=== PATIENT | male | born 1965 | race Caucasian/White ===

== ENCOUNTER 2018-08-14 20:10 | Inpatient (IN) | payer OTHER ==
[~2018-08-14] VITALS: Ht 180.3 cm; Wt 60.9 kg
[2018-08-14 20:27] LABS: BASOPHILS % (AUTO) 0 % (0-10); EOSINOPHILS % (AUTO) 1 % (0-10); HEMATOCRIT 37 % (40-54); HEMOGLOBIN 12.6 G/DL (13.3-17.7); LYMPHOCYTES # (AUTO) 1.9 X 10^3 (1.0-4.0); LYMPHOCYTES % (AUTO) 30 % (12-44); MEAN CORPUSCULAR HEMOGLOBIN 29 PG (25-34); MEAN CORPUSCULAR HGB CONC 34 G/DL (32-36); MEAN CORPUSCULAR VOLUME 86 FL (80-99); MEAN PLATELET VOLUME 11.6 FL (7.4-10.4); MONOCYTES # (AUTO) 0.5 X 10^3 (0.0-1.0); MONOCYTES % (AUTO) 7 % (0-12); NEUTROPHILS # (AUTO) 3.9 X 10^3 (1.8-7.8); NEUTROPHILS % (AUTO) 62 % (42-75); PLATELET COUNT 160 10^3/uL (130-400); RED BLOOD COUNT 4.28 10^6/uL (4.35-5.85); RED CELL DISTRIBUTION WIDTH 13.6 % (10.0-14.5); WHITE BLOOD COUNT 6.2 10^3/uL (4.3-11.0)
--- NOTE | 2018-08-14 20:29 | ED Abdominal Pain ---
General Stated Complaint: ELEVATED BLOOD SUGAR Source of Information: Patient, EMS Exam Limitations: No Limitations History of Present Illness Date Seen by Provider: Aug 14, 2018 Time Seen by Provider: 20:08 Initial Comments Patient presents to ER by EMS from [place] where he lives now with chief complaint of about 3-4 hours ago having some epigastric abdominal pain nausea vomiting loose but not watery stools. He had normal bowel movements yesterday. No fevers chills. He says he has history of pancreatitis and status post Whipple procedure couple years ago in [place], [place]. He's originally from [place] but moved around a lot lately. He had a couple hernia surgery was done at [facility]. He is not taking anything for pain or nausea at home. Does not follow with a primary care doctor since moving to [place]. He has a history of diabetes for which he uses Levemir in the morning and sliding scale NovoLog throughout the day. He does not have any strips that he has not checked his sugar lately. EMS remarks that it read high. They gave him 4 of Zofran and started a half a liter fluids. Smokes cigarettes but quit drinking 11 months ago. Thinks the pancreatitis started from the alcohol. Allergies and Home Medications Allergies Coded Allergies: No Known Drug Allergies (Unverified , 08/14/18) Patient Home Medication List Home Medication List Reviewed: Yes Review of Systems Review of Systems Constitutional: No chills, No diaphoresis, No fever EENTM: No Blurred Vision, No Double Vision Respiratory: Denies Cough, Denies Shortness of Air Cardiovascular: Denies Chest Pain, Denies Lightheadedness Gastrointestinal: Denies Constipated, Denies Diarrhea; Nausea, Vomiting Genitourinary: Denies Burning, Denies Drainage Musculoskeletal: No back pain, No joint pain Skin: No pruritus, No rash Psychiatric/Neurological: Denies Headache, Denies Numbness Past Xrzlruw-Zmkuvw-Qzwhjq Hx Patient Social History Alcohol Use: Past History Recreational Drug Use: No Smoking Status: Current Everyday Smoker Type Used: Cigarettes Physical Exam Vital Signs Vital Signs - First Documented 08/14/18 20:12 Temp 97.9 Pulse 84 Resp 18 B/P (MAP) 136/96 (109) Pulse Ox 100 O2 Delivery Room Air Capillary Refill : Height/Weight/BMI Height: '" Weight: lbs. oz. kg; BMI Method: General Appearance: WD/WN, moderate distress HEENT: PERRL/EOMI, normal ENT inspection, pharynx normal (Oropharynx is dry) Neck: non-tender, full range of motion, supple, normal inspection Respiratory: chest non-tender, lungs clear, normal breath sounds, no respiratory distress, no accessory muscle use Cardiovascular: normal peripheral pulses, regular rate, rhythm, no edema Gastrointestinal: normal bowel sounds, no organomegaly, guarding, tenderness, other (Previous well-healed scars) Neurologic/Psychiatric: alert, oriented x 3 Skin: normal color, warm/dry Focused Exam Lactate Level 08/14/18 20:20: Lactic Acid Level 4.65*H Lactic Acid Level Laboratory Tests Test 08/14/18 20:20 Lactic Acid Level 4.65 MMOL/L (0.50-2.00) *H Progress/Results/Core Measures Results/Orders Lab Results Laboratory Tests Test 08/14/18 20:20 08/14/18 20:45 Range/Units White Blood Count 6.2 4.3-11.0 10^3/uL Red Blood Count 4.28 L 4.35-5.85 10^6/uL Hemoglobin 12.6 L 13.3-17.7 G/DL Hematocrit 37 L 40-54 % Mean Corpuscular Volume 86 80-99 FL Mean Corpuscular Hemoglobin 29 25-34 PG Mean Corpuscular Hemoglobin Concent 34 32-36 G/DL Red Cell Distribution Width 13.6 10.0-14.5 % Platelet Count 160 130-400 10^3/uL Mean Platelet Volume 11.6 H 7.4-10.4 FL Neutrophils (%) (Auto) 62 42-75 % Lymphocytes (%) (Auto) 30 12-44 % Monocytes (%) (Auto) 7 0-12 % Eosinophils (%) (Auto) 1 0-10 % Basophils (%) (Auto) 0 0-10 % Neutrophils # (Auto) 3.9 1.8-7.8 X 10^3 Lymphocytes # (Auto) 1.9 1.0-4.0 X 10^3 Monocytes # (Auto) 0.5 0.0-1.0 X 10^3 Eosinophils # (Auto) 0.0 0.0-0.3 10^3/uL Basophils # (Auto) 0.0 0.0-0.1 10^3/uL Prothrombin Time 13.7 12.2-14.7 SEC INR Comment 1.1 0.8-1.4 Activated Partial Thromboplast Time 37 H 24-35 SEC Sodium Level 128 L 135-145 MMOL/L Potassium Level 3.8 3.6-5.0 MMOL/L Chloride Level 93 L 98-107 MMOL/L Carbon Dioxide Level 21 21-32 MMOL/L Anion Gap 14 5-14 MMOL/L Blood Urea Nitrogen 9 7-18 MG/DL Creatinine 1.22 0.60-1.30 MG/DL Estimat Glomerular Filtration Rate > 60 BUN/Creatinine Ratio 7 Glucose Level 882 *H 70-105 MG/DL Lactic Acid Level 4.65 *H 0.50-2.00 MMOL/L Calcium Level 8.4 L 8.5-10.1 MG/DL Corrected Calcium 8.8 8.5-10.1 MG/DL Total Bilirubin 0.5 0.1-1.0 MG/DL Aspartate Amino Transf (AST/SGOT) 22 5-34 U/L Alanine Aminotransferase (ALT/SGPT) 26 0-55 U/L Alkaline Phosphatase 98 40-136 U/L Total Protein 5.8 L 6.4-8.2 GM/DL Albumin 3.5 3.2-4.5 GM/DL Triglycerides Level 148 <150 MG/DL Amylase Level 47 25-125 U/L Lipase 28 8-78 U/L Serum Alcohol < 10 <10 MG/DL Urine Color YELLOW Urine Clarity CLEAR Urine pH 6.5 5-9 Urine Specific [place] 1.010 L 1.016-1.022 Urine Protein NEGATIVE NEGATIVE Urine Glucose (UA) 4+ H NEGATIVE Urine Ketones NEGATIVE NEGATIVE Urine Nitrite NEGATIVE NEGATIVE Urine Bilirubin NEGATIVE NEGATIVE Urine Urobilinogen NORMAL NORMAL MG/DL Urine Leukocyte Esterase NEGATIVE NEGATIVE Urine RBC (Auto) NEGATIVE NEGATIVE Urine RBC NONE /HPF Urine WBC NONE /HPF Urine Crystals NONE /LPF Urine Bacteria NEGATIVE /HPF Urine Casts NONE /LPF Urine Mucus NEGATIVE /LPF Urine Culture Indicated NO Urine Opiates Screen NEGATIVE NEGATIVE Urine Oxycodone Screen NEGATIVE NEGATIVE Urine Methadone Screen NEGATIVE NEGATIVE Urine Propoxyphene Screen NEGATIVE NEGATIVE Urine Barbiturates Screen NEGATIVE NEGATIVE Ur Tricyclic Antidepressants Screen NEGATIVE NEGATIVE Urine Phencyclidine Screen NEGATIVE NEGATIVE Urine Amphetamines Screen NEGATIVE NEGATIVE Urine Methamphetamines Screen NEGATIVE NEGATIVE Urine Benzodiazepines Screen POSITIVE H NEGATIVE Urine Cocaine Screen NEGATIVE NEGATIVE Urine Cannabinoids Screen POSITIVE H NEGATIVE My Orders Orders - ТАТЬЯНА CUNNINGHAM Cbc With Automated Diff (08/14/18 20:17) Comprehensive Metabolic Panel (08/14/18 20:17) Blood Culture (08/14/18 20:17) Sputum Culture (08/14/18 20:17) Urinalysis (08/14/18 20:17) Urine Culture (08/14/18 20:17) Protime With Inr (08/14/18 20:17) Partial Thromboplastin Time (08/14/18 20:17) Chest 1 View, Ap/Pa Only (08/14/18 20:17) Saline Lock/Iv-Start (08/14/18 20:17) Saline Lock/Iv-Start (08/14/18 20:17) Vital Signs Adult Sepsis Patie Q15M (08/14/18 20:17) O2 (08/14/18 20:17) Remove Rings In Anticipation O (08/14/18 20:17) Lactic Acid Analyzer (08/14/18 20:17) Ns Iv 1000 Ml (Sodium Chloride 0.9%) (08/14/18 20:30) Piperacillin Sodium/Tazobactam (Zosyn Vi (08/14/18 20:30) Ct Abdomen/Pelvis W (08/14/18 20:17) Lipase (08/14/18 20:17) Amylase (08/14/18 20:17) Ketorolac Injection (Toradol Injection) (08/14/18 20:30) Alcohol (08/14/18 20:51) Triglycerides (08/14/18 20:51) Drug Screen Stat (Urine) (08/14/18 20:51) Insulin (Regular) Human (Humulin R (Per (08/14/18 21:30) Potassium Cl 10meq/50ml Ivpb (Kcl 10 Meq (08/14/18 21:30) Iohexol Injection (Omnipaque 350 Mg/Ml 1 (08/14/18 21:45) Contrast Received (Contrast Received) (08/14/18 21:45) Ns (Ivpb) (Sodium Chloride 0.9%) (08/14/18 21:45) Saline Lock/Iv-Start (08/14/18 21:50) Ns Iv 500 Ml (Sodium Chloride 0.9%) (08/14/18 21:50) Fentanyl Injection (Sublimaze Injection (08/14/18 22:00) Medications Given in ED Current Medications Medications Dose Ordered Sig/Zuleika Route Start Time Stop Time Status Last Admin Dose Admin Insulin Human Regular 10 unit ONCE ONCE IV 08/14/18 21:30 08/14/18 21:31 DC 08/14/18 21:34 10 UNIT Iohexol 100 ml ONCE ONCE IV 08/14/18 21:45 08/14/18 21:46 DC 08/14/18 21:36 100 ML Ketorolac Tromethamine 30 mg ONCE ONCE IVP 08/14/18 20:30 08/14/18 20:31 DC 08/14/18 20:38 30 MG Piperacillin Sod/ Tazobactam Sod 4.5 gm/Sodium Chloride 100 ml @ 200 mls/hr ONCE ONCE IV 08/14/18 20:30 08/14/18 20:59 DC 08/14/18 20:48 200 MLS/HR Potassium Chloride 50 ml @ 50 mls/hr ONCE ONCE IV 08/14/18 21:30 08/14/18 22:29 08/14/18 21:34 50 MLS/HR Sodium Chloride 250 ml ONCE ONCE IV 08/14/18 21:45 08/14/18 21:46 DC 08/14/18 21:36 80 ML Sodium Chloride 500 ml @ 0 mls/hr Q0M ONCE IV 08/14/18 21:50 08/14/18 21:51 DC 08/14/18 21:55 500 MLS/HR Sodium Chloride 1,650 ml @ 1,650 mls/hr ONCE ONCE IV 08/14/18 20:30 08/14/18 21:29 DC 08/14/18 20:25 1,650 MLS/HR Vital Signs/I&O 08/14/18 08/14/18 20:12 20:12 Temp 97.9 Pulse 84 Resp 18 B/P (MAP) 136/96 (109) Pulse Ox 100 100 O2 Delivery Room Air Room Air Diagnostic Imaging Diagonstic Imaging: Xray Plain Films/CT/US/NM/MRI: chest (1v) Comments VIA [facility], [facility]. [place], [place] NAME: ROBEL PEREZ [facility] REC#: [id number] PT STATUS: REG ER : 1965 PHYSICIAN: ТАТЬЯНА CUNNINGHAM MD ADMIT DATE: 08/14/18/ER Draft Date of Exam:08/14/18 CHEST 1 VIEW, AP/PA ONLY INDICATION: Elevated blood sugar COMPARISON: None FINDINGS: Single frontal view of the chest demonstrates normal heart size and pulmonary vascularity. The lungs are well aerated and clear. No large pleural effusion or pneumothorax is seen. The visualized osseous structures show no acute abnormalities. IMPRESSION: 1. No acute cardiopulmonary process. Dictated on workstation # [id number] Dict: 08/14/182137 Trans: 08/14/182138 [facility] [id number] Interpreted by: JABARI EDGE MD Electronically signed by: Reviewed: Reviewed by Me Diagonstic Imaging: CT (c/c) Plain Films/CT/US/NM/MRI: abdomen, pelvis Comments VIA [place], [place] NAME: ROBEL PEREZ [facility] REC#: [id number] PT STATUS: REG ER : 1965 PHYSICIAN: ТАТЬЯНА CUNNINGHAM MD ADMIT DATE: 08/14/18/ER Draft Date of Exam:08/14/18 CT ABDOMEN/PELVIS W PROCEDURE: CT abdomen and pelvis with contrast. TECHNIQUE: Multiple contiguous axial images were obtained through the abdomen and pelvis after administration of intravenous contrast. INDICATION: Abdominal pain. History of pancreatitis. Previous Whipple and hernia repair. COMPARISON: None FINDINGS: Included portions of the lung bases are clear. CT abdomen: Large amount of air and stool is noted scattered throughout the rectum and colon. Normal appendix is identified. Small bowel loops are nondistended. Kidneys, adrenal glands, spleen, and liver have a normal CT appearance. Bulky dystrophic calcifications are noted within the region of the pancreatic head and uncinate process. There is otherwise advanced atrophy of the remainder of the pancreas. There is relative significant lack of intra-abdominal fat. No abnormal mesenteric or retroperitoneal adenopathy is seen. There is no loculated fluid collection, free fluid, nor free air within the abdomen. There is mild scattered calcified aortic and arterial atherosclerosis. Bony structures show no acute abnormalities. CT pelvis: Urinary bladder is grossly unremarkable. There is no loculated fluid collection, free fluid, nor free air within the pelvis. No abnormal lymph nodes are seen. Bony structures show no acute abnormalities. IMPRESSION: 1. Large amount of colonic and rectal air and stool. Please correlate for constipation/impaction. 2. No other acute abnormalities are seen within the abdomen or pelvis. 3. Bulky benign calcifications in the pancreatic head and uncinate process. Findings can be seen with chronic or recurrent pancreatitis. There is no convincing CT evidence of acute pancreatitis on today's exam. Dictated on workstation # [id number] Dict: 08/14/182139 Trans: 08/14/18 2149 [facility] [id number] Interpreted by: JABARI DEGE MD Electronically signed by: Reviewed: Reviewed by Me Departure Communication (Admissions) Time/Spoke to Admitting Phy: 21:20 Discussed case lab imaging findings with Dr. Quinonez she agrees to admit the patient to the ICU. Impression Primary Impression: Type 2 diabetes mellitus with hyperosmolar nonketotic hyperglycemia Disposition: ADMITTED INPATIENT Condition: Stable Admissions Decision to Admit Reason: Admit from ER (General) Decision to Admit/Date: Aug 14, 2018 Time/Decision to Admit Time: 21:28 Departure-Patient Inst. Referrals: UNKNOWN (PCP/Family) Primary Care Physician ТАТЬЯНА CUNNINGHAM Aug 14, 2018 20:29
[2018-08-14] MEDS ORDERED: PIPERACILLIN SODIUM/TAZOBACTAM 4.5 GM in NS (IVPB) 100 ML IV ONE (20:30)
[2018-08-14] MEDS ORDERED: fentaNYL INJECTION 100 MCG/2 ML AMP IVP ONE ×2 (20:30→22:00)
[2018-08-14] MEDS ORDERED: KETOROLAC 30 MG/ML VIAL IVP ONE (20:30)
[2018-08-14] MEDS ORDERED: NS IV ONE (20:30)
[2018-08-14 20:53] LABS: ALANINE AMINOTRANSFERASE 26 U/L (0-55); ALBUMIN 3.5 GM/DL (3.2-4.5); ALKALINE PHOSPHATASE 98 U/L (40-136); AMYLASE 47 U/L (25-125); BILIRUBIN,TOTAL 0.5 MG/DL (0.1-1.0); BUN/CREATININE RATIO 7; CALCIUM 8.4 MG/DL (8.5-10.1); CARBON DIOXIDE 21 MMOL/L (21-32); CHLORIDE 93 MMOL/L (98-107); CREATININE SERUM 1.22 MG/DL (0.60-1.30); GFR ESTIMATED > 60; INR 1.1 (0.8-1.4); LIPASE 28 U/L (8-78); POTASSIUM 3.8 MMOL/L (3.6-5.0); PROTHROMBIN TIME PATIENT 13.7 SEC (12.2-14.7); SODIUM 128 MMOL/L (135-145); TOTAL PROTEIN 5.8 GM/DL (6.4-8.2)
[2018-08-14 21:01] LABS: BILIRUBIN,URINE NEGATIVE (NEGATIVE); CLARITY,URINE CLEAR; COLOR,URINE YELLOW; GLUCOSE, URINE (UA) 4+ (NEGATIVE); KETONES,URINE NEGATIVE (NEGATIVE); LEUKOCYTE ESTERASE ,URINE NEGATIVE (NEGATIVE); NITRITE,URINE NEGATIVE (NEGATIVE); PH,URINE 6.5 (5-9); PROTEIN,URINE NEGATIVE (NEGATIVE); UROBILINOGEN,URINE NORMAL (NORMAL)
[2018-08-14 21:12] LABS: TRIGLYCERIDES 148 MG/DL (<150)
[2018-08-14 21:14] LABS: AMPHETAMINE SCREEN, URINE NEGATIVE (NEGATIVE); BARBITURATE SCREEN URINE NEGATIVE (NEGATIVE); BENZODIAZEPINES SCREEN URINE POSITIVE (NEGATIVE); CANNABINOID SCREEN, URINE POSITIVE (NEGATIVE); COCAINE SCREEN URINE NEGATIVE (NEGATIVE); METHADONE STAT NEGATIVE (NEGATIVE); METHAMPHETAMINE SCREEN URINE S NEGATIVE (NEGATIVE); OPIATE SCREEN URINE NEGATIVE (NEGATIVE); OXYCODONE STAT NEGATIVE (NEGATIVE); PROPOXYPHENE STAT NEGATIVE (NEGATIVE); TRICYCLIC ANTIDEPRESSANTS SCRE NEGATIVE (NEGATIVE)
[2018-08-14 21:15] LABS: BACTERIA,URINE NEGATIVE /HPF
[2018-08-14 21:19] LABS: GLUCOSE 882 MG/DL (70-105)
[2018-08-14] MEDS ORDERED: inSUlin (REGULAR) HUMAN 1 UNIT/0.01 ML (CHARGE PER UNIT) IV ONE (21:30)
[2018-08-14] MEDS ORDERED: POTASSIUM CL 10MEQ/50ML IVPB 50 ML IV ONE (21:30)
--- NOTE | 2018-08-14 21:40 | Diagnostic Imaging Report ---
INDICATION: Elevated blood sugar COMPARISON: None FINDINGS: Single frontal view of the chest demonstrates normal heart size and pulmonary vascularity. The lungs are well aerated and clear. No large pleural effusion or pneumothorax is seen. The visualized osseous structures show no acute abnormalities. IMPRESSION: 1. No acute cardiopulmonary process. Dictated by: Dictated on workstation # [id number]
[2018-08-14] MEDS ORDERED: RECEIVED CONTRAST (Hold Metformin) IV SCH (21:45)
[2018-08-14] MEDS ORDERED: IOHEXOL 350 MG/ML 100 ML (OMNIPAQUE 350) VIAL IV ONE (21:45)
[2018-08-14] MEDS ORDERED: NS 250 ML (IVPB) BAG IV ONE (21:45)
[2018-08-14] MEDS ORDERED: NS IV 500 ML 500 ML IV ONE (21:50)
--- NOTE | 2018-08-14 21:50 | Diagnostic Imaging Report ---
PROCEDURE: CT abdomen and pelvis with contrast. TECHNIQUE: Multiple contiguous axial images were obtained through the abdomen and pelvis after administration of intravenous contrast. INDICATION: Abdominal pain. History of pancreatitis. Previous Whipple and hernia repair. COMPARISON: None FINDINGS: Included portions of the lung bases are clear. CT abdomen: Large amount of air and stool is noted scattered throughout the rectum and colon. Normal appendix is identified. Small bowel loops are nondistended. Kidneys, adrenal glands, spleen, and liver have a normal CT appearance. Bulky dystrophic calcifications are noted within the region of the pancreatic head and uncinate process. There is otherwise advanced atrophy of the remainder of the pancreas. There is relative significant lack of intra-abdominal fat. No abnormal mesenteric or retroperitoneal adenopathy is seen. There is no loculated fluid collection, free fluid, nor free air within the abdomen. There is mild scattered calcified aortic and arterial atherosclerosis. Bony structures show no acute abnormalities. CT pelvis: Urinary bladder is grossly unremarkable. There is no loculated fluid collection, free fluid, nor free air within the pelvis. No abnormal lymph nodes are seen. Bony structures show no acute abnormalities. IMPRESSION: 1. Large amount of colonic and rectal air and stool. Please correlate for constipation/impaction. 2. No other acute abnormalities are seen within the abdomen or pelvis. 3. Bulky benign calcifications in the pancreatic head and uncinate process. Findings can be seen with chronic or recurrent pancreatitis. There is no convincing CT evidence of acute pancreatitis on today's exam. Dictated by: Dictated on workstation # [id number]
[2018-08-14 23:08] VITALS: BP 125/98
[2018-08-14 23:15] VITALS: BP 126/94
[2018-08-14 23:30] VITALS: BP 126/93
[2018-08-14] MEDS ORDERED: REGULAR inSUlin DRIP 250 UNITS/NS 250 ML IV SCH ×2 (23:30)
[2018-08-14] MEDS ORDERED: PROMETHAZINE INJ 25 MG/ML (PHENERGAN) AMP IV PRN (23:30)
[2018-08-14] MEDS ORDERED: 1/2 NS IV SOLUTION 1,000 ML IV SCH (23:30)
[2018-08-14] MEDS ORDERED: D5 1/2 NS IV 1,000 ML IV SCH (23:30)
[2018-08-14] MEDS ORDERED: ONDANSETRON 4 MG/2 ML (SDV) Z0FRAN IV PRN (23:30)
[2018-08-14] MEDS ORDERED: POTASSIUM CL 10MEQ/50ML IVPB X 4 (TOTAL 40 MEQ) IV SCH (23:30)
[2018-08-14] MEDS ORDERED: CATHETER FLUSH 10 ML SYR IV PRN (23:30)
[2018-08-14] MEDS ORDERED: DEXTROSE 10% IV SOLUTION 1,000 ML IV SCH (23:30)
[2018-08-14 23:45] VITALS: BP 132/91
[2018-08-14] MEDS: fentaNYL INJECTION 100 MCG/2 ML AMP IV PRN (23:51)
[2018-08-15] VITALS (36 sets, daily range): BP systolic 117–148; BP diastolic 80–111
[2018-08-15 00:08] LABS: BUN/CREATININE RATIO 10; CALCIUM 8.2 MG/DL (8.5-10.1); CARBON DIOXIDE 21 MMOL/L (21-32); CHLORIDE 104 MMOL/L (98-107); CREATININE SERUM 0.73 MG/DL (0.60-1.30); GFR ESTIMATED > 60; GLUCOSE 228 MG/DL (70-105); POTASSIUM 3.4 MMOL/L (3.6-5.0); SODIUM 136 MMOL/L (135-145)
[2018-08-15] MEDS ORDERED: 1/2 NS IV SOLUTION 1,000 ML IV SCH (01:45)
[2018-08-15] MEDS ORDERED: REGULAR inSUlin DRIP 250 UNITS/NS 250 ML IV SCH ×2 (02:00)
[2018-08-15] MEDS ORDERED: CHLORASEPTIC SPRAY 177 ML LIQUID MC ONE (02:11)
[2018-08-15] MEDS ORDERED: NORMAL SALINE 250 ML ONE (02:29)
[2018-08-15] MEDS ORDERED: inSUlin (REGULAR) HUMAN 1 UNIT/0.01 ML (CHARGE PER UNIT) ONE (02:31)
[2018-08-15] MEDS ORDERED: POTASSIUM CL 10MEQ/50ML IVPB 50 ML IV ONE ×2 (02:42→05:37)
[2018-08-15] MEDS: D5 1/2 NS IV 1,000 ML IV SCH ×2 (03:08→06:20)
[2018-08-15] MEDS: DEXTROSE 10% IV SOLUTION 1,000 ML IV SCH ×2 (03:08→06:20)
[2018-08-15] MEDS: KETOROLAC 15 MG/ML VIAL IV PRN ×2 (03:10→17:21)
[2018-08-15] MEDS ORDERED: POTASSIUM CL 10MEQ/50ML IVPB 50 ML IV PRN (03:15)
[2018-08-15] MEDS ORDERED: inSUlin ASPART (NovoLOG) 1 UNIT/0.01 ML (CHARGE PER UNIT) SC SCH ×2 (04:00→11:00)
[2018-08-15 04:16] LABS: BASOPHILS % (AUTO) 0 % (0-10); EOSINOPHILS # (AUTO) 0.1 10^3/uL (0.0-0.3); EOSINOPHILS % (AUTO) 1 % (0-10); HEMATOCRIT 36 % (40-54); HEMOGLOBIN 12.5 G/DL (13.3-17.7); LYMPHOCYTES # (AUTO) 3.2 X 10^3 (1.0-4.0); LYMPHOCYTES % (AUTO) 37 % (12-44); MEAN CORPUSCULAR HEMOGLOBIN 30 PG (25-34); MEAN CORPUSCULAR HGB CONC 35 G/DL (32-36); MEAN CORPUSCULAR VOLUME 85 FL (80-99); MEAN PLATELET VOLUME 11.2 FL (7.4-10.4); MONOCYTES # (AUTO) 0.7 X 10^3 (0.0-1.0); MONOCYTES % (AUTO) 8 % (0-12); NEUTROPHILS # (AUTO) 4.6 X 10^3 (1.8-7.8); NEUTROPHILS % (AUTO) 53 % (42-75); PLATELET COUNT 151 10^3/uL (130-400); RED CELL DISTRIBUTION WIDTH 13.6 % (10.0-14.5); WHITE BLOOD COUNT 8.6 10^3/uL (4.3-11.0)
[2018-08-15 04:33] LABS: BUN/CREATININE RATIO 10; CALCIUM 8.2 MG/DL (8.5-10.1); CARBON DIOXIDE 21 MMOL/L (21-32); CHLORIDE 104 MMOL/L (98-107); CREATININE SERUM 0.67 MG/DL (0.60-1.30); GFR ESTIMATED > 60; GLUCOSE 201 MG/DL (70-105); MAGNESIUM 1.6 MG/DL (1.8-2.4); PHOSPHORUS 2.3 MG/DL (2.3-4.7); POTASSIUM 3.2 MMOL/L (3.6-5.0); SODIUM 135 MMOL/L (135-145)
[2018-08-15] MEDS: fentaNYL INJECTION 100 MCG/2 ML AMP IV PRN (06:16)
[2018-08-15] MEDS: CATHETER FLUSH 10 ML SYR IV SCH ×3 (06:18→21:31)
--- NOTE | 2018-08-15 06:20 | Pulmonary Consultation ---
History of Present Illness History of Present Illness Date of Consultation 08/15/18 06:07 Date of Admission Allergies and Home Medications Allergies Coded Allergies: No Known Drug Allergies (Unverified , 08/14/18) Past Zjcwzzx-Ouekhz-Rlzdyl Hx Patient Social History Alcohol Use: Past History Recreational Drug Use: Yes Drug of Choice: cannibus Smoking Status: Current Everyday Smoker Type Used: Cigarettes 2nd Hand Smoke Exposure: Yes Recent Foreign Travel: No Contact w/Someone Who Travel: No Recent Infectious Disease Expo: No Recent Hopitalizations: Yes (a month ago for pancreatitis) Immunizations Up To Date Tetanus Booster (TDap): Unknown PED Vaccines UTD: No Date of Pneumonia Vaccine: Aug 15, 2015 Seasonal Allergies Seasonal Allergies: No Past Medical History Surgeries: Yes (whipple, hernia, psuedo-cyst on pancreas) Respiratory: No Cardiac: Yes Neurological: Yes Genitourinary: Yes Prostate Problems Gastrointestinal: Yes (changes in bowel habits (from diarrhea to constipation)) Pancreatitis Musculoskeletal: Yes Arthritis Endocrine: Yes Diabetes, Insulin dep Are Your Blood Sugars Over 250: Yes HEENT: No Cancer: No Psychosocial: Yes Anxiety Integumentary: No Blood Disorders: No Family Medical History Not obtainable due to adoption Sepsis Event Evaluation Height, Weight, BMI Height: 5'11.00" Weight: 129lbs. 5.0oz. 58.720236qh; 17.9 BMI Method:Stated Exam Exam Vital Signs Date Time Temp Pulse Resp B/P (MAP) Pulse Ox O2 Delivery O2 Flow Rate FiO2 08/15/18 04:45 70 16 128/82 (97) 98 Room Air 08/15/18 04:30 67 16 126/81 (96) 98 Room Air 08/15/18 04:15 65 14 141/101 (114) 99 Room Air 08/15/18 04:00 66 18 138/95 (109) 99 Room Air 08/15/18 04:00 96 Room Air 08/15/18 03:45 64 21 136/99 (111) 98 Room Air 08/15/18 03:30 67 24 133/98 (110) 97 Room Air 08/15/18 03:15 67 8 139/98 (112) 97 Room Air 08/15/18 03:00 68 14 137/97 (110) 99 Room Air 08/15/18 02:45 70 11 143/96 (112) 98 Room Air 08/15/18 02:30 66 8 126/100 (109) 98 Room Air 08/15/18 02:15 81 12 146/92 (110) 99 Room Air 08/15/18 02:00 74 16 129/80 (96) 97 Room Air 08/15/18 01:45 72 16 127/80 (96) 97 Room Air 08/15/18 01:30 70 15 120/90 (100) 98 Room Air 08/15/18 01:15 73 123/91 (102) 98 Room Air 08/15/18 01:00 71 08/15/18 01:00 71 13 135/97 (110) 98 Room Air 08/15/18 00:45 71 13 134/94 (107) 98 Room Air 08/15/18 00:30 73 13 135/95 (108) 98 Room Air 08/15/18 00:15 71 12 130/90 (103) 98 Room Air 08/15/18 00:00 99 Room Air 08/15/18 00:00 77 12 135/101 (112) 98 Room Air 08/14/18 23:45 77 11 132/91 (105) 98 Room Air 08/14/18 23:30 73 20 126/93 (104) 99 Room Air 08/14/18 23:30 96 Room Air 08/14/18 23:15 77 08/14/18 23:15 80 13 126/94 (105) 99 Room Air 08/14/18 23:08 98.0 79 16 125/98 (107) 99 Room Air 08/14/18 22:52 98.7 77 18 142/99 (113) 99 Room Air 08/14/18 20:12 97.9 84 18 136/96 (109) 100 Room Air 08/14/18 20:12 100 Room Air I & O 08/15/18 07:00 Intake Total 2500 ml Output Total 1375 ml Balance 1125 ml Height & Weight Height: 5'11.00" Weight: 129lbs. 5.0oz. 58.619939tv; 17.9 BMI Method:Stated Capillary Refill: Less Than 3 Seconds Gastrointestinal: normal bowel sounds, no organomegaly, guarding, tenderness, other (Previous well-healed scars) Results Lab Laboratory Tests 08/14/18 20:20 08/14/18 23:49 08/15/18 04:05 Assessment/Plan Assessment/Plan HHNK- resolved -Pt has not been taking insulin -Give Lantus 15 units (home dose) -D/C insulin gtt -IVF Metabolic acidosis -IVF Anemia -Check occult stool Abdominal pain LUQ -Amylase/Lipase are normal -CT of abdomen shows constipation -Pt has been loosing wt probably needs EGD and colonoscopy r/o mass -Consider surgery consult ROSA TRINIDAD DO Aug 15, 2018 6:19 am
[2018-08-15] MEDS ORDERED: inSUlin DETERMIR 1 UNIT/0.01 ML (LEVEMIR) CHARGE PER UNIT SQ ONE (06:23)
[2018-08-15] MEDS: inSUlin DETERMIR 1 UNIT/0.01 ML (LEVEMIR) CHARGE PER UNIT SQ SCH ×2 (06:26→21:30)
[2018-08-15] MEDS ORDERED: ENOXAPARIN 40 MG/0.4 ML (LOVENOX) SYR SC SCH (06:45)
[2018-08-15] MEDS ORDERED: FLU QUADRIvalent (5+ YOA) 2018-2019 (AFLURIA) 0.5 ML IM ONE ×2 (08:45→13:41)
--- NOTE | 2018-08-15 09:30 | History & Physical-Hospitalist ---
History of Present Illness HPI/Chief Complaint Pt is a 52yoCm with a PMH of pancreatic pseudocyst s/p Whipple, chronic pain, chronic diarrhea, HTN, and IDDMII who presented to the ER with CC of abdominal pain. he has a history of pancreatitis and thought it was similar to previous episodes of pancreatitis and thus presented to the ER for evaluation. On arrival he was found to have a BS reading of high per EMS and formal lab studies showed BS of 882. He was not acidotic or ketotic at the time. CT Abd/ pelvis revealed a large amount of stool vs impaction and possible chronic pancreatitis. He states he feels mildly better today but he concern now is about chronic diarrhea for the past year causing him to lose over 100lbs unintentionally. He describes his diarrhea as oily and orange and constantly leaking. He denies missing any Levemir but has not been taking his Humalog as he does not have a glucometer. He also complains of persistent abdominal pain but he was able to tolerate his diet this morning. Source: patient Date Seen 08/15/18 Time Seen by a Provider: 09:24 Attending Physician Zev Quinonez MD PCP No,Local Physician Referring Physician Date of Admission Aug 14, 2018 at 22:42 Home Medications & Allergies Home Medications Reviewed patient Home Medication Reconciliation performed by pharmacy medication reconciliations copier technician and/or nursing. Patients Allergies have been reviewed. Allergies Allergies Coded Allergies No Known Drug Allergies (Vxhtvvpxzo13/24/18) Past Ounjrpg-Piyxbi-Chocng Hx Past Med/Social Hx: Reviewed Nursing Past Med/Soc Hx Patient Social History Marrital Status: Employed/Student: unemployed Alcohol Use: Past History Recreational Drug Use: Yes Drug of Choice: cannibus- smokes every day, as much as possible Smoking Status: Current Everyday Smoker Cigaretts per day: 20 Type Used: Cigarettes 2nd Hand Smoke Exposure: Yes Physical Abuse Screen: No Sexual Abuse: No Recent Foreign Travel: No Contact w/other who traveled: No Recent Hopitalizations: Yes (a month ago for pancreatitis) Recent Infectious Disease Expo: No Immunizations Up To Date Tetanus Booster (TDap): Unknown Pediatric: No Date of Pneumonia Vaccine: Aug 15, 2015 Seasonal Allergies Seasonal Allergies: No Past Medical History Surgeries: Abdominal (whipple) Cardiac: Hypertension Genitourinary: Prostate Problems Gastrointestinal: Pancreatitis Musculoskeletal: Arthritis Endocrine: Diabetes, Insulin dep Are Your Blood Sugars Over 250: Yes Psychosocial: Anxiety History of Blood Disorders: No Family History Reviewed Nursing Family Hx Not obtainable due to adoption No Pertinent Family Hx Review of Systems Constitutional: weakness, weight loss EENTM: No blurred vision, No double vision, No nose congestion, No throat pain Respiratory: No cough, No dyspnea on exertion, No short of breath Cardiovascular: No chest pain, No edema, No palpitations Gastrointestinal: see HPI, abdominal pain, diarrhea, nausea Genitourinary: No dysuria, No frequency Musculoskeletal: No joint pain, No muscle pain Skin: No lesions, No rash Psychiatric/Neurological: Anxiety; Denies Headache, Denies Numbness, Denies Tingling Physical Exam Physical Exam Vital Signs Vital Signs - First Documented 08/14/18 20:12 Temp 97.9 Pulse 84 Resp 18 B/P (MAP) 136/96 (109) Pulse Ox 100 O2 Delivery Room Air Capillary Refill : Less Than 3 Seconds Height, Weight, BMI Height: 5'11.00" Weight: 129lbs. 5.0oz. 58.892536cr; 17.9 BMI Method:Stated General Appearance: Chronically ill, Cachetic, Thin HEENT: No Scleral Icterus (L), No Scleral Icterus (R) Neck: Non Tender, Supple Respiratory: Lungs Clear, No Respiratory Distress Cardiovascular: Regular Rate, Rhythm, No Murmur Gastrointestinal: Normal Bowel Sounds, Non Tender, Soft Extremity: Normal Capillary Refill, No Calf Tenderness Neurologic/Psychiatric: Alert, Oriented x3, Normal Mood/Affect Skin: Normal Color, Warm/Dry, Tattoos/Piercings Results Results/Procedures Labs Patient resulted labs reviewed. Imaging: Reviewed Imaging Report Assessment/Plan Admission Diagnosis HHS/Chronic Pancreatitis Admission Status: Inpatient Order (span 2 midnights) Reason for Inpatient Admission: INsulin gtt, surgical evaluation, will take more than two midnights to stabilize Diagnosis/Problems Diagnosis/Problems (1) Type 2 diabetes mellitus with hyperosmolar nonketotic hyperglycemia Status: Acute Assessment & Plan: Transitioned off gtt this AM Resume home Levemir SSI Check A1c (2) Chronic pancreatitis Status: Chronic Assessment & Plan: Continue pain management Does not appear to be acute Surgery consulted, appreciate recs Qualifiers: Pancreatitis type: unspecified pancreatitis type Qualified Codes: K86.1 - Other chronic pancreatitis (3) Weight loss Assessment & Plan: Reports over 100lb weight loss due to chronic diarrhea (4) Chronic diarrhea Assessment & Plan: Likely due to pancreatic enzyme deficiency Surgery consulted, appreciate recs (5) HTN (hypertension) Assessment & Plan: Well controlled, trend Qualifiers: Hypertension type: essential hypertension Qualified Codes: I10 - Essential (primary) hypertension Clinical Quality Measures DVT/VTE Risk/Contraindication: Risk Factor Score Per Nursin RFS Level Per Nursing on Admit: 2=Moderate ZEV QUINONEZ MD Aug 15, 2018 09:30
[2018-08-15] MEDS ORDERED: NS IV 1000 ML 1,000 ML ONE (09:49)
[2018-08-15] MEDS ORDERED: MAGNESIUM 1 GM/100 ML IVPB 100 ML IV ONE (09:50)
[2018-08-15] MEDS: PANTOPRAZOLE 40 MG (PROTONIX) VIAL IV SCH (09:51)
[2018-08-15] MEDS: fentaNYL INJECTION 100 MCG/2 ML AMP IVP PRN ×4 (10:46→21:30)
[2018-08-15] MEDS ORDERED: KCL 20 MEQ TAB (K-DUR) PO NR (11:30)
[2018-08-15 12:47] LABS: BUN/CREATININE RATIO 8; CALCIUM 8.3 MG/DL (8.5-10.1); CARBON DIOXIDE 22 MMOL/L (21-32); CHLORIDE 100 MMOL/L (98-107); CREATININE SERUM 0.72 MG/DL (0.60-1.30); GFR ESTIMATED > 60; GLUCOSE 282 MG/DL (70-105); POTASSIUM 4.2 MMOL/L (3.6-5.0); SODIUM 132 MMOL/L (135-145)
[2018-08-15] MEDS: POLYETHYLENE GLYCOL 17 GM (MIRALAX) PACK PO SCH ×3 (14:00→21:31)
--- NOTE | 2018-08-15 17:05 | Consultation ---
History of Present Illness History of Present Illness Patient Consulted On(sari/time) 08/15/18 10:29 Date Seen by Provider: Aug 15, 2018 Time Seen by Provider: 10:29 History of Present Illness Consult chronic pancreatitis by Dr. 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 Patient had a cyst gastrostomy performed it sounds like from the patient. Patient since then has had chronic diarrhea states that he'll have oily or age liquid stools and sometimes has incontinence of stool. This is made things very difficult for him socially. Patient states that he has a hard time with diet due to financial circumstances. He has been having abdominal pain worsening but has difficulty giving timelines and overall history. He is unsure of a lot of contributing factors. Patient has lost about 100 pounds over the last year he thinks. 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 He had a CT scan performed which demonstrates calcifications of the pancreas consistent with chronic pancreatitis. No acute pancreatitis findings present. He has a large amount of stool throughout colon consistent with significant constipation. Allergies and Home Medications Allergies Coded Allergies: No Known Drug Allergies (Unverified , 08/14/18) Patient Home Medication List Home Medication List Reviewed: Yes Past Hpldivz-Faewrd-Xgqhuz Hx Patient Social History Alcohol Use: Past History Recreational Drug Use: Yes Drug of Choice: cannibus- smokes every day, as much as possible Smoking Status: Current Everyday Smoker Cigarettes Per Day: 20 Type Used: Cigarettes 2nd Hand Smoke Exposure: Yes Recent Foreign Travel: No Contact w/Someone Who Travel: No Recent Infectious Disease Expo: No Recent Hopitalizations: Yes (a month ago for pancreatitis) Physical Abuse Screen: No Sexual Abuse: No Immunizations Up To Date Tetanus Booster (TDap): Unknown PED Vaccines UTD: No Date of Pneumonia Vaccine: Aug 15, 2015 Seasonal Allergies Seasonal Allergies: No Surgeries History of Surgeries: Yes (whipple, hernia, psuedo-cyst on pancreas) Surgeries: Abdominal (Cyst gastrostomy) Respiratory History of Respiratory Disorde: No Cardiovascular History of Cardiac Disorders: Yes Cardiac Disorders: Hypertension Neurological History of Neurological Disord: Yes Genitourinary History of Genitourinary Disor: Yes Genitourinary Disorders: Prostate Problems Gastrointestinal History of Gastrointestinal Di: Yes (changes in bowel habits (from diarrhea to constipation)) Gastrointestinal Disorders: Pancreatitis Musculoskeletal History of Musculoskeletal Dis: Yes Musculoskeletal Disorders: Arthritis Endocrine History of Endocrine Disorders: Yes Endocrine Disorders: Diabetes, Insulin dep HEENT History of HEENT Disorders: No Cancer History of Cancer: No Psychosocial History of Psychiatric Problem: Yes Behavioral Health Disorders: Anxiety Integumentary History of Skin or Integumenta: No Blood Transfusions History of Blood Disorders: No Family Medical History Significant Family History: No Pertinent Family Hx Family Medial History: Not obtainable due to adoption Review of Systems-General Constitutional: see HPI EENTM: no symptoms reported Respiratory: no symptoms reported Cardiovascular: no symptoms reported Gastrointestinal: see HPI Genitourinary: no symptoms reported Musculoskeletal: no symptoms reported Skin: no symptoms reported Psychiatric/Neurological: No Symptoms Reported Physical Exam-General Problems Physical Exam Vital Signs Vital Signs - First Documented 08/14/18 20:12 Temp 97.9 Pulse 84 Resp 18 B/P (MAP) 136/96 (109) Pulse Ox 100 O2 Delivery Room Air Capillary Refill : Less Than 3 SecondsLess Than 3 Seconds General Appearance: no apparent distress Neck: supple, normal inspection Respiratory: chest non-tender, no respiratory distress, no accessory muscle use Cardiovascular: regular rate, rhythm Gastrointestinal: soft, tenderness (Upper abdomen) Rectal: normal exam, normal rectal tone; No mass, No tenderness Back: no CVA tenderness Extremities: non-tender, normal inspection Neurologic/Psychiatric: 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 as tested, no motor/sensory deficits, alert, normal mood/affect, oriented x 3 Skin: normal color, warm/dry Lymphatic: no adenopathy Data Review Labs Laboratory Tests 08/14/18 20:20: White Blood Count 6.2, Red Blood Count 4.28L, Hemoglobin 12.6L, Hematocrit 37L, Mean Corpuscular Volume 86, Mean Corpuscular Hemoglobin 29, Mean Corpuscular Hemoglobin Concent 34, Red Cell Distribution Width 13.6, Platelet Count 160, Mean Platelet Volume 11.6H, Neutrophils (%) (Auto) 62, Lymphocytes (%) (Auto) 30 , Monocytes (%) (Auto) 7, Eosinophils (%) (Auto) 1, Basophils (%) (Auto) 0, Neutrophils # (Auto) 3.9, Lymphocytes # (Auto) 1.9, Monocytes # (Auto) 0.5, Eosinophils # (Auto) 0.0, Basophils # (Auto) 0.0, Prothrombin Time 13.7, INR Comment 1.1, Activated Partial Thromboplast Time 37H, Sodium Level 128L, Potassium Level 3.8, Chloride Level 93L, Carbon Dioxide Level 21, Anion Gap 14, Blood Urea Nitrogen 9, Creatinine 1.22, Estimat Glomerular Filtration Rate > 60 , BUN/Creatinine Ratio 7, Glucose Level 882*H, Lactic Acid Level 4.65*H, Calcium Level 8.4L, Corrected Calcium 8.8, Total Bilirubin 0.5, Aspartate Amino Transf (AST/SGOT) 22, Alanine Aminotransferase (ALT/SGPT) 26, Alkaline Phosphatase 98, Total Protein 5.8L, Albumin 3.5, Triglycerides Level 148, Amylase Level 47, Lipase 28, Serum Alcohol < 10 08/14/18 20:45: Urine Color YELLOW, Urine Clarity CLEAR, Urine pH 6.5, Urine Specific [place] 1.010L, Urine Protein NEGATIVE, Urine Glucose (UA) 4+H, Urine Ketones NEGATIVE, Urine Nitrite NEGATIVE, Urine Bilirubin NEGATIVE, Urine Urobilinogen NORMAL, Urine Leukocyte Esterase NEGATIVE, Urine RBC (Auto) NEGATIVE, Urine RBC NONE, Urine WBC NONE, Urine Crystals NONE, Urine Bacteria NEGATIVE, Urine Casts NONE, Urine Mucus NEGATIVE, Urine Culture Indicated NO, Urine Opiates Screen NEGATIVE , Urine Oxycodone Screen NEGATIVE, Urine Methadone Screen NEGATIVE, Urine Propoxyphene Screen NEGATIVE, Urine Barbiturates Screen NEGATIVE, Ur Tricyclic Antidepressants Screen NEGATIVE, Urine Phencyclidine Screen NEGATIVE, Urine Amphetamines Screen NEGATIVE, Urine Methamphetamines Screen NEGATIVE, Urine Benzodiazepines Screen POSITIVEH, Urine Cocaine Screen NEGATIVE, Urine Cannabinoids Screen POSITIVEH 08/14/18 22:25: Lactic Acid Level 3.21*H 08/14/18 23:49: Sodium Level 136, Potassium Level 3.4L, Chloride Level 104, Carbon Dioxide Level 21, Anion Gap 11, Blood Urea Nitrogen 7, Creatinine 0.73, Estimat Glomerular Filtration Rate > 60, BUN/Creatinine Ratio 10, Glucose Level 228H, Calcium Level 8.2L 08/15/18 00:42: Glucometer 203H 08/15/18 02:19: Glucometer 184H 08/15/18 03:22: Glucometer 231H 08/15/18 04:05: White Blood Count 8.6, Red Blood Count 4.20L, Hemoglobin 12.5L, Hematocrit 36L, Mean Corpuscular Volume 85, Mean Corpuscular Hemoglobin 30, Mean Corpuscular Hemoglobin Concent 35, Red Cell Distribution Width 13.6, Platelet Count 151, Mean Platelet Volume 11.2H, Neutrophils (%) (Auto) 53, Lymphocytes (%) (Auto) 37 , Monocytes (%) (Auto) 8, Eosinophils (%) (Auto) 1, Basophils (%) (Auto) 0, Neutrophils # (Auto) 4.6, Lymphocytes # (Auto) 3.2, Monocytes # (Auto) 0.7, Eosinophils # (Auto) 0.1, Basophils # (Auto) 0.0, Sodium Level 135, Potassium Level 3.2L, Chloride Level 104, Carbon Dioxide Level 21, Anion Gap 10, Blood Urea Nitrogen 7, Creatinine 0.67, Estimat Glomerular Filtration Rate > 60, BUN/ Creatinine Ratio 10, Glucose Level 201H, Lactic Acid Level 1.41, Calcium Level 8.2L, Phosphorus Level 2.3, Magnesium Level 1.6L 08/15/18 04:28: Glucometer 177H 08/15/18 10:54: Glucometer 271H 08/15/18 11:47: Sodium Level 132L, Potassium Level 4.2, Chloride Level 100, Carbon Dioxide Level 22, Anion Gap 10, Blood Urea Nitrogen 6L, Creatinine 0.72, Estimat Glomerular Filtration Rate > 60, BUN/Creatinine Ratio 8, Glucose Level 282H, Calcium Level 8.3L 08/15/18 16:15: Glucometer 222H 08/15/18 16:35: Microbiology 08/14/18 Blood Culture - Preliminary, Resulted No growth Assessment/Plan Assessment/Plan Assessment/Plan Chronic pancreatitis, constipation weight loss, diabetes Patient is a 52-year-old who from his description I believe he had a cyst gastrostomy performed in 2012. He has chronic pain from chronic pancreatitis, he does not have acute pancreatitis by imaging at this time. He has had approximately 100 pound weight loss unintentionally. Suspect patient may have some overflow incontinence of stool. We will start him on stool regimen. Recommended patient trying to increase fiber intake on a regular basis but is concerned is financial unable to do this at this time. Would recommend EGD colonoscopy for further evaluation but could be done as an outpatient basis. No surgical intervention at this time. We'll follow Clinical Quality Measures DVT/VTE Risk/Contraindication: Risk Factor Score Per Nursin RFS Level Per Nursing on Admit: 2=Moderate JESSICA HATFIELD DO Aug 15, 2018 17:05
[2018-08-15] MEDS: inSUlin ASPART (NovoLOG) 1 UNIT/0.01 ML (CHARGE PER UNIT) SC SCH ×2 (17:24→21:35)
[2018-08-16] VITALS (7 sets, daily range): BP systolic 119–154; BP diastolic 73–97
[2018-08-16] MEDS: POLYETHYLENE GLYCOL 17 GM (MIRALAX) PACK PO SCH ×6 (00:16→19:30)
[2018-08-16] MEDS: fentaNYL INJECTION 100 MCG/2 ML AMP IVP PRN ×7 (00:20→22:15)
[2018-08-16] MEDS: inSUlin ASPART (NovoLOG) 1 UNIT/0.01 ML (CHARGE PER UNIT) SC SCH ×3 (05:24→16:48)
[2018-08-16] MEDS: ENOXAPARIN 30 MG/0.3 ML (LOVENOX) SYR SC SCH (05:59)
[2018-08-16] MEDS ORDERED: KCL 20 MEQ TAB (K-DUR) PO SCH (06:00)
[2018-08-16] MEDS ORDERED: POTASSIUM CL 10MEQ/50ML IVPB 50 ML IV SCH (06:00)
[2018-08-16] MEDS: CATHETER FLUSH 10 ML SYR IV SCH ×3 (06:00→19:43)
[2018-08-16] MEDS ORDERED: MAGNESIUM 1 GM/100 ML IVPB 100 ML IV SCH (06:00)
[2018-08-16] MEDS: PANTOPRAZOLE 40 MG (PROTONIX) VIAL IV SCH (08:43)
[2018-08-16] MEDS: KETOROLAC 15 MG/ML VIAL IV PRN ×2 (11:08→19:42)
[2018-08-16] MEDS ORDERED: INSU100I29 SQ (13:49)
[2018-08-16] MEDS ORDERED: OXYC15TA79 PO (13:49)
[2018-08-16] MEDS ORDERED: INSU100I23 SQ (13:49)
[2018-08-16] MEDS ORDERED: LIPA1CAP2 PO (13:49)
[2018-08-16] MEDS ORDERED: PANT40TA2 PO (13:49)
[2018-08-16] MEDS ORDERED: HYDR25SU5 RC (13:49)
[2018-08-16] MEDS ORDERED: LORA2TAB PO (13:49)
[2018-08-16] MEDS ORDERED: GABA-488 PO (13:49)
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
[2018-08-16] MEDS: LIPASE/AMYLASE/PROTEASE (PANCRELIPASE) 5,000 UNITS CAP PO SCH (16:48)
--- NOTE | 2018-08-16 17:46 | Progress Note ---
Subjective Date Seen by a Provider: Aug 16, 2018 Time Seen by a Provider: 17:44 Subjective/Events-last exam Patient states no significant difference from yesterday. He is having bowel movements which were more formed. He still has some slight abdominal discomfort. He denies any nausea vomiting fever sweats chills shortness of breath or chest pain. Focused Exam Lactate Level 08/14/18 20:20: Lactic Acid Level 4.65*H 08/14/18 22:25: Lactic Acid Level 3.21*H 08/15/18 04:05: Lactic Acid Level 1.41 Objective Exam Vital Signs Date Time Temp Pulse Resp B/P (MAP) Pulse Ox O2 Delivery O2 Flow Rate FiO2 08/16/18 15:49 98.2 69 18 134/81 (98) 99 Room Air 08/16/18 12:00 96.9 63 20 154/97 (116) 99 Room Air 08/16/18 09:00 Room Air 08/16/18 08:00 98.1 72 20 119/75 (90) 99 Room Air 08/16/18 04:05 99.5 76 20 130/82 (98) 99 Room Air 08/16/18 00:01 99.1 72 18 119/73 (88) 96 Room Air 08/15/18 21:00 Room Air 08/15/18 20:36 98.7 75 18 138/87 (104) 99 Room Air I & O 08/16/18 07:00 Intake Total 2055 ml Output Total 2252 ml Balance -197 ml Capillary Refill : Less Than 3 SecondsLess Than 3 Seconds General Appearance: Chronically ill, Cachetic, Thin HEENT: No Scleral Icterus (L), No Scleral Icterus (R) Neck: Non Tender, Supple Respiratory: Lungs Clear, No Respiratory Distress Cardiovascular: Regular Rate, Rhythm, No Murmur Gastrointestinal: soft, tenderness (Upper abdomen) Extremity: Normal Capillary Refill, No Calf Tenderness Neurologic/Psychiatric: Alert, Oriented x3, Normal Mood/Affect Skin: Normal Color, Warm/Dry, Tattoos/Piercings Results Lab Laboratory Tests 08/15/18 21:12: Glucometer 135H 08/16/18 05:21: Glucometer 104 08/16/18 11:07: Glucometer 218H 08/16/18 15:49: Glucometer 188H Microbiology 08/14/18 Blood Culture - Preliminary, Resulted No growth 08/14/18 Urine Culture - Final, Complete Normal skin heriberto Assessment/Plan Assessment/Plan Assessment/Plan Chronic pancreatitis, upper abdominal pain, constipation, weight loss, diabetes Patient is a 52-year-old who from his description I believe he had a cyst gastrostomy performed in 2012. He has chronic pain from chronic pancreatitis, he does not have acute pancreatitis by imaging at this time. He has had approximately 100 pound weight loss unintentionally. Suspect patient may have some overflow incontinence of stool, Recommended patient trying to increase fiber intake on a regular basis but is concerned is financial unable to do this at this time. Pancrelipase added we'll see if any improvement. Would recommend EGD colonoscopy for further evaluation but could be done as an outpatient basis. No surgical intervention at this time. Clinical Quality Measures DVT/VTE Risk/Contraindication: Risk Factor Score Per Nursin RFS Level Per Nursing on Admit: 2=Moderate JESSICA HATFIELD DO Aug 16, 2018 17:46
[2018-08-16] MEDS: inSUlin DETERMIR 1 UNIT/0.01 ML (LEVEMIR) CHARGE PER UNIT SQ SCH (22:15)
[2018-08-17] MEDS: fentaNYL INJECTION 100 MCG/2 ML AMP IVP PRN ×4 (02:14→20:24)
[2018-08-17] MEDS: POLYETHYLENE GLYCOL 17 GM (MIRALAX) PACK PO SCH ×6 (02:15→20:10)
[2018-08-17] MEDS: ENOXAPARIN 30 MG/0.3 ML (LOVENOX) SYR SC SCH (06:01)
[2018-08-17] MEDS: PANTOPRAZOLE 40 MG (PROTONIX) TAB PO SCH (06:01)
[2018-08-17] MEDS: KETOROLAC 15 MG/ML VIAL IV PRN ×2 (06:01→16:23)
[2018-08-17] MEDS: CATHETER FLUSH 10 ML SYR IV SCH ×3 (06:01→20:27)
[2018-08-17] MEDS: LIPASE/AMYLASE/PROTEASE (PANCRELIPASE) 5,000 UNITS CAP PO SCH ×3 (06:01→18:06)
[2018-08-17] MEDS: inSUlin ASPART (NovoLOG) 1 UNIT/0.01 ML (CHARGE PER UNIT) SC SCH ×3 (06:02→16:24)
[2018-08-17 08:00] VITALS: BP 121/77
--- NOTE | 2018-08-17 13:28 | Progress Note-Hospitalist ---
Progress Note Progress Notes/Assess & Plan Date Seen 08/17/18 Time Seen by Provider: 13:22 Assessment & Plan The patient reports that the his pancreatic enzyme supplements were started yesterday. Today he has been having explosive diarrhea. It was explored complained to him that we began at the suggested starter dose and that this is a process. He is to see the diabetic nurse educator today. business services sales agent is working on plans for outpatient services. Physical exam: He appears anxious. Lungs are clear to auscultation. CV is regular. Abdomen is scaphoid and tender to palpation diffusely. Bowel sounds are present. Extremities are very thin. There is no edema. Impression: Diabetes type II insulin requiring, new onset. 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 3.apparent malabsorption secondary to loss of pancreatic enzymes. Plan: Continue diabetic training and administration of insulin. Explore social options. Focused Exam Lactate Level 08/14/18 20:20: Lactic Acid Level 4.65*H 08/14/18 22:25: Lactic Acid Level 3.21*H 08/15/18 04:05: Lactic Acid Level 1.41 TNOA TALAVERA MD Aug 17, 2018 13:28
[2018-08-17] MEDS ORDERED: NON-FORMULARY MEDICATION 1 EA EA (Oxycodone HCl 15 MG) PO PRN (13:30)
[2018-08-17] MEDS ORDERED: LORAZEPAM 2 MG PO PRN (13:30)
[2018-08-17] MEDS: NICOTINE 21 MG (NICODERM) PATCH TD SCH (14:18)
--- NOTE | 2018-08-17 15:06 | Progress Note ---
Subjective Date Seen by a Provider: Aug 17, 2018 Time Seen by a Provider: 15:03 Subjective/Events-last exam patient still with diarrhea. patient still with abdominal pain. tolerating diet. denies n/v fever sweats chills shortness of breath or chest pain. Focused Exam Lactate Level 08/14/18 20:20: Lactic Acid Level 4.65*H 08/14/18 22:25: Lactic Acid Level 3.21*H 08/15/18 04:05: Lactic Acid Level 1.41 Objective Exam Vital Signs Date Time Temp Pulse Resp B/P (MAP) Pulse Ox O2 Delivery O2 Flow Rate FiO2 08/17/18 13:12 97.0 08/17/18 10:20 97.0 08/17/18 09:00 Room Air 08/17/18 08:00 97.0 79 16 121/77 (92) 100 Room Air 08/16/18 23:49 98.9 84 18 143/83 (103) 98 Room Air 08/16/18 21:06 Room Air 08/16/18 19:25 97.9 73 20 128/77 (94) 98 Room Air 08/16/18 15:49 98.2 69 18 134/81 (98) 99 Room Air I & O 08/17/18 07:00 Intake Total 2750 ml Output Total 2850 ml Balance -100 ml Capillary Refill : Less Than 3 SecondsLess Than 3 Seconds General Appearance: Chronically ill, Cachetic, Thin HEENT: No Scleral Icterus (L), No Scleral Icterus (R) Neck: Non Tender, Supple Respiratory: Lungs Clear, No Respiratory Distress Cardiovascular: Regular Rate, Rhythm, No Murmur Gastrointestinal: soft, tenderness (diffusely, minimal) Extremity: Normal Capillary Refill, No Calf Tenderness Neurologic/Psychiatric: Alert, Oriented x3, Normal Mood/Affect Skin: Normal Color, Warm/Dry, Tattoos/Piercings Results Lab Laboratory Tests 08/16/18 15:49: Glucometer 188H 08/16/18 22:08: Glucometer 286H 08/17/18 05:08: Glucometer 169H 08/17/18 06:52: Glucometer 94 08/17/18 11:21: Glucometer 289H Microbiology 08/14/18 Blood Culture - Preliminary, Resulted No growth 08/14/18 Urine Culture - Final, Complete Normal skin heriberto Assessment/Plan Assessment/Plan Assessment/Plan Chronic pancreatitis, upper abdominal pain, constipation, weight loss, diabetes Patient is a 52-year-old who from his description I believe he had a cyst gastrostomy performed in 2012. He has chronic pain from chronic pancreatitis, he does not have acute pancreatitis by imaging at this time. He has had approximately 100 pound weight loss unintentionally. Suspect patient may have some overflow incontinence of stool, Recommended patient trying to increase fiber intake on a regular basis but is concerned is financial unable to do this at this time. Pancrelipase added we'll see if any improvement. Would recommend EGD colonoscopy for further evaluation but could be done as an outpatient basis. No surgical intervention at this time. No change in plan today. Seems to be tolerating diet. Continue to monitor. Clinical Quality Measures DVT/VTE Risk/Contraindication: Risk Factor Score Per Nursin RFS Level Per Nursing on Admit: 2=Moderate JESSICA HATFIELD DO Aug 17, 2018 15:06
[2018-08-17 16:10] VITALS: BP 118/72
[2018-08-17] MEDS: GABAPENTIN 300 MG (NEURONTIN) CAP PO SCH ×2 (18:06→20:24)
[2018-08-17] MEDS: LORazepam 1 MG (ATIVAN) TAB PO PRN (20:43)
[2018-08-17] MEDS: inSUlin DETERMIR 1 UNIT/0.01 ML (LEVEMIR) CHARGE PER UNIT SQ SCH (20:43)
[2018-08-18 00:07] VITALS: BP 145/87
[2018-08-18] MEDS: fentaNYL INJECTION 100 MCG/2 ML AMP IVP PRN ×4 (00:18→16:55)
[2018-08-18] MEDS: POLYETHYLENE GLYCOL 17 GM (MIRALAX) PACK PO SCH ×6 (00:18→20:58)
[2018-08-18] MEDS: KETOROLAC 15 MG/ML VIAL IV PRN (00:58)
[2018-08-18] MEDS: inSUlin ASPART (NovoLOG) 1 UNIT/0.01 ML (CHARGE PER UNIT) SC SCH ×3 (06:23→16:56)
[2018-08-18] MEDS: PANTOPRAZOLE 40 MG (PROTONIX) TAB PO SCH (06:24)
[2018-08-18] MEDS: ENOXAPARIN 30 MG/0.3 ML (LOVENOX) SYR SC SCH (06:24)
[2018-08-18] MEDS: CATHETER FLUSH 10 ML SYR IV SCH ×3 (06:24→20:58)
--- NOTE | 2018-08-18 07:21 | Progress Note ---
Subjective Date Seen by a Provider: Aug 18, 2018 Time Seen by a Provider: 07:18 Subjective/Events-last exam patient tolerating diet. eating full tray of breakfast. states has chronic pain due to his chronic pancreatitis. stools are more formed. no new complaints. denies n/v fever sweats chills shortness of breath or chest pain. Objective Exam Vital Signs Date Time Temp Pulse Resp B/P (MAP) Pulse Ox O2 Delivery O2 Flow Rate FiO2 08/18/18 00:07 98.4 78 18 145/87 (106) 98 Room Air 08/17/18 21:00 Room Air 08/17/18 16:55 97.0 08/17/18 16:55 97.0 08/17/18 16:10 98.2 90 18 118/72 (87) 97 Room Air 08/17/18 13:12 97.0 08/17/18 10:20 97.0 08/17/18 09:00 Room Air 08/17/18 08:00 97.0 79 16 121/77 (92) 100 Room Air I & O 08/18/18 07:00 Intake Total 2780 ml Output Total 2525 ml Balance 255 ml Capillary Refill : Less Than 3 SecondsLess Than 3 Seconds General Appearance: Chronically ill, Cachetic, Thin HEENT: No Scleral Icterus (L), No Scleral Icterus (R) Neck: Non Tender, Supple Respiratory: Lungs Clear, No Respiratory Distress Cardiovascular: Regular Rate, Rhythm, No Murmur Gastrointestinal: soft, tenderness (minimal tenderness epigastric) Extremity: Normal Capillary Refill, No Calf Tenderness Neurologic/Psychiatric: Alert, Oriented x3, Normal Mood/Affect Skin: Normal Color, Warm/Dry, Tattoos/Piercings Results Lab Laboratory Tests 08/17/18 11:21: Glucometer 289H 08/17/18 15:27: Glucometer 206H 08/17/18 20:29: Glucometer 269H 08/18/18 05:29: Glucometer 76 Microbiology 08/14/18 Blood Culture - Preliminary, Resulted No growth 08/14/18 Urine Culture - Final, Complete Normal skin heriberto Assessment/Plan Assessment/Plan Assessment/Plan Chronic pancreatitis, upper abdominal pain, constipation, weight loss, diabetes Patient is a 52-year-old who from his description I believe he had a cyst gastrostomy performed in 2012. He has chronic pain from chronic pancreatitis, he does not have acute pancreatitis by imaging at this time. He has had approximately 100 pound weight loss unintentionally. Suspect patient may have some overflow incontinence of stool, Recommended patient trying to increase fiber intake on a regular basis but is concerned is financial unable to do this at this time. Pancrelipase added we'll see if any improvement, having more formed stools. Would recommend EGD colonoscopy for further evaluation but could be done as an outpatient basis. No surgical intervention at this time. Tolerating diet. Clinical Quality Measures DVT/VTE Risk/Contraindication: Risk Factor Score Per Nursin RFS Level Per Nursing on Admit: 2=Moderate JESSICA HATFIELD DO Aug 18, 2018 07:21
[2018-08-18] MEDS: LIPASE/AMYLASE/PROTEASE (PANCRELIPASE) 5,000 UNITS CAP PO SCH ×3 (07:29→16:56)
[2018-08-18] MEDS: GABAPENTIN 300 MG (NEURONTIN) CAP PO SCH ×4 (07:51→20:57)
[2018-08-18] MEDS: LORazepam 1 MG (ATIVAN) TAB PO PRN ×2 (07:51→23:50)
[2018-08-18] MEDS: NICOTINE 21 MG (NICODERM) PATCH TD SCH (07:51)
[2018-08-18] MEDS: NICOTINE PATCH REMOVAL TP SCH (07:51)
[2018-08-18 08:00] VITALS: BP 122/84
[2018-08-18] MEDS ORDERED: NICOTINE 21 MG (NICODERM) PATCH TD SCH (09:00)
[2018-08-18] MEDS ORDERED: PANTOPRAZOLE 40 MG (PROTONIX) TAB PO SCH (09:00)
--- NOTE | 2018-08-18 11:55 | Progress Note-Hospitalist ---
LILIANA ZARATE DO 08/18/18 1155: Subjective HPI/CC On Admission Date Seen by Provider: Aug 18, 2018 Time Seen by Provider: 10:30 Pt is a 52yoCm with a PMH of pancreatic pseudocyst s/p Whipple, chronic pain, chronic diarrhea, HTN, and IDDMII who presented to the ER with CC of abdominal pain. he has a history of pancreatitis and thought it was similar to previous episodes of pancreatitis and thus presented to the ER for evaluation. On arrival he was found to have a BS reading of high per EMS and formal lab studies showed BS of 882. He was not acidotic or ketotic at the time. CT Abd/ pelvis revealed a large amount of stool vs impaction and possible chronic pancreatitis. He states he feels mildly better today but he concern now is about chronic diarrhea for the past year causing him to lose over 100lbs unintentionally. He describes his diarrhea as oily and orange and constantly leaking. He denies missing any Levemir but has not been taking his Humalog as he does not have a glucometer. He also complains of persistent abdominal pain but he was able to tolerate his diet this morning. Subjective/Events-last exam Patient wants to discuss his pain meds and the severe chronic pain he has all the time I am not comfortable increasing pain meds in this patient Diarrhea still continues although Creon may be helping him He needs NHP Overall poor prognosis Review of Systems General: Fatigue Gastrointestinal: Diarrhea Objective Exam Vital Signs Vital Signs Date Time Temp Pulse Resp B/P (MAP) Pulse Ox O2 Delivery O2 Flow Rate FiO2 08/18/18 16:08 97.7 85 20 118/81 (93) 97 Room Air Capillary Refill : Less Than 3 SecondsLess Than 3 Seconds General Appearance: No Apparent Distress, WD/WN, Chronically ill, Cachetic, Thin Respiratory: Chest Non Tender, Lungs Clear, Normal Breath Sounds, No Accessory Muscle Use, No Respiratory Distress Cardiovascular: Regular Rate, Rhythm, No Edema, No Gallop, No JVD, No Murmur, Normal Peripheral Pulses Neurologic/Psychiatric: Alert, Oriented x3, No Motor/Sensory Deficits, Normal Mood/Affect Results/Procedures Lab Patient resulted labs reviewed. Imaging: Reviewed Imaging Report Assessment/Plan Assessment and Plan Assess & Plan/Chief Complaint Assessment: HHS Malabsorption THC use Plan: NHP Poor prognosis overall Diagnosis/Problems Diagnosis/Problems (1) Type 2 diabetes mellitus with hyperosmolar nonketotic hyperglycemia Status: Acute (2) Chronic pancreatitis Status: Chronic Qualifiers: Pancreatitis type: unspecified pancreatitis type Qualified Codes: K86.1 - Other chronic pancreatitis (3) Weight loss Status: Acute (4) Chronic diarrhea Status: Chronic (5) HTN (hypertension) Status: Chronic Qualifiers: Hypertension type: essential hypertension Qualified Codes: I10 - Essential (primary) hypertension Clinical Quality Measures DVT/VTE Risk/Contraindication: Risk Factor Score Per Nursin RFS Level Per Nursing on Admit: 2=Moderate MARY FAY MED STUDENT 08/18/18 1505: Subjective Subjective/Events-last exam Patient is complaining of significant pain all over He states that pain is more severe in his upper abdominal region Patient states that he experiences chronic diarrhea Patient asks about drugs while in the room Objective Exam General Appearance: Chronically ill, Cachetic, Thin Respiratory: Chest Non Tender, Lungs Clear, Normal Breath Sounds, No Accessory Muscle Use, No Respiratory Distress Cardiovascular: Regular Rate, Rhythm, No Edema, No Gallop, No JVD, No Murmur, Normal Peripheral Pulses Gastrointestinal: Normal Bowel Sounds, No Pulsatile Mass, Non Tender, Soft Neurologic/Psychiatric: Alert, Oriented x3, No Motor/Sensory Deficits, Normal Mood/Affect Skin: Normal Color, Warm/Dry Assessment/Plan Assessment and Plan Assess & Plan/Chief Complaint Assessment: 1) Fecal impaction 2) Pancreatic insufficiency Plan: 1) Surgical consultation 2) Pancreatic enzyme supplementation LILIANA ZARATE DO Aug 18, 2018 11:55 MARY FAY MED STUDENT Aug 18, 2018 15:05
[2018-08-18 16:08] VITALS: BP 118/81
[2018-08-18] MEDS: inSUlin DETERMIR 1 UNIT/0.01 ML (LEVEMIR) CHARGE PER UNIT SQ SCH (20:57)
[2018-08-19] MEDS: POLYETHYLENE GLYCOL 17 GM (MIRALAX) PACK PO SCH ×7 (00:01→23:23)
[2018-08-19 00:23] VITALS: BP 110/80
[2018-08-19] MEDS: fentaNYL INJECTION 100 MCG/2 ML AMP IVP PRN ×2 (02:54)
[2018-08-19] MEDS: CATHETER FLUSH 10 ML SYR IV SCH ×3 (05:32→20:43)
[2018-08-19] MEDS: ENOXAPARIN 30 MG/0.3 ML (LOVENOX) SYR SC SCH (06:05)
[2018-08-19] MEDS: inSUlin ASPART (NovoLOG) 1 UNIT/0.01 ML (CHARGE PER UNIT) SC SCH ×3 (06:06→16:55)
[2018-08-19] MEDS: LIPASE/AMYLASE/PROTEASE (PANCRELIPASE) 5,000 UNITS CAP PO SCH ×3 (06:06→16:56)
[2018-08-19] MEDS: PANTOPRAZOLE 40 MG (PROTONIX) TAB PO SCH (06:06)
[2018-08-19 08:00] VITALS: BP 117/78
[2018-08-19] MEDS: NICOTINE 21 MG (NICODERM) PATCH TD SCH (08:57)
[2018-08-19] MEDS: NICOTINE PATCH REMOVAL TP SCH (08:57)
[2018-08-19] MEDS: GABAPENTIN 300 MG (NEURONTIN) CAP PO SCH ×4 (08:57→20:42)
--- NOTE | 2018-08-19 10:13 | Progress Note-Hospitalist ---
Subjective HPI/CC On Admission Date Seen by Provider: Aug 19, 2018 Time Seen by Provider: 10:30 Pt is a 52yoCm with a PMH of pancreatic pseudocyst s/p Whipple, chronic pain, chronic diarrhea, HTN, and IDDMII who presented to the ER with CC of abdominal pain. he has a history of pancreatitis and thought it was similar to previous episodes of pancreatitis and thus presented to the ER for evaluation. On arrival he was found to have a BS reading of high per EMS and formal lab studies showed BS of 882. He was not acidotic or ketotic at the time. CT Abd/ pelvis revealed a large amount of stool vs impaction and possible chronic pancreatitis. He states he feels mildly better today but he concern now is about chronic diarrhea for the past year causing him to lose over 100lbs unintentionally. He describes his diarrhea as oily and orange and constantly leaking. He denies missing any Levemir but has not been taking his Humalog as he does not have a glucometer. He also complains of persistent abdominal pain but he was able to tolerate his diet this morning. Subjective/Events-last exam Diarrhea persists but this is chronic Creon taken that he feels like it doesn't help All he was to talk about is his pain issues and they are chronic and is requiring more more narcotics or requesting increased doses but I am just not comfortable without Needs assisted placement Overall poor prognosis Review of Systems Gastrointestinal: Diarrhea Objective Exam Vital Signs Vital Signs Date Time Temp Pulse Resp B/P (MAP) Pulse Ox O2 Delivery O2 Flow Rate FiO2 08/19/18 09:00 Room Air 08/19/18 08:00 96.4 91 20 117/78 (91) 98 Capillary Refill : Less Than 3 SecondsLess Than 3 Seconds General Appearance: No Apparent Distress, WD/WN, Cachetic, Thin, Other (smells of diarrhea) Neurologic/Psychiatric: Alert, Oriented x3, No Motor/Sensory Deficits, Normal Mood/Affect Results/Procedures Lab Patient resulted labs reviewed. Imaging: Reviewed Imaging Report Assessment/Plan Assessment and Plan Assess & Plan/Chief Complaint Assessment: HHS Malabsorption THC use Plan: NHP Poor prognosis overall Diagnosis/Problems Diagnosis/Problems (1) Type 2 diabetes mellitus with hyperosmolar nonketotic hyperglycemia Status: Acute (2) Chronic pancreatitis Status: Chronic Qualifiers: Pancreatitis type: unspecified pancreatitis type Qualified Codes: K86.1 - Other chronic pancreatitis (3) Weight loss Status: Acute (4) Chronic diarrhea Status: Chronic (5) HTN (hypertension) Status: Chronic Qualifiers: Hypertension type: essential hypertension Qualified Codes: I10 - Essential (primary) hypertension Clinical Quality Measures DVT/VTE Risk/Contraindication: Risk Factor Score Per Nursin RFS Level Per Nursing on Admit: 2=Moderate LILIANA ZARATE DO Aug 19, 2018 10:12
[2018-08-19] MEDS: LORazepam 1 MG (ATIVAN) TAB PO PRN ×3 (10:39→23:29)
[2018-08-19 15:36] VITALS: BP 131/87
--- NOTE | 2018-08-19 17:01 | Progress Note ---
Subjective Date Seen by a Provider: Aug 19, 2018 Time Seen by a Provider: 10:02 Subjective/Events-last exam Patient states she's tolerating diet. He still has pain in the abdomen but this is more related to his chronic pain he thinks. Patient still having loose stools he doesn't know if the enzymes are helping. He has no new complaints. Denies any nausea vomiting fever sweats chills shortness of breath or chest pain. Objective Exam Vital Signs Date Time Temp Pulse Resp B/P (MAP) Pulse Ox O2 Delivery O2 Flow Rate FiO2 08/19/18 15:36 98.0 82 18 131/87 (102) 99 Room Air 08/19/18 09:00 Room Air 08/19/18 08:00 96.4 91 20 117/78 (91) 98 Room Air 08/19/18 00:23 98.0 97 20 110/80 (90) 98 Room Air 08/18/18 21:00 Room Air I & O 08/19/18 07:00 Intake Total 3507 ml Output Total 1125 ml Balance 2382 ml Capillary Refill : Less Than 3 SecondsLess Than 3 Seconds General Appearance: No Apparent Distress, WD/WN, Cachetic HEENT: No Scleral Icterus (L), No Scleral Icterus (R) Neck: Non Tender, Supple Respiratory: Chest Non Tender, Lungs Clear, Normal Breath Sounds, No Accessory Muscle Use, No Respiratory Distress Cardiovascular: Regular Rate, Rhythm, No Edema, No Gallop, No JVD, No Murmur, Normal Peripheral Pulses Gastrointestinal: soft, tenderness (minimal tenderness epigastric) Extremity: Normal Capillary Refill, No Calf Tenderness Neurologic/Psychiatric: Alert, Oriented x3, No Motor/Sensory Deficits, Normal Mood/Affect Skin: Normal Color, Warm/Dry Results Lab Laboratory Tests 08/18/18 20:57: Glucometer 228H 08/19/18 05:16: Glucometer 134H 08/19/18 11:38: Glucometer 212H 08/19/18 15:39: Glucometer 195H Microbiology 08/14/18 Blood Culture - Preliminary, Resulted No growth 08/14/18 Urine Culture - Final, Complete Normal skin heriberto Assessment/Plan Assessment/Plan Assessment/Plan Chronic pancreatitis, upper abdominal pain, constipation, weight loss, diabetes Patient is a 52-year-old who from his description I believe he had a cyst gastrostomy performed in 2012. He has chronic pain from chronic pancreatitis, he does not have acute pancreatitis by imaging at this time. He has had approximately 100 pound weight loss unintentionally. Suspect patient may have some overflow incontinence of stool, Recommended patient trying to increase fiber intake on a regular basis but is concerned is financial unable to do this at this time. Pancrelipase added we'll see if any improvement, having more formed stools. Would recommend EGD colonoscopy for further evaluation but could be done as an outpatient basis. No surgical intervention at this time. Tolerating diet. No changes to current plan Clinical Quality Measures DVT/VTE Risk/Contraindication: Risk Factor Score Per Nursin RFS Level Per Nursing on Admit: 2=Moderate JESSICA HATFIELD DO Aug 19, 2018 17:01
[2018-08-19] MEDS: inSUlin DETERMIR 1 UNIT/0.01 ML (LEVEMIR) CHARGE PER UNIT SQ SCH (20:43)
[2018-08-20 00:04] VITALS: BP 139/86
[2018-08-20] MEDS: POLYETHYLENE GLYCOL 17 GM (MIRALAX) PACK PO SCH ×3 (01:51→12:28)
[2018-08-20] MEDS: LIPASE/AMYLASE/PROTEASE (PANCRELIPASE) 5,000 UNITS CAP PO SCH ×2 (06:40→12:23)
[2018-08-20] MEDS: PANTOPRAZOLE 40 MG (PROTONIX) TAB PO SCH (06:40)
[2018-08-20] MEDS: LORazepam 1 MG (ATIVAN) TAB PO PRN ×2 (06:40→12:23)
[2018-08-20] MEDS: CATHETER FLUSH 10 ML SYR IV SCH (06:41)
[2018-08-20] MEDS: ENOXAPARIN 30 MG/0.3 ML (LOVENOX) SYR SC SCH (07:47)
[2018-08-20] MEDS: inSUlin ASPART (NovoLOG) 1 UNIT/0.01 ML (CHARGE PER UNIT) SC SCH ×2 (07:48→12:25)
[2018-08-20 08:00] VITALS: BP 123/78
[2018-08-20] MEDS ORDERED: NICO-588 TD (08:05)
[2018-08-20] MEDS ORDERED: OXYC15TA79 PO (08:05)
[2018-08-20] MEDS ORDERED: LORA2TAB PO ×2 (08:05→10:58)
--- NOTE | 2018-08-20 08:08 | Discharge Inst-Skilled Nursing ---
Discharge Inst-Skilled NF Patient Instructions Patient Problems: Chronic pancreatitis Chronic diarrhea Diabetes Smoker Chronic pain Weight loss Goal: Nursing education for diabetes management Insulin eucation Improve nutrition Medication compliance Consult/Follow Up/Orders Follow Up Appt.: PCP is Dr Fay Ritchie NF Admit to: [facility] Certification (SNF) I certify that SNF services are required to be given on an inpatient basis because of the above named patient's need for senior living care on a continuing basis for the conditions(s) for which he/she was receiving inpatient hospital services prior to his/her transfer to the SNF. [facility]way Facility Order: Nursing Services Discharge Diet: ADA Diet Daily Activity as Tolerated: Yes New & Resume Previous Orders Leeann Schilling Aug 20, 2018 08:06 LEEANN SCHILLING DO Aug 20, 2018 08:08
--- NOTE | 2018-08-20 08:08 | Discharge Summary-Hospitalist ---
Diagnosis/Chief Complaint Date of Admission Aug 14, 2018 at 22:42 Date of Discharge Discharge Date: Aug 20, 2018 Admission Diagnosis HHS/Chronic Pancreatitis Discharge Diagnosis (1) Type 2 diabetes mellitus with hyperosmolar nonketotic hyperglycemia Status: Acute (2) Chronic pancreatitis Status: Chronic (3) Weight loss Status: Acute (4) Chronic diarrhea Status: Chronic (5) HTN (hypertension) Status: Chronic Discharge Summary Discharge Physical Exam Allergies: Coded Allergies: No Known Drug Allergies (Unverified , 08/14/18) Vitals & I&Os Vital Signs Date Time Temp Pulse Resp B/P (MAP) Pulse Ox O2 Delivery O2 Flow Rate FiO2 08/20/18 14:27 96 20 123/78 98 Room Air 08/20/18 08:00 98.2 General Appearance: No Apparent Distress, Chronically ill, Cachetic Hospital Course Hospital course: patient was admitted with HHS and severe dehydration. Chronic diarrhea was managed with the addition of Creon due to chronic pancreatitis. Chronic pain meds were maintained as Dr Bhatt had prescribed. Pt was homeless and in need of jail care so he was admitted to the [facility] for support until he improved enough to manage independently. Poor prognosis. Labs (last 24 hrs) Microbiology 08/14/18 Blood Culture - Final, Complete No growth 08/14/18 Urine Culture - Final, Complete Normal skin heriberto Patient resulted labs reviewed. Pending Labs Imaging: Reviewed Imaging Report Discussion & Recommendations Discharge Planning: <30 minutes discharge planning Discharge Home Medications: Active Scripts Active Lorazepam 2 Mg Tablet 2 Mg PO Q6H PRN Nicotine Patch (Nicotine) 1 Each Patch.td24 21 Mg TD DAILY@0900 30 Days Oxycodone HCl 15 Mg Tablet 15 Mg PO Q8H PRN Reported Creon Dr 12,000 Units Capsule (Lipase/Protease/Amylase) 1 Each Capsule.dr 2 Cap PO QID Protonix (Pantoprazole Sodium) 40 Mg Tablet.dr 40 Mg PO DAILY Hydrocortisone Acetate 25 Mg Supp.rect 25 Mg RC BID PRN Gabapentin 300 Mg Capsule 300 Mg PO QID Levemir Flextouch (Insulin Detemir) 100 Unit/1 Ml Insuln.pen 15 Unit SQ DAILY Humalog Kwikpen (Insulin Lispro) 100 Unit/1 Ml Insuln.pen SQ AC Instructions to patient/family Please see electronic discharge instructions given to patient. Clinical Quality Measures DVT/VTE Risk/Contraindication: Risk Factor Score Per Nursin RFS Level Per Nursing on Admit: 2=Moderate Problem Qualifiers (1) Chronic pancreatitis: Pancreatitis type: unspecified pancreatitis type Qualified Codes: K86.1 - Other chronic pancreatitis (2) HTN (hypertension): Hypertension type: essential hypertension Qualified Codes: I10 - Essential ( primary) hypertension LILIANA ZARATE DO Aug 20, 2018 08:08
[2018-08-20] MEDS ORDERED: BENEFIBER (FROM DIETARY) DOCUMENTATION PURPOSE ONLY PO SCH (09:00)
[2018-08-20] MEDS: NICOTINE 21 MG (NICODERM) PATCH TD SCH (09:12)
[2018-08-20] MEDS: GABAPENTIN 300 MG (NEURONTIN) CAP PO SCH ×2 (09:12→12:23)
[2018-08-20] MEDS: NICOTINE PATCH REMOVAL TP SCH (09:12)
[2018-08-20 14:27] VITALS: BP 123/78
--- NOTE | 2018-08-20 16:34 | Progress Note ---
Subjective Date Seen by a Provider: Aug 20, 2018 Time Seen by a Provider: 07:25 Subjective/Events-last exam patient with no new complaints. still having diarrhea. abdominal pain about same. denies n/v fever sweats chills shortness of breath or chest pain. Objective Exam Vital Signs Date Time Temp Pulse Resp B/P (MAP) Pulse Ox O2 Delivery O2 Flow Rate FiO2 08/20/18 14:27 96 20 123/78 98 Room Air 08/20/18 09:00 98 Room Air 08/20/18 08:00 98.2 96 20 123/78 (93) 98 Room Air 08/20/18 00:04 98.2 87 18 139/86 (103) 98 Room Air 08/19/18 21:00 Room Air I & O 08/20/18 06:59 Intake Total 3825 ml Output Total 1350 ml Balance 2475 ml Capillary Refill : Less Than 3 SecondsLess Than 3 Seconds General Appearance: No Apparent Distress, WD/WN, Cachetic HEENT: PERRL/EOMI; No Scleral Icterus (L), No Scleral Icterus (R) Neck: Non Tender, Supple Respiratory: Chest Non Tender, No Accessory Muscle Use, No Respiratory Distress Cardiovascular: Regular Rate, Rhythm, Normal Peripheral Pulses Gastrointestinal: soft, tenderness (minimal tenderness epigastric) Extremity: Normal Capillary Refill, No Calf Tenderness Neurologic/Psychiatric: Alert, Oriented x3, No Motor/Sensory Deficits, Normal Mood/Affect Skin: Normal Color, Warm/Dry Results Lab Laboratory Tests 08/19/18 20:35: Glucometer 207H 08/20/18 05:09: Glucometer 132H 08/20/18 12:24: Glucometer 348H Microbiology 08/14/18 Blood Culture - Final, Complete No growth 08/14/18 Urine Culture - Final, Complete Normal skin heriberto Assessment/Plan Assessment/Plan Assessment/Plan Chronic pancreatitis, upper abdominal pain, constipation, weight loss, diabetes Patient is a 52-year-old who from his description I believe he had a cyst gastrostomy performed in 2012. He has chronic pain from chronic pancreatitis, he does not have acute pancreatitis by imaging at this time. He has had approximately 100 pound weight loss unintentionally. Suspect patient may have some overflow incontinence of stool, Recommended patient trying to increase fiber intake on a regular basis but is concerned is financial unable to do this at this time. Pancrelipase added we'll see if any improvement, having more formed stools. Would recommend EGD colonoscopy for further evaluation but could be done as an outpatient basis. No surgical intervention at this time. Tolerating diet. added supplemental fiber. okay to dc to al Clinical Quality Measures DVT/VTE Risk/Contraindication: Risk Factor Score Per Nursin RFS Level Per Nursing on Admit: 2=Moderate JESSICA HATFIELD DO Aug 20, 2018 16:34
== END 2018-08-20 13:35 | DRG 638 ==
LOC: ER 20:11 → ICU 22:42 → 4TH 08-15 14:58
PROVIDERS: ADMIT Family Medicine; ATTEND Internal Medicine
DX: E11.00 Type 2 diabetes mellitus with hyperosmolarity without nonketotic hyperglycemic-hyperosmolar coma (NKHHC) (principal); E11.65 Type 2 diabetes mellitus with hyperglycemia; K86.1 Other chronic pancreatitis; R64 Cachexia; K90.89 Other intestinal malabsorption; K86.81 Exocrine pancreatic insufficiency; E86.0 Dehydration; F12.90 Cannabis use, unspecified, uncomplicated; K56.41 Fecal impaction; K52.9 Noninfective gastroenteritis and colitis, unspecified; G89.29 Other chronic pain; I10 Essential (primary) hypertension; F17.210 Nicotine dependence, cigarettes, uncomplicated; M19.91 Primary osteoarthritis, unspecified site; F41.9 Anxiety disorder, unspecified; N42.9 Disorder of prostate, unspecified; Z79.4 Long term (current) use of insulin; Z90.411 Acquired partial absence of pancreas; Z90.49 Acquired absence of other specified parts of digestive tract
CPT/HCPCS: 36415; 71045; 74177; 80048; 80053; 80306; 80320; 81000; 82150; 82274; 82962; 83036; 83605; 83690; 83735; 84100; 84478; 85025; 85610; 85730; 87040; 87088; 90686; 96361; 96365; 96367; 96375

== ENCOUNTER 2018-09-21 18:51 | Emergency (ER) | payer OTHER ==
[~2018-09-21] VITALS: Ht 180.3 cm; Wt 64.0 kg
[~2018-09-21 18:51] MED LIST: GABA-488 PO; HYDR25SU5 RC; INSU100I23 SQ; INSU100I29 SQ; LIPA1CAP2 PO; LORA2TAB PO; NICO-588 TD; OXYC15TA79 PO; PANT40TA2 PO
--- NOTE | 2018-09-21 19:25 | NUR ---
pt given urinal requested urine specimen.
[2018-09-21] MEDS ORDERED: DULO30CA3 PO (19:39)
[2018-09-21] MEDS ORDERED: KETOROLAC 30 MG/ML VIAL IVP ONE (20:00)
[2018-09-21 20:21] LABS: BASOPHILS % (AUTO) 1 % (0-10); EOSINOPHILS # (AUTO) 0.1 10^3/uL (0.0-0.3); EOSINOPHILS % (AUTO) 2 % (0-10); HEMATOCRIT 42 % (40-54); HEMOGLOBIN 13.5 G/DL (13.3-17.7); LYMPHOCYTES # (AUTO) 2.1 X 10^3 (1.0-4.0); LYMPHOCYTES % (AUTO) 27 % (12-44); MEAN CORPUSCULAR HEMOGLOBIN 28 PG (25-34); MEAN CORPUSCULAR HGB CONC 33 G/DL (32-36); MEAN CORPUSCULAR VOLUME 86 FL (80-99); MEAN PLATELET VOLUME 10.4 FL (7.4-10.4); MONOCYTES # (AUTO) 0.7 X 10^3 (0.0-1.0); MONOCYTES % (AUTO) 9 % (0-12); NEUTROPHILS # (AUTO) 4.9 X 10^3 (1.8-7.8); NEUTROPHILS % (AUTO) 62 % (42-75); PLATELET COUNT 263 10^3/uL (130-400); RED BLOOD COUNT 4.84 10^6/uL (4.35-5.85); RED CELL DISTRIBUTION WIDTH 14.3 % (10.0-14.5); WHITE BLOOD COUNT 7.8 10^3/uL (4.3-11.0)
[2018-09-21 20:32] LABS: PROTHROMBIN TIME PATIENT 13.1 SEC (12.2-14.7)
[2018-09-21 20:40] LABS: ALANINE AMINOTRANSFERASE 15 U/L (0-55); ALKALINE PHOSPHATASE 92 U/L (40-136); AMYLASE 38 U/L (25-125); BILIRUBIN,TOTAL 0.6 MG/DL (0.1-1.0); CALCIUM 9.7 MG/DL (8.5-10.1); CARBON DIOXIDE 26 MMOL/L (21-32); CREATINE KINASE 33 U/L (30-200); GLUCOSE 327 MG/DL (70-105); LIPASE 11 U/L (8-78); TOTAL PROTEIN 7.1 GM/DL (6.4-8.2)
--- NOTE | 2018-09-21 20:45 | NUR ---
pt denies being able to void at this time.
[2018-09-21 20:47] LABS: CREATINE KINASE MB 1.3 NG/ML (<6.6)
--- NOTE | 2018-09-21 20:47 | Diagnostic Imaging Report ---
INDICATION: Lower back pain, no known trauma TECHNIQUE: AP pelvis 8:58 PM CORRELATION STUDY: None FINDINGS: The pelvis demonstrates no evidence for acute fracture. The pectineal lines and obturator rings are maintained. Pubic symphysis and SI joints are unremarkable. Hips unremarkable. There is moderate of the overlying bowel gas and stool limiting detail. IMPRESSION: Negative examination of the pelvis. Dictated by: Dictated on workstation # [id number]
--- NOTE | 2018-09-21 20:50 | Diagnostic Imaging Report ---
INDICATION: Mid to lower back pain. No known trauma. TECHNIQUE: Noncontrast CT imaging thoracic and lumbar spine with sagittal and coronal reformatted images. CORRELATION STUDY: None FINDINGS: Thoracic spine: There is slight loss of normal thoracic kyphosis. Alignment otherwise anatomic. The thoracic vertebral body heights are maintained. Exception is a few areas of mild intervertebral disc herniation with slight irregularity of the endplates. There is suggestion of slight bony demineralization for the patient's age. Diffuse thoracic spondylosis is noted with slight asymmetric areas of loss of disc space height. Mild endplate osteophyte formation is present at multiple levels. However, no high degree spinal canal and/or foraminal narrowing owing to osteophyte formation. Posterior elements appear to be intact. Lucency at the T12 facets likely of no significance. Lumbar spine: Lumbar spinal alignment relatively anatomic. Lumbar vertebral body heights maintained. No acute appearing compression deformity. Multilevel degenerative changes are present. This includes disc and osteophyte formation along with hypertrophic facet arthropathy which result in bilateral foraminal narrowing particularly at the L4-L5, L3-L4 and L5-S1 levels. Nonacute appearing pars articularis defects at L5 level. No significant spondylolisthesis of L5 on S1. Additional hypertrophic facet arthropathy is noted of the lumbar spine. There is incidental note made of a fairly sizable bulla and bleb formations of the lung apices particularly on the right. Prominent calcification of the pancreatic head likely reflective of prior calcific pancreatitis. Mild to moderate aortic wall calcification. IMPRESSION: 1. Negative for acute bony abnormality of the thoracic and/or lumbar spine. 2. Diffuse thoracic and lumbar spondylosis. Some degree of foraminal narrowing at the lower lumbar spine disc spaces is present, owing to disc and osteophyte formation. Dictated by: Dictated on workstation # [id number]
[2018-09-21 21:00] LABS: BUN/CREATININE RATIO 17; CHLORIDE 96 MMOL/L (98-107); CREATININE SERUM 0.77 MG/DL (0.60-1.30); GFR ESTIMATED > 60; MAGNESIUM 1.8 MG/DL (1.8-2.4); POTASSIUM 4.4 MMOL/L (3.6-5.0); SODIUM 133 MMOL/L (135-145)
[2018-09-21] MEDS ORDERED: NS IV 1000 ML 1,000 ML IV ONE (21:00)
[2018-09-21] MEDS ORDERED: inSUlin (REGULAR) HUMAN 1 UNIT/0.01 ML (CHARGE PER UNIT) IV ONE (21:00)
--- NOTE | 2018-09-21 21:26 | ED General ---
General Chief Complaint: Abdominal/GI Problems Stated Complaint: BACK/ABD PAIN Nursing Triage Note: generalized pain. Nursing Sepsis Screen: No Definite Risk Source of Information: Patient (LIMITED HISTORIAN), Old Records History of Present Illness Date Seen by Provider: Sep 21, 2018 Time Seen by Provider: 19:45 Initial Comments PT ARRIVES VIA POV FROM [facility] AND [facility] STATES "I GOT CHRONIC PANCREATITIS AND MY BACK, MY LEGS, EVERYTHING IS HURTIN' AND THE PAIN MEDS THEY BEEN GIVIN' ME AIN'T HELPIN'" "MY KIDNEYS, MY HIPS" PT STATES HE WAS RECENTLY ADMITTED HERE FOR PANCREATITIS--ADMITTED 08/14-08/20, THEN WAS ADMITTED TO [facility] AND [facility] ON DISMISSAL. PT HAD NOT BEEN TO THIS FACILITY PRIOR TO THAT. PRIOR TO THAT, PT HAD BEEN LIVING IN [facility] HE HAS NEVER HAD A PRIMARY CARE DR--STATES HE ALWAYS GETS ALL OF HIS MEDICATIONS FROM THE ER. PT HAS A LONG HISTORY OF NON-COMPLIANCE, AND HAS HAD DIABETES FOR YEARS, BUT NEVER CHECKS BLOOD GLUCOSE PT STATES ALL OF THESE PAIN COMPLAINTS ARE NOT NEW AND HAVE BEEN PRESENT FOR YEARS. STATES "THE OXY'S AIN'T CUTTIN' IT" PER CUSTODIAL PAPERS, PT RECEIVED LORAZEPAM 2 MG AND OXYCODONE 15 MG AT 1825 PT CLAIMS HE FEEL OUT OF HIS WHEELCHAIR LAST WEEK, STATES HE DIDN'T LOCK THE WHEELS. DETAILS OF THE FALL ARE UNCLEAR. PT DID NOT SEEK CARE AT ANY TIME FOR THAT INCIDENT, AND IS UNCLEAR IF HE REPORTED IT TO CUSTODIAL STAFF. PT STATES HE CAN WALK A LITTLE AND HAS A WALKER AND A CANE, BUT IS MOSTLY IN WHEELCHAIR--STATES BECAUSE HIS LEG MUSCLES ARE WEAK. PT VOICES NO OTHER COMPLAINTS TO ME PT STATES ALL OF THESE PAIN COMPLAINTS ARE NOT NEW AND HAVE BEEN PRESENT FOR YEARS. PCP: DR. PASCUAL--NEW DR SINCE BEING ADMITTED TO [facility]. Allergies and Home Medications Allergies Coded Allergies: No Known Drug Allergies (Unverified , 08/14/18) Home Medications Duloxetine HCl 30 Mg Capsule.dr, 30 MG PO HS, (Reported) Gabapentin 300 Mg Capsule, 300 MG PO QID, (Reported) Hydrocortisone Acetate 25 Mg Supp.rect, 25 MG RC BID PRN for ITCHING, (Reported) Insulin Detemir 100 Unit/1 Ml Insuln.pen, 15 UNIT SQ DAILY, (Reported) Insulin Lispro 100 Unit/1 Ml Insuln.pen, SQ AC, (Reported) Lipase/Protease/Amylase 1 Each Capsule.dr, 2 CAP PO QID, (Reported) Lorazepam 2 Mg Tablet, 2 MG PO Q6H PRN for ANXIETY Prescribed by: LILIANA ZARATE on 08/20/18 1058 Nicotine 1 Each Patch.td24, 21 MG TD DAILY@0900 Prescribed by: LILIANA ZARATE on 08/20/18 0805 Oxycodone HCl 15 Mg Tablet, 15 MG PO Q8H PRN for PAIN-MODERATE Prescribed by: LILIANA ZARATE on 08/20/18 0805 Pantoprazole Sodium 40 Mg Tablet.dr, 40 MG PO DAILY, (Reported) Review of Systems Review of Systems Constitutional: malaise, weakness, other (STATES HE HAS BEEN IN BED ALL DAY AND HAS NOT HAD ANYTHING TO EAT OR DRINK ALL DAY) Respiratory: no symptoms reported Cardiovascular: no symptoms reported Gastrointestinal: abdominal pain (CHRONIC ), loss of appetite; No vomiting Genitourinary: decreased output Musculoskeletal: see HPI Psychiatric/Neurological: Pre-Existing Deficit (HISTORY OF NEUROPATHY) Past Yajxdzb-Zezltt-Cmaiug Hx Patient Social History Alcohol Use: Past History (HISTORY OF ABUSE, CLAIMS NO USE X 1 YEAR) Recreational Drug Use: Yes (THC DAILY) Drug of Choice: THC DAILY Smoking Status: Current Everyday Smoker (> 1 PPD) Type Used: Cigarettes 2nd Hand Smoke Exposure: Yes Recent Foreign Travel: No Contact w/Someone Who Travel: No Recent Infectious Disease Expo: No Recent Hopitalizations: Yes (pancreatitis) Immunizations Up To Date Tetanus Booster (TDap): Unknown PED Vaccines UTD: No Date of Pneumonia Vaccine: Aug 15, 2015 Seasonal Allergies Seasonal Allergies: No Past Medical History Surgeries: Yes (whipple, hernia, psuedo-cyst on pancreas, egd, colonoscopy) Abdominal Respiratory: Yes COPD Currently Using CPAP: No Currently Using BIPAP: No Cardiac: Yes Hypertension Neurological: Yes Neuropathy Genitourinary: Yes Prostate Problems Gastrointestinal: Yes (changes in bowel habits (from diarrhea to constipation) ; PANCREATIC PSEUDOCYST/CHRONIC PANCREATITIS--S/P WHIPPLE PROCEDURE; S/P HERNIA REPAIRS; CHRONIC ABDOMINAL PAIN ) Abdominal Hernia, Chronic Constipation, Pancreatitis, Chronic Diarrhea Musculoskeletal: Yes (CHRONIC GENERALIZED PAIN) Arthritis, Chronic Back Pain Endocrine: Yes Diabetes, Insulin dep HEENT: No Cancer: No Psychosocial: Yes (POLYSUBSTANCE ABUSE) Anxiety Integumentary: No Blood Disorders: No Family Medical History Not obtainable due to adoption No Pertinent Family Hx Physical Exam Vital Signs Vital Signs - First Documented 09/21/18 19:25 Temp 97.7 Pulse 106 Resp 18 B/P (MAP) 135/108 (117) Pulse Ox 100 O2 Delivery Room Air Capillary Refill : Less Than 3 Seconds Height, Weight, BMI Height: 5'11.00" Weight: 141lbs. 0oz. 63.336383bk; 17.9 BMI Method:Stated General Appearance: No Apparent Distress, Chronically ill, Thin, Other (PT LAYING OUTSTRETCHED IN NO APPARENT DISCOMFORT OR DISTRESS. WHEN I ENTER ROOM, PT SUDDENLY THRASHING ALL OVER AND MOANING AND GRIMACING. THIS STOPS WHEN I LEAVE ROOM. ) HEENT: PERRL/EOMI, Other (POOR DENTITION, ORAL MUCOSA DRY) Neck: Normal Inspection Respiratory: Normal Breath Sounds, No Accessory Muscle Use, No Respiratory Distress Cardiovascular: Regular Rate, Rhythm, No Edema, No Murmur, Normal Peripheral Pulses Gastrointestinal: Soft, Tenderness (DIFFUSE) Back: Other (C/O PAIN EVERYWHERE HE IS TOUCHED) Extremity: Normal Capillary Refill, Normal Range of Motion, No Pedal Edema, Other (C/O PAIN EVERYWHERE HE IS TOUCHED) Neurologic/Psychiatric: Alert, Oriented x3, No Motor/Sensory Deficits (GROSSLY INTACT, BUT HX OF NEUROPATHY), er medical technician II-XII Norm as Tested, Other Skin: Warm/Dry, Pallor Progress/Results/Core Measures Suspected Sepsis Recent Fever Within 48 Hours: No Infection Criteria Present: None New/Unexplained Altered Menta: No Sepsis Screen: No Definite Risk SIRS Temperature:97.7 Pulse: 106 Respiratory Rate: 18 Laboratory Tests 09/21/18 20:10: White Blood Count 7.8 Blood Pressure 135 /108 Mean: 117 Laboratory Tests 09/21/18 20:10: Creatinine 0.77, INR Comment 1.0, Platelet Count 263, Total Bilirubin 0.6 Results/Orders Lab Results Laboratory Tests Test 09/21/18 20:10 09/21/18 21:21 Range/Units White Blood Count 7.8 4.3-11.0 10^3/uL Red Blood Count 4.84 4.35-5.85 10^6/uL Hemoglobin 13.5 13.3-17.7 G/DL Hematocrit 42 40-54 % Mean Corpuscular Volume 86 80-99 FL Mean Corpuscular Hemoglobin 28 25-34 PG Mean Corpuscular Hemoglobin Concent 33 32-36 G/DL Red Cell Distribution Width 14.3 10.0-14.5 % Platelet Count 263 130-400 10^3/uL Mean Platelet Volume 10.4 7.4-10.4 FL Neutrophils (%) (Auto) 62 42-75 % Lymphocytes (%) (Auto) 27 12-44 % Monocytes (%) (Auto) 9 0-12 % Eosinophils (%) (Auto) 2 0-10 % Basophils (%) (Auto) 1 0-10 % Neutrophils # (Auto) 4.9 1.8-7.8 X 10^3 Lymphocytes # (Auto) 2.1 1.0-4.0 X 10^3 Monocytes # (Auto) 0.7 0.0-1.0 X 10^3 Eosinophils # (Auto) 0.1 0.0-0.3 10^3/uL Basophils # (Auto) 0.0 0.0-0.1 10^3/uL Prothrombin Time 13.1 12.2-14.7 SEC INR Comment 1.0 0.8-1.4 Activated Partial Thromboplast Time 43 H 24-35 SEC Sodium Level 133 L 135-145 MMOL/L Potassium Level 4.4 3.6-5.0 MMOL/L Chloride Level 96 L 98-107 MMOL/L Carbon Dioxide Level 26 21-32 MMOL/L Anion Gap 11 5-14 MMOL/L Blood Urea Nitrogen 13 7-18 MG/DL Creatinine 0.77 0.60-1.30 MG/DL Estimat Glomerular Filtration Rate > 60 BUN/Creatinine Ratio 17 Glucose Level 327 H 70-105 MG/DL Calcium Level 9.7 8.5-10.1 MG/DL Corrected Calcium 9.7 8.5-10.1 MG/DL Magnesium Level 1.8 1.8-2.4 MG/DL Total Bilirubin 0.6 0.1-1.0 MG/DL Aspartate Amino Transf (AST/SGOT) 15 5-34 U/L Alanine Aminotransferase (ALT/SGPT) 15 0-55 U/L Alkaline Phosphatase 92 40-136 U/L Total Creatine Kinase 33 30-200 U/L Creatine Kinase MB 1.3 <6.6 NG/ML Troponin I < 0.30 <0.30 NG/ML Total Protein 7.1 6.4-8.2 GM/DL Albumin 4.0 3.2-4.5 GM/DL Amylase Level 38 25-125 U/L Lipase 11 8-78 U/L Urine Color YELLOW Urine Clarity CLEAR Urine pH 7 5-9 Urine Specific [place] 1.015 L 1.016-1.022 Urine Protein NEGATIVE NEGATIVE Urine Glucose (UA) 4+ H NEGATIVE Urine Ketones NEGATIVE NEGATIVE Urine Nitrite NEGATIVE NEGATIVE Urine Bilirubin NEGATIVE NEGATIVE Urine Urobilinogen 1 NORMAL MG/DL Urine Leukocyte Esterase NEGATIVE NEGATIVE Urine RBC (Auto) NEGATIVE NEGATIVE Urine RBC NONE /HPF Urine WBC NONE /HPF Urine Squamous Epithelial Cells NONE /HPF Urine Crystals NONE /LPF Urine Bacteria NEGATIVE /HPF Urine Casts NONE /LPF Urine Mucus NEGATIVE /LPF Urine Culture Indicated NO Urine Opiates Screen NEGATIVE NEGATIVE Urine Oxycodone Screen POSITIVE H NEGATIVE Urine Methadone Screen NEGATIVE NEGATIVE Urine Propoxyphene Screen NEGATIVE NEGATIVE Urine Barbiturates Screen NEGATIVE NEGATIVE Ur Tricyclic Antidepressants Screen NEGATIVE NEGATIVE Urine Phencyclidine Screen NEGATIVE NEGATIVE Urine Amphetamines Screen NEGATIVE NEGATIVE Urine Methamphetamines Screen NEGATIVE NEGATIVE Urine Benzodiazepines Screen POSITIVE H NEGATIVE Urine Cocaine Screen NEGATIVE NEGATIVE Urine Cannabinoids Screen POSITIVE H NEGATIVE My Orders Orders - STELLAFÉLIXA K DO Accucheck Stat ONCE (09/21/18 19:52) Saline Lock/Iv-Start (09/21/18 19:52) Amylase (09/21/18 19:52) Cbc With Automated Diff (09/21/18 19:52) Comprehensive Metabolic Panel (09/21/18 19:52) Creatine Kinase (09/21/18 19:52) Creatine Kinase Mb (09/21/18 19:52) Drug Screen Stat (Urine) (09/21/18 19:52) Lipase (09/21/18 19:52) Magnesium (09/21/18 19:52) Protime With Inr (09/21/18 19:52) Partial Thromboplastin Time (09/21/18 19:52) Troponin I (09/21/18 19:52) Ua Culture If Indicated (09/21/18 19:52) Pelvis (09/21/18 19:52) Ct Thoracic/Lumbar Spine Wo (09/21/18 19:52) Ketorolac Injection (Toradol Injection) (09/21/18 20:00) Saline Lock/Iv-Start (09/21/18 21:00) Saline Lock/Iv-Start (09/21/18 21:00) Ns Iv 1000 Ml (Sodium Chloride 0.9%) (09/21/18 21:00) Insulin (Regular) Human (Humulin R (Per (09/21/18 21:00) Accucheck Stat ONCE (09/21/18 21:49) Medications Given in ED Current Medications Medications Dose Ordered Sig/Zuleika Route Start Time Stop Time Status Last Admin Dose Admin Insulin Human Regular 15 unit ONCE ONCE IV 09/21/18 21:00 09/21/18 21:02 DC 09/21/18 21:08 15 UNIT Ketorolac Tromethamine 30 mg ONCE ONCE IVP 09/21/18 20:00 09/21/18 20:01 DC 09/21/18 20:13 30 MG Sodium Chloride 1,000 ml @ 0 mls/hr Q0M ONCE IV 09/21/18 21:00 09/21/18 21:02 DC 09/21/18 21:09 0 MLS/HR Vital Signs/I&O 09/21/18 19:25 Temp 97.7 Pulse 106 Resp 18 B/P (MAP) 135/108 (117) Pulse Ox 100 O2 Delivery Room Air Capillary Refill : Less Than 3 Seconds Blood Pressure Mean: 117 Progress Note : Progress Note REVIEWED CT REPORT FROM 08/14/18--CONSTIPATION/IMPACTION, BENIGN APPEARING CALCIFICATIONS OF PANCREATIC HEAD, NO ACUTE PROCESS NO DETERIORATION IN PT'S CONDITION DURING ET STAY GIVEN FLUIDS AND INSULIN REPEAT ACCUCHECK 128 PRIOR TO DISMISSAL EXPLAINED TO PT THAT MANAGEMENT OF HIS CHRONIC PAIN ISSUES WILL NEED TO BE DONE BY DR. PASCUAL, HIS PHYSICIAN AT [facility]. Departure Impression Primary Impression: Chronic generalized pain Additional Impression: Uncontrolled diabetes mellitus Disposition: 03 XFER SNF Condition: Stable Departure-Patient Inst. Referrals: SKYLER PASCUAL DO (PCP/Family) Primary Care Physician Patient Instructions: Blood Glucose Monitoring, CHRONIC PAIN, Checking Your Child's Blood Sugar Level Add. Discharge Instructions: CONTINUE ALL CURRENT MEDICATIONS AND INSTRUCTIONS FROM CUSTODIAL DR. PASCUAL FOR FURTHER ORDERS All discharge instructions reviewed with patient and/or family. Voiced understanding. JOAN DOUGLAS DO Sep 21, 2018 21:26
[2018-09-21 21:30] LABS: BILIRUBIN,URINE NEGATIVE (NEGATIVE); CLARITY,URINE CLEAR; COLOR,URINE YELLOW; GLUCOSE, URINE (UA) 4+ (NEGATIVE); KETONES,URINE NEGATIVE (NEGATIVE); LEUKOCYTE ESTERASE ,URINE NEGATIVE (NEGATIVE); NITRITE,URINE NEGATIVE (NEGATIVE); PH,URINE 7 (5-9); PROTEIN,URINE NEGATIVE (NEGATIVE); UROBILINOGEN,URINE 1 MG/DL (NORMAL)
[2018-09-21 21:35] LABS: BACTERIA,URINE NEGATIVE /HPF
[2018-09-21 21:47] LABS: AMPHETAMINE SCREEN, URINE NEGATIVE (NEGATIVE); BARBITURATE SCREEN URINE NEGATIVE (NEGATIVE); BENZODIAZEPINES SCREEN URINE POSITIVE (NEGATIVE); CANNABINOID SCREEN, URINE POSITIVE (NEGATIVE); COCAINE SCREEN URINE NEGATIVE (NEGATIVE); METHADONE STAT NEGATIVE (NEGATIVE); METHAMPHETAMINE SCREEN URINE S NEGATIVE (NEGATIVE); OPIATE SCREEN URINE NEGATIVE (NEGATIVE); OXYCODONE STAT POSITIVE (NEGATIVE); PROPOXYPHENE STAT NEGATIVE (NEGATIVE); TRICYCLIC ANTIDEPRESSANTS SCRE NEGATIVE (NEGATIVE)
[2018-09-21] MEDS ORDERED: ORPHENADRINE 60 MG/2 ML (NORFLEX) AMP IV ONE (22:15)
[2018-09-21] MEDS ORDERED: HYOSCYAMINE 0.125 MG (LEVSIN) TAB PO ONE (22:15)
[2018-09-21 22:24] VITALS: BP 164/107
== END 2018-09-21 22:23 ==
LOC: EDUNIT# 18:51 → ER 18:52
DX: R10.84 Generalized abdominal pain (principal); E11.40 Type 2 diabetes mellitus with diabetic neuropathy, unspecified; J44.9 Chronic obstructive pulmonary disease, unspecified; I10 Essential (primary) hypertension; F41.9 Anxiety disorder, unspecified; F17.210 Nicotine dependence, cigarettes, uncomplicated; Z98.890 Other specified postprocedural states; Z79.4 Long term (current) use of insulin; Z79.51 Long term (current) use of inhaled steroids; Z87.19 Personal history of other diseases of the digestive system; Z91.14 Patient's other noncompliance with medication regimen
CPT/HCPCS: 36415; 72128; 72131; 72170; 80053; 80306; 81000; 82150; 82550; 82553; 82962; 83690; 83735; 84484; 85025; 85610; 85730

== ENCOUNTER → 2018-11-11 | Outpatient (CLI) | payer MEDICAID ==
[~2018-11-11] MED LIST changes: +DULO30CA3 PO
--- NOTE | 2018-11-11 13:29 | Diagnostic Imaging Report ---
EXAMINATION: Lumbar spine at 12:49 p.m. INDICATION: Fell, back pain. FINDINGS: AP, lateral, and spot lateral views were obtained. The recent CT thoracic and lumbar spine exam of 09/21/2018 failed to show any sign of an acute bony abnormality of the lumbar spine. On this study, there is slight irregularity of the superior endplate of L2. This finding is not conclusive for an acute fracture, however. No other fracture or acute bony abnormality is appreciated. The intervertebral disc spaces are fairly well maintained. There is no sign of a paraspinal mass. There is mild symmetrical sclerosis of the sacroiliac joints. IMPRESSION: 1. There is slight irregularity of the superior endplate of L2. This finding is not conclusive for an acute fracture, however. Even so, if clinical concern regarding an acute bony abnormality persists, then MRI will be recommended for additional evaluation. 2. There is no acute bony abnormality appreciated otherwise. Dictated by: Dictated on workstation # [id number]
== END ==
LOC: RAD 12:37
PROVIDERS: ATTEND Family Medicine
DX: M54.5 Low back pain (principal); W19.XXXA Unspecified fall, initial encounter
CPT/HCPCS: 72100

== ENCOUNTER → 2018-11-19 | Outpatient (CLI) | payer MEDICAID ==
--- NOTE | 2018-11-19 14:34 | Diagnostic Imaging Report ---
PROCEDURE: MRI lumbar spine. TECHNIQUE: Multiplanar, multisequence MRI of the lumbar spine was performed without contrast. INDICATION: Low back pain, fall. Bilateral leg numbness. COMPARISON: Radiographs from 11/11/2018. FINDINGS: For the purposes of this exam, there are five-lumbar type vertebral bodies with the last well-formed disc space designated L5-S1. There is trace anterolisthesis of L5 on S1, otherwise alignment of the lumbar spine is normal. There is mild disc height loss at L1-2 and L3-4. No vertebral body height loss is seen. No acute fracture is seen. A small facet synovial cyst is seen at L5-S1 on the left measuring up to 1 cm in size. The conus terminates in appropriate position. There is motion artifact on multiple images. The soft tissues about the lumbar spine are otherwise unremarkable. The axial images demonstrate: T12-L1: No significant disc bulge. Mild facet arthropathy. No spinal canal or foraminal stenosis. L1-L2: Diffuse disc bulge, facet arthropathy. No spinal canal stenosis. No right foraminal stenosis. Mild left foraminal narrowing. L2-L3: Mild diffuse disc bulge. Facet arthropathy with ligamentous infolding. No spinal canal stenosis. No foraminal stenosis. L3-L4: Diffuse disc bulge, facet arthropathy, ligamentous infolding. Effacement of the lateral recesses. Mild spinal canal narrowing. Moderate bilateral foraminal stenosis. L4-L5: Diffuse disc bulge with posterior annular fissure. Marked facet arthropathy with ligamentous infolding and effacement of the left lateral recess. Mild spinal canal narrowing. Mild right foraminal narrowing. Krbpwmkl-[id number] left foraminal stenosis. L5-S1: Mild anterolisthesis, mild disc bulge, facet arthropathy. No spinal canal stenosis. No right foraminal stenosis. [id number]-[id number] left foraminal stenosis. IMPRESSION: 1. Moderate multilevel degenerative changes in the lumbar spine. There is mild spinal canal narrowing, with multilevel foraminal stenosis as described above. 2. No acute fracture is seen in the lumbar spine. Dictated by: Dictated on workstation # [id number]
== END ==
LOC: RAD 12:11
PROVIDERS: ATTEND Family Medicine
DX: M48.07 Spinal stenosis, lumbosacral region (principal); M43.17 Spondylolisthesis, lumbosacral region; M51.27 Other intervertebral disc displacement, lumbosacral region; M46.87 Other specified inflammatory spondylopathies, lumbosacral region; M47.816 Spondylosis without myelopathy or radiculopathy, lumbar region; M51.36 Other intervertebral disc degeneration, lumbar region; M71.38 Other bursal cyst, other site; W19.XXXA Unspecified fall, initial encounter
CPT/HCPCS: 72148

== ENCOUNTER 2018-11-23 10:25 | Emergency (ER) | payer MEDICAID ==
[~2018-11-23] VITALS: Ht 180.3 cm; Wt 64.0 kg
--- NOTE | 2018-11-23 14:22 | ED Back Pain ---
General Chief Complaint: Back Problems Stated Complaint: FELL ON BACK CANT MOVE LEGS Nursing Triage Note: C/O BACK PAIN; RADIATES TO MIDDLE OF ABD. C/O NUMBNESS BILAT LEGS. STATES THIS NUMBNESS STARTED TODAY. PT. CAME FROM [facility]. STATES HE HAD FALL YESTERDAY EVENING. LANDED ON BACK AND SIDES. PT. IS REQUESTING TO HAVE CT AND PAIN MEDS LOOKED AT. Nursing Sepsis Screen: No Definite Risk Source of Information: Patient Exam Limitations: No Limitations History of Present Illness Date Seen by Provider: Nov 23, 2018 Time Seen by Provider: 13:58 Initial Comments Here with report of thoracic and lumbar back pain after falling twice over the last couple of days. He is actually had problems with his low back for some time and had MRI done on 11/19/18 but now has had intermittent falls. [facility] and was asking for pain medicine. Apparently he didn't get that but then had a fall afterwards. This was unwitnessed but reported to [facility] team. He requested evaluation in the emergency department. He was sent here for further evaluation. Has had numbness and tingling and difficulty with moving his legs for several weeks which prompted the MRI. That does show disc bulging and degeneration. Patient is concerned that he fractured something now as he has worse pain in the low thoracic and low lumbar region. Location: Lumbar Spine, T-Spine Timing/Duration: 4-6 Hours, Getting Worse Severity: Moderate Pain/Injury Location: Back Radiation: Buttocks, Lower Legs, Upper Legs Method of Injury: Fall, Other (chronic pain) Modifying Factors: Worse With Movement; Improves With Pain Medication, Improves With Rest Associated Symptoms: muscle spasms, numbness in legs/feet, tingling in legs/ feet, lower back pain; No loss of bladder control, No loss of bowel control Allergies and Home Medications Allergies Coded Allergies: No Known Drug Allergies (Unverified , 08/14/18) Home Medications Duloxetine HCl 30 Mg Capsule.dr, 30 MG PO HS, (Reported) Gabapentin 300 Mg Capsule, 300 MG PO QID, (Reported) Hydrocortisone Acetate 25 Mg Supp.rect, 25 MG RC BID PRN for ITCHING, (Reported) Insulin Detemir 100 Unit/1 Ml Insuln.pen, 15 UNIT SQ DAILY, (Reported) Insulin Lispro 100 Unit/1 Ml Insuln.pen, SQ AC, (Reported) Lipase/Protease/Amylase 1 Each Capsule.dr, 2 CAP PO QID, (Reported) Lorazepam 2 Mg Tablet, 2 MG PO Q6H PRN for ANXIETY Prescribed by: LILIANA ZARATE on 08/20/18 1058 Nicotine 1 Each Patch.td24, 21 MG TD DAILY@0900 Prescribed by: LILIANA ZARATE on 08/20/18 0805 Oxycodone HCl 15 Mg Tablet, 15 MG PO Q8H PRN for PAIN-MODERATE Prescribed by: LILIANA ZARATE on 08/20/18 0805 Pantoprazole Sodium 40 Mg Tablet.dr, 40 MG PO DAILY, (Reported) Patient Home Medication List Home Medication List Reviewed: Yes Review of Systems Constitutional: see HPI; No chills, No fever Respiratory: no symptoms reported Cardiovascular: no symptoms reported Musculoskeletal: see HPI, back pain, muscle pain, muscle weakness Psychiatric/Neurological: Numbness, Weakness Past Duiaurw-Vpppzu-Rlktlb Hx Past Med/Social Hx: Reviewed Nursing Past Med/Soc Hx Patient Social History Alcohol Use: Occasionally Uses Number of Drinks Today: 0 Alcohol Beverage of Choice: Whiskey Recreational Drug Use: No Drug of Choice: HX; THC DAILY Smoking Status: Current Everyday Smoker Type Used: Cigarettes 2nd Hand Smoke Exposure: Yes Recent Foreign Travel: No Contact w/Someone Who Travel: No Recent Infectious Disease Expo: No Recent Hopitalizations: Yes (pancreatitis) Immunizations Up To Date Tetanus Booster (TDap): Unknown PED Vaccines UTD: No Date of Pneumonia Vaccine: Aug 15, 2015 Seasonal Allergies Seasonal Allergies: No Past Medical History Surgeries: Yes Abdominal, Pancreatic Respiratory: Yes COPD Currently Using CPAP: No Currently Using BIPAP: No Cardiac: Yes Hypertension Neurological: Yes Neuropathy Genitourinary: Yes Prostate Problems Gastrointestinal: Yes Abdominal Hernia, Chronic Constipation, Pancreatitis, Chronic Diarrhea Musculoskeletal: Yes (CHRONIC GENERALIZED PAIN) Arthritis, Chronic Back Pain Endocrine: Yes Diabetes, Insulin dep HEENT: No Cancer: No Psychosocial: Yes (POLYSUBSTANCE ABUSE) Anxiety Integumentary: No Blood Disorders: No Family Medical History Reviewed Nursing Family Hx Not obtainable due to adoption No Pertinent Family Hx Physical Exam Vital Signs Vital Signs - First Documented 11/23/18 11:51 Temp 97.1 Pulse 113 Resp 18 B/P (MAP) 104/87 (93) Pulse Ox 99 O2 Delivery Room Air Capillary Refill : Less Than 3 Seconds Height, Weight, BMI Height: 5'11.00" Weight: 141lbs. 0oz. 63.625956ag; 17.9 BMI Method:Stated General Appearance: No Apparent Distress, WD/WN Neck: Non Tender, Supple Cardiovascular: Regular Rate, Rhythm, No Murmur Respiratory: Lungs Clear, Normal Breath Sounds Gastrointestinal: Non Tender, Soft Extremity: Non Tender, Other (does have movement although slowed) Neurologic/Psychiatric: Alert, Oriented x3 Skin: Normal Color, Warm/Dry Progress/Results/Core Measures Results/Orders My Orders Orders - MAURICIO MARTINEZ MD Ct Thoracic/Lumbar Spine Wo (11/23/18 14:14) Ketamine/Nacl Syringe (Ketamine/Nacl Syr (11/23/18 14:30) Ketorolac Injection (Toradol Injection) (11/23/18 15:52) Oxycodone/Apap 5/325mg Tablet (Percocet (11/23/18 15:52) Medications Given in ED Current Medications Medications Dose Ordered Sig/Zuleika Route Start Time Stop Time Status Last Admin Dose Admin Ketamine HCl 15 mg ONCE ONCE IV 11/23/18 14:30 11/23/18 14:31 DC 11/23/18 14:28 15 MG Vital Signs/I&O 11/23/18 11:51 Temp 97.1 Pulse 113 Resp 18 B/P (MAP) 104/87 (93) Pulse Ox 99 O2 Delivery Room Air Blood Pressure Mean: 93 Progress Progress Note : Progress Note Seen and evaluated. I did review the previous MRI. We will go again and get CT of the thoracic and lumbar spine. Ketamine 15 mg IV ordered for pain control. 100 patient. 1555: CT read complete and I did discuss with the radiologist who said there is no acute findings. Patient is still complaining of pain and states the ketamine didn't do anything for him. We will go ahead and give him his normal dose of oxycodone given 2 Percocet tablets now as well as Toradol 30 mg IV. Since there is no acute fracture, patient will be [facility]. I will send a copy of the chart to Dr. Reza. [facility]charged to [facility] with return precautions. Patient verbalize understanding instructions and agreement with plan. Diagnostic Imaging Diagonstic Imaging: CT Plain Films/CT/US/NM/MRI: other (thoracic and lumbar spine) Comments No acute fracture per radiology discussion Reviewed: Discussed w/Radiologist Departure Impression Primary Impression: Thoracic radiculopathy Additional Impression: Lumbar radiculopathy Disposition: HOME, SELF-CARE Condition: Stable Departure-Patient Inst. Decision time for Depature: 16:01 Referrals: SKYLER REZA DO (PCP/Family) Primary Care Physician Patient Instructions: Low Back Pain (DC), Upper Back Pain (DC) Add. Discharge Instructions: All discharge instructions reviewed with patient and/or family. Voiced understanding. Continue home medications as previously prescribed. Follow-up with your doctor for recheck and further evaluation. Return for worse pain, fever, vomiting, weakness, breathing problems or other concerns as needed. Copy Copies To 1: SKYLER REZA TIMOTHY D MD Nov 23, 2018 14:22
[2018-11-23] MEDS ORDERED: KETAMINE/NaCl 50 MG/5 ML SYRINGE IV ONE (14:30)
[2018-11-23] MEDS ORDERED: oxyCODONE/APAP 5/325MG (PERCOCET 5) TABLET PO STA (15:52)
[2018-11-23] MEDS ORDERED: KETOROLAC 30 MG/ML VIAL IVP STA (15:52)
[2018-11-23 16:49] VITALS: BP 128/89
--- NOTE | 2018-11-23 16:49 | NUR ---
HALFWAY CALLED TO COME GET PATIENT REPORT GIVEN
--- NOTE | 2018-11-23 16:50 | Diagnostic Imaging Report ---
INDICATION: Fall three weeks ago with continued mid back pain. Patient sustained another fall yesterday and complains of leg weakness. TECHNIQUE: Axial imaging through the thoracic and lumbar spine was performed without contrast. Sagittal and coronal reformations were also performed. Correlation is made with recent CT from 09/21/2018. FINDINGS: CT thoracic spine: Normal thoracic kyphotic curvature is noted. Vertebral body heights are maintained. No acute compression fracture deformity is seen. The paraspinous tissues are unremarkable. There is mild generalized degenerative disc disease with variable disc space narrowing and marginal spurring. CT lumbar spine: Curvature is normal. There is minimal anterolisthesis of L5 on S1. Bilateral pars defects at this level are again noted. No fracture is seen. Mild generalized spondylosis and facet arthropathy is again seen. IMPRESSION: Chronic changes in the thoracolumbar spine. No acute bony abnormality is detected. Dictated by: Dictated on workstation # [id number]
== END 2018-11-23 16:49 | disposition home or self-care (01) ==
LOC: EDUNIT# 10:25 → ER 10:28
DX: M54.14 Radiculopathy, thoracic region (principal); M54.16 Radiculopathy, lumbar region; J44.9 Chronic obstructive pulmonary disease, unspecified; I10 Essential (primary) hypertension; E11.9 Type 2 diabetes mellitus without complications; F41.9 Anxiety disorder, unspecified; F17.210 Nicotine dependence, cigarettes, uncomplicated; Z79.4 Long term (current) use of insulin; Z87.19 Personal history of other diseases of the digestive system; Z79.51 Long term (current) use of inhaled steroids; Z98.890 Other specified postprocedural states
CPT/HCPCS: 72128; 72131

== ENCOUNTER 2018-12-01 17:16 | Inpatient (IN) | payer MEDICAID ==
[2018-12-01] VITALS (11 sets, daily range): BP systolic 104–139; BP diastolic 75–136
[~2018-12-01] VITALS: Ht 180.3 cm; Wt 73.1 kg
--- NOTE | 2018-12-01 17:29 | ED Dyspnea ---
General Stated Complaint: FEVER Source of Information: Patient Exam Limitations: No Limitations History of Present Illness Date Seen by Provider: Dec 01, 2018 Time Seen by Provider: 17:28 Initial Comments To ER per EMS from [facility] with reports of fever up to 101, three-day history of cough, shortness of breath. Oxygen saturation was found to be 67% on room air, he does not normally wear oxygen. [facility] staff applied oxygen at 3.5 L/m, EMS arrived and started DuoNeb treatment with high flow oxygen but were still unable to increase his oxygen saturation above 80%. He is dyspneic but his GCS is 15. Timing/Duration: Increasing, Other Severity: Moderate Associated Symptoms: Cough, Wheezing Allergies and Home Medications Allergies Coded Allergies: No Known Drug Allergies (Unverified , 08/14/18) Home Medications Duloxetine HCl 30 Mg Capsule.dr, 30 MG PO HS, (Reported) Gabapentin 300 Mg Capsule, 300 MG PO QID, (Reported) Hydrocortisone Acetate 25 Mg Supp.rect, 25 MG RC BID PRN for ITCHING, (Reported) Insulin Detemir 100 Unit/1 Ml Insuln.pen, 15 UNIT SQ DAILY, (Reported) Insulin Lispro 100 Unit/1 Ml Insuln.pen, SQ AC, (Reported) Lipase/Protease/Amylase 1 Each Capsule.dr, 2 CAP PO QID, (Reported) Lorazepam 2 Mg Tablet, 2 MG PO Q6H PRN for ANXIETY Prescribed by: LILIANA ZARATE on 08/20/18 1058 Nicotine 1 Each Patch.td24, 21 MG TD DAILY@0900 Prescribed by: LILIANA ZARATE on 08/20/18 0805 Oxycodone HCl 15 Mg Tablet, 15 MG PO Q8H PRN for PAIN-MODERATE Prescribed by: LILIANA ZARATE on 08/20/18 0805 Pantoprazole Sodium 40 Mg Tablet.dr, 40 MG PO DAILY, (Reported) Patient Home Medication List Home Medication List Reviewed: Yes Review of Systems Review of Systems Constitutional: see HPI, chills, fever, malaise EENTM: see HPI Respiratory: see HPI, cough, short of breath Cardiovascular: no symptoms reported Genitourinary: no symptoms reported Musculoskeletal: no symptoms reported Skin: no symptoms reported Psychiatric/Neurological: No Symptoms Reported Endocrine: No Symptoms Reported Past Noafrjy-Vqqhlu-Dabkzp Hx Patient Social History Alcohol Beverage of Choice: Whiskey Drug of Choice: HX; THC DAILY Type Used: Cigarettes 2nd Hand Smoke Exposure: Yes Recent Foreign Travel: No Contact w/Someone Who Travel: No Recent Hopitalizations: Yes (pancreatitis) Immunizations Up To Date Tetanus Booster (TDap): Unknown PED Vaccines UTD: No Date of Pneumonia Vaccine: Aug 15, 2015 Seasonal Allergies Seasonal Allergies: No Past Medical History Surgeries: Yes Abdominal, Pancreatic Respiratory: Yes COPD Currently Using CPAP: No Currently Using BIPAP: No Cardiac: Yes Hypertension Neurological: Yes Neuropathy Genitourinary: Yes Prostate Problems Gastrointestinal: Yes Abdominal Hernia, Chronic Constipation, Pancreatitis, Chronic Diarrhea Musculoskeletal: Yes (CHRONIC GENERALIZED PAIN) Arthritis, Chronic Back Pain Endocrine: Yes Diabetes, Insulin dep HEENT: No Cancer: No Psychosocial: Yes (POLYSUBSTANCE ABUSE) Anxiety Integumentary: No Blood Disorders: No Family Medical History Not obtainable due to adoption No Pertinent Family Hx Physical Exam Vital Signs Vital Signs - First Documented 12/01/18 17:16 Temp 99.6 Pulse 134 Resp 30 B/P (MAP) 111/85 (94) Pulse Ox 77 O2 Delivery Nasal Cannula O2 Flow Rate 8.00 Capillary Refill : Height, Weight, BMI Height: 5'11.00" Weight: 141lbs. 0oz. 63.754577id; 17.9 BMI Method:Stated General Appearance: Chronically ill, Moderate Distress, Other (77% with good waveform on SPO2 despite high flow oxygen. Dyspneic, speaks in 1-2 word sentences, lungs diminished on the left, wheezy on the right.) Neck: Full Range of Motion, Normal Inspection Respiratory: Respiratory Distress Cardiovascular: Tachycardia Extremity: Normal Capillary Refill, Normal Inspection Neurologic/Psychiatric: Alert, Oriented x3 Skin: Normal Color, Warm/Dry Focused Exam Lactate Level 12/01/18 15:20: Lactic Acid Level 2.98*H Lactic Acid Level Laboratory Tests Test 12/01/18 15:20 Lactic Acid Level 2.98 MMOL/L (0.50-2.00) *H Procedures/Interventions Date of ETT Placement: Dec 01, 2018 Time of ETT Placement: 18:30 Intubation Method: orotracheal Tube Size: 8 Medications: Etomidate, Rocuronium Positive End Tide CO2: Yes Breath Sounds after Intubation: bilateral-equal Intubation Complications: no complications Post Intubation Xray: Yes Progress/Results/Core Measures Results/Orders Lab Results Laboratory Tests Test 12/01/18 15:20 12/01/18 17:25 Range/Units White Blood Count 12.3 H 4.3-11.0 10^3/uL Red Blood Count 4.99 4.35-5.85 10^6/uL Hemoglobin 14.1 13.3-17.7 G/DL Hematocrit 42 40-54 % Mean Corpuscular Volume 84 80-99 FL Mean Corpuscular Hemoglobin 28 25-34 PG Mean Corpuscular Hemoglobin Concent 34 32-36 G/DL Red Cell Distribution Width 14.4 10.0-14.5 % Platelet Count 189 130-400 10^3/uL Mean Platelet Volume 10.9 H 7.4-10.4 FL Neutrophils (%) (Auto) 76 H 42-75 % Lymphocytes (%) (Auto) 12 12-44 % Monocytes (%) (Auto) 12 0-12 % Eosinophils (%) (Auto) 0 0-10 % Basophils (%) (Auto) 0 0-10 % Neutrophils # (Auto) 9.3 H 1.8-7.8 X 10^3 Lymphocytes # (Auto) 1.5 1.0-4.0 X 10^3 Monocytes # (Auto) 1.4 H 0.0-1.0 X 10^3 Eosinophils # (Auto) 0.0 0.0-0.3 10^3/uL Basophils # (Auto) 0.0 0.0-0.1 10^3/uL Sodium Level 131 L 135-145 MMOL/L Potassium Level 3.8 3.6-5.0 MMOL/L Chloride Level 93 L 98-107 MMOL/L Carbon Dioxide Level 24 21-32 MMOL/L Anion Gap 14 5-14 MMOL/L Blood Urea Nitrogen 31 H 7-18 MG/DL Creatinine 1.03 0.60-1.30 MG/DL Estimat Glomerular Filtration Rate > 60 BUN/Creatinine Ratio 30 Glucose Level 238 H 70-105 MG/DL Lactic Acid Level 2.98 *H 0.50-2.00 MMOL/L Calcium Level 9.9 8.5-10.1 MG/DL Corrected Calcium 10.0 8.5-10.1 MG/DL Total Bilirubin 0.7 0.1-1.0 MG/DL Aspartate Amino Transf (AST/SGOT) 23 5-34 U/L Alanine Aminotransferase (ALT/SGPT) 20 0-55 U/L Alkaline Phosphatase 84 40-136 U/L B-Type Natriuretic Peptide 65.9 <100.0 PG/ML Total Protein 7.5 6.4-8.2 GM/DL Albumin 3.9 3.2-4.5 GM/DL Lipase 7 L 8-78 U/L Blood Gas Puncture Site LEFT RADIAL Blood Gas Patient Temperature 99.6 Arterial Blood pH 7.35 L 7.37-7.43 Arterial Blood Partial Pressure CO2 42 35-45 MMHG Arterial Blood Partial Pressure O2 70 L 79-93 MMHG Arterial Blood HCO3 23 23-27 MMOL/L Arterial Blood Total CO2 24.0 21.0-31.0 MMOL/L Arterial Blood Oxygen Saturation 91 L 94-100 % Arterial Blood Base Excess -1.9 -2.5-2.5 MMOL/L Eduard Test POSITIVE Blood Gas Ventilator Setting NO Blood Gas Inspired Oxygen BIPAP 15/5 100% Micro Results Microbiology 12/01/18 Influenza Types A,B Antigen (TYSON) - Final, Complete My Orders Orders - MANAN GAMA HAND SHOES SEWER Cbc With Automated Diff (12/01/18 17:23) Bipap (Bilevel) Set Up (12/01/18 17:23) Rt Request For Service (12/01/18 17:23) Comprehensive Metabolic Panel (12/01/18 17:23) Lipase (12/01/18 17:23) Chest 1 View, Ap/Pa Only (12/01/18 17:23) BNP (12/01/18 17:23) Influenza A And B Antigens (12/01/18 17:23) Blood Culture (12/01/18 17:23) Lactic Acid Analyzer (12/01/18 17:23) Arterial Blood Gas (12/01/18 17:25) Arterial Blood Draw (12/01/18 ) Piperacillin/Tazobactam (Bulk) (Zosyn In (12/01/18 18:00) Methylprednisolone Sod Succ (Solu-Medrol (12/01/18 18:00) Medications Given in ED Current Medications Medications Dose Ordered Sig/Zuleika Route Start Time Stop Time Status Last Admin Dose Admin Methylprednisolone Sodium Succinate 125 mg ONCE ONCE IVP 12/01/18 18:00 12/01/18 18:01 DC 12/01/18 18:13 125 MG Piperacillin Sod/ Tazobactam Sod 4.5 gm/Sodium Chloride 120 ml @ 240 mls/hr ONCE ONCE IV 12/01/18 18:00 12/01/18 18:29 DC 12/01/18 19:18 240 MLS/HR Vital Signs/I&O 12/01/18 12/01/18 17:16 17:34 Temp 99.6 Pulse 134 127 Resp 30 24 B/P (MAP) 111/85 (94) Pulse Ox 77 93 O2 Delivery Nasal Cannula O2 Flow Rate 8.00 100.00 Diagnostic Imaging Diagonstic Imaging: Xray Plain Films/CT/US/NM/MRI: chest Comments NAME: ROBEL PEREZ MED REC#: [id number] PT STATUS: REG ER : 1965 PHYSICIAN: MANAN GAMA APRN ADMIT DATE: 12/01/18/ER Draft Date of Exam:12/01/18 CHEST 1 VIEW, AP/PA ONLY INDICATION: Fever, shortness of breath. EXAMINATION: Chest dated 12/01/2018. COMPARISON: 08/14/2018. FINDINGS: The heart is unremarkable. Pulmonary vasculature is slightly prominent. There is an infiltrate in the right infrahilar region and in both mid lungs. Coarsened markings in the remaining lungs appear chronic. No effusions or pneumothorax. IMPRESSION: Scattered infiltrates especially at the right lung base. Remaining chest demonstrates chronic interstitial changes. Mild edema not excluded. Follow-up recommended. Dictated on workstation # [id number] Dict: 12/01/18 1741 Trans: 12/01/18 1746 [id number] Interpreted by: TAMARA GONZALES MD Electronically signed by: Departure Communication (Admissions) Time/Spoke to Admitting Phy: 18:[address] Pascual, will admit consult 1732-He states that he would want intubated if necessary. However since he is maintaining his own airway and has normal GCS we will attempt BiPAP initially prior to intubation. 182- BiPAP settings 15/5 100% FiO2. Despite that his oxygen saturation is only 90-92%. We'll proceed with intubation 1848- patient intubated with a size 8 endotracheal tube without complications Endotracheal tube advanced 3 cm TO 26 CM at the teeth Impression Primary Impression: Pneumonia Qualified Codes: J18.9 - Pneumonia, unspecified organism Additional Impressions: Respiratory distress Influenza A Disposition: 09 ADMITTED INPATIENT Condition: Stable Admissions Decision to Admit Reason: Admit from ER (General) Decision to Admit/Date: Dec 01, 2018 Time/Decision to Admit Time: 18:23 Departure-Patient Inst. Referrals: SKYLER PASCUAL DO (PCP/Family) Primary Care Physician MANAN GAMA APRN Dec 01, 2018 17:29
[2018-12-01 17:32] LABS: BASOPHILS % (AUTO) 0 % (0-10); EOSINOPHILS % (AUTO) 0 % (0-10); HEMATOCRIT 42 % (40-54); HEMOGLOBIN 14.1 G/DL (13.3-17.7); LYMPHOCYTES # (AUTO) 1.5 X 10^3 (1.0-4.0); LYMPHOCYTES % (AUTO) 12 % (12-44); MEAN CORPUSCULAR HEMOGLOBIN 28 PG (25-34); MEAN CORPUSCULAR HGB CONC 34 G/DL (32-36); MEAN CORPUSCULAR VOLUME 84 FL (80-99); MEAN PLATELET VOLUME 10.9 FL (7.4-10.4); MONOCYTES # (AUTO) 1.4 X 10^3 (0.0-1.0); MONOCYTES % (AUTO) 12 % (0-12); NEUTROPHILS # (AUTO) 9.3 X 10^3 (1.8-7.8); NEUTROPHILS % (AUTO) 76 % (42-75); PLATELET COUNT 189 10^3/uL (130-400); RED CELL DISTRIBUTION WIDTH 14.4 % (10.0-14.5); WHITE BLOOD COUNT 12.3 10^3/uL (4.3-11.0)
[2018-12-01 17:34] LABS: ABG BASE EXCESS -1.9 MMOL/L (-2.5-2.5); ABG OXYGEN SATURATION 91 % (94-100); ABG PCO2 42 MMHG (35-45); ABG PH 7.35 (7.37-7.43); ABG PO2 70 MMHG (79-93)
[2018-12-01 17:39] LABS: ALLENS TEST POSITIVE; INSPIRED O2 BIPAP 15/5 100%; PATIENT TEMP 99.6; VENTILATOR NO
--- NOTE | 2018-12-01 17:47 | Diagnostic Imaging Report ---
INDICATION: Fever, shortness of breath. EXAMINATION: Chest dated 12/01/2018. COMPARISON: 08/14/2018. FINDINGS: The heart is unremarkable. Pulmonary vasculature is slightly prominent. There is an infiltrate in the right infrahilar region and in both mid lungs. Coarsened markings in the remaining lungs appear chronic. No effusions or pneumothorax. IMPRESSION: Scattered infiltrates especially at the right lung base. Remaining chest demonstrates chronic interstitial changes. Mild edema not excluded. Follow-up recommended. Dictated by: Dictated on workstation # [id number]
[2018-12-01 17:57] LABS: ALANINE AMINOTRANSFERASE 20 U/L (0-55); ALBUMIN 3.9 GM/DL (3.2-4.5); ALKALINE PHOSPHATASE 84 U/L (40-136); BILIRUBIN,TOTAL 0.7 MG/DL (0.1-1.0); BUN/CREATININE RATIO 30; CALCIUM 9.9 MG/DL (8.5-10.1); CARBON DIOXIDE 24 MMOL/L (21-32); CHLORIDE 93 MMOL/L (98-107); CREATININE SERUM 1.03 MG/DL (0.60-1.30); GFR ESTIMATED > 60; GLUCOSE 238 MG/DL (70-105); LIPASE 7 U/L (8-78); POTASSIUM 3.8 MMOL/L (3.6-5.0); SODIUM 131 MMOL/L (135-145); TOTAL PROTEIN 7.5 GM/DL (6.4-8.2)
[2018-12-01] MEDS ORDERED: methylPREDNISolone 125 MG (Solu-MEDROL) VIAL IVP ONE (18:00)
[2018-12-01] MEDS ORDERED: PIPERACILLIN/TAZOBACTAM (BULK) 4.5 GM in NS (IVPB) 100 ML IV ONE (18:00)
[2018-12-01] MEDS ORDERED: ROCURONIUM 10 MG/ML 5 ML SYRINGE IV ONE (18:30)
[2018-12-01] MEDS ORDERED: fentaNYL INJECTION 100 MCG/2 ML AMP IVP ONE ×2 (18:30→20:00)
[2018-12-01] MEDS ORDERED: ETOMIDATE IV SOLN 20 MG/10 ML VIAL IV ONE (18:30)
[2018-12-01] MEDS ORDERED: HOLD METFORMIN - RECEIVED CONTRAST 20 ML VIAL IV SCH (18:30)
[2018-12-01] MEDS ORDERED: IOHEXOL 350 MG/ML 150 ML (OMNIPAQUE 350) VIAL IV ONE (18:30)
[2018-12-01] MEDS ORDERED: NS 100 ML (IVPB) BAG IV ONE (18:30)
--- NOTE | 2018-12-01 18:35 | NUR ---
Pt intubated. Color change and bilateral breath sounds noted.
[2018-12-01] MEDS ORDERED: PROPOFOL DRIP (ICU) 100 ML IV ONE ×2 (18:42→21:48)
[2018-12-01] MEDS: PROPOFOL INJECTION 50 ML IV SCH ×2 (18:45→23:25)
[2018-12-01] MEDS ORDERED: RT-ALBUTEROL/IPRATROPIUM 3 ML (DUONEB) VIAL ONE (19:09)
--- NOTE | 2018-12-01 19:10 | Diagnostic Imaging Report ---
CLINICAL INDICATION: Patient intubated and OG tube placement. EXAM: Portable chest x-ray, upright view. COMPARISONS: Chest x-ray dated 12/01/2018 at 1735 hours. FINDINGS: There is interval placement of ET tube with tip at the level of the thoracic inlet at the T1 vertebral body level. This too should be advanced at least 6 more centimeters to ensure appropriate positioning. Orogastric feeding tube is seen with proximal port overlying the expected region of the stomach in good position. Stable appearance of the lungs with scattered bilateral lung infiltrates. There is no pleural effusion or pneumothorax. Pulmonary vasculature and cardiac silhouette are within normal limits and stable. IMPRESSION: 1: Interval placement of ET tube with the tip at the level of the thoracic inlet. The ET tube should be advanced at least another 6 cm to ensure appropriate positioning. Orogastric feeding tube is in good position. 2: The remainder of this exam shows no significant interval change compared to the prior study of comparison. Dictated by: Dictated on workstation # [id number]
[2018-12-01] MEDS ORDERED: RT-ALBUTEROL/IPRATROPIUM 3 ML (DUONEB) VIAL IH ONE (19:15)
--- NOTE | 2018-12-01 19:15 | NUR ---
PROPOFOL INCREASED TO 10.8 ML/HR PER MANAN GAMA
[2018-12-01] MEDS ORDERED: MIDAZOLAM 5 MG/5 ML (VERSED) VIAL ONE (19:28)
[2018-12-01] MEDS ORDERED: MIDAZOLAM 5 MG/5 ML (VERSED) VIAL IVP ONE ×4 (19:30→20:00)
[2018-12-01] MEDS ORDERED: MIDAZOLAM INJECTION FOR DRIPS 50 MG in NS (IVPB) 90 ML IV SCH (20:00)
--- NOTE | 2018-12-01 20:15 | NUR ---
see med list
--- NOTE | 2018-12-01 20:35 | NUR ---
Pt's temperature 102. Taj Cheema notifed.
[2018-12-01] MEDS ORDERED: IBUPROFEN 800 MG (MOTRIN) TAB PO ONE (20:36)
--- NOTE | 2018-12-01 20:57 | NUR ---
Patient arrived to ICU room 9 at this time accompanied by RT and ED staff. Patient assisted to the ICU bed with staff x 4. Patient mechanically ventilated at this time, this aligner typewriter asked ED RN if the ET tube was advanced post intubation per chest x-ray results. ED RN was not aware of ET Tube advancement post chest x-ray. 2109 Taj LANDA at the bedside and did advance patient ET tube by 3cm. Patient tolerated without incident. Post advancement chest x-ray ordered.
[2018-12-01] MEDS ORDERED: NS IV 1000 ML 1,000 ML ONE (21:13)
[2018-12-01] MEDS ORDERED: NS (IVPB) 50 ML ONE (21:14)
[2018-12-01] MEDS ORDERED: inSUlin ASPART (NovoLOG) 1 UNIT/0.01 ML (CHARGE PER UNIT) SC SCH (21:30)
[2018-12-01 21:35] LABS: BILIRUBIN,URINE NEGATIVE (NEGATIVE); CLARITY,URINE SLIGHTLY CLOUDY; COLOR,URINE YELLOW; GLUCOSE, URINE (UA) 1+ (NEGATIVE); KETONES,URINE 2+ (NEGATIVE); LEUKOCYTE ESTERASE ,URINE NEGATIVE (NEGATIVE); NITRITE,URINE NEGATIVE (NEGATIVE); PH,URINE 6 (5-9); PROTEIN,URINE 2+ (NEGATIVE); UROBILINOGEN,URINE 1 MG/DL (NORMAL)
--- NOTE | 2018-12-01 21:35 | Diagnostic Imaging Report ---
INDICATION: ET tube advancement EXAMINATION: Chest dated 12/01/2018 Comparison made to 12/01/2018 at 6:58 PM FINDINGS: The ET tube tip has been advanced. The tip is now approximately 6.2 cm from the roshan. Feeding tube tip extends into the stomach. The visualized chest is stable from recent imaging. IMPRESSION: 1. ET tube advanced as described with the tip approximately just over 6 cm from the roshan. Remaining chest stable from recent. Dictated by: Dictated on workstation # [id number]
[2018-12-01] MEDS ORDERED: DEXMEDETOMIDINE INJECTION 200 MCG in NS (IVPB) 50 ML IV SCH (21:45)
[2018-12-01 21:46] LABS: BACTERIA,URINE TRACE /HPF; HYALINE CASTS, URINE 25-50 /LPF; WBC,URINE 0-2 /HPF
[2018-12-01] MEDS ORDERED: NOREPINEPHRINE 4 MG in NS (IVPB) 250 ML IV SCH (21:54)
[2018-12-01] MEDS ORDERED: VANCOMYCIN 1250 MG/NS 250 ML IVPB IV ONE ×2 (22:00)
[2018-12-01] MEDS ORDERED: ACETAMINOPHEN 325 MG TABLET PO PRN (22:00)
[2018-12-01] MEDS ORDERED: NS IV ONE (22:00)
[2018-12-01] MEDS ORDERED: IBUPROFEN 600 MG (MOTRIN) TAB PO PRN (22:00)
--- NOTE | 2018-12-01 22:22 | NUR ---
Fluid bolus non admin. Patient had fluid bolus in ED prior to arrival to ICU.
[2018-12-01] MEDS ORDERED: VANCOMYCIN 500 MG/VIAL IV ONE (22:25)
[2018-12-01] MEDS ORDERED: VANCOMYCIN INJECTION 1GM (OMNI 250 ML IV ONE (22:25)
--- NOTE | 2018-12-01 22:34 | NUR ---
Call to RT at this time to update that patient oxygen sat on 70% FIO2 is now 89%. Will increase FIO2 to 80%.
[2018-12-01] MEDS: NS IV 1000 ML 1,000 ML IV SCH (22:36)
[2018-12-01] MEDS ORDERED: RT-ALBUTEROL/IPRATROPIUM 3 ML (DUONEB) VIAL INH PRN (22:45)
[2018-12-01] MEDS ORDERED: VANCOMYCIN INJECTION 1,000 MG in NS (IVPB) 250 ML IV SCH (22:45)
--- NOTE | 2018-12-01 22:45 | NUR ---
FIO2 up to 100% now with oxygen sat @91%. RT to the room.
--- NOTE | 2018-12-01 22:46 | NUR ---
Update on patient oxygen requirements called to E ICU at this time. Will get ABG now per E ICU recommendation.
[2018-12-01 22:57] LABS: ABG BASE EXCESS -1.4 MMOL/L (-2.5-2.5); ABG OXYGEN SATURATION 90 % (94-100); ABG PCO2 54 MMHG (35-45); ABG PO2 66 MMHG (79-93); ABG TCO2 26.2 MMOL/L (21.0-31.0)
[2018-12-01 22:58] LABS: ALLENS TEST YES-POS; INSPIRED O2 100%; PATIENT TEMP 98.1; VENTILATOR YES
[2018-12-01 22:59] LABS: ABG PH 7.28 (7.37-7.43)
--- NOTE | 2018-12-01 23:01 | NUR ---
Call to [facility] to report ABG results.
[2018-12-01] MEDS ORDERED: PROPOFOL DRIP (ICU) 100 ML IV SCH (23:30)
[2018-12-02] VITALS (78 sets, daily range): BP systolic 84–142; BP diastolic 60–96
[2018-12-02] MEDS ORDERED: PIPERACILLIN/TAZO 4.5 GM VIAL (ZOSYN) IV ONE (00:07)
[2018-12-02] MEDS ORDERED: NS (IVPB) 100 ML ONE (00:09)
[2018-12-02] MEDS: PIPERACILLIN/TAZO 4.5 GM/NS 100 ML IV SCH ×8 (00:27→23:46)
--- NOTE | 2018-12-02 00:30 | NUR ---
ETT advanced to 29cm at the lip per Dr Tre carpenter.
[2018-12-02] MEDS: methylPREDNISolone 125 MG (Solu-MEDROL) VIAL IVP SCH ×3 (01:04→17:07)
[2018-12-02] MEDS: NS IV 1000 ML 1,000 ML IV SCH ×6 (01:05→21:09)
[2018-12-02] MEDS: RT-ALBUTEROL/IPRATROPIUM 3 ML (DUONEB) VIAL INH SCH ×6 (01:12→21:50)
[2018-12-02 03:03] LABS: ABG BASE EXCESS -3.1 MMOL/L (-2.5-2.5); ABG OXYGEN SATURATION 99 % (94-100); ABG PCO2 45 MMHG (35-45); ABG PO2 154 MMHG (79-93); ABG TCO2 23.6 MMOL/L (21.0-31.0); ALLENS TEST YES-POS; INSPIRED O2 100%; VENTILATOR YES
[2018-12-02 03:04] LABS: ABG PH 7.31 (7.37-7.43)
[2018-12-02 03:56] LABS: BASOPHILS % (AUTO) 0 % (0-10); EOSINOPHILS % (AUTO) 0 % (0-10); HEMATOCRIT 38 % (40-54); HEMOGLOBIN 12.5 G/DL (13.3-17.7); LYMPHOCYTES # (AUTO) 0.4 X 10^3 (1.0-4.0); LYMPHOCYTES % (AUTO) 5 % (12-44); MEAN CORPUSCULAR HEMOGLOBIN 28 PG (25-34); MEAN CORPUSCULAR HGB CONC 33 G/DL (32-36); MEAN CORPUSCULAR VOLUME 84 FL (80-99); MEAN PLATELET VOLUME 11.4 FL (7.4-10.4); MONOCYTES # (AUTO) 0.8 X 10^3 (0.0-1.0); MONOCYTES % (AUTO) 9 % (0-12); NEUTROPHILS # (AUTO) 7.5 X 10^3 (1.8-7.8); NEUTROPHILS % (AUTO) 86 % (42-75); PLATELET COUNT 149 10^3/uL (130-400); RED CELL DISTRIBUTION WIDTH 14.2 % (10.0-14.5); WHITE BLOOD COUNT 8.7 10^3/uL (4.3-11.0)
[2018-12-02 04:12] LABS: ANISOCYTOSIS SLIGHT; BAND NEUTROPHILS 33 %; BASOPHILS % (MANUAL) 0 %; ELLIPT/OVALOCYTES SLIGHT; EOSINOPHILS % (MANUAL) 0 %; LYMPHOCYTES % (MANUAL) 6 %; MONOCYTES % (MANUAL) 5 %; NEUTROPHILS % (MANUAL) 54 %; REACTIVE LYMPHOCYTES 2 %; ROULEAUX SLIGHT
[2018-12-02] MEDS ORDERED: PROPOFOL DRIP (ICU) 100 ML IV ONE (04:18)
[2018-12-02 04:23] LABS: BUN/CREATININE RATIO 31; CALCIUM 9.3 MG/DL (8.5-10.1); CARBON DIOXIDE 20 MMOL/L (21-32); CHLORIDE 101 MMOL/L (98-107); CREATININE SERUM 0.83 MG/DL (0.60-1.30); GFR ESTIMATED > 60; GLUCOSE 325 MG/DL (70-105); MAGNESIUM 1.7 MG/DL (1.8-2.4); PHOSPHORUS 2.9 MG/DL (2.3-4.7); POTASSIUM 3.4 MMOL/L (3.6-5.0); SODIUM 134 MMOL/L (135-145)
[2018-12-02] MEDS ORDERED: inSUlin ASPART (NovoLOG) 1 UNIT/0.01 ML (CHARGE PER UNIT) SC ONE (04:30)
[2018-12-02] MEDS: MAGNESIUM 1 GM/100 ML IVPB 100 ML IV SCH ×3 (04:48→05:57)
[2018-12-02] MEDS: KCL 20 MEQ TAB (K-DUR) PO SCH (04:48)
[2018-12-02] MEDS: POTASSIUM CL 10MEQ/50ML IVPB 50 ML IV SCH ×3 (04:48→05:57)
--- NOTE | 2018-12-02 05:24 | Pulmonary Consultation ---
History of Present Illness History of Present Illness Date of Consultation 12/02/18 05:19 Time Seen by Provider: 05:19 Date of Admission History of Present Illness To ER per EMS from [facility] with reports of fever up to 101, three-day history of cough, shortness of breath. Oxygen saturation was found to be 67% on room air, he does not normally wear oxygen. half-way staff applied oxygen at 3.5 L/m, EMS arrived and started DuoNeb treatment with high flow oxygen but were still unable to increase his oxygen saturation above 80%. He is dyspneic but his GCS is 15. Allergies and Home Medications Allergies Coded Allergies: No Known Drug Allergies (Unverified , 08/14/18) Home Medications Duloxetine HCl 30 Mg Capsule.dr, 30 MG PO HS, (Reported) Gabapentin 300 Mg Capsule, 300 MG PO QID, (Reported) Hydrocortisone Acetate 25 Mg Supp.rect, 25 MG RC BID PRN for ITCHING, (Reported) Insulin Detemir 100 Unit/1 Ml Insuln.pen, 15 UNIT SQ DAILY, (Reported) Insulin Lispro 100 Unit/1 Ml Insuln.pen, SQ AC, (Reported) Lipase/Protease/Amylase 1 Each Capsule.dr, 2 CAP PO QID, (Reported) Lorazepam 2 Mg Tablet, 2 MG PO Q6H PRN for ANXIETY Prescribed by: LILIANA ZARATE on 08/20/18 1058 Nicotine 1 Each Patch.td24, 21 MG TD DAILY@0900 Prescribed by: LILIANA ZARATE on 08/20/18 0805 Oxycodone HCl 15 Mg Tablet, 15 MG PO Q8H PRN for PAIN-MODERATE Prescribed by: LILIANA ZARATE on 08/20/18 0805 Pantoprazole Sodium 40 Mg Tablet.dr, 40 MG PO DAILY, (Reported) Past Yqjdldp-Ousrko-Egxxmi Hx Patient Social History Alcohol Use: Denies Use Number of Drinks Today: GG Alcohol Beverage of Choice: Whiskey Recreational Drug Use: Yes Drug of Choice: HX; THC DAILY Type Used: Cigarettes 2nd Hand Smoke Exposure: Yes Recent Foreign Travel: No Contact w/Someone Who Travel: No Recent Infectious Disease Expo: No Recent Hopitalizations: Yes (pancreatitis) Physical Abuse: No Sexual Abuse: No Immunizations Up To Date Tetanus Booster (TDap): Unknown PED Vaccines UTD: No Date of Pneumonia Vaccine: Aug 23, 2018 Date of Influenza Vaccine: Aug 23, 2018 Seasonal Allergies Seasonal Allergies: No Past Medical History Surgeries: Yes Abdominal, Pancreatic Respiratory: Yes COPD Currently Using CPAP: No Currently Using BIPAP: No Cardiac: Yes Hypertension Neurological: Yes Neuropathy Genitourinary: Yes Prostate Problems Gastrointestinal: Yes Abdominal Hernia, Chronic Constipation, Pancreatitis, Chronic Diarrhea Musculoskeletal: Yes (CHRONIC GENERALIZED PAIN) Arthritis, Chronic Back Pain Endocrine: Yes Diabetes, Insulin dep HEENT: No Cancer: No Psychosocial: Yes (POLYSUBSTANCE ABUSE) Anxiety Integumentary: No Blood Disorders: No Family Medical History Not obtainable due to adoption No Pertinent Family Hx Sepsis Event Evaluation Height, Weight, BMI Height: 5'11.00" Weight: 132lbs. 7.0oz. 60.056533cp; 18.3 BMI Method:Stated Exam Exam Vital Signs Date Time Temp Pulse Resp B/P (MAP) Pulse Ox O2 Delivery O2 Flow Rate FiO2 12/02/18 04:45 76 17 112/87 (95) 96 Mechanical Ventilator 100.00 12/02/18 04:30 77 17 114/80 (91) 94 Mechanical Ventilator 100.00 12/02/18 04:15 78 17 111/80 (90) 92 Mechanical Ventilator 100.00 12/02/18 04:00 Mechanical Ventilator 100.00 12/02/18 03:59 78 30 104/77 (86) 83 Mechanical Ventilator 50.00 12/02/18 03:50 98.6 79 18 109/84 (92) 93 Mechanical Ventilator 50.00 12/02/18 03:45 78 15 109/84 (92) 98 Mechanical Ventilator 100.00 12/02/18 03:45 94 Mechanical Ventilator 50 12/02/18 03:38 80 22 100 100 12/02/18 03:30 81 17 108/83 (91) 100 Mechanical Ventilator 100.00 12/02/18 03:15 82 17 110/81 (91) 100 Mechanical Ventilator 100.00 12/02/18 03:00 84 17 114/82 (93) 100 Mechanical Ventilator 100.00 12/02/18 02:45 85 16 84/75 (78) 100 Mechanical Ventilator 100.00 12/02/18 02:30 85 17 109/83 (92) 100 Mechanical Ventilator 100.00 12/02/18 02:15 88 17 117/86 (96) 99 Mechanical Ventilator 100.00 12/02/18 02:00 88 18 117/79 (92) 98 Mechanical Ventilator 100.00 12/02/18 01:45 89 17 113/79 (90) 98 Mechanical Ventilator 100.00 12/02/18 01:30 89 18 104/73 (83) 95 Mechanical Ventilator 100.00 12/02/18 01:20 98.0 84 18 107/76 (86) 93 Mechanical Ventilator 100.00 12/02/18 01:15 82 18 107/76 (86) 91 Mechanical Ventilator 100.00 12/02/18 01:12 81 20 91 100 12/02/18 01:09 Mechanical Ventilator 100.00 12/02/18 01:00 84 18 100/78 (85) 91 Mechanical Ventilator 80.00 12/02/18 01:00 83 12/02/18 00:45 86 18 111/80 (90) 94 Mechanical Ventilator 80.00 12/02/18 00:33 Mechanical Ventilator 80.00 12/02/18 00:30 82 20 102/73 (83) 99 Mechanical Ventilator 100.00 12/02/18 00:15 89 16 112/80 (91) 100 Mechanical Ventilator 100.00 12/02/18 00:00 90 16 118/83 (95) 99 Mechanical Ventilator 100.00 12/01/18 23:55 100 Mechanical Ventilator 100 12/01/18 23:45 92 17 112/84 (93) 99 Mechanical Ventilator 100.00 12/01/18 23:15 97.5 90 18 117/83 (94) 97 Mechanical Ventilator 100.00 12/01/18 23:00 98 16 94 Mechanical Ventilator 100.00 12/01/18 22:45 98 15 104/75 (85) 90 Mechanical Ventilator 100.00 12/01/18 22:44 Mechanical Ventilator 100.00 12/01/18 22:40 Mechanical Ventilator 90.00 12/01/18 22:35 Mechanical Ventilator 80.00 12/01/18 22:30 104 16 108/78 (88) 90 Mechanical Ventilator 70.00 12/01/18 22:25 105 25 94 70 12/01/18 22:15 106 17 113/82 (92) 98 Mechanical Ventilator 70.00 12/01/18 22:08 Mechanical Ventilator 70.00 12/01/18 22:00 110 17 118/84 (95) 100 Mechanical Ventilator 100.00 12/01/18 22:00 99.0 12/01/18 21:45 112 16 119/85 (96) 100 Mechanical Ventilator 100.00 12/01/18 21:30 113 18 110/86 (94) 99 Mechanical Ventilator 100.00 12/01/18 21:15 110 12/01/18 21:15 114 20 139/136 (137) 98 Mechanical Ventilator 100.00 12/01/18 21:00 Mechanical Ventilator 70 12/01/18 21:00 114 20 96 100 12/01/18 20:57 100.8 Mechanical Ventilator 100.00 12/01/18 20:45 102.0 123 22 124/86 (99) 98 Mechanical Ventilator 12/01/18 19:40 99.6 134 12/01/18 18:55 121 18 98 100 12/01/18 17:34 127 24 93 100.00 12/01/18 17:16 99.6 134 30 111/85 (94) 77 Nasal Cannula 8.00 I & O 12/02/18 07:00 Intake Total 2510 ml Output Total 1100 ml Balance 1410 ml Height & Weight Height: 5'11.00" Weight: 132lbs. 7.0oz. 60.062401fj; 18.3 BMI Method:Stated General Appearance: Chronically ill, Moderate Distress, Other (77% with good waveform on SPO2 despite high flow oxygen. Dyspneic, speaks in 1-2 word sentences, lungs diminished on the left, wheezy on the right.) Neck: Full Range of Motion, Normal Inspection Respiratory: Respiratory Distress Cardiovascular: Tachycardia Capillary Refill: Less Than 3 Seconds Extremity: Normal Capillary Refill, Normal Inspection Neurologic/Psychiatric: Alert, Oriented x3 Skin: Normal Color, Warm/Dry Results Lab Laboratory Tests 12/01/18 15:20 12/02/18 03:28 Assessment/Plan Assessment/Plan Acute respiratory failure -Continue ventilator care -Propofol, add fentanyl, D/C Precedex Influ A with severe sepsis r/o secondary infection -[place] culture -IVF -Vanco/Zosyn -Tamiflu Dehydration -IVF Hypotension -IVF -Monitor Hyponatremia -Monitor Anemia -Monitor ROSA TRINIDAD DO Dec 02, 2018 05:24
[2018-12-02] MEDS: ENOXAPARIN 60 MG/0.6 ML (LOVENOX) SYR SC SCH ×2 (05:59→16:45)
[2018-12-02] MEDS ORDERED: inSUlin ASPART (NovoLOG) 1 UNIT/0.01 ML (CHARGE PER UNIT) SC SCH (06:00)
[2018-12-02] MEDS: PROPOFOL INJECTION 50 ML IV SCH (06:35)
[2018-12-02] MEDS ORDERED: NS IV 1000 ML 1,000 ML IV SCH (06:56)
[2018-12-02] MEDS ORDERED: NS IV ONE (07:00)
[2018-12-02] MEDS: fentaNYL INJECTION 1,250 MCG in NS (IVPB) 250 ML IV SCH (07:27)
[2018-12-02] MEDS: NOREPINEPHRINE 4 MG in NS (IVPB) 250 ML IV SCH ×2 (07:27→20:37)
--- NOTE | 2018-12-02 07:39 | Diagnostic Imaging Report ---
Indication: Shortness breath Portable chest 2:46 AM There are emphysematous changes in the lungs. Heart size and pulmonary vascularity are normal. ET tube projects over the trachea. NG tube projects over the stomach. Lungs are clear. There is no effusion or pneumothorax. Impression: COPD. No acute abnormality seen. Dictated by: Dictated on workstation # [id number]
--- NOTE | 2018-12-02 07:40 | History & Physicial ---
History of Present Illness History of Present Illness Reason for visit/HPI Patient resident of long term. Patient now on vent and unresponsive and sedated. Patient had fever 101 coughing, short of breath, and pulse ox 67 percent on room air. Patient transferred to the emergency room at via [facility]. Patient has influenza A. Chest x-ray shows pneumonia. Patient intubated and sent to intensive care unit Date of Admission Dec 01, 2018 at 18:00 Time Seen by a Provider: 07:35 I consulted on this patient on 12/02/18 07:35 Attending Physician Rene Reza DO Admitting Physician Rene Reza DO Consult Allergies and Home Medications Allergies Coded Allergies: No Known Drug Allergies (Unverified , 08/14/18) Home Medications Duloxetine HCl 30 Mg Capsule.dr, 30 MG PO HS, (Reported) Gabapentin 300 Mg Capsule, 300 MG PO QID, (Reported) Hydrocortisone Acetate 25 Mg Supp.rect, 25 MG RC BID PRN for ITCHING, (Reported) Insulin Detemir 100 Unit/1 Ml Insuln.pen, 15 UNIT SQ DAILY, (Reported) Insulin Lispro 100 Unit/1 Ml Insuln.pen, SQ AC, (Reported) Lipase/Protease/Amylase 1 Each Capsule.dr, 2 CAP PO QID, (Reported) Lorazepam 2 Mg Tablet, 2 MG PO Q6H PRN for ANXIETY Prescribed by: LILIANA ZARATE on 08/20/18 1058 Nicotine 1 Each Patch.td24, 21 MG TD DAILY@0900 Prescribed by: LILIANA ZARATE on 08/20/18 0805 Oxycodone HCl 15 Mg Tablet, 15 MG PO Q8H PRN for PAIN-MODERATE Prescribed by: LILIANA ZARATE on 08/20/18 0805 Pantoprazole Sodium 40 Mg Tablet.dr, 40 MG PO DAILY, (Reported) Patient Home Medication List Home Medication List Reviewed: No Past Stvkrzp-Iikcks-Nuwtmy Hx Patient Social History Employed/Student: unemployed Alcohol Use: Denies Use Number of Drinks Today: GG Alcohol Beverage of Choice: Whiskey Recreational Drug Use: Yes Drug of Choice: HX; THC DAILY Type Used: Cigarettes 2nd Hand Smoke Exposure: Yes Recent Foreign Travel: No Contact w/other who traveled: No Recent Hopitalizations: Yes (pancreatitis) Recent Infectious Disease Expo: No Immunizations Up To Date Tetanus Booster (TDap): Unknown Pediatric: No Date of Pneumonia Vaccine: Aug 23, 2018 Date of Influenza Vaccine: Aug 23, 2018 Seasonal Allergies Seasonal Allergies: No Surgeries Yes Abdominal, Pancreatic Respiratory Yes Currently Using CPAP: No Currently Using BIPAP: No Cardiovascular Yes Hypertension Neurological Yes Neuropathy Genitourinary Yes Prostate Problems Gastrointestinal Yes Abdominal Hernia, Chronic Constipation, Pancreatitis, Chronic Diarrhea Musculoskeletal Yes (CHRONIC GENERALIZED PAIN) Arthritis, Chronic Back Pain Endocrine History of Endocrine Disorders: Yes Endocrine Disorders: Diabetes, Insulin dep HEENT History of HEENT Disorders: No Cancer No Psychosocial History of Psychiatric Problem: Yes (POLYSUBSTANCE ABUSE) Behavioral Health Disorders: Anxiety Integumentary History of Skin or Integumenta: No Blood Transfusions History of Blood Disorders: No Family Medical History Significant Family History: No Pertinent Family Hx Family Hx: Not obtainable due to adoption Review of Systems Constitutional: fever, other (Patient on vent and sedated) EENTM: no symptoms reported Respiratory: short of breath, other (Influenza A and pneumonia) Cardiovascular: no symptoms reported Gastrointestinal: no symptoms reported Physical Exam Vital Signs Vital Signs - First Documented 12/01/18 12/01/18 17:16 18:55 Temp 99.6 Pulse 134 Resp 30 B/P (MAP) 111/85 (94) Pulse Ox 77 O2 Delivery Nasal Cannula O2 Flow Rate 8.00 FiO2 100 Capillary Refill : Less Than 3 Seconds Height, Weight, BMI Height: 5'11.00" Weight: 132lbs. 7.0oz. 60.334909oi; 18.3 BMI Method:Stated General Appearance: Thin, Other (On vent and unresponsive) HEENT: Normal ENT Inspection Neck: Normal Inspection Respiratory: No Accessory Muscle Use, No Respiratory Distress, Decreased Breath Sounds Cardiovascular: Regular Rate, Rhythm, No Murmur Gastrointestinal: Non Tender, Soft Assessment/Plan Assessment and Plan Influenza A. Pneumonia. Fever. Short of breath. Pulse ox 67. Respiratory distress. Dehydration. Hyponatremia. Anemia Admission Diagnosis Admission Status: Inpatient Order (span 2 midnights) Reason for Inpatient Admission: Influenza A. Pneumonia. Respiratory distress. Pulse ox 67 area On ventilator Clinical Quality Measures DVT/VTE Risk/Contraindication: Risk Factor Score Per Nursin RFS Level Per Nursing on Admit: 4+=Very High RENE REZA DO Dec 02, 2018 07:40
[2018-12-02] MEDS ORDERED: ETOMIDATE IV SOLN 20 MG/10 ML VIAL IV ONE (07:45)
[2018-12-02] MEDS ORDERED: MIDAZOLAM 5 MG/5 ML (VERSED) VIAL IJ ONE (07:45)
[2018-12-02] MEDS ORDERED: ROCURONIUM 10 MG/ML 5 ML SYRINGE IV ONE (07:45)
[2018-12-02] MEDS: inSUlin ASPART (NovoLOG) 1 UNIT/0.01 ML (CHARGE PER UNIT) SC SCH ×5 (08:13→23:48)
[2018-12-02] MEDS ORDERED: NS 100 ML (IVPB) BAG IV ONE (08:15)
[2018-12-02] MEDS ORDERED: HOLD METFORMIN - RECEIVED CONTRAST 20 ML VIAL IV SCH (08:15)
[2018-12-02] MEDS ORDERED: IOHEXOL 350 MG/ML 150 ML (OMNIPAQUE 350) VIAL IV ONE (08:15)
[2018-12-02] MEDS: PANTOPRAZOLE 40 MG (PROTONIX) VIAL IV SCH (08:18)
[2018-12-02] MEDS: VANCOMYCIN 1 GM/NS 250 ML IVPB IV SCH ×4 (08:32→20:40)
--- NOTE | 2018-12-02 09:14 | Diagnostic Imaging Report ---
PROCEDURE: US Venous Lower Ext Duc. INDICATION: Respiratory distress, flu. TECHNIQUE: Grayscale with color-flow and Doppler waveform evaluation of the bilateral lower extremity deep venous systems. CORRELATION STUDY: None FINDINGS: Color and grayscale sonographic images demonstrate no intraluminal defect within the visualized portion of the common femoral, superficial femoral and/or popliteal veins to suggest thrombus formation. These vessels demonstrate normal response to compression and augmentation. No soft tissue fluid collection. IMPRESSION: 1. Negative for deep venous thrombosis of either leg. Dictated by: Dictated on workstation # [id number]
--- NOTE | 2018-12-02 10:04 | Diagnostic Imaging Report ---
PROCEDURE: CT angiography of the chest with contrast. TECHNIQUE: Multiple contiguous axial images were obtained through the chest after uneventful bolus administration of intravenous contrast. 2D reconstructed CTA MIP acquisitions were also performed. INDICATION: Hypoxia. No prior studies are available for comparison. Patient is intubated. Tip of the ET tube is above the roshan. The NG tube passes into the stomach. Evaluation of the pulmonary arterial system is without evidence of thromboembolism. No filling defects are seen within central, lobar or segmental branches. No thoracic aortic dissection is seen. There is a large bulla in the right upper lobe measuring 7.3 x 7.6 cm. Patient also has a left-sided pneumothorax. There is a large pneumomediastinum present. Gas is identified in the soft tissues in the right supraclavicular region as well. There appears to be a small right basilar pneumothorax as well. Parenchymal evaluation does shows some mild tree-in-bud infiltrate in the right upper lobe posteriorly. There is marked consolidation involving the left lower lobe. No significant pericardial or pleural fluid is seen. IMPRESSION: Bilateral pneumothoraces and pneumomediastinum. There is significant airspace consolidation in the left lower lobe perhaps owing to some mucous plugging involving left lower lobe bronchi. There are no findings to suggest pulmonary embolism. Dictated by: Dictated on workstation # [id number]
[2018-12-02] MEDS: OSELTAMIVIR 6 MG/ML (TAMIFLU) 60 ML BOT PO SCH ×2 (10:05→20:40)
[2018-12-02] MEDS: PROPOFOL DRIP (ICU) 100 ML IV SCH ×3 (10:06→22:23)
[2018-12-02] MEDS ORDERED: LIPA1CAP2 PO (10:28)
[2018-12-02] MEDS ORDERED: SERT50TA2 PO (10:28)
[2018-12-02] MEDS ORDERED: DULO60CA58 PO (10:28)
[2018-12-02] MEDS ORDERED: GABA-490 PO (10:28)
[2018-12-02] MEDS ORDERED: OXYC10TA7 PO (10:28)
[2018-12-02] MEDS ORDERED: MUPI22OI2 NS (10:28)
[2018-12-02] MEDS ORDERED: OSLT75C PO (10:28)
[2018-12-02] MEDS ORDERED: LORA2TAB PO (10:28)
--- NOTE | 2018-12-02 10:29 | NUR ---
UPDATED MED REC WITH ORDER SUMMARY REPORT FROM [facility]
--- NOTE | 2018-12-02 11:41 | Pulmonary Progress Note ---
Standard Progress Note Progress Notes Time Seen by Provider: 10:30 Radiology called to discuss CT of chest. PT does not have a PE however he does have bilateral PTX and pneumomediastinum. Pt is on ventilator requiring Peep of 12 and 100% Fi02. Pt is not able to sign consent and he has no family. I called his intermediate to be sure there was no family. The only contact number they have is a friend Kevon Garvin. I tried to call Kevon however there was no answer. Looking at CT it appears left PTX is larger then right. I called and discussed with radiology again prior to placing left chest tube. Pt did receive a therapeutic dose of Lovenox for suspected PE prior to CT of chest however if he does not have CT tube placed it will get larger since he is on the vent. I will use a small bore CT to reduce risk of bleeding. Bilateral PTX is probably secondary Left ptx with communication to the right lung. Will decrease peep to 0 and decrease Vt to 400 when placing chest tube. I have also discussed patient in depth with Dr. Reza who knows him well. Will reevaluate after placing chest tube. Assessment & Plan Acute respiratory failure -Continue ventilator care -Propofol, add fentanyl, D/C Precedex Bilateral PTX with pneumomediastinum -Probably a communication between left and right lung -Will place small bore left chest tube and then reevaluate -CXR done and reviewed with radiology. I am going to repeat CT of chest to ensure proper placement of chest tube. Influ A with severe sepsis r/o secondary infection -Lawrence culture -IVF -Vanco/Zosyn -Tamiflu Dehydration -IVF Hypotension -IVF -Monitor Hyponatremia -Monitor Anemia -Monitor Critical Care: Critically Ill Patient (Not including this morning evaluation or chest tube placement. ) Time spent with patient (mins): 45 Focused Exam Lactate Level 12/01/18 15:20: Lactic Acid Level 2.98*H 12/01/18 21:20: Lactic Acid Level 1.62 ROSA TRINIDAD DO Dec 02, 2018 11:41
--- NOTE | 2018-12-02 11:41 | Diagnostic Imaging Report ---
INDICATION: Left chest tube placement. TIME OF EXAM: 11:21 a.m. COMPARISON: Correlation is made with prior study earlier same day. FINDINGS: ET tube and NG tube remain in place. A small caliber chest tube on the left has been placed and overlies the mid chest. No significant pneumothorax on the left is seen apart from some questionable minimal basilar component. There is some right apical pneumothorax noted. Subcutaneous gas in the soft tissues of right neck is noted. No significant effusion is seen. IMPRESSION: Left chest tube placement, as described. There is some minimal residual left basilar pneumothorax as well as a right apical pneumothorax. Dictated by: Dictated on workstation # [id number]
--- NOTE | 2018-12-02 11:45 | Pulmonary Procedures ---
Pulmonary Procedures Date of Procedure Date of Service: Dec 02, 2018 Chest Tube : Chest Tube Position: Left (decreased peep to 0 and decreased Vt to 400 prior to placing chest tube. ) Chest Tube Location: Anterior Chest Size of Danish Tube (cm): 14 Chest Tube Procedure: betadine prep, sterile drapes applied, sterile dressing applied Anesthesia: 1% Lidocaine Sparks of Air [place]: No Number of Attempts: 1 Tube Sutured to Skin: Yes Post Procedure CXR?: Yes ROSA TRINIDAD DO Dec 02, 2018 11:45
--- NOTE | 2018-12-02 14:22 | Diagnostic Imaging Report ---
PROCEDURE: CT chest without contrast. TECHNIQUE: Multiple contiguous axial images were obtained through the chest without the use of intravenous contrast. INDICATION: Chest tube placement. Study is performed to evaluate chest tube. COMPARISON: Correlation is made with CT study of the chest performed earlier the same day. FINDINGS: The ET tube remains above the roshan. NG tube passes into the stomach. There has been placement of a left-sided chest tube anteriorly to the left intercostal space. The chest tube extends towards the left slightly inferior and appears to be appropriately positioned. There is complete reexpansion of the left lung without evidence of residual pneumothorax. There continues to be consolidation in the left lower lobe similar to prior exam consistent with atelectasis and mucous plugging. Large bulla in the right upper lung is again seen. Various small residual right basilar pneumothorax is seen. Large pneumomediastinum is again noted. There is some soft tissue gas in the right supraclavicular soft tissues. IMPRESSION: Left side chest tube placement. There has been complete reexpansion of the left lung. Right basilar pneumothorax and pneumomediastinum persists. There continues to be left lower lobe atelectasis. Dictated by: Dictated on workstation # [id number]
--- NOTE | 2018-12-02 15:49 | Occ Therapy Progress Note ---
Therapy Progress Note Has OT EVAL Order. Pt intubated & Unresponsive. Pt will be on hold. OT will be seen when pt will be in a stable condition. JOSE RAMOS OT Dec 02, 2018 15:49
[2018-12-02 16:08] LABS: ABG BASE EXCESS -2.8 MMOL/L (-2.5-2.5); ABG OXYGEN SATURATION 98 % (94-100); ABG PCO2 40 MMHG (35-45); ABG PH 7.36 (7.37-7.43); ABG PO2 125 MMHG (79-93); ABG TCO2 23.1 MMOL/L (21.0-31.0); ALLENS TEST YES-POS; INSPIRED O2 100%; PATIENT TEMP 98.3; VENTILATOR YES
--- NOTE | 2018-12-02 17:01 | Diagnostic Imaging Report ---
INDICATION: Pneumothorax, chest tube, intubated. COMPARISON: 12/02/2018 at 11:21 a.m. FINDINGS: Single view of the chest demonstrates stable small-caliber chest tube on the left. There is no appreciable pneumothorax. There is atelectasis and trace effusion in the left base. Some increasing infiltrate is seen in the right base. The remainder of the support lines is stable. The heart size is prominent without pulmonary edema. IMPRESSION: 1. Stable small-caliber chest tube on the left without appreciable pneumothorax. 2. Stable atelectasis and trace effusion left base. 3. Slightly increased infiltrate right lung base. Dictated by: Dictated on workstation # [id number]
[2018-12-03] VITALS (36 sets, daily range): BP systolic 105–132; BP diastolic 58–91
[2018-12-03] MEDS: RT-ALBUTEROL/IPRATROPIUM 3 ML (DUONEB) VIAL INH SCH ×6 (01:43→22:41)
[2018-12-03] MEDS: NS IV 1000 ML 1,000 ML IV SCH ×6 (02:31→21:43)
[2018-12-03] MEDS: methylPREDNISolone 125 MG (Solu-MEDROL) VIAL IVP SCH ×3 (02:31→17:51)
[2018-12-03 03:29] LABS: BASOPHILS % (AUTO) 0 % (0-10); EOSINOPHILS % (AUTO) 0 % (0-10); HEMATOCRIT 34 % (40-54); HEMOGLOBIN 11.6 G/DL (13.3-17.7); LYMPHOCYTES # (AUTO) 0.6 X 10^3 (1.0-4.0); LYMPHOCYTES % (AUTO) 8 % (12-44); MEAN CORPUSCULAR HEMOGLOBIN 28 PG (25-34); MEAN CORPUSCULAR HGB CONC 34 G/DL (32-36); MEAN CORPUSCULAR VOLUME 82 FL (80-99); MEAN PLATELET VOLUME 11.3 FL (7.4-10.4); MONOCYTES # (AUTO) 0.9 X 10^3 (0.0-1.0); MONOCYTES % (AUTO) 11 % (0-12); NEUTROPHILS # (AUTO) 6.3 X 10^3 (1.8-7.8); NEUTROPHILS % (AUTO) 81 % (42-75); PLATELET COUNT 133 10^3/uL (130-400); RED CELL DISTRIBUTION WIDTH 14.4 % (10.0-14.5); WHITE BLOOD COUNT 7.8 10^3/uL (4.3-11.0)
[2018-12-03 03:30] LABS: ABG BASE EXCESS -0.7 MMOL/L (-2.5-2.5); ABG OXYGEN SATURATION 99 % (94-100); ABG PCO2 41 MMHG (35-45); ABG PH 7.38 (7.37-7.43); ABG PO2 324 MMHG (79-93); ABG TCO2 25.1 MMOL/L (21.0-31.0)
[2018-12-03 03:33] LABS: ALLENS TEST POSITIVE; INSPIRED O2 100%; VENTILATOR YES
[2018-12-03] MEDS: inSUlin ASPART (NovoLOG) 1 UNIT/0.01 ML (CHARGE PER UNIT) SC SCH ×5 (03:45→20:20)
[2018-12-03 03:48] LABS: BUN/CREATININE RATIO 27; CALCIUM 9.6 MG/DL (8.5-10.1); CARBON DIOXIDE 22 MMOL/L (21-32); CHLORIDE 106 MMOL/L (98-107); GFR ESTIMATED > 60; GLUCOSE 161 MG/DL (70-105); PHOSPHORUS 1.2 MG/DL (2.3-4.7); SODIUM 138 MMOL/L (135-145)
[2018-12-03] MEDS: PROPOFOL DRIP (ICU) 100 ML IV SCH ×5 (03:49→23:40)
[2018-12-03 04:08] LABS: POTASSIUM 2.4 MMOL/L (3.6-5.0)
[2018-12-03] MEDS: KCL 20 MEQ TAB (K-DUR) PO SCH (04:11)
[2018-12-03] MEDS: MAGNESIUM 1 GM/100 ML IVPB 100 ML IV SCH (04:11)
[2018-12-03] MEDS: POTASSIUM CL 10MEQ/50ML IVPB 50 ML IV SCH ×7 (04:11→08:16)
[2018-12-03] MEDS: ENOXAPARIN 60 MG/0.6 ML (LOVENOX) SYR SC SCH ×2 (04:28→17:51)
--- NOTE | 2018-12-03 05:01 | Pulmonary Progress Note ---
Subjective Time Seen by a Provider: 07:05 Subjective/Events-last exam Pt sedated on vent Sepsis Event Evaluation Height, Weight, BMI Height: 5'11.00" Weight: 132lbs. 7.0oz. 60.436153kk; 18.3 BMI Method:Stated Focused Exam Lactate Level 12/01/18 15:20: Lactic Acid Level 2.98*H 12/01/18 21:20: Lactic Acid Level 1.62 Exam Exam Vital Signs Date Time Temp Pulse Resp B/P (MAP) Pulse Ox O2 Delivery O2 Flow Rate FiO2 12/03/18 03:49 Mechanical Ventilator 100.00 12/03/18 03:15 97 Mechanical Ventilator 100 12/03/18 03:15 98.0 Mechanical Ventilator 100.00 12/03/18 01:44 75 24 99 100 12/02/18 23:25 97.2 Mechanical Ventilator 100.00 12/02/18 23:25 97 Mechanical Ventilator 100 12/02/18 22:23 Mechanical Ventilator 100.00 12/02/18 21:50 77 27 99 100 12/02/18 20:31 81 24 97 100 12/02/18 20:00 99 Mechanical Ventilator 100 12/02/18 20:00 96.8 80 24 122/86 (98) 99 Mechanical Ventilator 100.00 12/02/18 19:12 68 12/02/18 18:03 88 24 99 100 12/02/18 18:01 98.3 12/02/18 18:00 89 31 119/83 (95) 99 Mechanical Ventilator 100.00 12/02/18 17:07 98.2 12/02/18 17:00 90 31 142/82 (102) 100 Mechanical Ventilator 100.00 12/02/18 16:26 98.2 12/02/18 16:21 81 24 99 100 12/02/18 16:00 84 23 122/84 (97) 98 Mechanical Ventilator 100.00 12/02/18 16:00 94 Mechanical Ventilator 50 12/02/18 15:41 100 12/02/18 15:00 82 23 114/84 (94) 95 Mechanical Ventilator 100.00 12/02/18 14:00 97.7 12/02/18 14:00 69 24 133/96 (108) 99 Mechanical Ventilator 100.00 12/02/18 13:56 69 24 99 80 12/02/18 13:00 97.8 12/02/18 13:00 68 12/02/18 13:00 69 40 140/96 (111) Mechanical Ventilator 100.00 12/02/18 12:00 94 Mechanical Ventilator 50 12/02/18 12:00 71 24 128/94 (105) 99 Mechanical Ventilator 100.00 12/02/18 11:45 72 23 127/92 (104) 99 Mechanical Ventilator 100.00 12/02/18 11:30 73 24 125/93 (104) 99 Mechanical Ventilator 100.00 12/02/18 11:15 73 134/92 (106) 98 Mechanical Ventilator 100.00 12/02/18 11:00 75 126/89 (101) 98 Mechanical Ventilator 100.00 12/02/18 10:45 80 24 127/87 (100) 97 Mechanical Ventilator 100.00 12/02/18 10:30 86 22 115/83 (94) 95 Mechanical Ventilator 100.00 12/02/18 10:15 87 19 117/85 (96) 96 Mechanical Ventilator 100.00 12/02/18 10:06 97.4 12/02/18 10:00 80 23 128/91 (103) 97 Mechanical Ventilator 100.00 12/02/18 09:49 80 25 98 90 12/02/18 08:15 93 24 105/78 (87) 93 Mechanical Ventilator 100.00 12/02/18 08:04 93 26 93 90 12/02/18 08:00 93 26 118/91 (100) Mechanical Ventilator 100.00 12/02/18 08:00 94 Mechanical Ventilator 50 12/02/18 07:45 91 25 113/82 (92) 94 Mechanical Ventilator 100.00 12/02/18 07:30 91 24 115/85 (95) 94 Mechanical Ventilator 100.00 12/02/18 07:15 91 25 119/88 (98) 93 Mechanical Ventilator 100.00 12/02/18 07:00 79 27 92/60 (71) 92 Mechanical Ventilator 100.00 12/02/18 07:00 93 12/02/18 06:54 80 26 94 90 12/02/18 06:45 80 26 117/87 (97) 94 Mechanical Ventilator 100.00 12/02/18 06:30 80 34 115/85 (95) 95 Mechanical Ventilator 100.00 12/02/18 06:15 81 31 115/87 (96) 94 Mechanical Ventilator 100.00 12/02/18 06:00 77 25 107/78 (88) 96 Mechanical Ventilator 100.00 12/02/18 05:45 77 26 106/82 (90) 96 Mechanical Ventilator 100.00 12/02/18 05:30 77 30 108/82 (91) 97 Mechanical Ventilator 100.00 12/02/18 05:15 76 17 115/78 (90) 97 Mechanical Ventilator 100.00 12/02/18 05:00 75 17 116/84 (95) 97 Mechanical Ventilator 100.00 I & O 12/03/18 07:00 Intake Total 2092 ml Output Total 1775 ml Balance 317 ml Height & Weight Height: 5'11.00" Weight: 132lbs. 7.0oz. 60.108138uw; 18.3 BMI Method:Stated General Appearance: Thin, Other (On vent and unresponsive) HEENT: Normal ENT Inspection Neck: Normal Inspection Respiratory: No Accessory Muscle Use, No Respiratory Distress, Decreased Breath Sounds Cardiovascular: Regular Rate, Rhythm, No Murmur Capillary Refill: Less Than 3 Seconds Extremity: Normal Capillary Refill, Normal Inspection Neurologic/Psychiatric: Alert, Oriented x3 Skin: Normal Color, Warm/Dry Results Lab Laboratory Tests 12/01/18 15:20 12/02/18 03:28 12/03/18 03:05 Assessment/Plan Assessment/Plan Acute respiratory failure -Continue ventilator care -Propofol, add fentanyl, D/C Precedex Bilateral PTX with pneumomediastinum -Probably a communication between left and right lung -Will place small bore left chest tube and then reevaluate -CXR done and reviewed with radiology. I am going to repeat CT of chest to ensure proper placement of chest tube. Influ A with severe sepsis r/o secondary infection -[place]rence culture -IVF -Vanco/Zosyn -Tamiflu Dehydration -IVF Hypotension -IVF -Monitor Hyponatremia -Monitor Anemia ROSA TRINIDAD DO Dec 03, 2018 05:01
--- NOTE | 2018-12-03 05:06 | NUR ---
-20cm suction to chest tube at this time.
[2018-12-03] MEDS: VANCOMYCIN 1 GM/NS 250 ML IVPB IV SCH ×4 (07:40→20:10)
--- NOTE | 2018-12-03 07:44 | Progress Note (SOAP) ---
Subjective Time Seen by a Provider: 07:41 Subjective/Events-last exam Patient on vent and sedated. Patient has influenza. Patient has bilateral pneumothorax and pneumomediastinum. Left pneumothorax resolved. Respiratory distress Focused Exam Lactate Level 12/01/18 15:20: Lactic Acid Level 2.98*H 12/01/18 21:20: Lactic Acid Level 1.62 Objective Exam Vital Signs Date Time Temp Pulse Resp B/P (MAP) Pulse Ox O2 Delivery O2 Flow Rate FiO2 12/03/18 07:00 77 15 129/82 (98) Mechanical Ventilator 60.00 12/03/18 06:57 75 24 97 100 12/03/18 06:16 75 23 108/73 (85) 93 Mechanical Ventilator 60.00 12/03/18 05:07 Mechanical Ventilator 60.00 12/03/18 05:01 80 24 115/91 (99) 99 Mechanical Ventilator 100.00 12/03/18 05:00 80 18 111/75 (87) 99 Mechanical Ventilator 100.00 12/03/18 04:15 80 18 111/75 (87) 99 Mechanical Ventilator 100.00 12/03/18 04:00 81 25 109/77 (88) 98 Mechanical Ventilator 100.00 12/03/18 03:49 Mechanical Ventilator 100.00 12/03/18 03:15 97 Mechanical Ventilator 100 12/03/18 03:15 98.0 Mechanical Ventilator 100.00 12/03/18 03:00 80 19 114/78 (90) 99 Mechanical Ventilator 100.00 12/03/18 02:00 79 21 110/76 (87) 99 Mechanical Ventilator 100.00 12/03/18 01:44 75 24 99 100 12/03/18 01:00 77 23 113/76 (88) 100 Mechanical Ventilator 100.00 12/03/18 00:00 78 22 118/80 (93) 99 Mechanical Ventilator 100.00 12/02/18 23:25 97.2 Mechanical Ventilator 100.00 12/02/18 23:25 97 Mechanical Ventilator 100 12/02/18 23:00 79 27 120/83 (95) 97 Mechanical Ventilator 100.00 12/02/18 22:45 80 23 128/89 (102) 98 Mechanical Ventilator 100.00 12/02/18 22:30 80 24 124/86 (99) 99 Mechanical Ventilator 100.00 12/02/18 22:23 Mechanical Ventilator 100.00 12/02/18 22:15 80 24 127/87 (100) 99 Mechanical Ventilator 100.00 12/02/18 22:00 77 23 130/88 (102) 99 Mechanical Ventilator 100.00 12/02/18 21:50 77 27 99 100 12/02/18 21:45 76 23 135/93 (107) 98 Mechanical Ventilator 100.00 12/02/18 21:30 78 24 135/91 (106) 98 Mechanical Ventilator 100.00 12/02/18 21:15 77 23 135/90 (105) 99 Mechanical Ventilator 100.00 12/02/18 21:00 79 23 131/88 (102) 99 Mechanical Ventilator 100.00 12/02/18 20:45 80 16 128/94 (105) 99 Mechanical Ventilator 100.00 12/02/18 20:31 81 24 97 100 12/02/18 20:30 81 24 122/87 (99) 99 Mechanical Ventilator 100.00 12/02/18 20:15 82 19 123/86 (98) 99 Mechanical Ventilator 100.00 12/02/18 20:00 99 Mechanical Ventilator 100 12/02/18 20:00 83 25 122/86 (98) 99 Mechanical Ventilator 100.00 12/02/18 20:00 96.8 80 24 122/86 (98) 99 Mechanical Ventilator 100.00 12/02/18 19:45 85 19 119/83 (95) 99 Mechanical Ventilator 100.00 12/02/18 19:30 85 23 121/83 (96) 98 Mechanical Ventilator 100.00 12/02/18 19:15 86 31 117/83 (94) 98 Mechanical Ventilator 100.00 12/02/18 19:12 68 12/02/18 19:00 88 28 114/82 (93) 99 Mechanical Ventilator 100.00 12/02/18 18:03 88 24 99 100 12/02/18 18:01 98.3 12/02/18 18:00 89 31 119/83 (95) 99 Mechanical Ventilator 100.00 12/02/18 17:07 98.2 12/02/18 17:00 90 31 142/82 (102) 100 Mechanical Ventilator 100.00 12/02/18 16:26 98.2 12/02/18 16:21 81 24 99 100 12/02/18 16:00 84 23 122/84 (97) 98 Mechanical Ventilator 100.00 12/02/18 16:00 94 Mechanical Ventilator 50 12/02/18 15:41 100 12/02/18 15:00 82 23 114/84 (94) 95 Mechanical Ventilator 100.00 12/02/18 14:00 97.7 12/02/18 14:00 69 24 133/96 (108) 99 Mechanical Ventilator 100.00 12/02/18 13:56 69 24 99 80 12/02/18 13:00 97.8 12/02/18 13:00 68 12/02/18 13:00 69 40 140/96 (111) Mechanical Ventilator 100.00 12/02/18 12:00 94 Mechanical Ventilator 50 12/02/18 12:00 71 24 128/94 (105) 99 Mechanical Ventilator 100.00 12/02/18 11:45 72 23 127/92 (104) 99 Mechanical Ventilator 100.00 12/02/18 11:30 73 24 125/93 (104) 99 Mechanical Ventilator 100.00 12/02/18 11:15 73 134/92 (106) 98 Mechanical Ventilator 100.00 12/02/18 11:00 75 126/89 (101) 98 Mechanical Ventilator 100.00 12/02/18 10:45 80 24 127/87 (100) 97 Mechanical Ventilator 100.00 12/02/18 10:30 86 22 115/83 (94) 95 Mechanical Ventilator 100.00 12/02/18 10:15 87 19 117/85 (96) 96 Mechanical Ventilator 100.00 12/02/18 10:06 97.4 12/02/18 10:00 80 23 128/91 (103) 97 Mechanical Ventilator 100.00 12/02/18 09:49 80 25 98 90 12/02/18 08:15 93 24 105/78 (87) 93 Mechanical Ventilator 100.00 12/02/18 08:04 93 26 93 90 12/02/18 08:00 93 26 118/91 (100) Mechanical Ventilator 100.00 12/02/18 08:00 94 Mechanical Ventilator 50 12/02/18 07:45 91 25 113/82 (92) 94 Mechanical Ventilator 100.00 I & O 12/03/18 07:00 Intake Total 2192 ml Output Total 2025 ml Balance 167 ml Capillary Refill : Less Than 3 Seconds General Appearance: No Apparent Distress, Thin Neck: Normal Inspection Respiratory: No Accessory Muscle Use, No Respiratory Distress, Decreased Breath Sounds Cardiovascular: Regular Rate, Rhythm Gastrointestinal: non tender, soft Results Lab Laboratory Tests 12/03/18 03:05 Laboratory Tests 12/02/18 07:56: Glucometer 256H 12/02/18 12:20: Glucometer 162H 12/02/18 14:01: Blood Gas Puncture Site RT RAD, Blood Gas Patient Temperature 98.3, Arterial Blood pH 7.36L, Arterial Blood Partial Pressure CO2 40, Arterial Blood Partial Pressure O2 125H, Arterial Blood HCO3 22L, Arterial Blood Total CO2 23.1, Arterial Blood Oxygen Saturation 98, Arterial Blood Base Excess -2.8L, Eduard Test YES-POS, Blood Gas Ventilator Setting YES, Blood Gas Inspired Oxygen 100% 12/02/18 15:47: Glucometer 216H 12/02/18 21:05: Glucometer 341H 12/02/18 23:48: Glucometer 243H 12/03/18 03:05: White Blood Count 7.8, Red Blood Count 4.18L, Hemoglobin 11.6L, Hematocrit 34L, Mean Corpuscular Volume 82, Mean Corpuscular Hemoglobin 28, Mean Corpuscular Hemoglobin Concent 34, Red Cell Distribution Width 14.4, Platelet Count 133, Mean Platelet Volume 11.3H, Neutrophils (%) (Auto) 81H, Lymphocytes (%) (Auto) 8L, Monocytes (%) (Auto) 11, Eosinophils (%) (Auto) 0, Basophils (%) (Auto) 0, Neutrophils # (Auto) 6.3, Lymphocytes # (Auto) 0.6L, Monocytes # (Auto) 0.9, Eosinophils # (Auto) 0.0, Basophils # (Auto) 0.0, Sodium Level 138, Potassium Level 2.4#*L, Chloride Level 106, Carbon Dioxide Level 22, Anion Gap 10, Blood Urea Nitrogen 16, Creatinine 0.60, Estimat Glomerular Filtration Rate > 60, BUN/ Creatinine Ratio 27, Glucose Level 161H, Calcium Level 9.6, Phosphorus Level 1.2L, Magnesium Level 2.0 12/03/18 03:20: Glucometer 162H 12/03/18 03:22: Blood Gas Puncture Site RIGHT RADIAL, Blood Gas Patient Temperature 98.0, Arterial Blood pH 7.38, Arterial Blood Partial Pressure CO2 41, Arterial Blood Partial Pressure O2 324H, Arterial Blood HCO3 24, Arterial Blood Total CO2 25.1 , Arterial Blood Oxygen Saturation 99, Arterial Blood Base Excess -0.7, Eduard Test POSITIVE, Blood Gas Ventilator Setting YES, Blood Gas Inspired Oxygen 100% 12/03/18 07:31: Glucometer 195H Microbiology 12/01/18 Blood Culture - Preliminary, Resulted No growth 12/01/18 Gram Stain - Final, Resulted 12/01/18 Sputum Culture - Preliminary, Resulted Staphylococcus aureus Assessment/Plan Assessment/Plan Assess & Plan/Chief Complaint Pneumonia. Respiratory distress. Bilateral pneumothorax. Patient on vent. Left chest tube put in Clinical Quality Measures Admission Status Admission Dx Influenza A. Pneumonia. Fever. Short of breath. Pulse ox 67. Respiratory distress. Dehydration. Hyponatremia. Anemia DVT/VTE Risk/Contraindication: Risk Factor Score Per Nursin RFS Level Per Nursing on Admit: 4+=Very High SKYLER PASCUAL DO Dec 03, 2018 07:44
[2018-12-03] MEDS: PIPERACILLIN/TAZO 4.5 GM/NS 100 ML IV SCH ×6 (07:52→23:39)
[2018-12-03] MEDS: OSELTAMIVIR 6 MG/ML (TAMIFLU) 60 ML BOT PO SCH ×2 (08:15→20:10)
[2018-12-03] MEDS: PANTOPRAZOLE 40 MG (PROTONIX) VIAL IV SCH (08:15)
[2018-12-03] MEDS: fentaNYL INJECTION 1,250 MCG in NS (IVPB) 250 ML IV SCH (08:27)
--- NOTE | 2018-12-03 09:29 | Occ Therapy Progress Note ---
Therapy Progress Note OT orders received. Chart reviewed. Pt. on ventilator at this time. Will continue to monitor pt. KENNY ISAAC OT Dec 03, 2018 09:29
[2018-12-03] MEDS: NOREPINEPHRINE 4 MG in NS (IVPB) 250 ML IV SCH ×2 (09:42→22:56)
--- NOTE | 2018-12-03 10:46 | Diagnostic Imaging Report ---
Indication: Ventilator support. Time of exam: 3:38 AM Correlation is made with prior study from one day earlier. Left chest Thora-Vent catheter remains in place. No pneumothorax is seen. Right lung appears to be fully inflated without pneumothorax. ET tube and NG tube are in place. There may be some minimal residual pneumopericardium. There is some atelectasis/infiltrate in the left base. Impression: Stable chest since the prior examination one day earlier. No significant pneumothorax is seen. Dictated by: Dictated on workstation # [id number]
[2018-12-03] MEDS ORDERED: POTASSIUM PHOSPHATE INJ 30 MM in NS (IVPB) 250 ML IV NR (14:00)
[2018-12-03] MEDS ORDERED: NS IV 1000 ML 1,000 ML IV SCH ×2 (18:30)
--- NOTE | 2018-12-03 18:44 | Diagnostic Imaging Report ---
INDICATION: Pneumothorax. COMPARISON: Prior examination from 12/03/2018. EXAMINATION: Single view of the chest was obtained. FINDINGS: Patchy bibasilar atelectasis and/or pneumonitis. There is a small left pleural effusion. There is no pneumothorax. Mediastinum is unremarkable. ET and NG tubes are in satisfactory position. IMPRESSION: Patchy bibasilar atelectasis and/or pneumonitis, left greater than right, and a small left pleural effusion. Dictated by: Dictated on workstation # [id number]
[2018-12-03] MEDS ORDERED: D5W IV SOLUTION (EXCEL) 0 ML IV ONE (21:46)
[2018-12-03] MEDS ORDERED: AMIODARONE (OMNICELL DRIP KIT) 150 MG/3 ML IV ONE (21:47)
--- NOTE | 2018-12-03 21:47 | NUR ---
AMIODARONE PULLED FROM [employer] FOR WRONG PATIENT. NON-ADMINISTERED FOR THIS PATIENT.
[2018-12-04] VITALS (33 sets, daily range): BP systolic 110–171; BP diastolic 65–108
[2018-12-04] MEDS: inSUlin ASPART (NovoLOG) 1 UNIT/0.01 ML (CHARGE PER UNIT) SC SCH ×7 (01:00→23:57)
[2018-12-04] MEDS: RT-ALBUTEROL/IPRATROPIUM 3 ML (DUONEB) VIAL INH SCH ×6 (02:16→22:10)
[2018-12-04] MEDS: methylPREDNISolone 125 MG (Solu-MEDROL) VIAL IVP SCH ×3 (03:06→17:14)
[2018-12-04 03:27] LABS: BASOPHILS % (AUTO) 0 % (0-10); EOSINOPHILS % (AUTO) 0 % (0-10); HEMATOCRIT 33 % (40-54); HEMOGLOBIN 11.2 G/DL (13.3-17.7); LYMPHOCYTES # (AUTO) 0.5 X 10^3 (1.0-4.0); LYMPHOCYTES % (AUTO) 3 % (12-44); MEAN CORPUSCULAR HEMOGLOBIN 28 PG (25-34); MEAN CORPUSCULAR HGB CONC 34 G/DL (32-36); MEAN CORPUSCULAR VOLUME 83 FL (80-99); MEAN PLATELET VOLUME 11.5 FL (7.4-10.4); MONOCYTES # (AUTO) 1.1 X 10^3 (0.0-1.0); MONOCYTES % (AUTO) 7 % (0-12); NEUTROPHILS % (AUTO) 90 % (42-75); PLATELET COUNT 169 10^3/uL (130-400); RED CELL DISTRIBUTION WIDTH 14.9 % (10.0-14.5); WHITE BLOOD COUNT 15.6 10^3/uL (4.3-11.0)
[2018-12-04 03:41] LABS: ABG BASE EXCESS -1.9 MMOL/L (-2.5-2.5); ABG OXYGEN SATURATION 99 % (94-100); ABG PCO2 40 MMHG (35-45); ABG PH 7.37 (7.37-7.43); ABG PO2 255 MMHG (79-93); ABG TCO2 23.7 MMOL/L (21.0-31.0)
[2018-12-04 03:42] LABS: ALLENS TEST POSITIVE; INSPIRED O2 100% VENT; VENTILATOR YES
[2018-12-04 03:51] LABS: BUN/CREATININE RATIO 28; CALCIUM 8.9 MG/DL (8.5-10.1); CARBON DIOXIDE 20 MMOL/L (21-32); CHLORIDE 109 MMOL/L (98-107); CREATININE SERUM 0.64 MG/DL (0.60-1.30); GFR ESTIMATED > 60; GLUCOSE 176 MG/DL (70-105); MAGNESIUM 1.7 MG/DL (1.8-2.4); PHOSPHORUS 1.1 MG/DL (2.3-4.7); POTASSIUM 2.7 MMOL/L (3.6-5.0); SODIUM 139 MMOL/L (135-145)
[2018-12-04] MEDS: MAGNESIUM 1 GM/100 ML IVPB 100 ML IV SCH ×3 (04:17→05:14)
[2018-12-04] MEDS: NS IV 1000 ML 1,000 ML IV SCH ×5 (04:18→17:14)
[2018-12-04 04:32] LABS: LYMPHOCYTES % (MANUAL) 3 %; MONOCYTES % (MANUAL) 8 %; NEUTROPHILS % (MANUAL) 89 %
[2018-12-04] MEDS: PROPOFOL DRIP (ICU) 100 ML IV SCH ×4 (05:15→21:51)
[2018-12-04] MEDS: ENOXAPARIN 60 MG/0.6 ML (LOVENOX) SYR SC SCH ×2 (05:17→17:14)
[2018-12-04] MEDS: fentaNYL INJECTION 1,250 MCG in NS (IVPB) 250 ML IV SCH ×2 (05:44→08:24)
[2018-12-04] MEDS ORDERED: POTASSIUM CL 10MEQ/50ML IVPB 50 ML IV ONE (06:00)
[2018-12-04] MEDS ORDERED: fentaNYL INJECTION 100 MCG/2 ML AMP ONE (06:02)
[2018-12-04] MEDS ORDERED: MIDAZOLAM 5 MG/5 ML (VERSED) VIAL ONE (06:03)
[2018-12-04] MEDS ORDERED: MIDAZOLAM 5 MG/5 ML (VERSED) VIAL IVP ONE (06:11)
[2018-12-04] MEDS ORDERED: fentaNYL INJECTION 100 MCG/2 ML AMP IVP ONE (06:15)
[2018-12-04] MEDS: POTASSIUM CL 10MEQ/50ML IVPB 50 ML IV SCH ×11 (06:34→22:23)
[2018-12-04] MEDS: KCL 20 MEQ TAB (K-DUR) PO SCH (06:35)
--- NOTE | 2018-12-04 07:11 | Pulmonary Progress Note ---
Subjective Time Seen by a Provider: 07:14 Subjective/Events-last exam currently sedated on vent Sepsis Event Evaluation Height, Weight, BMI Height: 5'11.00" Weight: 149lbs. 8.0oz. 67.621901fw; 18.3 BMI Method:Stated Focused Exam Lactate Level 12/01/18 15:20: Lactic Acid Level 2.98*H 12/01/18 21:20: Lactic Acid Level 1.62 Exam Exam Vital Signs Date Time Temp Pulse Resp B/P (MAP) Pulse Ox O2 Delivery O2 Flow Rate FiO2 12/04/18 06:59 101 25 99 100 12/04/18 06:00 105 23 123/77 (92) 99 Mechanical Ventilator 100.00 12/04/18 05:15 109 24 123/76 12/04/18 05:00 112 23 123/76 (92) 99 Mechanical Ventilator 100.00 12/04/18 04:30 117 24 99 100 12/04/18 04:00 99.0 12/04/18 04:00 122 19 136/77 (96) 99 Mechanical Ventilator 100.00 12/04/18 04:00 98 Mechanical Ventilator 100 12/04/18 03:00 100 23 122/77 (92) 98 Mechanical Ventilator 100.00 12/04/18 02:16 102 24 97 100 12/04/18 02:00 104 23 126/80 (95) 98 Mechanical Ventilator 100.00 12/04/18 01:00 103 23 133/85 (101) 97 Mechanical Ventilator 100.00 12/04/18 01:00 103 12/04/18 00:40 108 25 98 100 12/04/18 00:00 98.9 12/04/18 00:00 106 24 124/78 (93) 98 Mechanical Ventilator 100.00 12/04/18 00:00 98 Mechanical Ventilator 100 12/03/18 23:40 108 24 124/77 Mechanical Ventilator 100.00 12/03/18 23:00 112 23 124/77 (93) 98 Mechanical Ventilator 100.00 12/03/18 22:42 107 24 98 100 12/03/18 22:00 109 23 117/79 (92) 98 Mechanical Ventilator 100.00 12/03/18 21:00 112 24 118/76 (90) 98 Mechanical Ventilator 100.00 12/03/18 20:12 116 24 98 100 12/03/18 20:00 98 Mechanical Ventilator 100 12/03/18 20:00 120 23 111/66 (81) 98 Mechanical Ventilator 100.00 12/03/18 20:00 98.7 12/03/18 19:00 118 23 115/71 (86) 98 Mechanical Ventilator 100.00 12/03/18 19:00 119 12/03/18 18:43 123 25 98 100 12/03/18 18:00 118 23 107/65 (79) 98 Mechanical Ventilator 60.00 12/03/18 17:51 98.1 12/03/18 17:00 101 24 119/80 (93) 97 Mechanical Ventilator 60.00 12/03/18 16:16 105 24 98 100 12/03/18 16:00 98.0 12/03/18 16:00 97 Mechanical Ventilator 100 12/03/18 16:00 106 24 123/86 (98) 98 Mechanical Ventilator 60.00 12/03/18 15:00 111 24 115/80 (92) 98 Mechanical Ventilator 60.00 12/03/18 14:00 111 24 119/82 (94) 97 Mechanical Ventilator 60.00 12/03/18 13:51 111 25 98 100 12/03/18 13:39 97.4 12/03/18 13:00 112 12/03/18 13:00 112 24 108/83 (91) 97 Mechanical Ventilator 60.00 12/03/18 12:15 112 24 98 100 12/03/18 12:00 113 23 105/75 (85) 98 Mechanical Ventilator 60.00 12/03/18 12:00 97.3 12/03/18 11:29 97 Mechanical Ventilator 100 12/03/18 11:00 75 15 110/58 (75) 97 Mechanical Ventilator 60.00 12/03/18 10:51 102 24 97 100 12/03/18 10:00 102 23 106/70 (82) 99 Mechanical Ventilator 60.00 12/03/18 09:19 97.0 12/03/18 09:00 79 15 128/82 (97) Mechanical Ventilator 60.00 12/03/18 08:43 97.1 12/03/18 08:34 79 24 98 100 12/03/18 08:27 97.0 12/03/18 08:00 97 Mechanical Ventilator 100 12/03/18 08:00 80 13 132/87 (102) Mechanical Ventilator 60.00 I & O 12/04/18 07:00 Intake Total 3060 ml Output Total 1075 ml Balance 1985 ml Height & Weight Height: 5'11.00" Weight: 149lbs. 8.0oz. 67.023904yh; 18.3 BMI Method:Stated General Appearance: Thin, Other (On vent and unresponsive) HEENT: Normal ENT Inspection Neck: Normal Inspection Respiratory: No Accessory Muscle Use, No Respiratory Distress, Decreased Breath Sounds Cardiovascular: Regular Rate, Rhythm, No Murmur Capillary Refill: Less Than 3 Seconds Gastrointestinal: non tender, soft Extremity: Normal Capillary Refill, Normal Inspection Neurologic/Psychiatric: Alert, Oriented x3 Skin: Normal Color, Warm/Dry Results Lab Laboratory Tests 12/03/18 03:05 12/04/18 02:55 Assessment/Plan Assessment/Plan Acute respiratory failure s/p bronch - Cancer is suspected (pictures taken) -Continue ventilator care -Propofol, add fentanyl, D/C Precedex Bilateral PTX with pneumomediastinum -Probably a communication between left and right lung -S/P left chest tube -CXR appears stable Influ A with severe sepsis r/o secondary infection -Lawrence culture -IVF -Vanco/Zosyn -Tamiflu Dehydration -IVF Hypotension -IVF -Monitor Hyponatremia -Monitor Anemia Prognosis is guarded secondary to severe COPD, PTX, and bronchoscopy looks like metastatic caner. Will continue to attempt vent weaning and await cytology. ROSA TRINIDAD DO Dec 04, 2018 07:11
[2018-12-04] MEDS ORDERED: POTASSIUM PHOSPHATE INJ 30 MM in NS (IVPB) 250 ML IV ONE (07:15)
--- NOTE | 2018-12-04 07:26 | Pulmonary Procedures ---
Pulmonary Procedures Date of Procedure Date of Service: Dec 04, 2018 Bronch Bronchoscopy with MAGNOLIA, and RU bronchoalveolar lavage (BAL), Bilateral bronchial washes and, MAGNOLIA brushes. Preop DX Atelectasis, mucous plugging, Postop DX: white/yellow plaques observed bilateral upper lobes. Plaques did not wash off with lavaging and bled easily. Copious amounts of mucous plugging. Multiple passes required with bronch to clear mucous plugs Complications: none Pt was sedated using Propofol, Fentanyl and Versed. Bronchoscope was advanced through the ET tube. 1% lidocaine was used to anesthetize vocal cords, and left /right main stem bronchus. An anatomical tour was undertaken down to the segmental bronchi bilaterally. White/yellow plaques observed bilateral upper lobes. Plaques did not wash off with lavaging and bled easily. MAGNOLIA, and RU bronchoalveolar lavage (BAL), Bilateral bronchial washes and, MAGNOLIA brushes. were obtained. Multiple passes required with bronch to clear mucous plugs. Pt tolerated procedure well. No complications noted. Stat CXR is pending. ROSA TRINIDAD DO Dec 04, 2018 07:26
--- NOTE | 2018-12-04 07:31 | Diagnostic Imaging Report ---
INDICATION: Dyspnea, followup chest tube. COMPARISON: 12/03/2018. DISCUSSION: Single portable upright view of the chest was obtained. Small bore left chest tube is stable. No pneumothorax. Patchy opacities within the lung base are not significantly changed given differences in technique. Stable heart size. No pleural fluid or osseous abnormality. Endotracheal tube and enteric tube are stable. IMPRESSION: 1. Stable chest. Dictated by: Dictated on workstation # [id number]
[2018-12-04] MEDS: PIPERACILLIN/TAZO 4.5 GM/NS 100 ML IV SCH ×4 (08:02→15:24)
[2018-12-04] MEDS: VANCOMYCIN 1 GM/NS 250 ML IVPB IV SCH ×4 (08:02→20:18)
[2018-12-04] MEDS: PANTOPRAZOLE 40 MG (PROTONIX) VIAL IV SCH (08:03)
[2018-12-04] MEDS: OSELTAMIVIR 6 MG/ML (TAMIFLU) 60 ML BOT PO SCH ×2 (08:03→20:31)
--- NOTE | 2018-12-04 08:10 | Diagnostic Imaging Report ---
INDICATION: Post bronchoscopy. TECHNIQUE: Single view chest 7:52 AM. CORRELATION STUDY: 12/04/2018 FINDINGS: Endotracheal tube, gastric tube remain in place. Small caliber over the left hemithorax remains in place. Heart size and mediastinum are stable. Scattered pulmonary parenchymal densities persisting. Appears to be slightly increased over left mid and lower lung field. No appreciable pneumothorax. IMPRESSION: 1. Stable support lines and tubes. 2. Bilateral pulmonary infiltrates persisting, appear slightly increased over left mid and lower lung field. Dictated by: Dictated on workstation # [id number]
[2018-12-04] MEDS: POT PHOS/NA PHOS (K-PHOS NEUTRAL) PO SCH ×2 (08:27→20:31)
[2018-12-04] MEDS ORDERED: LIDOCAINE PF 1% 2 ML VIAL (OR ONLY) IJ ONE (08:33)
[2018-12-04] MEDS: NOREPINEPHRINE 4 MG in NS (IVPB) 250 ML IV SCH (12:27)
--- NOTE | 2018-12-04 13:08 | Progress Note-Hospitalist ---
Subjective HPI/CC On Admission Date Seen by Provider: Dec 04, 2018 Time Seen by Provider: 12:15 Subjective/Events-last exam Patient remains intubated Reviewed 's extensive note Patient does not appear to be in any pain Focused Exam Lactate Level 12/01/18 15:20: Lactic Acid Level 2.98*H 12/01/18 21:20: Lactic Acid Level 1.62 Objective Exam Vital Signs Vital Signs Date Time Temp Pulse Resp B/P (MAP) Pulse Ox O2 Delivery O2 Flow Rate FiO2 12/04/18 14:06 97.2 12/04/18 14:00 83 24 134/89 (104) 99 Mechanical Ventilator 90.00 12/04/18 12:00 100 Capillary Refill : Less Than 3 Seconds General Appearance: No Apparent Distress, Chronically ill, Thin, Other (On vent and unresponsive) Respiratory: No Accessory Muscle Use, No Respiratory Distress, Crackles, Decreased Breath Sounds Cardiovascular: Regular Rate, Rhythm, No Murmur Gastrointestinal: Non Tender, Soft Extremity: Normal Capillary Refill, Normal Inspection Neurologic/Psychiatric: Other (sedated) Skin: Normal Color, Warm/Dry Results/Procedures Lab Laboratory Tests 12/04/18 02:55 Patient resulted labs reviewed. Assessment/Plan Assessment and Plan Assess & Plan/Chief Complaint Assessment per : Acute respiratory failure s/p bronch likely cancer as etiology Bilateral PTX with pneumomediastinum now with chest tube Influ A with severe sepsis r/o secondary infection Dehydration Hypotension Anemia Plan: Vent Prognosis poor Critical Care Critically Ill Patient (Not including this morning evaluation or chest tube placement. ) Diagnosis/Problems Diagnosis/Problems (1) Severe sepsis Status: Acute (2) Ventilator dependence Status: Acute (3) Pneumonia Status: Acute Qualifiers: Pneumonia type: due to unspecified organism Laterality: right Lung location: unspecified part of lung Qualified Codes: J18.9 - Pneumonia, unspecified organism (4) Influenza A Status: Acute (5) HTN (hypertension) Status: Chronic Qualifiers: Hypertension type: essential hypertension Qualified Codes: I10 - Essential (primary) hypertension (6) Chronic pancreatitis Status: Chronic Qualifiers: Pancreatitis type: unspecified pancreatitis type Qualified Codes: K86.1 - Other chronic pancreatitis Clinical Quality Measures DVT/VTE Risk/Contraindication: Risk Factor Score Per Nursin RFS Level Per Nursing on Admit: 4+=Very High LILIANA ZARATE DO Dec 04, 2018 13:08
[2018-12-04 17:10] LABS: BUN/CREATININE RATIO 27; CALCIUM 8.6 MG/DL (8.5-10.1); CARBON DIOXIDE 20 MMOL/L (21-32); CHLORIDE 110 MMOL/L (98-107); CREATININE SERUM 0.56 MG/DL (0.60-1.30); GFR ESTIMATED > 60; GLUCOSE 134 MG/DL (70-105); MAGNESIUM 1.9 MG/DL (1.8-2.4); PHOSPHORUS 2.4 MG/DL (2.3-4.7); POTASSIUM 3.5 MMOL/L (3.6-5.0); SODIUM 140 MMOL/L (135-145)
[2018-12-05] VITALS (34 sets, daily range): BP systolic 105–147; BP diastolic 71–98
[2018-12-05] MEDS: NOREPINEPHRINE 4 MG in NS (IVPB) 250 ML IV SCH ×2 (00:01→16:19)
[2018-12-05] MEDS: PIPERACILLIN/TAZO 4.5 GM/NS 100 ML IV SCH ×8 (00:03→23:48)
[2018-12-05] MEDS: RT-ALBUTEROL/IPRATROPIUM 3 ML (DUONEB) VIAL INH SCH ×6 (02:20→22:50)
[2018-12-05] MEDS: NS IV 1000 ML 1,000 ML IV SCH ×7 (02:28→23:49)
[2018-12-05] MEDS: methylPREDNISolone 125 MG (Solu-MEDROL) VIAL IVP SCH ×3 (02:30→17:30)
[2018-12-05] MEDS: PROPOFOL DRIP (ICU) 100 ML IV SCH ×3 (02:35→22:02)
[2018-12-05 03:32] LABS: BASOPHILS # (AUTO) 0.1 10^3/uL (0.0-0.1); BASOPHILS % (AUTO) 0 % (0-10); EOSINOPHILS % (AUTO) 0 % (0-10); HEMATOCRIT 35 % (40-54); HEMOGLOBIN 11.5 G/DL (13.3-17.7); LYMPHOCYTES # (AUTO) 0.6 X 10^3 (1.0-4.0); LYMPHOCYTES % (AUTO) 4 % (12-44); MEAN CORPUSCULAR HEMOGLOBIN 28 PG (25-34); MEAN CORPUSCULAR HGB CONC 33 G/DL (32-36); MEAN CORPUSCULAR VOLUME 84 FL (80-99); MEAN PLATELET VOLUME 11.2 FL (7.4-10.4); MONOCYTES # (AUTO) 0.9 X 10^3 (0.0-1.0); MONOCYTES % (AUTO) 5 % (0-12); NEUTROPHILS # (AUTO) 15.5 X 10^3 (1.8-7.8); NEUTROPHILS % (AUTO) 91 % (42-75); PLATELET COUNT 159 10^3/uL (130-400); RED CELL DISTRIBUTION WIDTH 15.5 % (10.0-14.5); WHITE BLOOD COUNT 17.1 10^3/uL (4.3-11.0)
[2018-12-05 03:35] LABS: ABG BASE EXCESS -4.9 MMOL/L (-2.5-2.5); ABG OXYGEN SATURATION 93 % (94-100); ABG PCO2 33 MMHG (35-45); ABG PH 7.39 (7.37-7.43); ABG PO2 64 MMHG (79-93); ABG TCO2 20.2 MMOL/L (21.0-31.0)
[2018-12-05 03:37] LABS: ALLENS TEST POSITIVE; INSPIRED O2 40% FIO2; PATIENT TEMP 98.7; VENTILATOR YES
[2018-12-05] MEDS: KCL 20 MEQ TAB (K-DUR) PO SCH (03:40)
[2018-12-05] MEDS: MAGNESIUM 1 GM/100 ML IVPB 100 ML IV SCH (03:40)
[2018-12-05] MEDS: POTASSIUM CL 10MEQ/50ML IVPB 50 ML IV SCH ×5 (03:40→08:24)
[2018-12-05 03:50] LABS: BUN/CREATININE RATIO 25; CALCIUM 8.7 MG/DL (8.5-10.1); CARBON DIOXIDE 16 MMOL/L (21-32); CHLORIDE 109 MMOL/L (98-107); GFR ESTIMATED > 60; GLUCOSE 199 MG/DL (70-105); MAGNESIUM 1.8 MG/DL (1.8-2.4); POTASSIUM 4.3 MMOL/L (3.6-5.0); SODIUM 138 MMOL/L (135-145)
[2018-12-05] MEDS: inSUlin ASPART (NovoLOG) 1 UNIT/0.01 ML (CHARGE PER UNIT) SC SCH ×6 (04:09→23:48)
--- NOTE | 2018-12-05 05:28 | Pulmonary Progress Note ---
Subjective Time Seen by a Provider: 05:33 Subjective/Events-last exam Sedated on vent Sepsis Event Evaluation Height, Weight, BMI Height: 5'11.00" Weight: 149lbs. 8.0oz. 67.106025cm; 18.3 BMI Method:Stated Exam Exam Vital Signs Date Time Temp Pulse Resp B/P (MAP) Pulse Ox O2 Delivery O2 Flow Rate FiO2 12/05/18 05:00 98 19 141/89 (106) 92 Mechanical Ventilator 45.00 12/05/18 04:00 100 24 138/76 (96) 92 Mechanical Ventilator 45.00 12/05/18 04:00 92 Mechanical Ventilator 40.00 12/05/18 03:50 98.0 12/05/18 03:00 104 23 140/83 (102) 92 Mechanical Ventilator 45.00 12/05/18 02:35 126/82 12/05/18 02:20 98 24 94 40 12/05/18 02:00 99 24 126/82 (97) 93 Mechanical Ventilator 45.00 12/05/18 01:00 104 20 124/76 (92) 93 Mechanical Ventilator 45.00 12/05/18 01:00 104 12/05/18 00:55 102 24 93 45 12/05/18 00:00 94 Mechanical Ventilator 45.00 12/05/18 00:00 105 24 127/82 (97) 93 Mechanical Ventilator 45.00 12/04/18 23:50 99.5 12/04/18 23:00 105 23 126/79 (95) 96 Mechanical Ventilator 45.00 12/04/18 22:10 105 24 95 45 12/04/18 22:00 103 23 121/75 (90) 93 Mechanical Ventilator 45.00 12/04/18 21:51 119/74 12/04/18 21:00 105 27 119/74 (89) 93 Mechanical Ventilator 45.00 12/04/18 20:28 Mechanical Ventilator 45.00 12/04/18 20:25 105 24 95 50 12/04/18 20:09 98.2 12/04/18 20:00 104 26 117/79 (92) 95 Mechanical Ventilator 60.00 12/04/18 20:00 95 Mechanical Ventilator 45.00 12/04/18 19:00 98 12/04/18 19:00 98 26 110/65 (80) 96 Mechanical Ventilator 60.00 12/04/18 18:32 91 24 98 60 12/04/18 18:00 93 24 171/108 (129) 98 Mechanical Ventilator 60.00 12/04/18 17:00 98 39 157/91 (113) 98 Mechanical Ventilator 60.00 12/04/18 16:00 98 23 130/84 (99) 97 Mechanical Ventilator 70.00 12/04/18 16:00 98 Mechanical Ventilator 100 12/04/18 15:00 105 23 123/77 (92) 98 Mechanical Ventilator 70.00 12/04/18 14:40 83 24 98 100 12/04/18 14:06 97.2 12/04/18 14:00 83 24 134/89 (104) 99 Mechanical Ventilator 90.00 12/04/18 13:51 97.1 12/04/18 13:00 85 23 130/90 (103) 98 Mechanical Ventilator 90.00 12/04/18 13:00 85 12/04/18 12:00 97.6 12/04/18 12:00 89 24 137/89 (105) 98 Mechanical Ventilator 90.00 12/04/18 12:00 98 Mechanical Ventilator 100 12/04/18 11:00 93 24 137/89 (105) 98 Mechanical Ventilator 90.00 12/04/18 10:34 90 25 98 100 12/04/18 10:00 92 24 131/85 (100) 98 Mechanical Ventilator 100.00 12/04/18 09:00 96 24 125/94 (104) 97 Mechanical Ventilator 100.00 12/04/18 08:58 97.8 12/04/18 08:24 97.8 12/04/18 08:01 97.1 12/04/18 08:00 100 24 131/83 (99) 98 Mechanical Ventilator 100.00 12/04/18 08:00 98 Mechanical Ventilator 100 12/04/18 07:00 102 12/04/18 07:00 101 22 118/78 (91) 99 Mechanical Ventilator 100.00 12/04/18 06:59 101 25 99 100 12/04/18 06:11 24 12/04/18 06:00 105 23 123/77 (92) 99 Mechanical Ventilator 100.00 I & O 12/05/18 07:00 Intake Total 1980 ml Output Total 1285 ml Balance 695 ml Height & Weight Height: 5'11.00" Weight: 149lbs. 8.0oz. 67.858274qg; 18.3 BMI Method:Stated General Appearance: No Apparent Distress, Chronically ill, Thin, Other (On vent and unresponsive) Respiratory: No Accessory Muscle Use, No Respiratory Distress, Crackles, Decreased Breath Sounds Cardiovascular: Regular Rate, Rhythm, No Murmur Capillary Refill: Less Than 3 Seconds Gastrointestinal: non tender, soft Extremity: Normal Capillary Refill, Normal Inspection Neurologic/Psychiatric: Other (sedated) Skin: Normal Color, Warm/Dry Results Lab Laboratory Tests 12/04/18 02:55 12/04/18 16:49 12/05/18 03:10 Assessment/Plan Assessment/Plan Acute respiratory failure s/p bronch - Cancer is suspected (pictures taken) -Continue ventilator care -Will start weaning vent. -D/C Propofol, cont fentanyl for now, start Precedex -Continue solumedrol -CXR reviewed Bilateral PTX with pneumomediastinum -Probably a communication between left and right lung -S/P left chest tube -CXR appears stable Pulmonary edema -Decrease IVF to 30cc/hr -Lasix 40mg x 1 Influ A with severe sepsis r/o secondary infection -Lawrence culture -IVF -Vanco/Zosyn -Tamiflu Metabolic acidosis -Check LA -Give 2 amps of bicarb Hyponatremia -Monitor Anemia Prognosis is guarded secondary to severe COPD, PTX, and bronchoscopy looks like metastatic caner. Will continue to attempt vent weaning and await cytology. UPDATE [id number]: DURING WEANING PT WAS VERY AGITATED PULLING AT LINES. HE DID FOLLOW ALL COMMANDS. HE WAS ONLY REQUIRING 40% OXYGEN. WE PROCEEDED WITH EXTUBATION AND PLACED PT ON VAPOTHERM. PT DID NOT TOLERATE EXTUBATION SECONDARY TO INCREASED WOB. PT WAS CONFUSED AND WOULD NOT GIVE US A CLEAR ANSWER IN REGARDS TO CODE STATUS. PT WAS SEDATED AND REINTUBATED. I ALSO DISCUSSED PATIENT WITH DR. ZARATE PRIOR TO REINTUBATION. 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 HE HAS NO FAMILY AROUND. IT IS DOUBTFUL PT WILL BE ABLE TO WEAN OFF VENT. I AM GOING TO ASK ETHICS TO SEE PT. MY RECOMMENDATION IS COMFORT CARE AND WITHDRAWAL VENTILATOR SUPPORT. IF WE CONTINUE FULL SUPPORT PT WILL NEED TRACHEOSTOMY AND PROBABLY [facility]. TOTAL TIME SPENT WITH PATIENT IS 60 MIN NOT INCLUDING INTUBATION. Critical Care: Critically Ill Patient Time spent with patient (mins): 60 ROSA TRINIDAD DO Dec 05, 2018 05:28
[2018-12-05] MEDS ORDERED: SODIUM BICARB 8.4% 50 MEQ/50 ML (ABBOTT) SYR IV ONE (05:30)
[2018-12-05] MEDS ORDERED: SODIUM PHOSPHATE INJ 30 MM in NS (IVPB) 250 ML IV ONE (05:30)
[2018-12-05] MEDS ORDERED: MAGNESIUM 1 GM/100 ML IVPB 100 ML IV ONE (05:30)
[2018-12-05] MEDS ORDERED: FUROSEMIDE 40 MG/4 ML INJ (LASIX) IVP ONE (05:30)
[2018-12-05] MEDS ORDERED: NS (IVPB) 50 ML ONE (06:02)
[2018-12-05] MEDS: fentaNYL INJECTION 1,250 MCG in NS (IVPB) 250 ML IV SCH (06:29)
[2018-12-05] MEDS: ENOXAPARIN 60 MG/0.6 ML (LOVENOX) SYR SC SCH ×2 (06:31→17:31)
--- NOTE | 2018-12-05 06:39 | Pulmonary Procedures ---
Pulmonary Procedures Reason for Intubation: RESPIRATORY FAILURE Time of Intubation: 06:37 Intubation Method: orotracheal Tube Size: 8 Medications: Fentanyl, Propofol, Succinylcholine, Versed Positive End Tide CO2: Yes Breath Sounds after Intubation: bilateral-equal Intubation Complications: no complications Post Intubation Xray: Yes (PENDING) ROSA TRINIDAD DO Dec 05, 2018 06:39
--- NOTE | 2018-12-05 07:22 | Diagnostic Imaging Report ---
Indication: Respiratory failure Portable chest 6:44 AM There is an ET tube projecting over the trachea. NG tube projects over the stomach. There is a left thoracostomy tube. There are bilateral perihilar infiltrates greater on left than on the right slightly worse than on the prior study. There are emphysematous changes in the right apex. Impression: There is no effusion or pneumothorax. There is slight interval increase in the left perihilar infiltrate compared to earlier study. Dictated by: Dictated on workstation # [id number]
--- NOTE | 2018-12-05 07:25 | NUR ---
TIMELINE NOTE- 0545-DR TRINIDAD AT BEDSIDE, SEDATION TURNED OFF. PATIENT THRASHING AROUND IN BED. RT NOTIFIED OF PLAN TO EXTUBATE. 0600-PT EXTUBATED AND PLACED ON VAPOTHERM. PATIENT EXTREMELY CONFUSED AND CONTINUES TO THRASH AROUND IN BED. UNABLE TO ANSWER QUESTIONS APPROPRIATELY. PT RR INCREASES AND BREATHING BECOMES LABORED, O2 SATS DECLINE. PT COUGHING UP THICK, WHITE SPUTUM. DR TRINIDAD CALLED TO BEDSIDE. 0615-PLAN TO RE-INTUBATE PT. 0617-4MG VERSED, 50MCG FENTANYL AND [address] TRINIDAD. FLUIDS WIDE OPEN. 0620 PT INTUBATED WITH SIZE 8 ETT, 24 AT THE LIP. BILAT BREATH SOUNDS HEARD. OG INSERTED, CHEST XRAY TO CONFIRM PLACEMENT.
[2018-12-05 07:54] LABS: ABG BASE EXCESS 1.3 MMOL/L (-2.5-2.5); ABG OXYGEN SATURATION 99 % (94-100); ABG PCO2 38 MMHG (35-45); ABG PH 7.43 (7.37-7.43); ABG PO2 205 MMHG (79-93); ABG TCO2 26.4 MMOL/L (21.0-31.0)
[2018-12-05 07:55] LABS: ALLENS TEST NO
[2018-12-05 07:56] LABS: INSPIRED O2 100%; PATIENT TEMP 97.3; VENTILATOR YES
[2018-12-05] MEDS: POT PHOS/NA PHOS (K-PHOS NEUTRAL) PO SCH ×2 (08:23→23:49)
[2018-12-05] MEDS: PANTOPRAZOLE 40 MG (PROTONIX) VIAL IV SCH (08:24)
[2018-12-05] MEDS: OSELTAMIVIR 6 MG/ML (TAMIFLU) 60 ML BOT PO SCH ×2 (08:25→23:49)
--- NOTE | 2018-12-05 08:51 | Diagnostic Imaging Report ---
INDICATION: Mechanical ventilation. TECHNIQUE: Single view chest 4:21 AM. CORRELATION STUDY: 12/04/2018 FINDINGS: Endotracheal tube, gastric tube and small caliber left-sided thoracostomy tube remain in place. No appreciable pneumothorax. Prominent predominantly interstitial with some mixed alveolar infiltrates noted particularly in the perihilar and basilar regions left greater than right. Findings generally stable. No appreciable pneumothorax. Multiple overlying monitor leads present. Known density over the soft tissue of neck to left of midline. IMPRESSION: 1. Stable appearance about support lines and tubes. No appreciable pneumothorax. 2. Scattered bilateral pulmonary mixed alveolar interstitial infiltrate particularly in the perihilar regions generally stable. Dictated by: Dictated on workstation # [id number]
[2018-12-05] MEDS ORDERED: fentaNYL INJECTION 100 MCG/2 ML AMP INJ ONE (10:11)
[2018-12-05] MEDS ORDERED: SUCCINYLCHOLINE INJ 100 MG/5 ML SYR INJ ONE (10:11)
[2018-12-05] MEDS ORDERED: MIDAZOLAM 5 MG/5 ML (VERSED) VIAL IJ ONE (10:11)
--- NOTE | 2018-12-05 13:02 | Progress Note-Hospitalist ---
Subjective HPI/CC On Admission Date Seen by Provider: Dec 05, 2018 Time Seen by Provider: 11:30 Subjective/Events-last exam Patient was ably extubated this morning but unsuccessful and reintubated Still awaiting bronchoscopy results that likely will show cancer but since we did not have confirmation we needed to reintubate since he does not have family around Overall about the same and stable Objective Exam Vital Signs Vital Signs Date Time Temp Pulse Resp B/P (MAP) Pulse Ox O2 Delivery O2 Flow Rate FiO2 12/05/18 12:00 92 Mechanical Ventilator 40.00 12/05/18 12:00 102 25 121/81 (94) 12/05/18 10:19 40 12/05/18 10:00 97.6 Capillary Refill : Less Than 3 Seconds General Appearance: No Apparent Distress, Chronically ill, Thin, Other (On vent and unresponsive) Respiratory: No Accessory Muscle Use, No Respiratory Distress, Crackles, Decreased Breath Sounds Cardiovascular: Regular Rate, Rhythm, No Murmur Extremity: Normal Capillary Refill, Normal Inspection Neurologic/Psychiatric: Other (sedated) Skin: Normal Color, Warm/Dry Results/Procedures Lab Laboratory Tests 12/04/18 16:49 12/05/18 03:10 Patient resulted labs reviewed. Assessment/Plan Assessment and Plan Assess & Plan/Chief Complaint Assessment per : Acute respiratory failure s/p bronch likely cancer as etiology s/p extubation but failed this morning so reintubated Bilateral PTX with pneumomediastinum now with chest tube Influ A with severe sepsis r/o secondary infection Dehydration Hypotension Anemia Plan: Vent Prognosis poor Critical Care Critically Ill Patient Diagnosis/Problems Diagnosis/Problems (1) Severe sepsis Status: Acute (2) Ventilator dependence Status: Acute (3) Pneumonia Status: Acute Qualifiers: Pneumonia type: due to unspecified organism Laterality: right Lung location: unspecified part of lung Qualified Codes: J18.9 - Pneumonia, unspecified organism (4) Influenza A Status: Acute (5) HTN (hypertension) Status: Chronic Qualifiers: Hypertension type: essential hypertension Qualified Codes: I10 - Essential (primary) hypertension (6) Chronic pancreatitis Status: Chronic Qualifiers: Pancreatitis type: unspecified pancreatitis type Qualified Codes: K86.1 - Other chronic pancreatitis Clinical Quality Measures DVT/VTE Risk/Contraindication: Risk Factor Score Per Nursin RFS Level Per Nursing on Admit: 4+=Very High LILIANA ZARATE DO Dec 05, 2018 13:02
[2018-12-06] VITALS (29 sets, daily range): BP systolic 128–182; BP diastolic 82–117
[2018-12-06] MEDS: PROPOFOL DRIP (ICU) 100 ML IV SCH ×3 (02:05→21:39)
[2018-12-06] MEDS: methylPREDNISolone 125 MG (Solu-MEDROL) VIAL IVP SCH ×3 (02:07→18:12)
[2018-12-06] MEDS: RT-ALBUTEROL/IPRATROPIUM 3 ML (DUONEB) VIAL INH SCH ×6 (02:42→22:14)
[2018-12-06 03:52] LABS: BASOPHILS # (AUTO) 0.1 10^3/uL (0.0-0.1); BASOPHILS % (AUTO) 0 % (0-10); EOSINOPHILS % (AUTO) 0 % (0-10); HEMATOCRIT 35 % (40-54); HEMOGLOBIN 11.8 G/DL (13.3-17.7); LYMPHOCYTES # (AUTO) 1.2 X 10^3 (1.0-4.0); LYMPHOCYTES % (AUTO) 5 % (12-44); MEAN CORPUSCULAR HEMOGLOBIN 28 PG (25-34); MEAN CORPUSCULAR HGB CONC 34 G/DL (32-36); MEAN CORPUSCULAR VOLUME 83 FL (80-99); MEAN PLATELET VOLUME 11.3 FL (7.4-10.4); MONOCYTES # (AUTO) 1.3 X 10^3 (0.0-1.0); MONOCYTES % (AUTO) 5 % (0-12); NEUTROPHILS % (AUTO) 90 % (42-75); PLATELET COUNT 210 10^3/uL (130-400); RED CELL DISTRIBUTION WIDTH 16.3 % (10.0-14.5); WHITE BLOOD COUNT 24.5 10^3/uL (4.3-11.0)
[2018-12-06 03:54] LABS: ABG BASE EXCESS -0.4 MMOL/L (-2.5-2.5); ABG OXYGEN SATURATION 98 % (94-100); ABG PCO2 36 MMHG (35-45); ABG PH 7.43 (7.37-7.43); ABG PO2 97 MMHG (79-93); ABG TCO2 24.6 MMOL/L (21.0-31.0)
[2018-12-06 03:55] LABS: ALLENS TEST POSTIVIE; INSPIRED O2 40% VENT; PATIENT TEMP 97.8; VENTILATOR YES
[2018-12-06 04:05] LABS: BUN/CREATININE RATIO 35; CALCIUM 8.8 MG/DL (8.5-10.1); CARBON DIOXIDE 20 MMOL/L (21-32); CHLORIDE 106 MMOL/L (98-107); CREATININE SERUM 0.66 MG/DL (0.60-1.30); GFR ESTIMATED > 60; GLUCOSE 214 MG/DL (70-105); MAGNESIUM 2.1 MG/DL (1.8-2.4); PHOSPHORUS 1.8 MG/DL (2.3-4.7); POTASSIUM 3.2 MMOL/L (3.6-5.0); SODIUM 143 MMOL/L (135-145)
[2018-12-06] MEDS: inSUlin ASPART (NovoLOG) 1 UNIT/0.01 ML (CHARGE PER UNIT) SC SCH ×5 (05:01→20:17)
[2018-12-06] MEDS: ENOXAPARIN 60 MG/0.6 ML (LOVENOX) SYR SC SCH (05:01)
[2018-12-06] MEDS: NOREPINEPHRINE 4 MG in NS (IVPB) 250 ML IV SCH ×2 (05:02→17:51)
[2018-12-06] MEDS: POTASSIUM CL 10MEQ/50ML IVPB 50 ML IV SCH ×5 (05:02→08:24)
[2018-12-06 05:05] LABS: LYMPHOCYTES % (MANUAL) 6 %; METAMYELOCYTES % 1 %; MONOCYTES % (MANUAL) 7 %; MYELOCYTES % 3 %; NEUTROPHILS % (MANUAL) 83 %
--- NOTE | 2018-12-06 05:59 | Pulmonary Progress Note ---
Sepsis Event Evaluation Height, Weight, BMI Height: 5'11.00" Weight: 158lbs. 6.0oz. 71.931534no; 18.3 BMI Method:Stated Exam Exam Vital Signs Date Time Temp Pulse Resp B/P (MAP) Pulse Ox O2 Delivery O2 Flow Rate FiO2 12/06/18 05:00 100 22 141/88 (105) 96 Mechanical Ventilator 40.00 12/06/18 04:00 96 Mechanical Ventilator 40.00 12/06/18 04:00 101 24 132/82 (99) 96 Mechanical Ventilator 40.00 12/06/18 03:00 93 24 142/89 (106) 97 Mechanical Ventilator 40.00 12/06/18 02:42 92 24 97 40 12/06/18 02:05 130/84 12/06/18 02:00 98 24 130/84 (99) 96 Mechanical Ventilator 40.00 12/06/18 01:00 103 24 128/82 (97) 96 Mechanical Ventilator 40.00 12/06/18 01:00 103 12/06/18 00:24 106 24 97 40 12/06/18 00:00 92 Mechanical Ventilator 40.00 12/05/18 23:00 103 21 130/81 (97) 97 Mechanical Ventilator 40.00 12/05/18 22:50 101 26 97 40 12/05/18 22:02 Mechanical Ventilator 12/05/18 22:00 105 25 134/87 (103) 95 Mechanical Ventilator 40.00 12/05/18 21:00 105 23 127/82 (97) 93 Mechanical Ventilator 40.00 12/05/18 20:09 109 28 92 40 12/05/18 20:00 92 Mechanical Ventilator 40.00 12/05/18 20:00 109 22 126/78 (94) 92 Mechanical Ventilator 40.00 12/05/18 19:00 113 25 128/71 (90) 96 Mechanical Ventilator 40.00 12/05/18 19:00 114 12/05/18 18:24 91 24 96 40 12/05/18 18:07 98.8 12/05/18 18:07 98.7 12/05/18 18:00 93 24 137/85 (102) 96 Mechanical Ventilator 60.00 12/05/18 17:22 98.3 12/05/18 17:00 95 23 135/80 (98) 98 Mechanical Ventilator 60.00 12/05/18 16:27 96 24 98 40 12/05/18 16:00 99 23 122/81 (95) 97 Mechanical Ventilator 60.00 12/05/18 16:00 92 Mechanical Ventilator 40.00 12/05/18 15:00 104 23 114/73 (87) 94 Mechanical Ventilator 60.00 12/05/18 14:05 106 24 99 40 12/05/18 14:00 101 23 117/78 (91) 98 Mechanical Ventilator 60.00 12/05/18 13:00 104 24 116/80 (92) 96 Mechanical Ventilator 60.00 12/05/18 13:00 102 12/05/18 12:00 92 Mechanical Ventilator 40.00 12/05/18 12:00 102 25 121/81 (94) 93 Mechanical Ventilator 60.00 12/05/18 11:00 110 21 105/74 (84) 94 Mechanical Ventilator 60.00 12/05/18 10:19 89 24 97 40 12/05/18 10:00 97.6 93 24 129/86 (100) 98 Mechanical Ventilator 100.00 12/05/18 10:00 90 24 126/83 (97) 97 Mechanical Ventilator 60.00 12/05/18 09:29 90 24 97 100 12/05/18 09:00 93 24 129/86 (100) 98 Mechanical Ventilator 100.00 12/05/18 09:00 97.7 12/05/18 08:00 98 26 131/88 (102) 97 Mechanical Ventilator 100.00 12/05/18 08:00 92 Mechanical Ventilator 40.00 12/05/18 07:00 96 12/05/18 07:00 96 23 139/87 (104) 90 Mechanical Ventilator 100.00 12/05/18 06:42 94 24 89 40 12/05/18 06:00 116 28 147/98 (114) 90 Mechanical Ventilator 45.00 I & O 12/06/18 07:00 Intake Total 347 ml Output Total 2575 ml Balance -2228 ml Height & Weight Height: 5'11.00" Weight: 158lbs. 6.0oz. 71.317536hn; 18.3 BMI Method:Stated General Appearance: No Apparent Distress, Chronically ill, Thin, Other (On vent and unresponsive) Respiratory: No Accessory Muscle Use, No Respiratory Distress, Crackles, Decreased Breath Sounds Cardiovascular: Regular Rate, Rhythm, No Murmur Capillary Refill: Less Than 3 Seconds Gastrointestinal: non tender, soft Extremity: Normal Capillary Refill, Normal Inspection Neurologic/Psychiatric: Other (sedated) Skin: Normal Color, Warm/Dry Results Lab Laboratory Tests 12/04/18 16:49 12/05/18 03:10 12/06/18 03:20 Assessment/Plan Assessment/Plan Acute respiratory failure s/p bronch - Cancer is suspected (pictures taken) -Continue ventilator care -Pt needs tracheostomy unless made comfort care -Repeat CT chest of chest -Consult ethics -Continue solumedrol -CXR reviewed Bilateral PTX with pneumomediastinum -Probably a communication between left and right lung -S/P left chest tube -CXR appears stable Pulmonary edema -Decrease IVF to 30cc/hr -Lasix 40mg x 1 Influ A with severe sepsis r/o secondary infection -Lawrence culture -IVF -Restart Vanco -Zosyn -Tamiflu Metabolic acidosis -Check LA -Give 2 amps of bicarb Hyponatremia -Monitor ROSA TRINIDAD DO Dec 06, 2018 05:59
[2018-12-06] MEDS ORDERED: POTASSIUM PHOSPHATE INJ 30 MM in NS (IVPB) 250 ML IV ONE (06:00)
[2018-12-06] MEDS ORDERED: DEXMEDETOMIDINE INJECTION 200 MCG in NS (IVPB) 50 ML IV SCH (06:00)
[2018-12-06] MEDS: KCL 20 MEQ TAB (K-DUR) PO SCH (06:11)
[2018-12-06] MEDS: MAGNESIUM 1 GM/100 ML IVPB 100 ML IV SCH (06:11)
--- NOTE | 2018-12-06 07:40 | Progress Note (SOAP) ---
Subjective Time Seen by a Provider: 07:37 Subjective/Events-last exam Patient on vent and sedated. Extubation tried yesterday without success and patient put back on vent. White blood cell count elevated 24,000 Objective Exam Vital Signs Date Time Temp Pulse Resp B/P (MAP) Pulse Ox O2 Delivery O2 Flow Rate FiO2 12/06/18 07:07 95 24 97 40 12/06/18 07:00 96 12/06/18 07:00 96 23 144/90 (108) 96 Mechanical Ventilator 40.00 12/06/18 06:10 148/92 12/06/18 06:00 98 19 148/92 (110) 96 Mechanical Ventilator 40.00 12/06/18 05:00 100 22 141/88 (105) 96 Mechanical Ventilator 40.00 12/06/18 04:00 96 Mechanical Ventilator 40.00 12/06/18 04:00 101 24 132/82 (99) 96 Mechanical Ventilator 40.00 12/06/18 03:00 93 24 142/89 (106) 97 Mechanical Ventilator 40.00 12/06/18 02:42 92 24 97 40 12/06/18 02:05 130/84 12/06/18 02:00 98 24 130/84 (99) 96 Mechanical Ventilator 40.00 12/06/18 01:00 103 24 128/82 (97) 96 Mechanical Ventilator 40.00 12/06/18 01:00 103 12/06/18 00:24 106 24 97 40 12/06/18 00:00 92 Mechanical Ventilator 40.00 12/05/18 23:00 103 21 130/81 (97) 97 Mechanical Ventilator 40.00 12/05/18 22:50 101 26 97 40 12/05/18 22:02 Mechanical Ventilator 12/05/18 22:00 105 25 134/87 (103) 95 Mechanical Ventilator 40.00 12/05/18 21:00 105 23 127/82 (97) 93 Mechanical Ventilator 40.00 12/05/18 20:09 109 28 92 40 12/05/18 20:00 92 Mechanical Ventilator 40.00 12/05/18 20:00 109 22 126/78 (94) 92 Mechanical Ventilator 40.00 12/05/18 19:00 113 25 128/71 (90) 96 Mechanical Ventilator 40.00 12/05/18 19:00 114 12/05/18 18:24 91 24 96 40 12/05/18 18:07 98.8 12/05/18 18:07 98.7 12/05/18 18:00 93 24 137/85 (102) 96 Mechanical Ventilator 60.00 12/05/18 17:22 98.3 12/05/18 17:00 95 23 135/80 (98) 98 Mechanical Ventilator 60.00 12/05/18 16:27 96 24 98 40 12/05/18 16:00 99 23 122/81 (95) 97 Mechanical Ventilator 60.00 12/05/18 16:00 92 Mechanical Ventilator 40.00 12/05/18 15:00 104 23 114/73 (87) 94 Mechanical Ventilator 60.00 12/05/18 14:05 106 24 99 40 12/05/18 14:00 101 23 117/78 (91) 98 Mechanical Ventilator 60.00 12/05/18 13:00 104 24 116/80 (92) 96 Mechanical Ventilator 60.00 12/05/18 13:00 102 12/05/18 12:00 92 Mechanical Ventilator 40.00 12/05/18 12:00 102 25 121/81 (94) 93 Mechanical Ventilator 60.00 12/05/18 11:00 110 21 105/74 (84) 94 Mechanical Ventilator 60.00 12/05/18 10:19 89 24 97 40 12/05/18 10:00 97.6 93 24 129/86 (100) 98 Mechanical Ventilator 100.00 12/05/18 10:00 90 24 126/83 (97) 97 Mechanical Ventilator 60.00 12/05/18 09:29 90 24 97 100 12/05/18 09:00 93 24 129/86 (100) 98 Mechanical Ventilator 100.00 12/05/18 09:00 97.7 12/05/18 08:00 98 26 131/88 (102) 97 Mechanical Ventilator 100.00 12/05/18 08:00 92 Mechanical Ventilator 40.00 I & O 12/06/18 07:00 Intake Total 347 ml Output Total 2900 ml Balance -2553 ml Capillary Refill : Less Than 3 Seconds General Appearance: No Apparent Distress, Thin HEENT: Other (Patient intubated) Neck: Normal Inspection Respiratory: No Accessory Muscle Use, No Respiratory Distress, Other (On vent has bilateral pneumothorax history) Cardiovascular: Regular Rate, Rhythm, No Murmur Gastrointestinal: non tender, soft Results Lab Laboratory Tests 12/06/18 03:20 Laboratory Tests 12/05/18 08:10: Glucometer 178H 12/05/18 10:59: Glucometer 185H 12/05/18 15:21: Glucometer 163H 12/05/18 23:25: Glucometer 233H 12/06/18 03:20: White Blood Count 24.5H, Red Blood Count 4.21L, Hemoglobin 11.8L, Hematocrit 35L , Mean Corpuscular Volume 83, Mean Corpuscular Hemoglobin 28, Mean Corpuscular Hemoglobin Concent 34, Red Cell Distribution Width 16.3H, Platelet Count 210, Mean Platelet Volume 11.3H, Neutrophils (%) (Auto) 90H, Lymphocytes (%) (Auto) 5L, Monocytes (%) (Auto) 5, Eosinophils (%) (Auto) 0, Basophils (%) (Auto) 0, Neutrophils # (Auto) 22.0H, Lymphocytes # (Auto) 1.2, Monocytes # (Auto) 1.3H, Eosinophils # (Auto) 0.0, Basophils # (Auto) 0.1, Neutrophils % (Manual) 83, Lymphocytes % (Manual) 6, Monocytes % (Manual) 7, Metamyelocytes % 1, Myelocytes % 3, Sodium Level 143, Potassium Level 3.2L, Chloride Level 106, Carbon Dioxide Level 20L, Anion Gap 17H, Blood Urea Nitrogen 23H, Creatinine 0.66, Estimat Glomerular Filtration Rate > 60, BUN/Creatinine Ratio 35, Glucose Level 214H, Calcium Level 8.8, Phosphorus Level 1.8L, Magnesium Level 2.1, Vancomycin Level Trough 3.3L 12/06/18 03:45: Blood Gas Puncture Site RIGHT RADIAL, Blood Gas Patient Temperature 97.8, Arterial Blood pH 7.43, Arterial Blood Partial Pressure CO2 36, Arterial Blood Partial Pressure O2 97H, Arterial Blood HCO3 24, Arterial Blood Total CO2 24.6, Arterial Blood Oxygen Saturation 98, Arterial Blood Base Excess -0.4, Eduard Test POSTIVIE, Blood Gas Ventilator Setting YES, Blood Gas Inspired Oxygen 40% VENT Microbiology 12/01/18 Blood Culture - Preliminary, Resulted No growth 12/04/18 Mycobacterial Culture - Preliminary, Resulted Assessment/Plan Assessment/Plan Assess & Plan/Chief Complaint Pneumonia. Respiratory distress. Bilateral pneumothorax. Patient on vent. Left chest tube put in. . 12/06/18. Acute respiratory failure. Bilateral pneumonia. Pulmonary edema. Influenza A. Sepsis. Leukocytosis. Hypokalemia Clinical Quality Measures Admission Status Admission Dx Influenza A. Pneumonia. Fever. Short of breath. Pulse ox 67. Respiratory distress. Dehydration. Hyponatremia. Anemia DVT/VTE Risk/Contraindication: Risk Factor Score Per Nursin RFS Level Per Nursing on Admit: 4+=Very High SKYLER PASCUAL DO Dec 06, 2018 07:40
--- NOTE | 2018-12-06 08:17 | Diagnostic Imaging Report ---
Indication: Chest tube. Compared: 12/05 Findings: Chest catheter overlies the left hemithorax unchanged, ET tube above the roshan, bilateral infiltrates have improved. No effusion. No pneumothorax. Impression: Improvements in perihilar infiltrates or edema, stable support apparatus with no appreciable pneumothorax. Dictated by: Dictated on workstation # [id number]
[2018-12-06] MEDS: PIPERACILLIN/TAZO 4.5 GM/NS 100 ML IV SCH ×4 (08:24→16:31)
[2018-12-06] MEDS: POT PHOS/NA PHOS (K-PHOS NEUTRAL) PO SCH ×2 (08:25→20:17)
[2018-12-06] MEDS: PANTOPRAZOLE 40 MG (PROTONIX) VIAL IV SCH (08:25)
[2018-12-06] MEDS: OSELTAMIVIR 6 MG/ML (TAMIFLU) 60 ML BOT PO SCH ×2 (08:31→20:17)
--- NOTE | 2018-12-06 08:32 | Occ Therapy Progress Note ---
Therapy Progress Note Pt remains intubated and sedated. Will continue to monitor. KENNY ISAAC OT Dec 06, 2018 08:32
[2018-12-06] MEDS ORDERED: HOLD METFORMIN - RECEIVED CONTRAST 20 ML VIAL IV SCH (10:15)
[2018-12-06] MEDS ORDERED: NS 100 ML (IVPB) BAG IV ONE (10:15)
[2018-12-06] MEDS ORDERED: IOHEXOL 350 MG/ML 100 ML (OMNIPAQUE 350) VIAL IV ONE (10:15)
--- NOTE | 2018-12-06 10:47 | Diagnostic Imaging Report ---
PROCEDURE: CT chest with contrast only. TECHNIQUE: Multiple contiguous axial images were obtained through the chest after administration of intravenous contrast. INDICATION: Respiratory failure and pneumonia. Correlation is made with recent CT chest from 12/02/2018. The patient remains intubated. Tip of the ET tube is above the roshan. The NG tube passes into the stomach. Left anterior chest catheter remains in place. Previously noted bilateral pneumothoraces are no longer present. There is a large bullae involving the right lung apex. In addition, there has been significant improvement in the pneumomediastinum which is now trace. The patient has, however, developed some infiltrates in the upper lobes bilaterally in the posterior aspect. There is also persistent consolidation with air bronchograms in the left lower lobe, however, this may be slightly improved since prior. Some mild patchy airspace infiltrates in the right lower lobe. Trace pleural fluid is seen bilaterally. Upper abdomen is unremarkable. IMPRESSION: 1. Resolution of previously seen bilateral pneumothoraces. There has been near complete resolution of previously noted pneumomediastinum. There has been some increase in bilateral infiltrates particularly in the upper lobes and right lower lobe. Consolidation in the left lower lobe is improved. 2. Trace bilateral effusions. Dictated by: Dictated on workstation # [id number]
[2018-12-06] MEDS: fentaNYL INJECTION 1,250 MCG in NS (IVPB) 250 ML IV SCH (11:27)
[2018-12-06] MEDS ORDERED: hydrALAZINE (APESOLINE) 20 MG/ML VIAL IV PRN ×2 (12:40→22:00)
[2018-12-06] MEDS ORDERED: hydrALAZINE (APESOLINE) 20 MG/ML VIAL ONE (12:40)
[2018-12-06] MEDS ORDERED: PHARMACY TO DOSE IV SCH (13:45)
[2018-12-06] MEDS ORDERED: VANCOMYCIN 1500 MG/NS 500 ML IVPB IV NR ×2 (14:00)
[2018-12-06] MEDS: DEXMEDETOMIDINE INJECTION 1,000 MCG in NS (IVPB) 250 ML IV SCH (14:44)
--- NOTE | 2018-12-06 16:19 | NUR ---
notified dr hitchcock that pt was placed back on increased propofol dose of 50 to keep him from biting and working the tubes;. also noted to him that pt's spo2 has decreased as the day goes on from mid to high 90's to high 80's and 90. new orders to increase fio2 on vent to keep spo2 90-94. vent increased to 60% at this time. pt sats at 91-93%. BP has continued to stay in the 150's-160's systolic obtained orders to give 10 mg hydralazine Q6h for systolic greater than 160.
[2018-12-06] MEDS: NS IV 1000 ML 1,000 ML IV SCH (19:44)
--- NOTE | 2018-12-06 21:10 | NUR ---
CALLED [facility] TO REPORT THAT PATIENT'S BP IS STILL ELEVATED AND CURRENTLY 170/108 WITH HR IN 70S. RECEIVED ORDER TO GIVE HYDRALAZINE 10MG IV NOW AND TO INCREASE PRN HYDRALAZINE DOSE TO 20 MG IV Q4 FOR SYSTOLIC ABOVE 159. WILL CONTINUE TO MONITOR.
[2018-12-06] MEDS ORDERED: hydrALAZINE (APESOLINE) 20 MG/ML VIAL IV ONE ×2 (21:30→21:45)
--- NOTE | 2018-12-06 23:40 | NUR ---
CALLED [facility] TO INFORM THEM THAT CURRENT BP IS 154/101. NO NEW ORDERS AT THIS TIME. WILL CONTINUE TO MONITOR.
[2018-12-07] VITALS (34 sets, daily range): BP systolic 102–169; BP diastolic 65–115
[2018-12-07] MEDS: hydrALAZINE (APESOLINE) 20 MG/ML VIAL IV PRN ×3 (01:42→20:36)
[2018-12-07] MEDS: PIPERACILLIN/TAZO 4.5 GM/NS 100 ML IV SCH ×6 (01:42→16:46)
[2018-12-07] MEDS: DEXMEDETOMIDINE INJECTION 1,000 MCG in NS (IVPB) 250 ML IV SCH ×2 (01:44→21:29)
[2018-12-07] MEDS: fentaNYL INJECTION 1,250 MCG in NS (IVPB) 250 ML IV SCH ×2 (01:58→14:21)
[2018-12-07] MEDS: methylPREDNISolone 125 MG (Solu-MEDROL) VIAL IVP SCH ×4 (02:10→17:49)
[2018-12-07] MEDS: VANCOMYCIN 1250 MG/NS 250 ML IVPB IV SCH ×4 (02:11→14:42)
[2018-12-07] MEDS: PROPOFOL DRIP (ICU) 100 ML IV SCH ×6 (02:16→20:28)
[2018-12-07] MEDS: RT-ALBUTEROL/IPRATROPIUM 3 ML (DUONEB) VIAL INH SCH ×6 (02:32→22:34)
[2018-12-07 04:24] LABS: BASOPHILS # (AUTO) 0.2 10^3/uL (0.0-0.1); BASOPHILS % (AUTO) 1 % (0-10); EOSINOPHILS % (AUTO) 0 % (0-10); HEMATOCRIT 37 % (40-54); HEMOGLOBIN 12.5 G/DL (13.3-17.7); LYMPHOCYTES # (AUTO) 0.6 X 10^3 (1.0-4.0); LYMPHOCYTES % (AUTO) 2 % (12-44); MEAN CORPUSCULAR HEMOGLOBIN 28 PG (25-34); MEAN CORPUSCULAR HGB CONC 34 G/DL (32-36); MEAN CORPUSCULAR VOLUME 83 FL (80-99); MEAN PLATELET VOLUME 11.4 FL (7.4-10.4); MONOCYTES # (AUTO) 0.9 X 10^3 (0.0-1.0); MONOCYTES % (AUTO) 3 % (0-12); NEUTROPHILS % (AUTO) 94 % (42-75); PLATELET COUNT 178 10^3/uL (130-400); RED CELL DISTRIBUTION WIDTH 16.3 % (10.0-14.5); WHITE BLOOD COUNT 26.7 10^3/uL (4.3-11.0)
[2018-12-07 04:45] LABS: BUN/CREATININE RATIO 39; CALCIUM 8.3 MG/DL (8.5-10.1); CARBON DIOXIDE 23 MMOL/L (21-32); CHLORIDE 107 MMOL/L (98-107); CREATININE SERUM 0.54 MG/DL (0.60-1.30); GFR ESTIMATED > 60; GLUCOSE 172 MG/DL (70-105); MAGNESIUM 1.5 MG/DL (1.8-2.4); PHOSPHORUS 2.3 MG/DL (2.3-4.7); POTASSIUM 3.7 MMOL/L (3.6-5.0); SODIUM 141 MMOL/L (135-145)
[2018-12-07] MEDS: inSUlin ASPART (NovoLOG) 1 UNIT/0.01 ML (CHARGE PER UNIT) SC SCH ×6 (04:46→20:36)
[2018-12-07 04:58] LABS: ABG BASE EXCESS 2.9 MMOL/L (-2.5-2.5); ABG OXYGEN SATURATION 99 % (94-100); ABG PCO2 34 MMHG (35-45); ABG PO2 112 MMHG (79-93); ABG TCO2 27.2 MMOL/L (21.0-31.0)
[2018-12-07 04:59] LABS: ALLENS TEST POSITIVE
[2018-12-07 05:00] LABS: INSPIRED O2 60%; PATIENT TEMP 97.9; VENTILATOR YES
[2018-12-07] MEDS: KCL 20 MEQ TAB (K-DUR) PO SCH (05:02)
[2018-12-07] MEDS: MAGNESIUM 1 GM/100 ML IVPB 100 ML IV SCH ×3 (05:02→06:18)
[2018-12-07] MEDS: POTASSIUM CL 10MEQ/50ML IVPB 50 ML IV SCH ×7 (05:02→10:30)
--- NOTE | 2018-12-07 05:27 | Pulmonary Progress Note ---
Subjective Time Seen by a Provider: 05:41 Subjective/Events-last exam Pt is sedated on vent. Sepsis Event Evaluation Height, Weight, BMI Height: 5'11.00" Weight: 157lbs. 6.0oz. 71.785210md; 18.3 BMI Method:Stated Exam Exam Vital Signs Date Time Temp Pulse Resp B/P (MAP) Pulse Ox O2 Delivery O2 Flow Rate FiO2 12/07/18 04:00 96 Mechanical Ventilator 60.00 12/07/18 04:00 97.9 76 24 155/96 (115) 96 Mechanical Ventilator 60.00 12/07/18 03:00 81 23 140/85 (103) 95 Mechanical Ventilator 60.00 12/07/18 02:32 74 24 95 60 12/07/18 02:16 74 24 151/95 Mechanical Ventilator 60.00 12/07/18 02:00 75 24 151/95 (113) 96 Mechanical Ventilator 60.00 12/07/18 01:00 76 23 151/95 (113) 96 Mechanical Ventilator 60.00 12/07/18 01:00 76 12/07/18 00:32 75 24 95 60 12/07/18 00:00 96 Mechanical Ventilator 60.00 12/07/18 00:00 97.1 12/07/18 00:00 77 24 160/104 (122) 95 Mechanical Ventilator 60.00 12/06/18 23:00 80 24 145/98 (114) 94 Mechanical Ventilator 40.00 12/06/18 22:17 75 24 95 60 12/06/18 22:00 74 23 152/101 (118) 95 Mechanical Ventilator 40.00 12/06/18 21:39 78 24 167/112 Mechanical Ventilator 60.00 12/06/18 21:00 79 24 170/108 (128) 96 Mechanical Ventilator 40.00 12/06/18 20:24 80 24 96 60 12/06/18 20:00 97 Mechanical Ventilator 60.00 12/06/18 20:00 97.2 12/06/18 20:00 80 23 131/89 (103) 96 Mechanical Ventilator 40.00 12/06/18 19:00 81 24 129/85 (100) 94 Mechanical Ventilator 40.00 12/06/18 19:00 81 12/06/18 18:24 81 24 94 60 12/06/18 18:00 80 24 164/113 (130) 93 Mechanical Ventilator 40.00 12/06/18 17:00 86 24 174/113 (133) 95 Mechanical Ventilator 40.00 12/06/18 16:00 98.2 12/06/18 16:00 96 Mechanical Ventilator 60.00 12/06/18 16:00 90 24 160/109 (126) 90 Mechanical Ventilator 40.00 12/06/18 15:00 86 23 157/105 (122) 93 Mechanical Ventilator 40.00 12/06/18 14:24 82 24 96 40 12/06/18 14:00 86 19 93 Mechanical Ventilator 40.00 12/06/18 13:00 84 12/06/18 13:00 84 24 145/95 (112) 90 Mechanical Ventilator 40.00 12/06/18 12:00 96.6 12/06/18 12:00 91 Mechanical Ventilator 40.00 12/06/18 12:00 82 24 182/117 (138) 94 Mechanical Ventilator 40.00 12/06/18 11:00 95 Mechanical Ventilator 40.00 12/06/18 10:59 83 28 96 40 12/06/18 10:00 90 10 159/98 (118) 93 Mechanical Ventilator 40.00 12/06/18 09:00 97 24 151/92 (111) 96 Mechanical Ventilator 40.00 12/06/18 08:00 102 24 142/89 (106) 96 Mechanical Ventilator 40.00 12/06/18 08:00 91 Mechanical Ventilator 40.00 12/06/18 07:07 95 24 97 40 12/06/18 07:00 96 12/06/18 07:00 96 23 144/90 (108) 96 Mechanical Ventilator 40.00 12/06/18 07:00 97.6 12/06/18 06:10 148/92 12/06/18 06:00 98 19 148/92 (110) 96 Mechanical Ventilator 40.00 I & O 12/07/18 07:00 Intake Total 497.5 ml Output Total 1775 ml Balance -1277.5 ml Height & Weight Height: 5'11.00" Weight: 157lbs. 6.0oz. 71.649275eo; 18.3 BMI Method:Stated General Appearance: No Apparent Distress, Thin HEENT: Other (Patient intubated) Neck: Normal Inspection Respiratory: No Accessory Muscle Use, No Respiratory Distress, Other (On vent has bilateral pneumothorax history) Cardiovascular: Regular Rate, Rhythm, No Murmur Capillary Refill: Less Than 3 Seconds Gastrointestinal: non tender, soft Extremity: Normal Capillary Refill, Normal Inspection Neurologic/Psychiatric: Other Skin: Normal Color, Warm/Dry Results Lab Laboratory Tests 12/06/18 03:20 12/07/18 04:00 Assessment/Plan Assessment/Plan Acute respiratory failure s/p bronch - Cancer is suspected (pictures taken) -Continue ventilator care -Consider tracheostomy unless made comfort care -Repeat CT chest of chest - shows resolution of PTX -Ethics and SW are following. Pt has no family. Pt has very severe emphysema his overall prognosis is poor. he was extubated on Thursday and had to be reintubated within 30min. I am going to try to optimize his pulmonary status over the next 24-48 hours and then plan on extubation. Once pt is extubated he should be made a full DNR. If he does not tolerate extubation once again then he should be made comfort care only. Will continue to discuss with glynn, [facility] and Dr. Reza. -Give 40mg of Lasix -Continue solumedrol -CXR reviewed Bilateral PTX with pneumomediastinum -Probably a communication between left and right lung -S/P left chest tube -CXR appears stable Pulmonary edema -Decrease IVF to 30cc/hr -Lasix 40mg x 1 Agitation - any time sedation is weaned down -Will start Risperadol 1mg PO BID -Haldol PRN. Influ A with severe sepsis r/o secondary infection -[place]rence culture -IVF -Vanco -Zosyn -Tamiflu Metabolic acidosis -Check [place] -Give 2 amps of bicarb Hyponatremia -Monitor ROSA TRINIDAD DO Dec 07, 2018 05:27
--- NOTE | 2018-12-07 07:33 | Progress Note (SOAP) ---
Subjective Time Seen by a Provider: 07:30 Subjective/Events-last exam Patient on vent and sedated. Patient hypertensive last night. Solu-Medrol decreased this a.m. White blood cell count 26,000 but on Solu-Medrol. Chest x-ray yesterday shows a mixed bag. Resolution of bilateral pneumothorax. Increased bilateral infiltrates in upper lobes. Left lower lobe has improved Objective Exam Vital Signs Date Time Temp Pulse Resp B/P (MAP) Pulse Ox O2 Delivery O2 Flow Rate FiO2 12/07/18 06:53 80 24 129/79 Mechanical Ventilator 12/07/18 06:16 76 25 96 50 12/07/18 06:00 74 23 150/96 (114) 94 Mechanical Ventilator 50.00 12/07/18 05:30 Mechanical Ventilator 50.00 12/07/18 05:27 50 12/07/18 05:00 75 24 169/115 (133) 97 Mechanical Ventilator 60.00 12/07/18 04:00 96 Mechanical Ventilator 60.00 12/07/18 04:00 97.9 76 24 155/96 (115) 96 Mechanical Ventilator 60.00 12/07/18 03:00 81 23 140/85 (103) 95 Mechanical Ventilator 60.00 12/07/18 02:32 74 24 95 60 12/07/18 02:16 74 24 151/95 Mechanical Ventilator 60.00 12/07/18 02:00 75 24 151/95 (113) 96 Mechanical Ventilator 60.00 12/07/18 01:00 76 23 151/95 (113) 96 Mechanical Ventilator 60.00 12/07/18 01:00 76 12/07/18 00:32 75 24 95 60 12/07/18 00:00 96 Mechanical Ventilator 60.00 12/07/18 00:00 97.1 12/07/18 00:00 77 24 160/104 (122) 95 Mechanical Ventilator 60.00 12/06/18 23:00 80 24 145/98 (114) 94 Mechanical Ventilator 40.00 12/06/18 22:17 75 24 95 60 12/06/18 22:00 74 23 152/101 (118) 95 Mechanical Ventilator 40.00 12/06/18 21:39 78 24 167/112 Mechanical Ventilator 60.00 12/06/18 21:00 79 24 170/108 (128) 96 Mechanical Ventilator 40.00 12/06/18 20:24 80 24 96 60 12/06/18 20:00 97 Mechanical Ventilator 60.00 12/06/18 20:00 97.2 12/06/18 20:00 80 23 131/89 (103) 96 Mechanical Ventilator 40.00 12/06/18 19:00 81 24 129/85 (100) 94 Mechanical Ventilator 40.00 12/06/18 19:00 81 12/06/18 18:24 81 24 94 60 12/06/18 18:00 80 24 164/113 (130) 93 Mechanical Ventilator 40.00 12/06/18 17:00 86 24 174/113 (133) 95 Mechanical Ventilator 40.00 12/06/18 16:00 98.2 12/06/18 16:00 96 Mechanical Ventilator 60.00 12/06/18 16:00 90 24 160/109 (126) 90 Mechanical Ventilator 40.00 12/06/18 15:00 86 23 157/105 (122) 93 Mechanical Ventilator 40.00 12/06/18 14:24 82 24 96 40 12/06/18 14:00 86 19 93 Mechanical Ventilator 40.00 12/06/18 13:00 84 12/06/18 13:00 84 24 145/95 (112) 90 Mechanical Ventilator 40.00 12/06/18 12:00 96.6 12/06/18 12:00 91 Mechanical Ventilator 40.00 12/06/18 12:00 82 24 182/117 (138) 94 Mechanical Ventilator 40.00 12/06/18 11:00 95 Mechanical Ventilator 40.00 12/06/18 10:59 83 28 96 40 12/06/18 10:00 90 10 159/98 (118) 93 Mechanical Ventilator 40.00 12/06/18 09:00 97 24 151/92 (111) 96 Mechanical Ventilator 40.00 12/06/18 08:00 102 24 142/89 (106) 96 Mechanical Ventilator 40.00 12/06/18 08:00 91 Mechanical Ventilator 40.00 I & O 12/07/18 07:00 Intake Total 497.5 ml Output Total 1925 ml Balance -1427.5 ml Capillary Refill : Less Than 3 Seconds General Appearance: No Apparent Distress, Thin Respiratory: No Accessory Muscle Use, No Respiratory Distress Cardiovascular: Regular Rate, Rhythm, No Murmur Gastrointestinal: non tender, soft Results Lab Laboratory Tests 12/07/18 04:00 Laboratory Tests 12/06/18 08:32: Glucometer 196H 12/06/18 12:39: Glucometer 107 12/06/18 14:05: B-Type Natriuretic Peptide 93.5 12/06/18 16:32: Glucometer 219H 12/06/18 20:13: Glucometer 187H 12/07/18 00:47: Glucometer 161H 12/07/18 04:00: White Blood Count 26.7H, Red Blood Count 4.48, Hemoglobin 12.5L, Hematocrit 37L , Mean Corpuscular Volume 83, Mean Corpuscular Hemoglobin 28, Mean Corpuscular Hemoglobin Concent 34, Red Cell Distribution Width 16.3H, Platelet Count 178, Mean Platelet Volume 11.4H, Neutrophils (%) (Auto) 94H, Lymphocytes (%) (Auto) 2L, Monocytes (%) (Auto) 3, Eosinophils (%) (Auto) 0, Basophils (%) (Auto) 1, Neutrophils # (Auto) 25.0H, Lymphocytes # (Auto) 0.6L, Monocytes # (Auto) 0.9, Eosinophils # (Auto) 0.0, Basophils # (Auto) 0.2H, Sodium Level 141, Potassium Level 3.7, Chloride Level 107, Carbon Dioxide Level 23, Anion Gap 11, Blood Urea Nitrogen 21H, Creatinine 0.54L, Estimat Glomerular Filtration Rate > 60, BUN/Creatinine Ratio 39, Glucose Level 172H, Calcium Level 8.3L, Phosphorus Level 2.3, Magnesium Level 1.5L 12/07/18 04:52: Blood Gas Puncture Site RIGHT RADIAL, Blood Gas Patient Temperature 97.9, Arterial Blood pH 7.50H, Arterial Blood Partial Pressure CO2 34L, Arterial Blood Partial Pressure O2 112H, Arterial Blood HCO3 26, Arterial Blood Total CO2 27.2, Arterial Blood Oxygen Saturation 99, Arterial Blood Base Excess 2.9H, Eduard Test POSITIVE, Blood Gas Ventilator Setting YES, Blood Gas Inspired Oxygen 60% Microbiology 12/01/18 Blood Culture - Preliminary, Resulted No growth 12/04/18 Mycobacterial Culture - Preliminary, Resulted Assessment/Plan Assessment/Plan Assess & Plan/Chief Complaint Pneumonia. Respiratory distress. Bilateral pneumothorax. Patient on vent. Left chest tube put in. . 12/06/18. Acute respiratory failure. Bilateral pneumonia. Pulmonary edema. Influenza A. Sepsis. Leukocytosis. Hypokalemia. . 12/07/18. Acute respiratory failure. Bilateral pneumonia. Pulmonary edema. Influenza A. Sepsis. Hypokalemia. Hypertension Clinical Quality Measures Admission Status Admission Dx Influenza A. Pneumonia. Fever. Short of breath. Pulse ox 67. Respiratory distress. Dehydration. Hyponatremia. Anemia DVT/VTE Risk/Contraindication: Risk Factor Score Per Nursin RFS Level Per Nursing on Admit: 4+=Very High SKYLER PASCUAL DO Dec 07, 2018 07:33
--- NOTE | 2018-12-07 07:55 | Diagnostic Imaging Report ---
INDICATION: Pneumonia with shortness of breath, chest tube intubated. COMPARISON: 12/06/2018. FINDINGS: Single view of the chest demonstrates stable support lines. There is no visible pneumothorax. Infiltrates are unchanged bilaterally. There is no effusion. Heart size is stable. IMPRESSION: 1. Stable support lines. No pneumothorax. 2. Unchanged aeration of the lungs. Dictated by: Dictated on workstation # [id number]
--- NOTE | 2018-12-07 08:16 | Occ Therapy Progress Note ---
Therapy Progress Note Pt remains intubated and sedated. Will continue to monitor. KENNY ISAAC OT Dec 07, 2018 08:16
[2018-12-07] MEDS: POT PHOS/NA PHOS (K-PHOS NEUTRAL) PO SCH ×2 (09:24→21:27)
[2018-12-07] MEDS: PANTOPRAZOLE 40 MG (PROTONIX) VIAL IV SCH (09:24)
[2018-12-07] MEDS: FUROSEMIDE 40 MG/4 ML INJ (LASIX) IVP SCH (09:24)
[2018-12-07] MEDS: meTOprolol TARTRATE 25 MG (LOPRESSOR) TABLET PO SCH ×2 (09:24→21:27)
[2018-12-07] MEDS: risperiDONE 1 MG (RisperDAL) TAB PO SCH ×2 (09:24→21:27)
[2018-12-07] MEDS: ENOXAPARIN 40 MG/0.4 ML (LOVENOX) SYR SC SCH (09:25)
[2018-12-07] MEDS: lisINopril 10 MG (PRINIVIL) TABLET PO SCH (09:25)
[2018-12-07] MEDS: OSELTAMIVIR 6 MG/ML (TAMIFLU) 60 ML BOT PO SCH (09:25)
--- NOTE | 2018-12-07 09:43 | NUR ---
CM/SS, continued review regarding patient's status, diagnosis/prognosis, planning. Appreciate documented care plan by . Explored scenarios and next steps relative to discussions about futility, potential for failed vent weaning, aggressive vs comfort care. PLAN: Hydration Plant Operator has exhausted attempts to find any relatives to patient through former neighbor, Kevon Garvin, and community resources. PC&R Admin/Ines was encouraged to keep trying to get through to Kevon and update health underwriter with any developments. The hope is that patient can wean and there can be focused conversation to gather information. If patient expires without any known relatives, he would be considered a status of an "unclaimed ." Dr. Anderson, Triple Valve Mechanic, would need notified re constantine and he would direct which home to be called. Indications are this would be [place], but this is to be determined/finalized through Dr. Anderson. [phone] Dr[address] Anderson then coordinates with [facility] Commissioners regarding contribution to expenses. Hydration Plant Operator has contacted Yaneth Sy/Lilia Gomez who agreed to contribute $300 directly to the chosen home. Lilia will need to be contacted via email re same: [email or web address] Hydration Plant Operator contacted [facility] [place] at the recommendation of Yaneth/Lilia Gomez. Their cremation is $[phone] and Santos Kingsley outlined the process noted above. Dr. Anderson's indicated [facility] [place] would likely be selected since the patient "resided" here in [place], to be determined. Care Management team to follow through as circumstances evolve.
--- NOTE | 2018-12-07 11:08 | NUR ---
TUBE FEEDING RECOMMENDATIONS: RECOMMEND INCREASE PULMOCARE TO 50 ML/HR TO PROVIDE 1800 KCAL, 75 GRAMS PROTEIN, 942 ML FREE WATER. PT WILL NEED ADDITIONAL 1200 ML FLUID PER DAY TO BETWEEN FLUSHES AND IVF.
[2018-12-07] MEDS ORDERED: ANIDULAFUNGIN 200 MG/NS 250 ML IVPB IV ONE ×2 (14:00)
[2018-12-07] MEDS: NS IV 1000 ML 1,000 ML IV SCH (20:33)
[2018-12-08] VITALS (26 sets, daily range): BP systolic 92–162; BP diastolic 41–104
[2018-12-08] MEDS: PIPERACILLIN/TAZO 4.5 GM/NS 100 ML IV SCH ×6 (00:18→16:17)
[2018-12-08] MEDS: methylPREDNISolone 125 MG (Solu-MEDROL) VIAL IVP SCH ×4 (00:19→17:21)
[2018-12-08] MEDS: inSUlin ASPART (NovoLOG) 1 UNIT/0.01 ML (CHARGE PER UNIT) SC SCH ×5 (00:19→16:05)
[2018-12-08] MEDS: PROPOFOL DRIP (ICU) 100 ML IV SCH ×2 (00:48→05:10)
[2018-12-08] MEDS: RT-ALBUTEROL/IPRATROPIUM 3 ML (DUONEB) VIAL INH SCH ×6 (01:36→23:05)
[2018-12-08] MEDS: VANCOMYCIN 1250 MG/NS 250 ML IVPB IV SCH ×2 (02:31)
[2018-12-08 03:38] LABS: BASOPHILS % (AUTO) 0 % (0-10); EOSINOPHILS % (AUTO) 0 % (0-10); HEMATOCRIT 35 % (40-54); HEMOGLOBIN 11.8 G/DL (13.3-17.7); LYMPHOCYTES # (AUTO) 0.6 X 10^3 (1.0-4.0); LYMPHOCYTES % (AUTO) 3 % (12-44); MEAN CORPUSCULAR HEMOGLOBIN 28 PG (25-34); MEAN CORPUSCULAR HGB CONC 33 G/DL (32-36); MEAN CORPUSCULAR VOLUME 84 FL (80-99); MEAN PLATELET VOLUME 10.6 FL (7.4-10.4); MONOCYTES # (AUTO) 0.9 X 10^3 (0.0-1.0); MONOCYTES % (AUTO) 4 % (0-12); NEUTROPHILS % (AUTO) 94 % (42-75); PLATELET COUNT 184 10^3/uL (130-400); RED CELL DISTRIBUTION WIDTH 16.3 % (10.0-14.5); WHITE BLOOD COUNT 23.5 10^3/uL (4.3-11.0)
[2018-12-08 04:09] LABS: ABG OXYGEN SATURATION 96 % (94-100); ABG PCO2 35 MMHG (35-45); ABG PH 7.53 (7.37-7.43); ABG PO2 86 MMHG (79-93); ABG TCO2 30.2 MMOL/L (21.0-31.0)
[2018-12-08 04:10] LABS: ALLENS TEST YES-POS; INSPIRED O2 50% FI02; PATIENT TEMP 98.3; VENTILATOR YES
[2018-12-08] MEDS: fentaNYL INJECTION 1,250 MCG in NS (IVPB) 250 ML IV SCH (04:15)
[2018-12-08 04:20] LABS: BUN/CREATININE RATIO 38; CALCIUM 7.3 MG/DL (8.5-10.1); CARBON DIOXIDE 25 MMOL/L (21-32); CHLORIDE 104 MMOL/L (98-107); CREATININE SERUM 0.55 MG/DL (0.60-1.30); GFR ESTIMATED > 60; GLUCOSE 198 MG/DL (70-105); MAGNESIUM 1.4 MG/DL (1.8-2.4); PHOSPHORUS 2.3 MG/DL (2.3-4.7); POTASSIUM 3.5 MMOL/L (3.6-5.0); SODIUM 139 MMOL/L (135-145)
[2018-12-08] MEDS: POTASSIUM CL 10MEQ/50ML IVPB 50 ML IV SCH ×7 (05:03→19:45)
[2018-12-08] MEDS: KCL 20 MEQ TAB (K-DUR) PO SCH (05:04)
[2018-12-08] MEDS: MAGNESIUM 1 GM/100 ML IVPB 100 ML IV SCH ×3 (05:04→06:21)
[2018-12-08] MEDS: HALOPERIDOL 5 MG/ML (HALDOL) AMP IV PRN ×3 (06:11→19:47)
--- NOTE | 2018-12-08 06:15 | NUR ---
RT AND DR TRINIDAD AT BEDSIDE, PT EXTUBATED AT THIS TIME, PLACED ON 15L NC HIGH FLOW. ALL VSS.
--- NOTE | 2018-12-08 06:17 | Pulmonary Progress Note ---
Subjective Time Seen by a Provider: 06:17 Subjective/Events-last exam Pt is awake and agitated. He is wanting ET tube out. Sepsis Event Evaluation Height, Weight, BMI Height: 5'11.00" Weight: 166lbs. 0.2oz. 75.751384ab; 18.3 BMI Method:Stated Exam Exam Vital Signs Date Time Temp Pulse Resp B/P (MAP) Pulse Ox O2 Delivery O2 Flow Rate FiO2 12/08/18 05:10 105/69 12/08/18 05:00 80 23 105/69 (81) 94 Mechanical Ventilator 50.00 12/08/18 04:10 80 24 95 50 12/08/18 04:00 79 11 93/63 (73) 94 Mechanical Ventilator 50.00 12/08/18 04:00 92 Mechanical Ventilator 50 12/08/18 03:57 98.3 12/08/18 03:00 77 23 98/59 (72) 92 Mechanical Ventilator 50.00 12/08/18 02:00 78 24 100/60 (73) 92 Mechanical Ventilator 50.00 12/08/18 01:36 72 24 91 50 12/08/18 01:00 71 23 98/60 (73) 92 Mechanical Ventilator 50.00 12/08/18 01:00 71 12/08/18 00:48 101/63 12/08/18 00:00 97.6 12/08/18 00:00 71 13 99/61 (74) 92 Mechanical Ventilator 50.00 12/08/18 00:00 92 Mechanical Ventilator 50 12/07/18 23:00 70 32 103/65 (78) 92 Mechanical Ventilator 50.00 12/07/18 22:34 66 24 50 12/07/18 22:00 67 25 113/74 (87) 92 Mechanical Ventilator 50.00 12/07/18 21:00 69 24 131/81 (98) 94 Mechanical Ventilator 50.00 12/07/18 20:40 68 24 94 50 12/07/18 20:28 168/104 12/07/18 20:00 92 Mechanical Ventilator 50 12/07/18 20:00 69 10 168/104 (125) 93 Mechanical Ventilator 50.00 12/07/18 19:46 96.9 12/07/18 19:00 73 12/07/18 19:00 73 24 163/97 (119) 93 Mechanical Ventilator 50.00 12/07/18 18:12 71 24 93 50 12/07/18 17:01 74 24 95 50 12/07/18 17:00 74 23 159/97 (117) 95 Mechanical Ventilator 50.00 12/07/18 16:00 74 43 151/90 (110) 95 Mechanical Ventilator 50.00 12/07/18 16:00 96 Mechanical Ventilator 60.00 12/07/18 15:00 75 23 141/85 (103) 94 Mechanical Ventilator 50.00 12/07/18 15:00 97.6 12/07/18 14:29 72 24 95 50 12/07/18 14:00 123/82 (96) Mechanical Ventilator 50.00 12/07/18 13:00 73 12/07/18 13:00 73 23 113/69 (84) 95 Mechanical Ventilator 50.00 12/07/18 12:20 73 24 95 50 12/07/18 12:17 98.3 12/07/18 12:00 98.3 12/07/18 12:00 96 Mechanical Ventilator 60.00 12/07/18 12:00 74 23 108/68 (81) 93 Mechanical Ventilator 50.00 12/07/18 11:00 77 22 102/69 (80) 91 Mechanical Ventilator 50.00 12/07/18 10:11 74 24 94 50 12/07/18 10:00 75 24 140/85 (103) 93 Mechanical Ventilator 50.00 12/07/18 09:00 75 23 148/97 (114) 95 Mechanical Ventilator 50.00 12/07/18 08:42 75 24 94 50 12/07/18 08:00 96 Mechanical Ventilator 60.00 12/07/18 08:00 76 23 140/85 (103) 94 Mechanical Ventilator 50.00 12/07/18 07:00 81 12/07/18 07:00 98.2 12/07/18 07:00 80 23 128/77 (94) 91 Mechanical Ventilator 50.00 12/07/18 06:53 80 24 129/79 Mechanical Ventilator 12/07/18 06:16 76 25 96 50 I & O 12/08/18 07:00 Intake Total 1834.5 ml Output Total 5350 ml Balance -3515.5 ml Height & Weight Height: 5'11.00" Weight: 166lbs. 0.2oz. 75.489479jt; 18.3 BMI Method:Stated General Appearance: Moderate Distress (agitated pulling at lines. He is clearly wanting ET tube out and does not want it back in. ), Thin HEENT: Other (Patient intubated) Neck: Normal Inspection Respiratory: No Accessory Muscle Use, No Respiratory Distress Cardiovascular: Regular Rate, Rhythm, No Murmur Capillary Refill: Less Than 3 Seconds Gastrointestinal: non tender, soft Extremity: Normal Capillary Refill, Normal Inspection Neurologic/Psychiatric: Other Skin: Normal Color, Warm/Dry Results Lab Laboratory Tests 12/07/18 04:00 12/08/18 03:25 Assessment/Plan Assessment/Plan Acute respiratory failure s/p bronch - Cancer is suspected (pictures taken) -PT is currently awake on ventilator -Pt is telling us to take ET tube out. He is nodding head yes and no appropriately to questions. When I asked him if he would want ET tube back in if he does not do well he shakes his head no. I am going to proceed with extubation and make pt a DNR. -Repeat CT chest of chest - shows resolution of PTX If he does not tolerate extubation once again then he should be made comfort care only at that point aggressive medical care will be futile. Will continue to discuss with ethics, [place]AS[place] and Dr. Reza. -Continue solumedrol and SVNs -CXR reviewed Pneumonia - MSSA, Corynebacterium, fungal -Continue Vanco, Zosyn, and Eraxis Bilateral PTX with pneumomediastinum - currently resolved -S/P left chest tube - waiting for pt to be off vent before D/Cing. -CXR appears stable Pulmonary edema -IVF to 30cc/hr Agitation - any time sedation is weaned down -Will start Risperadol 1mg PO BID -Haldol PRN. Influ A with severe sepsis r/o secondary infection -Lawrence culture -IVF -Vanco -Zosyn -Tamiflu Metabolic acidosis -Check LA -Give 2 amps of bicarb Hyponatremia -Monitor Overall prognosis is guarded to poor. ROSA TRINIDAD DO Dec 08, 2018 06:17
[2018-12-08] MEDS ORDERED: morphine INJ 4 MG/ML 1 ML (VIAL/SYRINGE) ONE (06:31)
[2018-12-08] MEDS: morphine INJ 4 MG/ML 1 ML (VIAL/SYRINGE) IVP PRN ×5 (06:34→21:15)
--- NOTE | 2018-12-08 07:38 | Progress Note (SOAP) ---
Subjective Time Seen by a Provider: 07:33 Subjective/Events-last exam Patient extubated. 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 Patient on morphine now Objective Exam Vital Signs Date Time Temp Pulse Resp B/P (MAP) Pulse Ox O2 Delivery O2 Flow Rate FiO2 12/08/18 07:00 76 12/08/18 06:34 99 High Flow N/C 15.00 12/08/18 06:15 96 High Flow N/C 15.00 12/08/18 06:14 105 95 High Flow N/C 15.00 12/08/18 06:00 105 130/77 (94) Mechanical Ventilator 50.00 12/08/18 05:10 105/69 12/08/18 05:00 80 23 105/69 (81) 94 Mechanical Ventilator 50.00 12/08/18 04:10 80 24 95 50 12/08/18 04:00 79 11 93/63 (73) 94 Mechanical Ventilator 50.00 12/08/18 04:00 92 Mechanical Ventilator 50 12/08/18 03:57 98.3 12/08/18 03:00 77 23 98/59 (72) 92 Mechanical Ventilator 50.00 12/08/18 02:00 78 24 100/60 (73) 92 Mechanical Ventilator 50.00 12/08/18 01:36 72 24 91 50 12/08/18 01:00 71 23 98/60 (73) 92 Mechanical Ventilator 50.00 12/08/18 01:00 71 12/08/18 00:48 101/63 12/08/18 00:00 97.6 12/08/18 00:00 71 13 99/61 (74) 92 Mechanical Ventilator 50.00 12/08/18 00:00 92 Mechanical Ventilator 50 12/07/18 23:00 70 32 103/65 (78) 92 Mechanical Ventilator 50.00 12/07/18 22:34 66 24 50 12/07/18 22:00 67 25 113/74 (87) 92 Mechanical Ventilator 50.00 12/07/18 21:00 69 24 131/81 (98) 94 Mechanical Ventilator 50.00 12/07/18 20:40 68 24 94 50 12/07/18 20:28 168/104 12/07/18 20:00 92 Mechanical Ventilator 50 12/07/18 20:00 69 10 168/104 (125) 93 Mechanical Ventilator 50.00 12/07/18 19:46 96.9 12/07/18 19:00 73 12/07/18 19:00 73 24 163/97 (119) 93 Mechanical Ventilator 50.00 12/07/18 18:12 71 24 93 50 12/07/18 17:01 74 24 95 50 12/07/18 17:00 74 23 159/97 (117) 95 Mechanical Ventilator 50.00 12/07/18 16:00 74 43 151/90 (110) 95 Mechanical Ventilator 50.00 12/07/18 16:00 96 Mechanical Ventilator 60.00 12/07/18 15:00 75 23 141/85 (103) 94 Mechanical Ventilator 50.00 12/07/18 15:00 97.6 12/07/18 14:29 72 24 95 50 12/07/18 14:00 123/82 (96) Mechanical Ventilator 50.00 12/07/18 13:00 73 12/07/18 13:00 73 23 113/69 (84) 95 Mechanical Ventilator 50.00 12/07/18 12:20 73 24 95 50 12/07/18 12:17 98.3 12/07/18 12:00 98.3 12/07/18 12:00 96 Mechanical Ventilator 60.00 12/07/18 12:00 74 23 108/68 (81) 93 Mechanical Ventilator 50.00 12/07/18 11:00 77 22 102/69 (80) 91 Mechanical Ventilator 50.00 12/07/18 10:11 74 24 94 50 12/07/18 10:00 75 24 140/85 (103) 93 Mechanical Ventilator 50.00 12/07/18 09:00 75 23 148/97 (114) 95 Mechanical Ventilator 50.00 12/07/18 08:42 75 24 94 50 12/07/18 08:00 96 Mechanical Ventilator 60.00 12/07/18 08:00 76 23 140/85 (103) 94 Mechanical Ventilator 50.00 I & O 12/08/18 07:00 Intake Total 1834.5 ml Output Total 5350 ml Balance -3515.5 ml Capillary Refill : Less Than 3 Seconds General Appearance: No Apparent Distress, Thin HEENT: Normal ENT Inspection Neck: Normal Inspection Respiratory: No Accessory Muscle Use, No Respiratory Distress Cardiovascular: Regular Rate, Rhythm, No Murmur Gastrointestinal: non tender, soft Results Lab Laboratory Tests 12/08/18 03:25 Laboratory Tests 12/07/18 09:20: Glucometer 230H 12/07/18 12:16: Glucometer 253H 12/07/18 16:51: Glucometer 188H 12/07/18 20:32: Glucometer 183H 12/08/18 00:10: Glucometer 182H 12/08/18 03:25: White Blood Count 23.5H, Red Blood Count 4.20L, Hemoglobin 11.8L, Hematocrit 35L , Mean Corpuscular Volume 84, Mean Corpuscular Hemoglobin 28, Mean Corpuscular Hemoglobin Concent 33, Red Cell Distribution Width 16.3H, Platelet Count 184, Mean Platelet Volume 10.6H, Neutrophils (%) (Auto) 94H, Lymphocytes (%) (Auto) 3L, Monocytes (%) (Auto) 4, Eosinophils (%) (Auto) 0, Basophils (%) (Auto) 0, Neutrophils # (Auto) 22.0H, Lymphocytes # (Auto) 0.6L, Monocytes # (Auto) 0.9, Eosinophils # (Auto) 0.0, Basophils # (Auto) 0.0, Sodium Level 139, Potassium Level 3.5L, Chloride Level 104, Carbon Dioxide Level 25, Anion Gap 10, Blood Urea Nitrogen 21H, Creatinine 0.55L, Estimat Glomerular Filtration Rate > 60, BUN/Creatinine Ratio 38, Glucose Level 198H, Calcium Level 7.3L, Phosphorus Level 2.3, Magnesium Level 1.4L 12/08/18 04:05: Blood Gas Puncture Site R RAD, Blood Gas Patient Temperature 98.3, Arterial Blood pH 7.53H, Arterial Blood Partial Pressure CO2 35, Arterial Blood Partial Pressure O2 86, Arterial Blood HCO3 29H, Arterial Blood Total CO2 30.2, Arterial Blood Oxygen Saturation 96, Arterial Blood Base Excess 6.0H, Eduard Test YES-POS, Blood Gas Ventilator Setting YES, Blood Gas Inspired Oxygen 50% FI02 Microbiology 12/01/18 Blood Culture - Final, Complete No growth 12/04/18 Mycobacterial Culture - Preliminary, Resulted Assessment/Plan Assessment/Plan Assess & Plan/Chief Complaint Pneumonia. Respiratory distress. Bilateral pneumothorax. Patient on vent. Left chest tube put in. . 12/06/18. Acute respiratory failure. Bilateral pneumonia. Pulmonary edema. Influenza A. Sepsis. Leukocytosis. Hypokalemia. . 12/07/18. Acute respiratory failure. Bilateral pneumonia. Pulmonary edema. Influenza A. Sepsis. Hypokalemia. Hypertension. . 12/08/18. Acute respiratory failure. Pneumonia. Bilateral pneumothorax. Pneumoperitoneum. Pulmonary edema. Influenza A. Sepsis. Patient off ventilator and doing good. Patient complaining of pain Clinical Quality Measures Admission Status Admission Dx Influenza A. Pneumonia. Fever. Short of breath. Pulse ox 67. Respiratory distress. Dehydration. Hyponatremia. Anemia DVT/VTE Risk/Contraindication: Risk Factor Score Per Nursin RFS Level Per Nursing on Admit: 4+=Very High SKYLER PASCUAL DO Dec 08, 2018 07:38
--- NOTE | 2018-12-08 08:46 | Diagnostic Imaging Report ---
INDICATION: Ventilator support. Time of exam: 3:17 AM Correlation is made with prior study from one day earlier. ET tube and NG tube remain in place. Left sided pleural vent chest tube remains in place. No pneumothorax is identified in either lung. There are bilateral perihilar and bibasilar infiltrates. There is no effusion. IMPRESSION: Overall stable bilateral pulmonary infiltrates when compared with one day earlier. No pneumothorax or pneumomediastinum is identified. Dictated by: Dictated on workstation # [id number]
[2018-12-08] MEDS: FUROSEMIDE 40 MG/4 ML INJ (LASIX) IVP SCH (08:51)
[2018-12-08] MEDS: PANTOPRAZOLE 40 MG (PROTONIX) VIAL IV SCH (08:51)
[2018-12-08] MEDS: ENOXAPARIN 40 MG/0.4 ML (LOVENOX) SYR SC SCH (08:54)
[2018-12-08] MEDS: lisINopril 10 MG (PRINIVIL) TABLET PO SCH (09:00)
[2018-12-08] MEDS: POT PHOS/NA PHOS (K-PHOS NEUTRAL) PO SCH ×3 (09:00→21:19)
[2018-12-08] MEDS: risperiDONE 1 MG (RisperDAL) TAB PO SCH ×3 (09:00→21:19)
[2018-12-08] MEDS: meTOprolol TARTRATE 25 MG (LOPRESSOR) TABLET PO SCH ×3 (09:00→21:19)
[2018-12-08] MEDS: ANIDULAFUNGIN 100 MG/NS 100 ML IV SCH ×2 (09:39)
--- NOTE | 2018-12-08 10:08 | NUR ---
PALLIATIVE CARE RN visited patient room this morning. He had been extubated earlier in the morning. Upon entering the room he asked for an oxygen mask saying that he could not breath. Attempted to calm down with breathing technique which was ineffective. Nurse reported the RT was on their way to assist patient. Patient had indicated to that he would not like to be reintubated if it came to that. Will continue to monitor and will assist as needed. In addition to the above, this RN had received a call this morning from Roro BLACKWOOD, she is not in the hospital this morning but received a call back from the only "contact" for the patient a Kevon Garvin. Kevon reports that he is not a close friend and only had met him through a Taoist encounter. He does not know of any family for the patient but offered to call patient's previous landlord to see if they have any idea record of family for this patient.
[2018-12-08] MEDS ORDERED: morphine INJ 10 MG/ML 1ML (SYR OR VIAL) IVP STA (10:25)
--- NOTE | 2018-12-08 10:30 | NUR ---
Palliative Care RN received call from requesting my assistance in assessing whether the patient is firm in his no code declaration. I told him I had visited and was unable to have a clear conversation with him due to his anxiety related to perceived inability to breath. has put him on Vapotherm and changed the Morphine orders to a more frequent administration. Will allow for a a settling of his anxiety before reattempt at conversation.
[2018-12-08] MEDS: DEXMEDETOMIDINE INJECTION 1,000 MCG in NS (IVPB) 250 ML IV SCH ×2 (10:55→21:00)
--- NOTE | 2018-12-08 11:35 | NUR ---
Pastoral care visit, pt appeared confused, offered support.
--- NOTE | 2018-12-08 11:59 | Occ Therapy Progress Note ---
Therapy Progress Note Attempted OT evaluation at 1050. Pt was just extubated this morning. RN states pt is having difficulty with pain control and reports breathing issues. RT is currently in room with pt. Will hold therapy at this time and attempt to complete evaluation as able. 1, visit KENNY ISAAC OT Dec 08, 2018 11:59
[2018-12-08] MEDS: LORazepam INJ 2 MG/ML (ATIVAN) VIAL IVP PRN ×2 (12:41→16:17)
[2018-12-08] MEDS ORDERED: TROUGH ORDER-PHARMACY XX NR (13:00)
--- NOTE | 2018-12-08 13:03 | Pulmonary Progress Note ---
Standard Progress Note Progress Notes Time Seen by Provider: 13:01 Pt is now saying he wants everything done even tracheostomy if needed. Respiratory mccurdy he appears to be doing ok on Vapotherm. I am going to check another ABG. He does not have accessory muscle use or paradoxical breathing. Assessment & Plan Acute respiratory failure s/p bronch - Cancer is suspected (pictures taken) -PT is off vent and anxious. -Repeat CT chest of chest - shows resolution of PTX -Continue solumedrol and SVNs -CXR reviewed -Will give Bumex 2mg IV x1 Pneumonia - MSSA, Corynebacterium, fungal -Continue Vanco, Zosyn, and Eraxis Bilateral PTX with pneumomediastinum - currently resolved -S/P left chest tube - waiting for pt to be off vent before D/Cing. -CXR appears stable Pulmonary edema -IVF to 30cc/hr Agitation - any time sedation is weaned down -Will start Risperadol 1mg PO BID -Haldol PRN. Influ A with severe sepsis r/o secondary infection -Lawrence culture -IVF -Vanco -Zosyn -Tamiflu Metabolic acidosis -Check LA -Give 2 amps of bicarb Hyponatremia -Monitor Overall prognosis is guarded to poor. Time spent with patient, and medical staff 30min not including previous note. Critical Care: Critically Ill Patient Time spent with patient (mins): 30 ROSA TRINIDAD DO Dec 08, 2018 13:03
[2018-12-08] MEDS ORDERED: BUMETANIDE 1 MG/4 ML (BUMEX) VIAL IV ONE (13:15)
[2018-12-08 13:21] LABS: ABG BASE EXCESS 7.4 MMOL/L (-2.5-2.5); ABG OXYGEN SATURATION 94 % (94-100); ABG PCO2 40 MMHG (35-45); ABG PO2 75 MMHG (79-93); ABG TCO2 32.3 MMOL/L (21.0-31.0); ALLENS TEST YES-POS
[2018-12-08 13:22] LABS: PATIENT TEMP 98.1
[2018-12-08 13:23] LABS: VENTILATOR YES
--- NOTE | 2018-12-08 14:06 | Speech Therapy Progress Note ---
Therapy Progress Note ST attempted 2x to evaluate the patient for swallowing function. The nurse had given him a small sip of water prior to my first visit and she reported that the patient choked and coughed for quite a while. The patient has refused ST on both visits stating he did not want anything to eat. ST will follow up on patient status tomorrow. JONATHON KNOTT Dec 08, 2018 14:06
--- NOTE | 2018-12-08 14:15 | NUR ---
VANCOMYCIN DOSING TROUGH LEVEL 10.0 - INCREASE DOSE TO VANC 1500 MG Q12H CHECK TROUGH LEVEL 12/09 AT 1300 HOLD DOSE AND CONTACT PHARMACY IF LEVEL IS GREATER THAN 20
--- NOTE | 2018-12-08 14:30 | NUR ---
THIS RN UP TO PLACE PICC LINE AT THIS TIME. PT ON MULTIPLE MEDICATIONS AND NOT ALERT AND ORIENTED. PER PT'S NURSE PT HAS NO FAMILY OR DPOA. THIS RN ASKED RN TO CONTACT DR. TRINIDAD IN REGARDS TO PICC LINE PLACEMENT AND DOCUMENTATION OF NEED SINCE PT HAD NO ONE TO SIGN CONSENT. Shama ARNDT ASKED DR. TRINIDAD IF PICC LINE WOULD BE DONE PER MEDICAL NECESSITY BEING THAT PT HAS NO FAMILY OR DPOA AND DR. TRINIDAD AGREED.
--- NOTE | 2018-12-08 15:32 | Diagnostic Imaging Report ---
Indication: PICC line placement Portable chest 3:16 PM Right upper extremity PICC line tip projects over the SVC. Is a small catheter projecting over the left mid chest that may be a thoracostomy tube. Clinical correlation recommended. There is right perihilar and left medial basal infiltrate present. The infiltrate on the right appears improved slightly from earlier in the day. Infiltrate on the left appear slightly worse. There is no appreciable effusion or pneumothorax. There are emphysematous changes with large right apical bullae. Impression: Improving infiltrates on the right. Worsening infiltrates on the left. Dictated by: Dictated on workstation # [id number]
[2018-12-08] MEDS: VANCOMYCIN 1500 MG/NS 500 ML IVPB IV SCH ×2 (15:58)
[2018-12-08] MEDS ORDERED: BUMETANIDE 1 MG/4 ML (BUMEX) VIAL IV NR (17:30)
[2018-12-08] MEDS: NS IV 1000 ML 1,000 ML IV SCH (19:46)
--- NOTE | 2018-12-08 22:31 | NUR ---
FENTANYL CAD PUMP DC'D. THIS RN WASTED 250MLS OF FENTANYL, WITNESSED BY CATRACHITO Rodríguez RN.
--- NOTE | 2018-12-08 23:07 | NUR ---
due not disturb patient at this time per RN due to patient finally resting
[2018-12-09] VITALS (22 sets, daily range): BP systolic 86–162; BP diastolic 52–97
[2018-12-09] MEDS: HALOPERIDOL 5 MG/ML (HALDOL) AMP IV SCH ×3 (00:01→20:29)
[2018-12-09] MEDS: methylPREDNISolone 125 MG (Solu-MEDROL) VIAL IVP SCH ×3 (00:01→20:29)
[2018-12-09] MEDS: PIPERACILLIN/TAZO 4.5 GM/NS 100 ML IV SCH ×8 (00:01→23:43)
[2018-12-09] MEDS: inSUlin ASPART (NovoLOG) 1 UNIT/0.01 ML (CHARGE PER UNIT) SC SCH ×5 (00:42→23:45)
[2018-12-09] MEDS: VANCOMYCIN 1500 MG/NS 500 ML IVPB IV SCH ×4 (02:26→16:22)
[2018-12-09] MEDS: fentaNYL INJECTION 1,250 MCG in NS (IVPB) 250 ML IV SCH (02:26)
[2018-12-09] MEDS: morphine INJ 4 MG/ML 1 ML (VIAL/SYRINGE) IVP PRN ×6 (02:31→22:56)
[2018-12-09] MEDS: RT-ALBUTEROL/IPRATROPIUM 3 ML (DUONEB) VIAL INH SCH ×6 (02:52→22:14)
[2018-12-09 03:41] LABS: BASOPHILS % (AUTO) 0 % (0-10); EOSINOPHILS % (AUTO) 0 % (0-10); HEMATOCRIT 38 % (40-54); HEMOGLOBIN 12.7 G/DL (13.3-17.7); LYMPHOCYTES # (AUTO) 0.7 X 10^3 (1.0-4.0); LYMPHOCYTES % (AUTO) 4 % (12-44); MEAN CORPUSCULAR HEMOGLOBIN 28 PG (25-34); MEAN CORPUSCULAR HGB CONC 33 G/DL (32-36); MEAN CORPUSCULAR VOLUME 84 FL (80-99); MEAN PLATELET VOLUME 10.9 FL (7.4-10.4); MONOCYTES # (AUTO) 0.7 X 10^3 (0.0-1.0); MONOCYTES % (AUTO) 4 % (0-12); NEUTROPHILS # (AUTO) 16.6 X 10^3 (1.8-7.8); NEUTROPHILS % (AUTO) 92 % (42-75); PLATELET COUNT 167 10^3/uL (130-400); RED CELL DISTRIBUTION WIDTH 15.8 % (10.0-14.5)
[2018-12-09 04:14] LABS: BUN/CREATININE RATIO 33; CALCIUM 7.7 MG/DL (8.5-10.1); CARBON DIOXIDE 30 MMOL/L (21-32); CHLORIDE 100 MMOL/L (98-107); CREATININE SERUM 0.57 MG/DL (0.60-1.30); GFR ESTIMATED > 60; GLUCOSE 198 MG/DL (70-105); MAGNESIUM 1.5 MG/DL (1.8-2.4); PHOSPHORUS 2.1 MG/DL (2.3-4.7); POTASSIUM 3.7 MMOL/L (3.6-5.0); SODIUM 142 MMOL/L (135-145)
[2018-12-09] MEDS: POTASSIUM CL 10MEQ/50ML IVPB 50 ML IV SCH ×2 (04:29→10:29)
[2018-12-09] MEDS: MAGNESIUM 1 GM/100 ML IVPB 100 ML IV SCH ×3 (04:29→06:15)
[2018-12-09] MEDS: KCL 20 MEQ TAB (K-DUR) PO SCH (04:30)
--- NOTE | 2018-12-09 05:00 | Pulmonary Progress Note ---
Subjective Time Seen by a Provider: 05:07 Subjective/Events-last exam PT is doing better off vent. Pt still has leak in chest tube system. Sepsis Event Evaluation Height, Weight, BMI Height: 5'11.00" Weight: 166lbs. 0.2oz. 75.346764pw; 18.3 BMI Method:Stated Exam Exam Vital Signs Date Time Temp Pulse Resp B/P (MAP) Pulse Ox O2 Delivery O2 Flow Rate FiO2 12/09/18 04:00 97.0 12/09/18 04:00 70 115/78 (90) 95 Vapotherm 60.00 35.00 12/09/18 04:00 95 Vapotherm 35.00 60 12/09/18 03:00 68 116/87 (97) 97 Vapotherm 60.00 35.00 12/09/18 02:52 96 Vapotherm 35.00 60 12/09/18 02:00 69 20 92 Vapotherm 60.00 35.00 12/09/18 01:00 70 21 121/80 (94) 92 Vapotherm 60.00 35.00 12/09/18 01:00 70 12/09/18 00:00 96.3 12/09/18 00:00 95 Vapotherm 35.00 60 12/09/18 00:00 72 21 162/97 (118) 96 Vapotherm 60.00 35.00 12/08/18 23:06 Vapotherm 12/08/18 23:00 70 16 154/95 (114) 94 Vapotherm 60.00 35.00 12/08/18 22:00 71 16 158/100 (119) 95 Vapotherm 60.00 35.00 12/08/18 21:00 73 17 123/103 (110) 93 Vapotherm 60.00 35.00 12/08/18 20:00 72 26 135/92 (106) 92 Vapotherm 60.00 35.00 12/08/18 20:00 96.9 12/08/18 20:00 95 Vapotherm 35.00 60 12/08/18 19:29 70 20 162/104 (123) 96 Vapotherm 60.00 35.00 12/08/18 19:09 90 Vapotherm 30.00 60 12/08/18 19:00 69 12/08/18 19:00 69 18 146/93 (110) 90 Vapotherm 60.00 30.00 12/08/18 18:00 70 20 162/104 (123) 96 Vapotherm 60.00 30.00 12/08/18 17:00 71 18 160/101 (120) 96 Vapotherm 60.00 30.00 12/08/18 16:00 95 High Flow N/C 15.00 12/08/18 16:00 74 20 158/94 (115) 97 Vapotherm 60.00 30.00 12/08/18 15:00 74 20 90 Vapotherm 60.00 30.00 12/08/18 14:40 92 Vapotherm 30.00 60 12/08/18 14:00 74 21 152/94 (113) 93 Vapotherm 60.00 30.00 12/08/18 13:00 76 20 123/82 (96) 94 Vapotherm 60.00 30.00 12/08/18 13:00 76 12/08/18 12:34 97.9 12/08/18 12:00 95 High Flow N/C 15.00 12/08/18 12:00 77 22 118/76 (90) 93 Vapotherm 60.00 30.00 12/08/18 11:00 80 20 103/64 (77) 93 Vapotherm 60.00 30.00 12/08/18 10:57 Vapotherm 60.00 30.00 12/08/18 10:55 92 Vapotherm 30.00 60 12/08/18 10:02 93 High Flow N/C 15.00 12/08/18 10:00 73 19 119/75 (90) 93 High Flow N/C 15.00 12/08/18 09:00 75 20 144/92 (109) 99 High Flow N/C 15.00 12/08/18 08:00 97.6 12/08/18 08:00 95 High Flow N/C 15.00 12/08/18 08:00 75 14 92/41 (58) 97 High Flow N/C 15.00 12/08/18 07:00 76 12/08/18 07:00 78 18 145/93 (110) 100 High Flow N/C 15.00 12/08/18 06:34 99 High Flow N/C 15.00 12/08/18 06:15 96 High Flow N/C 15.00 12/08/18 06:14 105 95 High Flow N/C 15.00 12/08/18 06:00 105 130/77 (94) Mechanical Ventilator 50.00 12/08/18 05:10 105/69 12/08/18 05:00 80 23 105/69 (81) 94 Mechanical Ventilator 50.00 I & O 12/09/18 07:00 Intake Total 340 ml Output Total 9100 ml Balance -8760 ml Height & Weight Height: 5'11.00" Weight: 166lbs. 0.2oz. 75.775356cc; 18.3 BMI Method:Stated General Appearance: No Apparent Distress, Anxious, Chronically ill, Thin HEENT: Normal ENT Inspection Neck: Normal Inspection Respiratory: Accessory Muscle Use, Crackles, Decreased Breath Sounds Cardiovascular: Regular Rate, Rhythm, No Murmur Capillary Refill: Less Than 3 Seconds Gastrointestinal: non tender, soft Extremity: Normal Capillary Refill, Normal Inspection Neurologic/Psychiatric: Alert, Other Skin: Normal Color, Warm/Dry Results Lab Laboratory Tests 12/08/18 03:25 12/09/18 03:35 Assessment/Plan Assessment/Plan Acute respiratory failure s/p bronch - Cancer is suspected (pictures taken) -PT is off vent and anxious. -Continue solumedrol and SVNs -CXR reviewed -Lasix -SVNS Q4 and Q2 PRN Pneumonia - MSSA, Corynebacterium, fungal -Continue Vanco, Zosyn, and Eraxis Bilateral PTX with pneumomediastinum - Pt still has air leak. Chest tube is not ready to come out yet. -S/P left chest tube - -CXR appears stable Pulmonary edema -IVF to 30cc/hr- will hep lock IVF Agitation - any time sedation is weaned down -Haldol BID and PRN Influ A with severe sepsis r/o secondary infection -[place]rence culture -IVF -Vanco -Zosyn -Tamiflu Overall prognosis is guarded to poor. ROSA TRINIDAD DO Dec 09, 2018 05:00
[2018-12-09] MEDS: DEXMEDETOMIDINE INJECTION 1,000 MCG in NS (IVPB) 250 ML IV SCH (05:24)
[2018-12-09] MEDS: HALOPERIDOL 5 MG/ML (HALDOL) AMP IV PRN ×3 (06:15→22:16)
--- NOTE | 2018-12-09 07:13 | Diagnostic Imaging Report ---
INDICATION: Status post extubation. Followup. COMPARISON: 12/08/2018 FINDINGS: Single frontal radiographic view of the chest was obtained and again demonstrates indwelling small bore left-sided chest tube. There is no pneumothorax or large effusion on either side. Lungs continue to show scattered infiltrates bilaterally with more focal consolidative disease in both lung bases. There may be some interval progression of consolidation within the medial right base. Cardiac silhouette and pulmonary vasculature within normal limits. Right upper extremity PICC line is seen with tip in the SVC. Bony structures show no gross acute abnormalities. IMPRESSION: 1. Persistent bilateral infiltrates with perhaps some interval progression in the medial right base. Continued followup is recommended. 2. Indwelling left-sided small bore chest tube. No evidence of pneumothorax. Dictated by: Dictated on workstation # [id number]
[2018-12-09] MEDS ORDERED: DEXMEDETOMIDINE INJECTION 1,000 MCG in NS (IVPB) 250 ML IV SCH (07:15)
--- NOTE | 2018-12-09 07:35 | Progress Note (SOAP) ---
Subjective Time Seen by a Provider: 07:31 Subjective/Events-last exam Patient stable. Patient off ventilator. Patient communicating. Patient voicing no complaints. Chest x-ray shows bilateral infiltrate with perhaps some interval progression. 2 monitor Objective Exam Vital Signs Date Time Temp Pulse Resp B/P (MAP) Pulse Ox O2 Delivery O2 Flow Rate FiO2 12/09/18 06:29 94 Vapotherm 25.00 50 12/09/18 06:00 64 109/72 (84) 93 Vapotherm 60.00 35.00 12/09/18 05:00 66 122/85 (97) 97 Vapotherm 60.00 35.00 12/09/18 04:00 97.0 12/09/18 04:00 70 115/78 (90) 95 Vapotherm 60.00 35.00 12/09/18 04:00 95 Vapotherm 35.00 60 12/09/18 03:00 68 116/87 (97) 97 Vapotherm 60.00 35.00 12/09/18 02:52 96 Vapotherm 35.00 60 12/09/18 02:00 69 20 92 Vapotherm 60.00 35.00 12/09/18 01:00 70 21 121/80 (94) 92 Vapotherm 60.00 35.00 12/09/18 01:00 70 12/09/18 00:00 96.3 12/09/18 00:00 95 Vapotherm 35.00 60 12/09/18 00:00 72 21 162/97 (118) 96 Vapotherm 60.00 35.00 12/08/18 23:06 Vapotherm 12/08/18 23:00 70 16 154/95 (114) 94 Vapotherm 60.00 35.00 12/08/18 22:00 71 16 158/100 (119) 95 Vapotherm 60.00 35.00 12/08/18 21:00 73 17 123/103 (110) 93 Vapotherm 60.00 35.00 12/08/18 20:00 72 26 135/92 (106) 92 Vapotherm 60.00 35.00 12/08/18 20:00 96.9 12/08/18 20:00 95 Vapotherm 35.00 60 12/08/18 19:29 70 20 162/104 (123) 96 Vapotherm 60.00 35.00 12/08/18 19:09 90 Vapotherm 30.00 60 12/08/18 19:00 69 12/08/18 19:00 69 18 146/93 (110) 90 Vapotherm 60.00 30.00 12/08/18 18:00 70 20 162/104 (123) 96 Vapotherm 60.00 30.00 12/08/18 17:00 71 18 160/101 (120) 96 Vapotherm 60.00 30.00 12/08/18 16:00 95 High Flow N/C 15.00 12/08/18 16:00 74 20 158/94 (115) 97 Vapotherm 60.00 30.00 12/08/18 15:00 74 20 90 Vapotherm 60.00 30.00 12/08/18 14:40 92 Vapotherm 30.00 60 12/08/18 14:00 74 21 152/94 (113) 93 Vapotherm 60.00 30.00 12/08/18 13:00 76 20 123/82 (96) 94 Vapotherm 60.00 30.00 12/08/18 13:00 76 12/08/18 12:34 97.9 12/08/18 12:00 95 High Flow N/C 15.00 12/08/18 12:00 77 22 118/76 (90) 93 Vapotherm 60.00 30.00 12/08/18 11:00 80 20 103/64 (77) 93 Vapotherm 60.00 30.00 12/08/18 10:57 Vapotherm 60.00 30.00 12/08/18 10:55 92 Vapotherm 30.00 60 12/08/18 10:02 93 High Flow N/C 15.00 12/08/18 10:00 73 19 119/75 (90) 93 High Flow N/C 15.00 12/08/18 09:00 75 20 144/92 (109) 99 High Flow N/C 15.00 12/08/18 08:00 97.6 12/08/18 08:00 95 High Flow N/C 15.00 12/08/18 08:00 75 14 92/41 (58) 97 High Flow N/C 15.00 I & O 12/09/18 07:00 Intake Total 340 ml Output Total 9400 ml Balance -9060 ml Capillary Refill : Less Than 3 Seconds General Appearance: No Apparent Distress, Thin HEENT: Normal ENT Inspection Neck: Full Range of Motion, Normal Inspection Respiratory: No Accessory Muscle Use, No Respiratory Distress, Decreased Breath Sounds Cardiovascular: Regular Rate, Rhythm, No Murmur Gastrointestinal: non tender, soft Results Lab Laboratory Tests 12/09/18 03:35 Laboratory Tests 12/08/18 13:15: Blood Gas Puncture Site RT RAD, Blood Gas Patient Temperature 98.1, Arterial Blood pH 7.50H, Arterial Blood Partial Pressure CO2 40, Arterial Blood Partial Pressure O2 75L, Arterial Blood HCO3 31H, Arterial Blood Total CO2 32.3H, Arterial Blood Oxygen Saturation 94, Arterial Blood Base Excess 7.4H, Eduard Test YES-POS, Blood Gas Ventilator Setting YES, Blood Gas Inspired Oxygen 30L, 60% fio2 12/08/18 13:30: Vancomycin Level Trough 10.0 12/09/18 00:39: Glucometer 334H 12/09/18 03:35: White Blood Count 18.0H, Red Blood Count 4.55, Hemoglobin 12.7L, Hematocrit 38L , Mean Corpuscular Volume 84, Mean Corpuscular Hemoglobin 28, Mean Corpuscular Hemoglobin Concent 33, Red Cell Distribution Width 15.8H, Platelet Count 167, Mean Platelet Volume 10.9H, Neutrophils (%) (Auto) 92H, Lymphocytes (%) (Auto) 4L, Monocytes (%) (Auto) 4, Eosinophils (%) (Auto) 0, Basophils (%) (Auto) 0, Neutrophils # (Auto) 16.6H, Lymphocytes # (Auto) 0.7L, Monocytes # (Auto) 0.7, Eosinophils # (Auto) 0.0, Basophils # (Auto) 0.0, Sodium Level 142, Potassium Level 3.7, Chloride Level 100, Carbon Dioxide Level 30, Anion Gap 12, Blood Urea Nitrogen 19H, Creatinine 0.57L, Estimat Glomerular Filtration Rate > 60, BUN/Creatinine Ratio 33, Glucose Level 198H, Calcium Level 7.7L, Phosphorus Level 2.1L, Magnesium Level 1.5L Microbiology 12/01/18 Blood Culture - Final, Complete No growth 12/04/18 Mycobacterial Culture - Preliminary, Resulted Assessment/Plan Assessment/Plan Assess & Plan/Chief Complaint Pneumonia. Respiratory distress. Bilateral pneumothorax. Patient on vent. Left chest tube put in. . 12/06/18. Acute respiratory failure. Bilateral pneumonia. Pulmonary edema. Influenza A. Sepsis. Leukocytosis. Hypokalemia. . 12/07/18. Acute respiratory failure. Bilateral pneumonia. Pulmonary edema. Influenza A. Sepsis. Hypokalemia. Hypertension. . 12/08/18. Acute respiratory failure. Pneumonia. Bilateral pneumothorax. Pneumoperitoneum. Pulmonary edema. Influenza A. Sepsis. Patient off ventilator and doing good. Patient complaining of pain. . 12/09/18. Acute respiratory failure. Bilateral pneumonia. Bilateral pneumothorax. Pneumoperitoneum. Pulmonary edema. Influenza A. Sepsis Clinical Quality Measures Admission Status Admission Dx Influenza A. Pneumonia. Fever. Short of breath. Pulse ox 67. Respiratory distress. Dehydration. Hyponatremia. Anemia DVT/VTE Risk/Contraindication: Risk Factor Score Per Nursin RFS Level Per Nursing on Admit: 4+=Very High SKYLER PASCUAL DO Dec 09, 2018 07:35
[2018-12-09] MEDS: ANIDULAFUNGIN 100 MG/NS 100 ML IV SCH ×2 (09:36)
[2018-12-09] MEDS: FUROSEMIDE 40 MG/4 ML INJ (LASIX) IVP SCH ×2 (09:36→18:03)
[2018-12-09] MEDS: PANTOPRAZOLE 40 MG (PROTONIX) VIAL IV SCH (09:37)
[2018-12-09] MEDS: ENOXAPARIN 40 MG/0.4 ML (LOVENOX) SYR SC SCH (09:39)
[2018-12-09] MEDS: POT PHOS/NA PHOS (K-PHOS NEUTRAL) PO SCH ×2 (10:27→20:16)
[2018-12-09] MEDS: meTOprolol TARTRATE 25 MG (LOPRESSOR) TABLET PO SCH ×2 (10:28→20:16)
[2018-12-09] MEDS: risperiDONE 1 MG (RisperDAL) TAB PO SCH ×2 (10:28→20:16)
[2018-12-09] MEDS: lisINopril 10 MG (PRINIVIL) TABLET PO SCH (10:28)
--- NOTE | 2018-12-09 10:39 | NUR ---
Palliative Care RN in to see patient. He is alert, not as verbal this morning and appears less anxious. He only mouths to this RN that "I can't breathe" and shakes his head no when asked if he feels better. CT is removed this morning. Patient has diuresed and has is significantly less edematous than on yesterdays assessment. He has a strong smell of yeast and needs to be given a thorough bath. I will continue to visit and offer support..
--- NOTE | 2018-12-09 11:19 | Physical Therapy Progress Note ---
Therapy Progress Note Patient is on Hold per RN due to medications and lethargy. PT will continue to monitor patient status and begin when patient is able to actively participate. NITHIN OLSON PT Dec 09, 2018 11:19
--- NOTE | 2018-12-09 12:37 | Occupational Therapy Eval ---
OT Evaluation-General/PLF Medical Diagnosis Admission Date Dec 01, 2018 at 18:00 Medical Diagnosis: Influenza and bilateral pneumothorax Onset Date: Dec 01, 2018 Therapy Diagnosis Therapy Diagnosis: Weakness, Decreased ADL skills Height/Weight Height (Feet): 5 Height (Inches): 11.00 Weight (Pounds): 161 Weight (Ounces): 2.0 Precautions Precautions/Isolations: Fall Prevention, Standard Precautions Safety Interventions: Bed Exit Alarm, Diversional Activity, Reorient-Attempt, Reorient-PRN Weight Bear Status Weight Bearing Restriction: Weight Bearing/Tolerated Referral Physician: Referral Reason: Activity Tolerance, Self Care, Evaluation/Treatment, Strengthening/ROM Medical History Current History Pt. extubated yesterday. Pt. has been monitored up to this point. Reviewed History: Yes Social History Pt. has difficulty expressing self. Pt. able to mouth words but no voice. Unable to fully state prior level. ADL-Prior Level of Function Therapy Code Descriptions/Definitions Functional Hall Measure: 0=Not Assessed/NA 4=Minimal Assistance 1=Total Assistance 5=Supervision or Setup 2=Maximal Assistance 6=Modified Hall 3=Moderate Assistance 7=Complete Hall Therapy Quality Codes: 6 Independent with activity with or without an assistive device 5 Patient requires set up or clean up by helper. Patient completes activity by themselves 4 Supervision or touching assist (CGA). [place] provide cues , steadying assist 3 The helper provides less than half the effort to complete the activity 2 The helper provides more than half the effort to complete the activity 1 Dependent. The helper does all the effort to complete an activity 7 Patient refused to complete or attempt activity 9 The patient did not perform the activity before the current illness or injury 88 Not attempted due to Medical conditions or safety concerns Functional Abilities and Goals: Independent: Patient completed the activities by him/herself, with or without an assistive device, with no assistance from a helper. Needed Some Help: Patient needed partial assistance from another person to complete activities. Dependent: A helper completed the activities for the patient. Unknown: Not Applicable: Functional Cognition: Unknown OT Current Status Subjective Pt. does not state pain level, but winces continually with any movement. Pt. asked for pain medication. Notified nursing. Appearance Pt. in bed. Asleep at first but awoke with prompting. Mental Status/Objective Patient Orientation: Unable to Assess ADL-Treatment Therapy Code Descriptions/Definitions Functional Hall Measure: 0=Not Assessed/NA 4=Minimal Assistance 1=Total Assistance 5=Supervision or Setup 2=Maximal Assistance 6=Modified Hall 3=Moderate Assistance 7=Complete Hall Therapy Quality Codes: 6 Independent with activity with or without an assistive device 5 Patient requires set up or clean up by helper. Patient completes activity by themselves 4 Supervision or touching assist (CGA). [place] provide cues , steadying assist 3 The helper provides less than half the effort to complete the activity 2 The helper provides more than half the effort to complete the activity 1 Dependent. The helper does all the effort to complete an activity 7 Patient refused to complete or attempt activity 9 The patient did not perform the activity before the current illness or injury 88 Not attempted due to Medical conditions or safety concerns Other Treatments OT assessed UE function/LE function while pt. in bed. Noted edema in left UE. Pt. winces throughout treatment and indicates that he does not want OT to move his joints. OT provided gentle PROM to bilateral wrists, fingers, elbow. Pt. indicates that he is in a lot of pain. OT attempted to educate pt. on why it is important to move, range, etc.... It is unclear if pt. understands this, as he seems somewhat agitated. Pt. is able to demonstrate slight movement to bilateral fingers and give small hand squeezes. No other Active movement noted. OT provided gentle PROM to bilateral ankles. Noted tightness. Pt. shakes head "no" vigorously that he does not want his feet moved. OT talked with nursing about Podus boots for foot drop. Called CS and left message. Nursing noted that message was left. All needs are met while pt. in bed. Education OT Patient Education: Correct positioning, Exercise program, Progress toward Goal/Update tx plan, Purpose of tx/functional activities, Reviewed precautions, Rehab process Teaching Recipient: Patient Teaching Methods: Demonstration, Discussion Response to Teaching: Verbalize Understanding, Return Demonstration OT Short Term Goals Short Term Goals Time Frame: Dec 23, 2018 Grooming(FIM): 2 Upper Body Dressing(FIM): 2 Other Pt. will demonstrate at least slight movement of each UE joint without prompting. Additional Short Term Goals: 3-ImproveStrength/Luis 1=Demonstrate adherence to instructed precautions during ADL tasks. 2=Patient will verbalize/demonstrate understanding of assistive devices/ modifications for ADL. 3=Patient will improve strength/tolerance for activity to enable patient to perform ADL's. OT Care Home Goals Care Home Goals Time Frame: Jan 06, 2019 Eating (FIM): 5 Grooming(FIM): 5 Upper Body Dressing(FIM): 4 Lower Body Dressing(FIM): 4 Toileting(FIM): 5 Transfers (B,C,W/C) (FIM): 5 Toilet/Commode Transfer(FIM): 5 Additional Goals: 1-Demonstrate ADL Tasks, 2-Verbalize Understanding, 3- ImproveStrength/Luis 1=Demonstrate adherence to instructed precautions during ADL tasks. 2=Patient will verbalize/demonstrate understanding of assistive devices/ modifications for ADL. 3=Patient will improve strength/tolerance for activity to enable patient to perform ADL's. OT Education/Plan Problem List/Assessment Assessment: Decreased Activ Tolerance, Decreased UE Strength, Dependent Transfers, Edema, Impaired Bed Mobility, Impaired Cognition, Impaired Coordination, Impaired Funct Balance, Impaired I ADL's, Impaired Self-Care Skills, Restricted Funct UE ROM Discharge Recommendations Plan/Recommendations: Continue POC Therapy D/C Recommendations: 24 hr Supervision Comment Discharge goals and needs to be determined. Treatment Plan/Plan of Care Treatment,Training & Education: Yes Patient would benefit from OT for education, treatment and training to promote independence in ADL's, mobility, safety and/or upper extremity function for ADL' s. Plan of Care: ADL Retraining, Functional Mobility, UE Funct Exercise/Act Treatment Duration: Jan 06, 2019 Frequency: 5 times per week Estimated Hrs Per Day: .5 hour per day Agreement: Yes Rehab Potential: Guarded Time/GCodes Start Time: 08:25 Stop Time: 08:43 Total Time Billed (hr/min): 18 Billed Treatment Time 1, ADA FARR OT Dec 09, 2018 12:37
[2018-12-09] MEDS ORDERED: TROUGH ORDER-PHARMACY XX NR (13:00)
[2018-12-09] MEDS ORDERED: NS IV 1000 ML 1,000 ML ONE (20:22)
[2018-12-09] MEDS ORDERED: NS IV 500 ML 500 ML IV SCH (21:45)
[2018-12-10] VITALS (8 sets, daily range): BP systolic 103–131; BP diastolic 65–82
[2018-12-10] MEDS ORDERED: NS 1000 ML IV BAG IV SCH (00:30)
[2018-12-10] MEDS ORDERED: NS IV 1000 ML 1,000 ML IV SCH (00:45)
[2018-12-10] MEDS: morphine INJ 4 MG/ML 1 ML (VIAL/SYRINGE) IVP PRN ×2 (01:20→04:19)
[2018-12-10] MEDS: RT-ALBUTEROL/IPRATROPIUM 3 ML (DUONEB) VIAL INH SCH (02:50)
[2018-12-10] MEDS: VANCOMYCIN 1500 MG/NS 500 ML IVPB IV SCH ×2 (02:58)
[2018-12-10 03:13] LABS: BASOPHILS % (AUTO) 0 % (0-10); EOSINOPHILS % (AUTO) 0 % (0-10); HEMATOCRIT 34 % (40-54); HEMOGLOBIN 11.1 G/DL (13.3-17.7); LYMPHOCYTES # (AUTO) 0.4 X 10^3 (1.0-4.0); LYMPHOCYTES % (AUTO) 2 % (12-44); MEAN CORPUSCULAR HEMOGLOBIN 28 PG (25-34); MEAN CORPUSCULAR HGB CONC 32 G/DL (32-36); MEAN CORPUSCULAR VOLUME 86 FL (80-99); MONOCYTES # (AUTO) 0.6 X 10^3 (0.0-1.0); MONOCYTES % (AUTO) 3 % (0-12); NEUTROPHILS # (AUTO) 19.1 X 10^3 (1.8-7.8); NEUTROPHILS % (AUTO) 95 % (42-75); PLATELET COUNT 175 10^3/uL (130-400); RED CELL DISTRIBUTION WIDTH 15.8 % (10.0-14.5); WHITE BLOOD COUNT 20.1 10^3/uL (4.3-11.0)
[2018-12-10 03:35] LABS: BUN/CREATININE RATIO 32; CALCIUM 7.2 MG/DL (8.5-10.1); CARBON DIOXIDE 24 MMOL/L (21-32); CHLORIDE 101 MMOL/L (98-107); CREATININE SERUM 0.59 MG/DL (0.60-1.30); GFR ESTIMATED > 60; GLUCOSE 210 MG/DL (70-105); MAGNESIUM 1.4 MG/DL (1.8-2.4); PHOSPHORUS 2.6 MG/DL (2.3-4.7); POTASSIUM 3.5 MMOL/L (3.6-5.0); SODIUM 140 MMOL/L (135-145)
--- NOTE | 2018-12-10 04:00 | NUR ---
PT TOLD THIS RN "I JUST WANT TO BE COMFORTABLE AND IN MY SLEEP." THIS RN SAT WITH PATIENT AND COMFORTED. PT THEN STATE "I DON'T WANT TO BE RESUSCITATED." THIS RN EDUCATED PT ON CURRENT CODE STATUS. PT STATES THAT HE UNDERSTANDS WHAT IT MEANS AND WANTS TO "JUST BE MADE COMFORTABLE." THIS RN RELAYED PT WISHES TO DR TRINIDAD.
--- NOTE | 2018-12-10 04:29 | Pulmonary Progress Note ---
Subjective Time Seen by a Provider: 04:55 Subjective/Events-last exam RN states when she gives morphine 4mg his BP will drop. She also states it is not controlling his pain. Pt has told RN through the night he is ready for comfort measures only. Sepsis Event Evaluation Height, Weight, BMI Height: 5'11.00" Weight: 161lbs. 2.0oz. 73.737091qp; 18.3 BMI Method:Stated Exam Exam Vital Signs Date Time Temp Pulse Resp B/P (MAP) Pulse Ox O2 Delivery O2 Flow Rate FiO2 12/10/18 03:01 Vapotherm 70.00 25.00 12/10/18 03:00 103 20 121/77 (92) 100 Vapotherm 80.00 30.00 12/10/18 02:50 99 Vapotherm 30.00 80 12/10/18 02:00 101 25 123/82 (96) 100 Vapotherm 80.00 30.00 12/10/18 01:00 100 20 124/82 (96) 100 Vapotherm 80.00 30.00 12/10/18 00:00 102 27 103/65 (78) 100 Vapotherm 80.00 30.00 12/09/18 23:55 95 Vapotherm 40.00 85 12/09/18 23:49 97.6 12/09/18 23:17 92 11 100 Vapotherm 80.00 30.00 12/09/18 23:00 90 21 100 Vapotherm 85.00 40.00 12/09/18 22:55 93 20 100/72 (81) 100 Vapotherm 85.00 40.00 12/09/18 22:14 88 Vapotherm 40.00 85 12/09/18 22:00 93 20 104/65 (78) 100 Vapotherm 85.00 40.00 12/09/18 21:00 95 24 100 Vapotherm 85.00 40.00 12/09/18 20:00 100 29 86/52 (63) 100 Vapotherm 85.00 40.00 12/09/18 19:34 95 Vapotherm 40.00 85 12/09/18 19:31 99.8 12/09/18 19:00 82 22 86/53 (64) 90 Vapotherm 85.00 40.00 12/09/18 19:00 82 12/09/18 18:50 88 Vapotherm 25.00 70 12/09/18 18:00 81 25 102/63 (76) 92 Vapotherm 60.00 35.00 12/09/18 17:00 83 23 105/65 (78) 93 Vapotherm 60.00 35.00 12/09/18 16:00 95 Vapotherm 35.00 60 12/09/18 16:00 82 25 93/57 (69) 90 Vapotherm 60.00 35.00 12/09/18 15:00 78 26 96/62 (73) 89 Vapotherm 60.00 35.00 12/09/18 14:41 89 Vapotherm 25.00 50 12/09/18 14:00 68 22 110/67 (81) 90 Vapotherm 60.00 35.00 12/09/18 13:00 67 23 104/67 (79) 91 Vapotherm 60.00 35.00 12/09/18 13:00 66 12/09/18 12:00 67 29 100/68 (79) 90 Vapotherm 35.00 12/09/18 12:00 95 Vapotherm 35.00 60 12/09/18 11:06 67 21 102/69 (80) 91 Vapotherm 60.00 35.00 12/09/18 10:14 94 Vapotherm 25.00 50 12/09/18 10:00 61 23 114/77 (89) 95 Vapotherm 60.00 35.00 12/09/18 09:00 62 21 111/75 (87) 95 Vapotherm 60.00 35.00 12/09/18 08:00 95 Vapotherm 35.00 60 12/09/18 08:00 61 108/73 (85) 96 Vapotherm 60.00 35.00 12/09/18 07:00 61 12/09/18 07:00 62 100/68 (79) 95 Vapotherm 60.00 35.00 12/09/18 06:29 94 Vapotherm 25.00 50 12/09/18 06:00 64 109/72 (84) 93 Vapotherm 60.00 35.00 12/09/18 05:00 66 122/85 (97) 97 Vapotherm 60.00 35.00 I & O 12/10/18 07:00 Intake Total 1215 ml Output Total 4550 ml Balance -3335 ml Height & Weight Height: 5'11.00" Weight: 161lbs. 2.0oz. [id number]; 18.3 BMI Method:Stated General Appearance: Moderate Distress, Thin HEENT: Normal ENT Inspection Neck: Full Range of Motion, Normal Inspection Respiratory: No Accessory Muscle Use, No Respiratory Distress, Decreased Breath Sounds Cardiovascular: Regular Rate, Rhythm, No Murmur Capillary Refill: Less Than 3 Seconds Gastrointestinal: non tender, soft Extremity: Normal Capillary Refill, Normal Inspection Neurologic/Psychiatric: Alert, Other Skin: Normal Color, Warm/Dry Results Lab Laboratory Tests 12/09/18 03:35 12/10/18 02:55 Assessment/Plan Assessment/Plan Acute respiratory failure s/p bronch - Cancer is suspected (pictures taken) Pneumonia - MSSA, Corynebacterium, fungal Bilateral PTX with pneumomediastinum - -S/P left chest tube - Pulmonary edema Agitation - any time sedation is weaned down -Haldol BID and PRN Influ A with severe sepsis r/o secondary infection PT has decided to go with comfort care. I discussed with PT this AM while RN was at bedside. Pt understands with comfort care he will probably not live as long however he will be comfortable. Pt agrees with comfort care. Morphine 4 mg Q2 PRN has not been helping his pain. I am going to start dilauded 1-2 mg Q2 PRN and Ativan 1-2mg IV Q2 PRN. Once pt is comfortable will change vapotherm to regular NC. ROSA TRINIDAD DO Dec 10, 2018 04:29
--- NOTE | 2018-12-10 04:30 | NUR ---
DR TRINIDAD AT BEDSIDE, PT STATES TO BOTH DR TRINIDAD AND THIS RN THAT HE DOES NOT WISH TO BE RESUSCITATED AND WOULD LIKE TO GO ON COMFORT CARE.
[2018-12-10] MEDS ORDERED: HYDROmorphone 2 MG/ML VIAL (DILAUDID) ONE (04:43)
[2018-12-10] MEDS ORDERED: SALIVA STIMULANT MOUTH SPRAY (BIOTENE) 1.5 OZ MM PRN (05:00)
[2018-12-10] MEDS ORDERED: HYDROmorphone 2 MG/ML VIAL (DILAUDID) IV ONE (05:00)
[2018-12-10] MEDS ORDERED: PROMETHAZINE INJ 25 MG/ML (PHENERGAN) AMP IVP PRN (05:00)
[2018-12-10] MEDS ORDERED: ONDANSETRON 4 MG/2 ML (SDV) Z0FRAN IVP PRN (05:00)
[2018-12-10] MEDS ORDERED: GLYCOPYRROLATE 0.2 MG/ML (ROBINUL) 2 ML VIAL IV PRN (05:00)
[2018-12-10] MEDS: LORazepam INJ 2 MG/ML (ATIVAN) VIAL IVP PRN ×4 (06:02→12:02)
[2018-12-10] MEDS: SCOPOLAMINE 1.5 MG (TRANSDERM-SCOP) PATCH TOP SCH (06:03)
[2018-12-10] MEDS: HYDROmorphone 2 MG/ML VIAL (DILAUDID) IV PRN ×5 (07:43→22:46)
--- NOTE | 2018-12-10 07:43 | Progress Note (SOAP) ---
Subjective Time Seen by a Provider: 07:39 Subjective/Events-last exam Patient this morning states he wants comfort care. Patient states he needs more morphine this morning. Patient understands what comfort care is Objective Exam Vital Signs Date Time Temp Pulse Resp B/P (MAP) Pulse Ox O2 Delivery O2 Flow Rate FiO2 12/10/18 06:33 104 10 100 Nasal Cannula 3.00 12/10/18 04:00 95 Vapotherm 40.00 85 12/10/18 04:00 107 17 116/73 (87) 100 Vapotherm 70.00 25.00 12/10/18 03:01 Vapotherm 70.00 25.00 12/10/18 03:00 103 20 121/77 (92) 100 Vapotherm 80.00 30.00 12/10/18 02:50 99 Vapotherm 30.00 80 12/10/18 02:00 101 25 123/82 (96) 100 Vapotherm 80.00 30.00 12/10/18 01:00 100 20 124/82 (96) 100 Vapotherm 80.00 30.00 12/10/18 01:00 100 12/10/18 00:00 102 27 103/65 (78) 100 Vapotherm 80.00 30.00 12/09/18 23:55 95 Vapotherm 40.00 85 12/09/18 23:49 97.6 12/09/18 23:17 92 11 100 Vapotherm 80.00 30.00 12/09/18 23:00 90 21 100 Vapotherm 85.00 40.00 12/09/18 22:55 93 20 100/72 (81) 100 Vapotherm 85.00 40.00 12/09/18 22:14 88 Vapotherm 40.00 85 12/09/18 22:00 93 20 104/65 (78) 100 Vapotherm 85.00 40.00 12/09/18 21:00 95 24 100 Vapotherm 85.00 40.00 12/09/18 20:00 100 29 86/52 (63) 100 Vapotherm 85.00 40.00 12/09/18 19:34 95 Vapotherm 40.00 85 12/09/18 19:31 99.8 12/09/18 19:00 82 22 86/53 (64) 90 Vapotherm 85.00 40.00 12/09/18 19:00 82 12/09/18 18:50 88 Vapotherm 25.00 70 12/09/18 18:00 81 25 102/63 (76) 92 Vapotherm 60.00 35.00 12/09/18 17:00 83 23 105/65 (78) 93 Vapotherm 60.00 35.00 12/09/18 16:00 95 Vapotherm 35.00 60 12/09/18 16:00 82 25 93/57 (69) 90 Vapotherm 60.00 35.00 12/09/18 15:00 78 26 96/62 (73) 89 Vapotherm 60.00 35.00 12/09/18 14:41 89 Vapotherm 25.00 50 12/09/18 14:00 68 22 110/67 (81) 90 Vapotherm 60.00 35.00 12/09/18 13:00 67 23 104/67 (79) 91 Vapotherm 60.00 35.00 12/09/18 13:00 66 12/09/18 12:00 67 29 100/68 (79) 90 Vapotherm 35.00 12/09/18 12:00 95 Vapotherm 35.00 60 12/09/18 11:06 67 21 102/69 (80) 91 Vapotherm 60.00 35.00 12/09/18 10:14 94 Vapotherm 25.00 50 12/09/18 10:00 61 23 114/77 (89) 95 Vapotherm 60.00 35.00 12/09/18 09:00 62 21 111/75 (87) 95 Vapotherm 60.00 35.00 12/09/18 08:00 95 Vapotherm 35.00 60 12/09/18 08:00 61 108/73 (85) 96 Vapotherm 60.00 35.00 I & O 12/10/18 07:00 Intake Total 2650 ml Output Total 4950 ml Balance -2300 ml Capillary Refill : Less Than 3 Seconds General Appearance: No Apparent Distress, Thin HEENT: Normal ENT Inspection Neck: Full Range of Motion, Normal Inspection Respiratory: No Accessory Muscle Use, No Respiratory Distress Cardiovascular: Regular Rate, Rhythm, No Murmur Results Lab Laboratory Tests 12/10/18 02:55 Laboratory Tests 12/09/18 11:35: Glucometer 116H 12/09/18 13:25: Vancomycin Level Trough 13.9 12/09/18 18:05: Glucometer 193H 12/09/18 23:44: Glucometer 158H 12/10/18 02:55: White Blood Count 20.1H, Red Blood Count 4.01L, Hemoglobin 11.1L, Hematocrit 34L , Mean Corpuscular Volume 86, Mean Corpuscular Hemoglobin 28, Mean Corpuscular Hemoglobin Concent 32, Red Cell Distribution Width 15.8H, Platelet Count 175, Mean Platelet Volume 11.0H, Neutrophils (%) (Auto) 95H, Lymphocytes (%) (Auto) 2L, Monocytes (%) (Auto) 3, Eosinophils (%) (Auto) 0, Basophils (%) (Auto) 0, Neutrophils # (Auto) 19.1H, Lymphocytes # (Auto) 0.4L, Monocytes # (Auto) 0.6, Eosinophils # (Auto) 0.0, Basophils # (Auto) 0.0, Sodium Level 140, Potassium Level 3.5L, Chloride Level 101, Carbon Dioxide Level 24, Anion Gap 15H, Blood Urea Nitrogen 19H, Creatinine 0.59L, Estimat Glomerular Filtration Rate > 60, BUN/Creatinine Ratio 32, Glucose Level 210H, Calcium Level 7.2L, Phosphorus Level 2.6, Magnesium Level 1.4L Microbiology 12/01/18 Blood Culture - Final, Complete No growth 12/04/18 Mycobacterial Culture - Preliminary, Resulted Assessment/Plan Assessment/Plan Assess & Plan/Chief Complaint Pneumonia. Respiratory distress. Bilateral pneumothorax. Patient on vent. Left chest tube put in. . 12/06/18. Acute respiratory failure. Bilateral pneumonia. Pulmonary edema. Influenza A. Sepsis. Leukocytosis. Hypokalemia. . 12/07/18. Acute respiratory failure. Bilateral pneumonia. Pulmonary edema. Influenza A. Sepsis. Hypokalemia. Hypertension. . 12/08/18. Acute respiratory failure. Pneumonia. Bilateral pneumothorax. Pneumoperitoneum. Pulmonary edema. Influenza A. Sepsis. Patient off ventilator and doing good. Patient complaining of pain. . 12/09/18. Acute respiratory failure. Bilateral pneumonia. Bilateral pneumothorax. Pneumoperitoneum. Pulmonary edema. Influenza A. Sepsis. . 12/10/18. Patient states he wants comfort care. Acute respiratory failure resolved. Bilateral pneumonia Bilateral pneumothorax. Pneumoperitoneum. Influenza A. Sepsis. Patient wants more pain medicine this morning Clinical Quality Measures Admission Status Admission Dx Influenza A. Pneumonia. Fever. Short of breath. Pulse ox 67. Respiratory distress. Dehydration. Hyponatremia. Anemia DVT/VTE Risk/Contraindication: Risk Factor Score Per Nursin RFS Level Per Nursing on Admit: 4+=Very High SKYLER PASCUAL DO Dec 10, 2018 07:43
[2018-12-10] MEDS: risperiDONE 1 MG (RisperDAL) TAB PO SCH ×2 (09:00→19:57)
--- NOTE | 2018-12-10 09:06 | NUR ---
Pt resting with eyes closed. RN notified me that pt elected to be placed on comfort care. Chaplains will continue with emotional and spiritual support.
--- NOTE | 2018-12-10 09:29 | NUR ---
Palliative Care RN spoke with patient's nurse prior to seeing the patient. He reported that the patient does indeed wish to be made CCMO this was confirmed by patient when Dr. Reza rounded. Upon arrival to the patient room this RN noted patient to be resting in bed, appeared comfortable. This RN did not awaken the patient. Will return to talk to him about return to PC&R with hospice.
--- NOTE | 2018-12-10 10:01 | Physical Therapy Progress Note ---
Therapy Progress Note Patient is on comfort care. No skilled PT indicated. NITHIN OLSON PT Dec 10, 2018 10:01
--- NOTE | 2018-12-10 13:05 | NUR ---
Palliative Care RN to check on patient. Has received additional dosing of PRN comfort medications prior to arrival so was appearing quiet at peace and comfortable. He is being prepped to move downstairs to 4th floor where he will continue to be CCMO.
--- NOTE | 2018-12-10 13:34 | NUR ---
report taken at this time from Maritza Forte RN.
--- NOTE | 2018-12-10 14:10 | NUR ---
Patient to the floor at this time.
[2018-12-11] MEDS: HYDROmorphone 2 MG/ML VIAL (DILAUDID) IV PRN ×4 (02:25→12:10)
[2018-12-11] MEDS: risperiDONE 1 MG (RisperDAL) TAB PO SCH ×3 (09:57→21:12)
[2018-12-11] MEDS ORDERED: NS 1000 ML IV BAG IV SCH (12:15)
--- NOTE | 2018-12-11 12:15 | Progress Note-Hospitalist ---
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 Patient drinking thickened water Has no other issues Objective Exam Vital Signs Vital Signs Date Time Temp Pulse Resp B/P (MAP) Pulse Ox O2 Delivery O2 Flow Rate FiO2 12/10/18 19:50 Room Air 12/10/18 13:35 97.3 12/10/18 13:00 110 12/10/18 12:00 95 40.00 85 12/10/18 12:00 8 117/80 (92) Capillary Refill : Less Than 3 Seconds General Appearance: No Apparent Distress, Chronically ill, Thin HEENT: Normal ENT Inspection Neck: Full Range of Motion, Normal Inspection Respiratory: No Accessory Muscle Use, No Respiratory Distress, Crackles, Decreased Breath Sounds Cardiovascular: Regular Rate, Rhythm, No Murmur Extremity: Normal Capillary Refill, Normal Inspection Neurologic/Psychiatric: Alert, Other Skin: Normal Color, Warm/Dry Results/Procedures Lab Patient resulted labs reviewed. Assessment/Plan Assessment and Plan Assess & Plan/Chief Complaint Assessment per : End of life status s/p acute respiratory failure s/p bronch likely cancer as etiology s/p extubation but failed this morning so reintubated the extubated and placed on comfort care Bilateral PTX with pneumomediastinum now with chest tube Influ A with severe sepsis r/o secondary infection Dehydration Hypotension Anemia Plan: Comfort care Dilaudid Critical Care Critically Ill Patient Diagnosis/Problems Diagnosis/Problems (1) End of life care Status: Acute (2) Severe sepsis Status: Acute (3) Ventilator dependence Status: Acute (4) Pneumonia Status: Acute Qualifiers: Pneumonia type: due to unspecified organism Laterality: right Lung location: unspecified part of lung Qualified Codes: J18.9 - Pneumonia, unspecified organism (5) Influenza A Status: Acute (6) HTN (hypertension) Status: Chronic Qualifiers: Hypertension type: essential hypertension Qualified Codes: I10 - Essential (primary) hypertension (7) Chronic pancreatitis Status: Chronic Qualifiers: Pancreatitis type: unspecified pancreatitis type Qualified Codes: K86.1 - Other chronic pancreatitis Clinical Quality Measures DVT/VTE Risk/Contraindication: Risk Factor Score Per Nursin RFS Level Per Nursing on Admit: 4+=Very High LILIANA ZARATE DO Dec 11, 2018 12:15
[2018-12-11] MEDS: NS IV 1000 ML 1,000 ML IV SCH (13:07)
[2018-12-11] MEDS: HYDROmorphone PF INJECTION 40 MG in NS (IVPB) 96 ML IV SCH (13:09)
[2018-12-12] MEDS: risperiDONE 1 MG (RisperDAL) TAB PO SCH ×2 (08:42→20:25)
--- NOTE | 2018-12-12 11:31 | Progress Note-Hospitalist ---
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 Objective Exam Vital Signs Vital Signs Date Time Temp Pulse Resp B/P (MAP) Pulse Ox O2 Delivery O2 Flow Rate FiO2 12/12/18 08:46 Nasal Cannula 3.00 12/12/18 06:00 12 12/10/18 13:35 97.3 12/10/18 13:00 110 12/10/18 12:00 95 85 12/10/18 12:00 117/80 (92) Capillary Refill : Less Than 3 Seconds General Appearance: No Apparent Distress, Chronically ill, Thin HEENT: Normal ENT Inspection Neck: Full Range of Motion, Normal Inspection Respiratory: No Accessory Muscle Use, No Respiratory Distress, Crackles, Decreased Breath Sounds Cardiovascular: Regular Rate, Rhythm, No Murmur Extremity: Normal Capillary Refill, Normal Inspection Neurologic/Psychiatric: Alert, Other Skin: Normal Color, Warm/Dry Results/Procedures Lab Patient resulted labs reviewed. Assessment/Plan Assessment and Plan Assess & Plan/Chief Complaint Assessment per : End of life status s/p acute respiratory failure s/p bronch likely cancer as etiology s/p extubation but failed this morning so reintubated the extubated and placed on comfort care Bilateral PTX with pneumomediastinum now with chest tube Influ A with severe sepsis r/o secondary infection Dehydration Hypotension Anemia Plan: Comfort care Dilaudid Critical Care Critically Ill Patient Diagnosis/Problems Diagnosis/Problems (1) End of life care Status: Acute (2) Severe sepsis Status: Acute (3) Ventilator dependence Status: Acute (4) Pneumonia Status: Acute Qualifiers: Pneumonia type: due to unspecified organism Laterality: right Lung location: unspecified part of lung Qualified Codes: J18.9 - Pneumonia, unspecified organism (5) Influenza A Status: Acute (6) HTN (hypertension) Status: Chronic Qualifiers: Hypertension type: essential hypertension Qualified Codes: I10 - Essential (primary) hypertension (7) Chronic pancreatitis Status: Chronic Qualifiers: Pancreatitis type: unspecified pancreatitis type Qualified Codes: K86.1 - Other chronic pancreatitis Clinical Quality Measures DVT/VTE Risk/Contraindication: Risk Factor Score Per Nursin RFS Level Per Nursing on Admit: 4+=Very High LILIANA ZARATE DO Dec 12, 2018 11:31
[2018-12-12] MEDS: NS IV 1000 ML 1,000 ML IV SCH ×2 (14:33→20:25)
[2018-12-13] MEDS: SCOPOLAMINE 1.5 MG (TRANSDERM-SCOP) PATCH TOP SCH (05:59)
--- NOTE | 2018-12-13 08:00 | Progress Note (SOAP) ---
Subjective Time Seen by a Provider: 07:57 Subjective/Events-last exam comfort care no pain this am Objective Exam Vital Signs Date Time Temp Pulse Resp B/P (MAP) Pulse Ox O2 Delivery O2 Flow Rate FiO2 12/13/18 05:48 12 12/12/18 20:35 Nasal Cannula 2.00 12/12/18 20:30 Nasal Cannula 2.00 12/12/18 18:00 12 12/12/18 08:46 Nasal Cannula 3.00 I & O 12/13/18 07:00 Intake Total 1050 ml Output Total 1425 ml Balance -375 ml Capillary Refill : Less Than 3 Seconds General Appearance: No Apparent Distress, Thin HEENT: Normal ENT Inspection Neck: Full Range of Motion Respiratory: No Accessory Muscle Use, No Respiratory Distress Cardiovascular: Regular Rate, Rhythm Gastrointestinal: non tender, soft Results Lab Microbiology 12/01/18 Blood Culture - Final, Complete No growth 12/04/18 Mycobacterial Culture - Preliminary, Resulted Assessment/Plan Assessment/Plan Assess & Plan/Chief Complaint Pneumonia. Respiratory distress. Bilateral pneumothorax. Patient on vent. Left chest tube put in. . 12/06/18. Acute respiratory failure. Bilateral pneumonia. Pulmonary edema. Influenza A. Sepsis. Leukocytosis. Hypokalemia. . 12/07/18. Acute respiratory failure. Bilateral pneumonia. Pulmonary edema. Influenza A. Sepsis. Hypokalemia. Hypertension. . 12/08/18. Acute respiratory failure. Pneumonia. Bilateral pneumothorax. Pneumoperitoneum. Pulmonary edema. Influenza A. Sepsis. Patient off ventilator and doing good. Patient complaining of pain. . 12/09/18. Acute respiratory failure. Bilateral pneumonia. Bilateral pneumothorax. Pneumoperitoneum. Pulmonary edema. Influenza A. Sepsis. . 12/10/18. Patient states he wants comfort care. Acute respiratory failure resolved. Bilateral pneumonia Bilateral pneumothorax. Pneumoperitoneum. Influenza A. Sepsis. Patient wants more pain medicine this morning Comfort care 12/13/18 no pain Clinical Quality Measures Admission Status Admission Dx Influenza A. Pneumonia. Fever. Short of breath. Pulse ox 67. Respiratory distress. Dehydration. Hyponatremia. Anemia DVT/VTE Risk/Contraindication: Risk Factor Score Per Nursin RFS Level Per Nursing on Admit: 4+=Very High SKYLER PASCUAL DO Dec 13, 2018 08:00
[2018-12-13] MEDS: risperiDONE 1 MG (RisperDAL) TAB PO SCH ×2 (09:38→20:26)
--- NOTE | 2018-12-13 11:28 | NUR ---
CM/SS. Patient is awake and alert, calm at this time, asking for ice chips which continuity writer provided. He indicated he remembered continuity writer from our discharge planning process last Fall when he was placed with [facility]. Asked patient again about relatives, he responded he had none living: parents, siblings, children, spouse. ELIO/Darrick exploring hospice and return to nursing facility. Assist as appropriate.
--- NOTE | 2018-12-13 13:47 | NUR ---
Palliative Care/DISCHARGE PLANNING: This RN has spoken with Glenys with [facility] and Dr. Turner Pharm D. about the Dilaudid dosing. He has gotten approximately 15 m g in 24 hours which could be given in a PO dosing crushed. Updated Dr. Reza on the plan. He asked about eating and I informed him of the red tongue and sore throat. he ordered a Nystatin Q 6 hours S/S. Will need the out of hospital DNR signed by the physician tomorrow, the patient has made his waldo which was witnessed by this RN.
[2018-12-13] MEDS: NYSTATIN ORAL SUSP 5 ML UDC PO SCH (18:48)
--- NOTE | 2018-12-13 21:00 | NUR ---
Up to recliner with assist x 3 per pt request. Pt bared only small amount of weight. Alert and talkative. Will continue to monitor.
[2018-12-13] MEDS: HYDROmorphone PF INJECTION 40 MG in NS (IVPB) 96 ML IV SCH (22:22)
--- NOTE | 2018-12-13 22:22 | NUR ---
New bag placed in Dilaudid CAAD pump. 15 mls Dilaudid wasted with MATT Juarez from bag taken down. Pt remains alert and oriented and sitting up in recliner/denies needs. Will continue to monitor.
[2018-12-14] MEDS: NYSTATIN ORAL SUSP 5 ML UDC PO SCH ×3 (00:58→13:46)
[2018-12-14] MEDS: NS IV 1000 ML 1,000 ML IV SCH (05:16)
[2018-12-14 08:00] VITALS: BP 107/63
--- NOTE | 2018-12-14 08:19 | Progress Note (SOAP) ---
Subjective Time Seen by a Provider: 08:16 Subjective/Events-last exam Patient feeling better. Patient doing better. Patient states he may have asked today. Patient [facility] to [facility] today. Patient comfort care Objective Exam Vital Signs Date Time Temp Pulse Resp B/P (MAP) Pulse Ox O2 Delivery O2 Flow Rate FiO2 12/14/18 05:16 18 12/13/18 22:22 18 12/13/18 20:25 Nasal Cannula 2.00 I & O 12/14/18 07:00 Intake Total 2320 ml Output Total 2025 ml Balance 295 ml Capillary Refill : Less Than 3 Seconds General Appearance: No Apparent Distress, Thin Results Lab Microbiology 12/01/18 Blood Culture - Final, Complete No growth 12/04/18 Mycobacterial Culture - Preliminary, Resulted Assessment/Plan Assessment/Plan Assess & Plan/Chief Complaint . . Pneumonia. Respiratory distress. Bilateral pneumothorax. Patient on vent. Left chest tube put in. . 12/06/18. Acute respiratory failure. Bilateral pneumonia. Pulmonary edema. Influenza A. Sepsis. Leukocytosis. Hypokalemia. . 12/07/18. Acute respiratory failure. Bilateral pneumonia. Pulmonary edema. Influenza A. Sepsis. Hypokalemia. Hypertension. . 12/08/18. Acute respiratory failure. Pneumonia. Bilateral pneumothorax. Pneumoperitoneum. Pulmonary edema. Influenza A. Sepsis. Patient off ventilator and doing good. Patient complaining of pain. . 12/09/18. Acute respiratory failure. Bilateral pneumonia. Bilateral pneumothorax. Pneumoperitoneum. Pulmonary edema. Influenza A. Sepsis. . 12/10/18. Patient states he wants comfort care. Acute respiratory failure resolved. Bilateral pneumonia Bilateral pneumothorax. Pneumoperitoneum. Influenza A. Sepsis. Patient wants more pain medicine this morning Comfort care 12/13/18 no pain. . 12/14/18 patient to be discharged today with comfort care. Patient to be put on dilated. Acute respiratory failure. Bilateral pneumonia. Influenza a. Pneumothorax. Sepsis. Patient doing better today Clinical Quality Measures Admission Status Admission Dx Influenza A. Pneumonia. Fever. Short of breath. Pulse ox 67. Respiratory distress. Dehydration. Hyponatremia. Anemia DVT/VTE Risk/Contraindication: Risk Factor Score Per Nursin RFS Level Per Nursing on Admit: 4+=Very High SKYLER PASCUAL DO Dec 14, 2018 08:19
--- NOTE | 2018-12-14 08:26 | Discharge Inst-Skilled Nursing ---
Discharge Inst-Skilled NF Patient Instructions Patient Problems: Patient comfort care Consult/Follow Up/Orders Follow Up Appt.: One week Skilled NF Admit to: [facility] Certification (SNF) I certify that SNF services are required to be given on an inpatient basis because of the above named patient's need for correction care on a continuing basis for the conditions(s) for which he/she was receiving inpatient hospital services prior to his/her transfer to the SNF. Custodial Facility Order: Nursing Services Oxygen Delivery Method: Nasal Cannula Discharge Diet: Soft Diet New & Resume Previous Orders Rene Pascual Dec 14, 2018 08:25 RENE PASCUAL DO Dec 14, 2018 08:26
--- NOTE | 2018-12-14 09:11 | NUR ---
Palliative Care RN and Dr. Reza rounded on the patient this morning together. He is sitting up in chair, in good spirits, with whispered and reporting feeling some better. He has ensure, coke and a sliced orange of which he has chewed up 2 pieces. Libia has asked him if he though he could eat some eggs and he said "I will try". Patient is ready to return to [facility] this day. Orders have been placed and I have call and am awaiting return call to [facility] whom the patient/facility prefers. Out of Hospital DNR is signed and will be faxed to facility and to [facility]. Currently no other needs.
[2018-12-14] MEDS: risperiDONE 1 MG (RisperDAL) TAB PO SCH (09:34)
[2018-12-14] MEDS ORDERED: INSU100V16 SC (09:53)
--- NOTE | 2018-12-14 10:17 | NUR ---
report called to MATT Jc.
--- NOTE | 2018-12-14 10:28 | NUR ---
Palliative Care/Discharge Planning: Patient will discharge today back to previous placement of PC&R with [facility]. His transport will be here at 5 pm to pick him up. I have asked that they bring a reclining w/c or ANGELINA chair. Patient is in need of a bath. Aides not able to assist so this RN gave patient a soap and water bath while he was seated in his chair. Unable to reach backside so this will need to be done as he is transferring to bed or wheelchair for discharge.
--- NOTE | 2018-12-14 11:50 | NUR ---
PATIENT RESPIRATIONS CEASED AT 1150 ACKNOWLEDGED WITH Enrique GUZMAN RN AT THIS TIME. ALL INVASIVE LINES REMOVED ALSO AT THIS TIME. DR. PASCUAL NOTIFIED ALSO AT 1204. SALINE TO BILATERAL EYES PLACED AND COOLING BLANKET ORDERED UNTIL [facility] CALLS THIS RN BACK TO CONFIRM IF THIS PATIENT IS A CANDIDATE FOR DONATION.
--- NOTE | 2018-12-14 14:12 | NUR ---
THIS RN CONTACTED [facility] FOR REFERRAL PATIENT IS NOT A CANDIDATE. DR. FOUNTAIN CONSULTED AND THIS PATIENT IS NOT A CORNER CASE EITHER. DR. PASCUAL NOTIFIED OF AND SANDRA GIRON NOTIFIED AT THIS TIME FOR PICK-UP.
--- NOTE | 2018-12-14 15:25 | NUR ---
CM/SS. Patient passed. Microbiology Analyst contacted [facility] regarding their agreed donation for his burial to let them know Mailmaster directed patient through [facility]. Contacted Saira at [facility] and provided Yaneth Johns contact information for exchange of details. Updated Admin/Ines at &[facility].
--- NOTE | 2018-12-16 07:55 | Discharge Summary ---
Diagnosis/Chief Complaint Date of Admission Dec 01, 2018 at 18:00 Date of Discharge Dec 14, 2018 at 14:40 Discharge Date: Dec 14, 2018 Discharge Time: 07:50 Discharge Diagnosis Comfort care. DO NOT RESUSCITATE. Pulmonary edema. Acute respiratory failure. Obstructive pulmonary disease with acute lower respiratory infection. Hypokalemia. Pneumonia. Influenza. Pneumonia due to staph aureus, Lore, Corynbacterium. Leukocytosis. Anemia. Bilateral pneumothorax. Bilateral pneumomediastinum. Cardiac arrest. Acute OR Reason Hospital Visit Patient resident of [facility]. Patient now on vent and unresponsive and sedated. Patient had fever 101 coughing, short of breath, and pulse ox 67 percent on room air. Patient transferred to the emergency room at via [facility]. Patient has influenza A. Chest x-ray shows pneumonia. Patient intubated and sent to intensive care unit Discharge Summary Procedures Bronchoscopy. Chest tube put in for pneumothorax Consultations Pulmonology Discharge Physical Examination Allergies: Coded Allergies: No Known Drug Allergies (Unverified , 08/14/18) Vitals & I&Os Vital Signs Date Time Temp Pulse Resp B/P (MAP) Pulse Ox O2 Delivery O2 Flow Rate FiO2 12/14/18 15:02 Room Air 12/14/18 08:00 77 2.00 12/14/18 08:00 98.7 126 22 12/10/18 12:00 85 Hospital Course Patient to be transferred back to [facility]. Patient from chair to bed and had cardiac arrest and Labs (last 24 hrs) Laboratory Tests 12/01/18 15:20: White Blood Count 12.3H, Red Blood Count 4.99, Hemoglobin 14.1, Hematocrit 42, Mean Corpuscular Volume 84, Mean Corpuscular Hemoglobin 28, Mean Corpuscular Hemoglobin Concent 34, Red Cell Distribution Width 14.4, Platelet Count 189, Mean Platelet Volume 10.9H, Neutrophils (%) (Auto) 76H, Lymphocytes (%) (Auto) 12, Monocytes (%) (Auto) 12, Eosinophils (%) (Auto) 0, Basophils (%) (Auto) 0, Neutrophils # (Auto) 9.3H, Lymphocytes # (Auto) 1.5, Monocytes # (Auto) 1.4H, Eosinophils # (Auto) 0.0, Basophils # (Auto) 0.0, Sodium Level 131L, Potassium Level 3.8, Chloride Level 93L, Carbon Dioxide Level 24, Anion Gap 14, Blood Urea Nitrogen 31H, Creatinine 1.03, Estimat Glomerular Filtration Rate > 60, BUN /Creatinine Ratio 30, Glucose Level 238H, Lactic Acid Level 2.98*H, Calcium Level 9.9, Corrected Calcium 10.0, Total Bilirubin 0.7, Aspartate Amino Transf ( AST/SGOT) 23, Alanine Aminotransferase (ALT/SGPT) 20, Alkaline Phosphatase 84, B -Type Natriuretic Peptide 65.9, Total Protein 7.5, Albumin 3.9, Lipase 7L 12/01/18 17:25: Blood Gas Puncture Site LEFT RADIAL, Blood Gas Patient Temperature 99.6, Arterial Blood pH 7.35L, Arterial Blood Partial Pressure CO2 42, Arterial Blood Partial Pressure O2 70L, Arterial Blood HCO3 23, Arterial Blood Total CO2 24.0, Arterial Blood Oxygen Saturation 91L, Arterial Blood Base Excess -1.9, Eduard Test POSITIVE, Blood Gas Ventilator Setting NO, Blood Gas Inspired Oxygen BIPAP 15/5 100% 12/01/18 18:00: Lab Scanned Report Referred Lab Report 12/01/18 20:08: Urine Color YELLOW, Urine Clarity SLIGHTLY CLOUDY, Urine pH 6, Urine Specific Dawson 1.025H, Urine Protein 2+H, Urine Glucose (UA) 1+H, Urine Ketones 2+H, Urine Nitrite NEGATIVE, Urine Bilirubin NEGATIVE, Urine Urobilinogen 1, Urine Leukocyte Esterase NEGATIVE, Urine RBC (Auto) NEGATIVE, Urine RBC NONE, Urine WBC 0-2, Urine Crystals NONE, Urine Bacteria TRACE, Urine Casts PRESENT, Urine Hyaline Casts 25-50H, Urine Mucus LARGEH, Urine Culture Indicated NO 12/01/18 21:20: Lactic Acid Level 1.62 12/01/18 22:52: Blood Gas Puncture Site R RAD, Blood Gas Patient Temperature 98.1, Arterial Blood pH 7.28*L, Arterial Blood Partial Pressure CO2 54H, Arterial Blood Partial Pressure O2 66L, Arterial Blood HCO3 25, Arterial Blood Total CO2 26.2, Arterial Blood Oxygen Saturation 90L, Arterial Blood Base Excess -1.4, Eduard Test YES-POS, Blood Gas Ventilator Setting YES, Blood Gas Inspired Oxygen 100% 12/02/18 01:14: Glucometer 363H 12/02/18 02:47: Blood Gas Puncture Site L RAD, Blood Gas Patient Temperature 98.0, Arterial Blood pH 7.31*L, Arterial Blood Partial Pressure CO2 45, Arterial Blood Partial Pressure O2 154H, Arterial Blood HCO3 22L, Arterial Blood Total CO2 23.6, Arterial Blood Oxygen Saturation 99, Arterial Blood Base Excess -3.1L, Eduard Test YES-POS, Blood Gas Ventilator Setting YES, Blood Gas Inspired Oxygen 100% 12/02/18 03:28: White Blood Count 8.7, Red Blood Count 4.48, Hemoglobin 12.5L, Hematocrit 38L, Mean Corpuscular Volume 84, Mean Corpuscular Hemoglobin 28, Mean Corpuscular Hemoglobin Concent 33, Red Cell Distribution Width 14.2, Platelet Count 149, Mean Platelet Volume 11.4H, Neutrophils (%) (Auto) 86H, Lymphocytes (%) (Auto) 5L, Monocytes (%) (Auto) 9, Eosinophils (%) (Auto) 0, Basophils (%) (Auto) 0, Neutrophils # (Auto) 7.5, Lymphocytes # (Auto) 0.4L, Monocytes # (Auto) 0.8, Eosinophils # (Auto) 0.0, Basophils # (Auto) 0.0, Neutrophils % (Manual) 54, Lymphocytes % (Manual) 6, Monocytes % (Manual) 5, Eosinophils % (Manual) 0, Basophils % (Manual) 0, Band Neutrophils 33, Reactive Lymphocytes 2, Anisocytosis SLIGHT, Elliptocytes SLIGHT, Rouleau SLIGHT, Sodium Level 134L, Potassium Level 3.4L, Chloride Level 101, Carbon Dioxide Level 20L, Anion Gap 13 , Blood Urea Nitrogen 26H, Creatinine 0.83, Estimat Glomerular Filtration Rate > 60, BUN/Creatinine Ratio 31, Glucose Level 325H, Calcium Level 9.3, Phosphorus Level 2.9, Magnesium Level 1.7L, Triglycerides Level 135 12/02/18 07:56: Glucometer 256H 12/02/18 12:20: Glucometer 162H 12/02/18 14:01: Blood Gas Puncture Site RT RAD, Blood Gas Patient Temperature 98.3, Arterial Blood pH 7.36L, Arterial Blood Partial Pressure CO2 40, Arterial Blood Partial Pressure O2 125H, Arterial Blood HCO3 22L, Arterial Blood Total CO2 23.1, Arterial Blood Oxygen Saturation 98, Arterial Blood Base Excess -2.8L, Eduard Test YES-POS, Blood Gas Ventilator Setting YES, Blood Gas Inspired Oxygen 100% 12/02/18 15:47: Glucometer 216H 12/02/18 21:05: Glucometer 341H 12/02/18 23:48: Glucometer 243H 12/03/18 02:55: Triglycerides Level 148 12/03/18 03:05: White Blood Count 7.8, Red Blood Count 4.18L, Hemoglobin 11.6L, Hematocrit 34L, Mean Corpuscular Volume 82, Mean Corpuscular Hemoglobin 28, Mean Corpuscular Hemoglobin Concent 34, Red Cell Distribution Width 14.4, Platelet Count 133, Mean Platelet Volume 11.3H, Neutrophils (%) (Auto) 81H, Lymphocytes (%) (Auto) 8L, Monocytes (%) (Auto) 11, Eosinophils (%) (Auto) 0, Basophils (%) (Auto) 0, Neutrophils # (Auto) 6.3, Lymphocytes # (Auto) 0.6L, Monocytes # (Auto) 0.9, Eosinophils # (Auto) 0.0, Basophils # (Auto) 0.0, Sodium Level 138, Potassium Level 2.4#*L, Chloride Level 106, Carbon Dioxide Level 22, Anion Gap 10, Blood Urea Nitrogen 16, Creatinine 0.60, Estimat Glomerular Filtration Rate > 60, BUN/ Creatinine Ratio 27, Glucose Level 161H, Calcium Level 9.6, Phosphorus Level 1.2L, Magnesium Level 2.0 12/03/18 03:20: Glucometer 162H 12/03/18 03:22: Blood Gas Puncture Site RIGHT RADIAL, Blood Gas Patient Temperature 98.0, Arterial Blood pH 7.38, Arterial Blood Partial Pressure CO2 41, Arterial Blood Partial Pressure O2 324H, Arterial Blood HCO3 24, Arterial Blood Total CO2 25.1 , Arterial Blood Oxygen Saturation 99, Arterial Blood Base Excess -0.7, Eduard Test POSITIVE, Blood Gas Ventilator Setting YES, Blood Gas Inspired Oxygen 100% 12/03/18 07:31: Glucometer 195H 12/03/18 11:03: Glucometer 209H 12/03/18 14:57: Glucometer 170H 12/03/18 20:19: Glucometer 301H 12/04/18 01:00: Glucometer 215H 12/04/18 02:55: White Blood Count 15.6H, Red Blood Count 3.95L, Hemoglobin 11.2L, Hematocrit 33L , Mean Corpuscular Volume 83, Mean Corpuscular Hemoglobin 28, Mean Corpuscular Hemoglobin Concent 34, Red Cell Distribution Width 14.9H, Platelet Count 169, Mean Platelet Volume 11.5H, Neutrophils (%) (Auto) 90H, Lymphocytes (%) (Auto) 3L, Monocytes (%) (Auto) 7, Eosinophils (%) (Auto) 0, Basophils (%) (Auto) 0, Neutrophils # (Auto) 14.0H, Lymphocytes # (Auto) 0.5L, Monocytes # (Auto) 1.1H, Eosinophils # (Auto) 0.0, Basophils # (Auto) 0.0, Neutrophils % (Manual) 89, Lymphocytes % (Manual) 3, Monocytes % (Manual) 8, Sodium Level 139, Potassium Level 2.7L, Chloride Level 109H, Carbon Dioxide Level 20L, Anion Gap 10, Blood Urea Nitrogen 18, Creatinine 0.64, Estimat Glomerular Filtration Rate > 60, BUN/ Creatinine Ratio 28, Glucose Level 176H, Calcium Level 8.9, Phosphorus Level 1.1L, Magnesium Level 1.7L 12/04/18 03:35: Blood Gas Puncture Site RIGHT RADIAL, Blood Gas Patient Temperature 99.0, Arterial Blood pH 7.37, Arterial Blood Partial Pressure CO2 40, Arterial Blood Partial Pressure O2 255H, Arterial Blood HCO3 23, Arterial Blood Total CO2 23.7 , Arterial Blood Oxygen Saturation 99, Arterial Blood Base Excess -1.9, Eduard Test POSITIVE, Blood Gas Ventilator Setting YES, Blood Gas Inspired Oxygen 100% VENT 12/04/18 07:57: Glucometer 190H 12/04/18 12:04: Glucometer 185H 12/04/18 15:29: Glucometer 144H 12/04/18 16:49: Sodium Level 140, Potassium Level 3.5L, Chloride Level 110H, Carbon Dioxide Level 20L, Anion Gap 10, Blood Urea Nitrogen 15, Creatinine 0.56L, Estimat Glomerular Filtration Rate > 60, BUN/Creatinine Ratio 27, Glucose Level 134H, Calcium Level 8.6, Phosphorus Level 2.4, Magnesium Level 1.9 12/04/18 20:22: Glucometer 163H 12/04/18 23:57: Glucometer 180H 12/05/18 03:10: White Blood Count 17.1H, Red Blood Count 4.12L, Hemoglobin 11.5L, Hematocrit 35L , Mean Corpuscular Volume 84, Mean Corpuscular Hemoglobin 28, Mean Corpuscular Hemoglobin Concent 33, Red Cell Distribution Width 15.5H, Platelet Count 159, Mean Platelet Volume 11.2H, Neutrophils (%) (Auto) 91H, Lymphocytes (%) (Auto) 4L, Monocytes (%) (Auto) 5, Eosinophils (%) (Auto) 0, Basophils (%) (Auto) 0, Neutrophils # (Auto) 15.5H, Lymphocytes # (Auto) 0.6L, Monocytes # (Auto) 0.9, Eosinophils # (Auto) 0.0, Basophils # (Auto) 0.1, Sodium Level 138, Potassium Level 4.3, Chloride Level 109H, Carbon Dioxide Level 16L, Anion Gap 13, Blood Urea Nitrogen 15, Creatinine 0.60, Estimat Glomerular Filtration Rate > 60, BUN/ Creatinine Ratio 25, Glucose Level 199H, Calcium Level 8.7, Phosphorus Level 2.0L, Magnesium Level 1.8 12/05/18 03:28: Blood Gas Puncture Site RIGHT RADIAL, Blood Gas Patient Temperature 98.7, Arterial Blood pH 7.39, Arterial Blood Partial Pressure CO2 33L, Arterial Blood Partial Pressure O2 64L, Arterial Blood HCO3 19L, Arterial Blood Total CO2 20.2L , Arterial Blood Oxygen Saturation 93L, Arterial Blood Base Excess -4.9L, Eduard Test POSITIVE, Blood Gas Ventilator Setting YES, Blood Gas Inspired Oxygen 40% FIO2 12/05/18 05:10: B-Type Natriuretic Peptide 77.9 12/05/18 07:35: Blood Gas Puncture Site R RAD, Blood Gas Patient Temperature 97.3, Arterial Blood pH 7.43, Arterial Blood Partial Pressure CO2 38, Arterial Blood Partial Pressure O2 205H, Arterial Blood HCO3 25, Arterial Blood Total CO2 26.4, Arterial Blood Oxygen Saturation 99, Arterial Blood Base Excess 1.3, Eduard Test NO, Blood Gas Ventilator Setting YES, Blood Gas Inspired Oxygen 100% 12/05/18 08:10: Glucometer 178H 12/05/18 10:59: Glucometer 185H 12/05/18 15:21: Glucometer 163H 12/05/18 23:25: Glucometer 233H 12/06/18 03:20: White Blood Count 24.5H, Red Blood Count 4.21L, Hemoglobin 11.8L, Hematocrit 35L , Mean Corpuscular Volume 83, Mean Corpuscular Hemoglobin 28, Mean Corpuscular Hemoglobin Concent 34, Red Cell Distribution Width 16.3H, Platelet Count 210, Mean Platelet Volume 11.3H, Neutrophils (%) (Auto) 90H, Lymphocytes (%) (Auto) 5L, Monocytes (%) (Auto) 5, Eosinophils (%) (Auto) 0, Basophils (%) (Auto) 0, Neutrophils # (Auto) 22.0H, Lymphocytes # (Auto) 1.2, Monocytes # (Auto) 1.3H, Eosinophils # (Auto) 0.0, Basophils # (Auto) 0.1, Neutrophils % (Manual) 83, Lymphocytes % (Manual) 6, Monocytes % (Manual) 7, Metamyelocytes % 1, Myelocytes % 3, Sodium Level 143, Potassium Level 3.2L, Chloride Level 106, Carbon Dioxide Level 20L, Anion Gap 17H, Blood Urea Nitrogen 23H, Creatinine 0.66, Estimat Glomerular Filtration Rate > 60, BUN/Creatinine Ratio 35, Glucose Level 214H, Calcium Level 8.8, Phosphorus Level 1.8L, Magnesium Level 2.1, Vancomycin Level Trough 3.3L 12/06/18 03:45: Blood Gas Puncture Site RIGHT RADIAL, Blood Gas Patient Temperature 97.8, Arterial Blood pH 7.43, Arterial Blood Partial Pressure CO2 36, Arterial Blood Partial Pressure O2 97H, Arterial Blood HCO3 24, Arterial Blood Total CO2 24.6, Arterial Blood Oxygen Saturation 98, Arterial Blood Base Excess -0.4, Eduard Test POSTIVIE, Blood Gas Ventilator Setting YES, Blood Gas Inspired Oxygen 40% VENT 12/06/18 08:32: Glucometer 196H 12/06/18 12:39: Glucometer 107 12/06/18 14:05: B-Type Natriuretic Peptide 93.5 12/06/18 16:32: Glucometer 219H 12/06/18 20:13: Glucometer 187H 12/07/18 00:47: Glucometer 161H 12/07/18 04:00: White Blood Count 26.7H, Red Blood Count 4.48, Hemoglobin 12.5L, Hematocrit 37L , Mean Corpuscular Volume 83, Mean Corpuscular Hemoglobin 28, Mean Corpuscular Hemoglobin Concent 34, Red Cell Distribution Width 16.3H, Platelet Count 178, Mean Platelet Volume 11.4H, Neutrophils (%) (Auto) 94H, Lymphocytes (%) (Auto) 2L, Monocytes (%) (Auto) 3, Eosinophils (%) (Auto) 0, Basophils (%) (Auto) 1, Neutrophils # (Auto) 25.0H, Lymphocytes # (Auto) 0.6L, Monocytes # (Auto) 0.9, Eosinophils # (Auto) 0.0, Basophils # (Auto) 0.2H, Sodium Level 141, Potassium Level 3.7, Chloride Level 107, Carbon Dioxide Level 23, Anion Gap 11, Blood Urea Nitrogen 21H, Creatinine 0.54L, Estimat Glomerular Filtration Rate > 60, BUN/Creatinine Ratio 39, Glucose Level 172H, Calcium Level 8.3L, Phosphorus Level 2.3, Magnesium Level 1.5L 12/07/18 04:52: Blood Gas Puncture Site RIGHT RADIAL, Blood Gas Patient Temperature 97.9, Arterial Blood pH 7.50H, Arterial Blood Partial Pressure CO2 34L, Arterial Blood Partial Pressure O2 112H, Arterial Blood HCO3 26, Arterial Blood Total CO2 27.2, Arterial Blood Oxygen Saturation 99, Arterial Blood Base Excess 2.9H, Eduard Test POSITIVE, Blood Gas Ventilator Setting YES, Blood Gas Inspired Oxygen 60% 12/07/18 09:20: Glucometer 230H 12/07/18 12:16: Glucometer 253H 12/07/18 16:51: Glucometer 188H 12/07/18 20:32: Glucometer 183H 12/08/18 00:10: Glucometer 182H 12/08/18 03:25: White Blood Count 23.5H, Red Blood Count 4.20L, Hemoglobin 11.8L, Hematocrit 35L , Mean Corpuscular Volume 84, Mean Corpuscular Hemoglobin 28, Mean Corpuscular Hemoglobin Concent 33, Red Cell Distribution Width 16.3H, Platelet Count 184, Mean Platelet Volume 10.6H, Neutrophils (%) (Auto) 94H, Lymphocytes (%) (Auto) 3L, Monocytes (%) (Auto) 4, Eosinophils (%) (Auto) 0, Basophils (%) (Auto) 0, Neutrophils # (Auto) 22.0H, Lymphocytes # (Auto) 0.6L, Monocytes # (Auto) 0.9, Eosinophils # (Auto) 0.0, Basophils # (Auto) 0.0, Sodium Level 139, Potassium Level 3.5L, Chloride Level 104, Carbon Dioxide Level 25, Anion Gap 10, Blood Urea Nitrogen 21H, Creatinine 0.55L, Estimat Glomerular Filtration Rate > 60, BUN/Creatinine Ratio 38, Glucose Level 198H, Calcium Level 7.3L, Phosphorus Level 2.3, Magnesium Level 1.4L 12/08/18 04:05: Blood Gas Puncture Site R RAD, Blood Gas Patient Temperature 98.3, Arterial Blood pH 7.53H, Arterial Blood Partial Pressure CO2 35, Arterial Blood Partial Pressure O2 86, Arterial Blood HCO3 29H, Arterial Blood Total CO2 30.2, Arterial Blood Oxygen Saturation 96, Arterial Blood Base Excess 6.0H, Eduard Test YES-POS, Blood Gas Ventilator Setting YES, Blood Gas Inspired Oxygen 50% FI02 12/08/18 13:15: Blood Gas Puncture Site RT RAD, Blood Gas Patient Temperature 98.1, Arterial Blood pH 7.50H, Arterial Blood Partial Pressure CO2 40, Arterial Blood Partial Pressure O2 75L, Arterial Blood HCO3 31H, Arterial Blood Total CO2 32.3H, Arterial Blood Oxygen Saturation 94, Arterial Blood Base Excess 7.4H, Eduard Test YES-POS, Blood Gas Ventilator Setting YES, Blood Gas Inspired Oxygen 30L, 60% fio2 12/08/18 13:30: Vancomycin Level Trough 10.0 12/09/18 00:39: Glucometer 334H 12/09/18 03:35: White Blood Count 18.0H, Red Blood Count 4.55, Hemoglobin 12.7L, Hematocrit 38L , Mean Corpuscular Volume 84, Mean Corpuscular Hemoglobin 28, Mean Corpuscular Hemoglobin Concent 33, Red Cell Distribution Width 15.8H, Platelet Count 167, Mean Platelet Volume 10.9H, Neutrophils (%) (Auto) 92H, Lymphocytes (%) (Auto) 4L, Monocytes (%) (Auto) 4, Eosinophils (%) (Auto) 0, Basophils (%) (Auto) 0, Neutrophils # (Auto) 16.6H, Lymphocytes # (Auto) 0.7L, Monocytes # (Auto) 0.7, Eosinophils # (Auto) 0.0, Basophils # (Auto) 0.0, Sodium Level 142, Potassium Level 3.7, Chloride Level 100, Carbon Dioxide Level 30, Anion Gap 12, Blood Urea Nitrogen 19H, Creatinine 0.57L, Estimat Glomerular Filtration Rate > 60, BUN/Creatinine Ratio 33, Glucose Level 198H, Calcium Level 7.7L, Phosphorus Level 2.1L, Magnesium Level 1.5L 12/09/18 11:35: Glucometer 116H 12/09/18 13:25: Vancomycin Level Trough 13.9 12/09/18 18:05: Glucometer 193H 12/09/18 23:44: Glucometer 158H 12/10/18 02:55: White Blood Count 20.1H, Red Blood Count 4.01L, Hemoglobin 11.1L, Hematocrit 34L , Mean Corpuscular Volume 86, Mean Corpuscular Hemoglobin 28, Mean Corpuscular Hemoglobin Concent 32, Red Cell Distribution Width 15.8H, Platelet Count 175, Mean Platelet Volume 11.0H, Neutrophils (%) (Auto) 95H, Lymphocytes (%) (Auto) 2L, Monocytes (%) (Auto) 3, Eosinophils (%) (Auto) 0, Basophils (%) (Auto) 0, Neutrophils # (Auto) 19.1H, Lymphocytes # (Auto) 0.4L, Monocytes # (Auto) 0.6, Eosinophils # (Auto) 0.0, Basophils # (Auto) 0.0, Sodium Level 140, Potassium Level 3.5L, Chloride Level 101, Carbon Dioxide Level 24, Anion Gap 15H, Blood Urea Nitrogen 19H, Creatinine 0.59L, Estimat Glomerular Filtration Rate > 60, BUN/Creatinine Ratio 32, Glucose Level 210H, Calcium Level 7.2L, Phosphorus Level 2.6, Magnesium Level 1.4L Microbiology 12/01/18 Blood Culture - Final, Complete No growth 12/04/18 Mycobacterial Culture - Preliminary, Resulted Laboratory Tests 12/01/18 15:20 12/02/18 03:28 12/03/18 03:05 12/04/18 02:55 12/04/18 16:49 12/05/18 03:10 12/06/18 03:20 12/07/18 04:00 12/08/18 03:25 12/09/18 03:35 12/10/18 02:55 Pending Labs Microbiology Date/Time Source Procedure Growth Status 12/01/18 18:21 Peripheral Lt Ac Blood Culture - Final No growth Complete 12/01/18 15:20 Peripheral Rt Ac Blood Culture - Final No growth Complete 12/04/18 06:14 Bronchial Lavage (Bal) Left Upper Lobe Mycobacterial Culture - Preliminary Resulted 12/04/18 06:13 Bronchial Lavage (Bal) Left Upper Lobe Gram Stain - Final Resulted 12/04/18 06:13 Bronchial Culture - Final Staphylococcus aureus Corynebacterium striatum See Comments Resulted 12/04/18 06:13 Fungal Culture 1 - Preliminary Lore glabrata Lore dubliniensis Resulted 12/04/18 06:12 Bronchial Lavage (Bal) Right Upper Lobe Mycobacterial Culture - Preliminary Resulted 12/04/18 06:11 Bronchial Lavage (Bal) Right Upper Lobe Gram Stain - Final Resulted 12/04/18 06:11 Bronchial Culture - Final Staphylococcus aureus Corynebacterium striatum See Comments Resulted 12/04/18 06:11 Fungal Culture 1 - Preliminary Lore glabrata Lore dubliniensis Resulted 12/01/18 21:05 Nasal MRSA Screen - Final MRSA not isolated Complete 12/01/18 21:00 Sputum Endotracheal Gram Stain - Final Complete 12/01/18 21:00 Sputum Culture - Final Staphylococcus aureus See Comments Complete 12/01/18 17:47 Nasopharynx Influenza Types A,B Antigen (TYSON) - Final Complete Laboratory Tests 12/01/18 15:20: White Blood Count 12.3, Red Blood Count 4.99, Hemoglobin 14.1, Hematocrit 42, Mean Corpuscular Volume 84, Mean Corpuscular Hemoglobin 28, Mean Corpuscular Hemoglobin Concent 34, Red Cell Distribution Width 14.4, Platelet Count 189, Mean Platelet Volume 10.9, Neutrophils (%) (Auto) 76, Lymphocytes (%) (Auto) 12 , Monocytes (%) (Auto) 12, Eosinophils (%) (Auto) 0, Basophils (%) (Auto) 0, Neutrophils # (Auto) 9.3, Lymphocytes # (Auto) 1.5, Monocytes # (Auto) 1.4, Eosinophils # (Auto) 0.0, Basophils # (Auto) 0.0, Sodium Level 131, Potassium Level 3.8, Chloride Level 93, Carbon Dioxide Level 24, Anion Gap 14, Blood Urea Nitrogen 31, Creatinine 1.03, Estimat Glomerular Filtration Rate > 60, BUN/ Creatinine Ratio 30, Glucose Level 238, Lactic Acid Level 2.98, Calcium Level 9.9, Corrected Calcium 10.0, Total Bilirubin 0.7, Aspartate Amino Transf (AST/ SGOT) 23, Alanine Aminotransferase (ALT/SGPT) 20, Alkaline Phosphatase 84, B- Type Natriuretic Peptide 65.9, Total Protein 7.5, Albumin 3.9, Lipase 7 12/01/18 17:25: Blood Gas Puncture Site LEFT RADIAL, Blood Gas Patient Temperature 99.6, Arterial Blood pH 7.35, Arterial Blood Partial Pressure CO2 42, Arterial Blood Partial Pressure O2 70, Arterial Blood HCO3 23, Arterial Blood Total CO2 24.0, Arterial Blood Oxygen Saturation 91, Arterial Blood Base Excess -1.9, Eduard Test POSITIVE, Blood Gas Ventilator Setting NO, Blood Gas Inspired Oxygen BIPAP 15/5 100% 12/01/18 18:00: Lab Scanned Report Referred Lab Report 12/01/18 20:08: Urine Color YELLOW, Urine Clarity SLIGHTLY CLOUDY, Urine pH 6, Urine Specific Dawson 1.025, Urine Protein 2+, Urine Glucose (UA) 1+, Urine Ketones 2+, Urine Nitrite NEGATIVE, Urine Bilirubin NEGATIVE, Urine Urobilinogen 1, Urine Leukocyte Esterase NEGATIVE, Urine RBC (Auto) NEGATIVE, Urine RBC NONE, Urine WBC 0-2, Urine Crystals NONE, Urine Bacteria TRACE, Urine Casts PRESENT, Urine Hyaline Casts 25-50, Urine Mucus LARGE, Urine Culture Indicated NO 12/01/18 21:20: Lactic Acid Level 1.62 12/01/18 22:52: Blood Gas Puncture Site R RAD, Blood Gas Patient Temperature 98.1, Arterial Blood pH 7.28, Arterial Blood Partial Pressure CO2 54, Arterial Blood Partial Pressure O2 66, Arterial Blood HCO3 25, Arterial Blood Total CO2 26.2, Arterial Blood Oxygen Saturation 90, Arterial Blood Base Excess -1.4, Eduard Test YES-POS , Blood Gas Ventilator Setting YES, Blood Gas Inspired Oxygen 100% 12/02/18 01:14: Glucometer 363 12/02/18 02:47: Blood Gas Puncture Site L RAD, Blood Gas Patient Temperature 98.0, Arterial Blood pH 7.31, Arterial Blood Partial Pressure CO2 45, Arterial Blood Partial Pressure O2 154, Arterial Blood HCO3 22, Arterial Blood Total CO2 23.6, Arterial Blood Oxygen Saturation 99, Arterial Blood Base Excess -3.1, Eduard Test YES-POS, Blood Gas Ventilator Setting YES, Blood Gas Inspired Oxygen 100% 12/02/18 03:28: White Blood Count 8.7, Red Blood Count 4.48, Hemoglobin 12.5, Hematocrit 38, Mean Corpuscular Volume 84, Mean Corpuscular Hemoglobin 28, Mean Corpuscular Hemoglobin Concent 33, Red Cell Distribution Width 14.2, Platelet Count 149, Mean Platelet Volume 11.4, Neutrophils (%) (Auto) 86, Lymphocytes (%) (Auto) 5, Monocytes (%) (Auto) 9, Eosinophils (%) (Auto) 0, Basophils (%) (Auto) 0, Neutrophils # (Auto) 7.5, Lymphocytes # (Auto) 0.4, Monocytes # (Auto) 0.8, Eosinophils # (Auto) 0.0, Basophils # (Auto) 0.0, Neutrophils % (Manual) 54, Lymphocytes % (Manual) 6, Monocytes % (Manual) 5, Eosinophils % (Manual) 0, Basophils % (Manual) 0, Band Neutrophils 33, Reactive Lymphocytes 2, Anisocytosis SLIGHT, Elliptocytes SLIGHT, Rouleau SLIGHT, Sodium Level 134, Potassium Level 3.4, Chloride Level 101, Carbon Dioxide Level 20, Anion Gap 13, Blood Urea Nitrogen 26, Creatinine 0.83, Estimat Glomerular Filtration Rate > 60 , BUN/Creatinine Ratio 31, Glucose Level 325, Calcium Level 9.3, Phosphorus Level 2.9, Magnesium Level 1.7, Triglycerides Level 135 12/02/18 07:56: Glucometer 256 12/02/18 12:20: Glucometer 162 12/02/18 14:01: Blood Gas Puncture Site RT RAD, Blood Gas Patient Temperature 98.3, Arterial Blood pH 7.36, Arterial Blood Partial Pressure CO2 40, Arterial Blood Partial Pressure O2 125, Arterial Blood HCO3 22, Arterial Blood Total CO2 23.1, Arterial Blood Oxygen Saturation 98, Arterial Blood Base Excess -2.8, Eduard Test YES-POS, Blood Gas Ventilator Setting YES, Blood Gas Inspired Oxygen 100% 12/02/18 15:47: Glucometer 216 12/02/18 21:05: Glucometer 341 12/02/18 23:48: Glucometer 243 12/03/18 02:55: Triglycerides Level 148 12/03/18 03:05: White Blood Count 7.8, Red Blood Count 4.18, Hemoglobin 11.6, Hematocrit 34, Mean Corpuscular Volume 82, Mean Corpuscular Hemoglobin 28, Mean Corpuscular Hemoglobin Concent 34, Red Cell Distribution Width 14.4, Platelet Count 133, Mean Platelet Volume 11.3, Neutrophils (%) (Auto) 81, Lymphocytes (%) (Auto) 8, Monocytes (%) (Auto) 11, Eosinophils (%) (Auto) 0, Basophils (%) (Auto) 0, Neutrophils # (Auto) 6.3, Lymphocytes # (Auto) 0.6, Monocytes # (Auto) 0.9, Eosinophils # (Auto) 0.0, Basophils # (Auto) 0.0, Sodium Level 138, Potassium Level 2.4, Chloride Level 106, Carbon Dioxide Level 22, Anion Gap 10, Blood Urea Nitrogen 16, Creatinine 0.60, Estimat Glomerular Filtration Rate > 60, BUN/ Creatinine Ratio 27, Glucose Level 161, Calcium Level 9.6, Phosphorus Level 1.2 , Magnesium Level 2.0 12/03/18 03:20: Glucometer 162 12/03/18 03:22: Blood Gas Puncture Site RIGHT RADIAL, Blood Gas Patient Temperature 98.0, Arterial Blood pH 7.38, Arterial Blood Partial Pressure CO2 41, Arterial Blood Partial Pressure O2 324, Arterial Blood HCO3 24, Arterial Blood Total CO2 25.1, Arterial Blood Oxygen Saturation 99, Arterial Blood Base Excess -0.7, Eduard Test POSITIVE, Blood Gas Ventilator Setting YES, Blood Gas Inspired Oxygen 100% 12/03/18 07:31: Glucometer 195 12/03/18 11:03: Glucometer 209 12/03/18 14:57: Glucometer 170 12/03/18 20:19: Glucometer 301 12/04/18 01:00: Glucometer 215 12/04/18 02:55: White Blood Count 15.6, Red Blood Count 3.95, Hemoglobin 11.2, Hematocrit 33, Mean Corpuscular Volume 83, Mean Corpuscular Hemoglobin 28, Mean Corpuscular Hemoglobin Concent 34, Red Cell Distribution Width 14.9, Platelet Count 169, Mean Platelet Volume 11.5, Neutrophils (%) (Auto) 90, Lymphocytes (%) (Auto) 3, Monocytes (%) (Auto) 7, Eosinophils (%) (Auto) 0, Basophils (%) (Auto) 0, Neutrophils # (Auto) 14.0, Lymphocytes # (Auto) 0.5, Monocytes # (Auto) 1.1, Eosinophils # (Auto) 0.0, Basophils # (Auto) 0.0, Neutrophils % (Manual) 89, Lymphocytes % (Manual) 3, Monocytes % (Manual) 8, Sodium Level 139, Potassium Level 2.7, Chloride Level 109, Carbon Dioxide Level 20, Anion Gap 10, Blood Urea Nitrogen 18, Creatinine 0.64, Estimat Glomerular Filtration Rate > 60, BUN/ Creatinine Ratio 28, Glucose Level 176, Calcium Level 8.9, Phosphorus Level 1.1 , Magnesium Level 1.7 12/04/18 03:35: Blood Gas Puncture Site RIGHT RADIAL, Blood Gas Patient Temperature 99.0, Arterial Blood pH 7.37, Arterial Blood Partial Pressure CO2 40, Arterial Blood Partial Pressure O2 255, Arterial Blood HCO3 23, Arterial Blood Total CO2 23.7, Arterial Blood Oxygen Saturation 99, Arterial Blood Base Excess -1.9, Eduard Test POSITIVE, Blood Gas Ventilator Setting YES, Blood Gas Inspired Oxygen 100% VENT 12/04/18 07:57: Glucometer 190 12/04/18 12:04: Glucometer 185 12/04/18 15:29: Glucometer 144 12/04/18 16:49: Sodium Level 140, Potassium Level 3.5, Chloride Level 110, Carbon Dioxide Level 20, Anion Gap 10, Blood Urea Nitrogen 15, Creatinine 0.56, Estimat Glomerular Filtration Rate > 60, BUN/Creatinine Ratio 27, Glucose Level 134, Calcium Level 8.6, Phosphorus Level 2.4, Magnesium Level 1.9 12/04/18 20:22: Glucometer 163 12/04/18 23:57: Glucometer 180 12/05/18 03:10: White Blood Count 17.1, Red Blood Count 4.12, Hemoglobin 11.5, Hematocrit 35, Mean Corpuscular Volume 84, Mean Corpuscular Hemoglobin 28, Mean Corpuscular Hemoglobin Concent 33, Red Cell Distribution Width 15.5, Platelet Count 159, Mean Platelet Volume 11.2, Neutrophils (%) (Auto) 91, Lymphocytes (%) (Auto) 4, Monocytes (%) (Auto) 5, Eosinophils (%) (Auto) 0, Basophils (%) (Auto) 0, Neutrophils # (Auto) 15.5, Lymphocytes # (Auto) 0.6, Monocytes # (Auto) 0.9, Eosinophils # (Auto) 0.0, Basophils # (Auto) 0.1, Sodium Level 138, Potassium Level 4.3, Chloride Level 109, Carbon Dioxide Level 16, Anion Gap 13, Blood Urea Nitrogen 15, Creatinine 0.60, Estimat Glomerular Filtration Rate > 60, BUN/ Creatinine Ratio 25, Glucose Level 199, Calcium Level 8.7, Phosphorus Level 2.0 , Magnesium Level 1.8 12/05/18 03:28: Blood Gas Puncture Site RIGHT RADIAL, Blood Gas Patient Temperature 98.7, Arterial Blood pH 7.39, Arterial Blood Partial Pressure CO2 33, Arterial Blood Partial Pressure O2 64, Arterial Blood HCO3 19, Arterial Blood Total CO2 20.2, Arterial Blood Oxygen Saturation 93, Arterial Blood Base Excess -4.9, Eduard Test POSITIVE, Blood Gas Ventilator Setting YES, Blood Gas Inspired Oxygen 40% FIO2 12/05/18 05:10: B-Type Natriuretic Peptide 77.9 12/05/18 07:35: Blood Gas Puncture Site R RAD, Blood Gas Patient Temperature 97.3, Arterial Blood pH 7.43, Arterial Blood Partial Pressure CO2 38, Arterial Blood Partial Pressure O2 205, Arterial Blood HCO3 25, Arterial Blood Total CO2 26.4, Arterial Blood Oxygen Saturation 99, Arterial Blood Base Excess 1.3, Eduard Test NO, Blood Gas Ventilator Setting YES, Blood Gas Inspired Oxygen 100% 12/05/18 08:10: Glucometer 178 12/05/18 10:59: Glucometer 185 12/05/18 15:21: Glucometer 163 12/05/18 23:25: Glucometer 233 12/06/18 03:20: White Blood Count 24.5, Red Blood Count 4.21, Hemoglobin 11.8, Hematocrit 35, Mean Corpuscular Volume 83, Mean Corpuscular Hemoglobin 28, Mean Corpuscular Hemoglobin Concent 34, Red Cell Distribution Width 16.3, Platelet Count 210, Mean Platelet Volume 11.3, Neutrophils (%) (Auto) 90, Lymphocytes (%) (Auto) 5, Monocytes (%) (Auto) 5, Eosinophils (%) (Auto) 0, Basophils (%) (Auto) 0, Neutrophils # (Auto) 22.0, Lymphocytes # (Auto) 1.2, Monocytes # (Auto) 1.3, Eosinophils # (Auto) 0.0, Basophils # (Auto) 0.1, Neutrophils % (Manual) 83, Lymphocytes % (Manual) 6, Monocytes % (Manual) 7, Metamyelocytes % 1, Myelocytes % 3, Sodium Level 143, Potassium Level 3.2, Chloride Level 106, Carbon Dioxide Level 20, Anion Gap 17, Blood Urea Nitrogen 23, Creatinine 0.66, Estimat Glomerular Filtration Rate > 60, BUN/Creatinine Ratio 35, Glucose Level 214, Calcium Level 8.8, Phosphorus Level 1.8, Magnesium Level 2.1, Vancomycin Level Trough 3.3 12/06/18 03:45: Blood Gas Puncture Site RIGHT RADIAL, Blood Gas Patient Temperature 97.8, Arterial Blood pH 7.43, Arterial Blood Partial Pressure CO2 36, Arterial Blood Partial Pressure O2 97, Arterial Blood HCO3 24, Arterial Blood Total CO2 24.6, Arterial Blood Oxygen Saturation 98, Arterial Blood Base Excess -0.4, Eduard Test POSTIVIE, Blood Gas Ventilator Setting YES, Blood Gas Inspired Oxygen 40% VENT 12/06/18 08:32: Glucometer 196 12/06/18 12:39: Glucometer 107 12/06/18 14:05: B-Type Natriuretic Peptide 93.5 12/06/18 16:32: Glucometer 219 12/06/18 20:13: Glucometer 187 12/07/18 00:47: Glucometer 161 12/07/18 04:00: White Blood Count 26.7, Red Blood Count 4.48, Hemoglobin 12.5, Hematocrit 37, Mean Corpuscular Volume 83, Mean Corpuscular Hemoglobin 28, Mean Corpuscular Hemoglobin Concent 34, Red Cell Distribution Width 16.3, Platelet Count 178, Mean Platelet Volume 11.4, Neutrophils (%) (Auto) 94, Lymphocytes (%) (Auto) 2, Monocytes (%) (Auto) 3, Eosinophils (%) (Auto) 0, Basophils (%) (Auto) 1, Neutrophils # (Auto) 25.0, Lymphocytes # (Auto) 0.6, Monocytes # (Auto) 0.9, Eosinophils # (Auto) 0.0, Basophils # (Auto) 0.2, Sodium Level 141, Potassium Level 3.7, Chloride Level 107, Carbon Dioxide Level 23, Anion Gap 11, Blood Urea Nitrogen 21, Creatinine 0.54, Estimat Glomerular Filtration Rate > 60, BUN/ Creatinine Ratio 39, Glucose Level 172, Calcium Level 8.3, Phosphorus Level 2.3 , Magnesium Level 1.5 12/07/18 04:52: Blood Gas Puncture Site RIGHT RADIAL, Blood Gas Patient Temperature 97.9, Arterial Blood pH 7.50, Arterial Blood Partial Pressure CO2 34, Arterial Blood Partial Pressure O2 112, Arterial Blood HCO3 26, Arterial Blood Total CO2 27.2, Arterial Blood Oxygen Saturation 99, Arterial Blood Base Excess 2.9, Eduard Test POSITIVE, Blood Gas Ventilator Setting YES, Blood Gas Inspired Oxygen 60% 12/07/18 09:20: Glucometer 230 12/07/18 12:16: Glucometer 253 12/07/18 16:51: Glucometer 188 12/07/18 20:32: Glucometer 183 12/08/18 00:10: Glucometer 182 12/08/18 03:25: White Blood Count 23.5, Red Blood Count 4.20, Hemoglobin 11.8, Hematocrit 35, Mean Corpuscular Volume 84, Mean Corpuscular Hemoglobin 28, Mean Corpuscular Hemoglobin Concent 33, Red Cell Distribution Width 16.3, Platelet Count 184, Mean Platelet Volume 10.6, Neutrophils (%) (Auto) 94, Lymphocytes (%) (Auto) 3, Monocytes (%) (Auto) 4, Eosinophils (%) (Auto) 0, Basophils (%) (Auto) 0, Neutrophils # (Auto) 22.0, Lymphocytes # (Auto) 0.6, Monocytes # (Auto) 0.9, Eosinophils # (Auto) 0.0, Basophils # (Auto) 0.0, Sodium Level 139, Potassium Level 3.5, Chloride Level 104, Carbon Dioxide Level 25, Anion Gap 10, Blood Urea Nitrogen 21, Creatinine 0.55, Estimat Glomerular Filtration Rate > 60, BUN/ Creatinine Ratio 38, Glucose Level 198, Calcium Level 7.3, Phosphorus Level 2.3 , Magnesium Level 1.4 12/08/18 04:05: Blood Gas Puncture Site R RAD, Blood Gas Patient Temperature 98.3, Arterial Blood pH 7.53, Arterial Blood Partial Pressure CO2 35, Arterial Blood Partial Pressure O2 86, Arterial Blood HCO3 29, Arterial Blood Total CO2 30.2, Arterial Blood Oxygen Saturation 96, Arterial Blood Base Excess 6.0, Eduard Test YES-POS, Blood Gas Ventilator Setting YES, Blood Gas Inspired Oxygen 50% FI02 12/08/18 13:15: Blood Gas Puncture Site RT RAD, Blood Gas Patient Temperature 98.1, Arterial Blood pH 7.50, Arterial Blood Partial Pressure CO2 40, Arterial Blood Partial Pressure O2 75, Arterial Blood HCO3 31, Arterial Blood Total CO2 32.3, Arterial Blood Oxygen Saturation 94, Arterial Blood Base Excess 7.4, Eduard Test YES-POS, Blood Gas Ventilator Setting YES, Blood Gas Inspired Oxygen 30L, 60% fio2 12/08/18 13:30: Vancomycin Level Trough 10.0 12/09/18 00:39: Glucometer 334 12/09/18 03:35: White Blood Count 18.0, Red Blood Count 4.55, Hemoglobin 12.7, Hematocrit 38, Mean Corpuscular Volume 84, Mean Corpuscular Hemoglobin 28, Mean Corpuscular Hemoglobin Concent 33, Red Cell Distribution Width 15.8, Platelet Count 167, Mean Platelet Volume 10.9, Neutrophils (%) (Auto) 92, Lymphocytes (%) (Auto) 4, Monocytes (%) (Auto) 4, Eosinophils (%) (Auto) 0, Basophils (%) (Auto) 0, Neutrophils # (Auto) 16.6, Lymphocytes # (Auto) 0.7, Monocytes # (Auto) 0.7, Eosinophils # (Auto) 0.0, Basophils # (Auto) 0.0, Sodium Level 142, Potassium Level 3.7, Chloride Level 100, Carbon Dioxide Level 30, Anion Gap 12, Blood Urea Nitrogen 19, Creatinine 0.57, Estimat Glomerular Filtration Rate > 60, BUN/ Creatinine Ratio 33, Glucose Level 198, Calcium Level 7.7, Phosphorus Level 2.1 , Magnesium Level 1.5 12/09/18 11:35: Glucometer 116 12/09/18 13:25: Vancomycin Level Trough 13.9 12/09/18 18:05: Glucometer 193 12/09/18 23:44: Glucometer 158 12/10/18 02:55: White Blood Count 20.1, Red Blood Count 4.01, Hemoglobin 11.1, Hematocrit 34, Mean Corpuscular Volume 86, Mean Corpuscular Hemoglobin 28, Mean Corpuscular Hemoglobin Concent 32, Red Cell Distribution Width 15.8, Platelet Count 175, Mean Platelet Volume 11.0, Neutrophils (%) (Auto) 95, Lymphocytes (%) (Auto) 2, Monocytes (%) (Auto) 3, Eosinophils (%) (Auto) 0, Basophils (%) (Auto) 0, Neutrophils # (Auto) 19.1, Lymphocytes # (Auto) 0.4, Monocytes # (Auto) 0.6, Eosinophils # (Auto) 0.0, Basophils # (Auto) 0.0, Sodium Level 140, Potassium Level 3.5, Chloride Level 101, Carbon Dioxide Level 24, Anion Gap 15, Blood Urea Nitrogen 19, Creatinine 0.59, Estimat Glomerular Filtration Rate > 60, BUN/ Creatinine Ratio 32, Glucose Level 210, Calcium Level 7.2, Phosphorus Level 2.6 , Magnesium Level 1.4 Discharge Home Medications: Active Scripts Active Novolog (Insulin Aspart) 100 Unit/1 Ml Susp 0-9 Unit SC ACHS 30 Days SLIDING SCALE BLOOD GLUCOSE (MG/DL) INSULIN DOSE (UNITS) 60-180 0 181-200 0 201-250 3 251-300 5 301-350 7 351-400 9 > 400 CALL PHYSICIAN Reported Zoloft (Sertraline HCl) 50 Mg Tablet 100 Mg PO DAILY Oxycodone HCl 10 Mg Tablet 10 Mg PO Q8H PRN Lorazepam 2 Mg Tablet 2 Mg PO Q6H PRN Gabapentin 400 Mg Capsule 400 Mg PO HS [address] 12,000 Units Capsule (Lipase/Protease/Amylase) 1 Each Capsule.dr 2 Cap PO QID Mupirocin 22 Gm Oint...g. NS PRN PRN APPLY IN LEFT NOSTRIL NEEDED FOR L NARE Duloxetine HCl 60 Mg Capsule.dr 60 Mg PO HS Protonix (Pantoprazole Sodium) 40 Mg Tablet.dr 40 Mg PO DAILY Hydrocortisone Acetate 25 Mg Supp.rect 25 Mg RC Q12H PRN Gabapentin 300 Mg Capsule 300 Mg PO DAILY Instructions to patient/family Please see electronic discharge instructions given to patient. Clinical Quality Measures DVT/VTE Risk/Contraindication: Risk Factor Score Per Nursin RFS Level Per Nursing on Admit: 4+=Very High SKYLER PASCUAL DO Dec 16, 2018 07:55
== END 2018-12-14 14:40 | disposition expired | DRG 870 ==
LOC: EDUNIT# 17:16 → ER 17:17 → ICU 18:00 → 4TH 12-10 14:00
PROVIDERS: ADMIT Family Medicine; ATTEND Family Medicine
PROC: 5A1955Z Respiratory Ventilation, Greater than 96 Consecutive Hours (ICD-10-PCS; principal; 2018-12-01)
PROC: 0W9B3ZZ Drainage of Left Pleural Cavity, Percutaneous Approach (ICD-10-PCS; 2018-12-02)
PROC: 0B9G8ZX Drainage of Left Upper Lung Lobe, Via Natural or Artificial Opening Endoscopic, Diagnostic (ICD-10-PCS; 2018-12-04)
PROC: 0B9C8ZX Drainage of Right Upper Lung Lobe, Via Natural or Artificial Opening Endoscopic, Diagnostic (ICD-10-PCS; 2018-12-04)
PROC: 0BD88ZX Extraction of Left Upper Lobe Bronchus, Via Natural or Artificial Opening Endoscopic, Diagnostic (ICD-10-PCS; 2018-12-04)
PROC: 0BD38ZX Extraction of Right Main Bronchus, Via Natural or Artificial Opening Endoscopic, Diagnostic (ICD-10-PCS; 2018-12-04)
PROC: 0BD78ZX Extraction of Left Main Bronchus, Via Natural or Artificial Opening Endoscopic, Diagnostic (ICD-10-PCS; 2018-12-04)
DX: A41.89 Other specified sepsis (principal); R65.20 Severe sepsis without septic shock; J10.08 Influenza due to other identified influenza virus with other specified pneumonia; J15.211 Pneumonia due to Methicillin susceptible Staphylococcus aureus; B37.1 Pulmonary candidiasis; J15.8 Pneumonia due to other specified bacteria; J96.00 Acute respiratory failure, unspecified whether with hypoxia or hypercapnia; J93.9 Pneumothorax, unspecified; Z66 Do not resuscitate; Z51.5 Encounter for palliative care; J81.0 Acute pulmonary edema; J44.0 Chronic obstructive pulmonary disease with (acute) lower respiratory infection; E87.1 Hypo-osmolality and hyponatremia; K86.1 Other chronic pancreatitis; E86.0 Dehydration; J98.2 Interstitial emphysema; R45.1 Restlessness and agitation; E87.6 Hypokalemia; D64.9 Anemia, unspecified; N42.9 Disorder of prostate, unspecified; I10 Essential (primary) hypertension; E11.40 Type 2 diabetes mellitus with diabetic neuropathy, unspecified; K59.09 Other constipation; M19.91 Primary osteoarthritis, unspecified site; M54.9 Dorsalgia, unspecified; F41.9 Anxiety disorder, unspecified; Z87.19 Personal history of other diseases of the digestive system; Z79.4 Long term (current) use of insulin
CPT/HCPCS: 31500; 36415; 36569; 36600; 51702; 71045; 71250; 71260; 71275; 76937; 80048; 80053; 80202; 81000; 82805; 82962; 83605; 83690; 83735; 83880; 84100; 84478; 85007; 85025; 85027; 87015; 87040; 87070; 87077; 87081; 87101; 87106; 87116; 87186; 87205; 87206; 87804; 88112; 88305; 88312; 93306; 93970; 94003; 94640; 94799; 96365; 96375; 99291